=== PATIENT | male | born 1965 | race Caucasian/White ===

== ENCOUNTER 2016-06-02 08:18 | Inpatient (IN) | payer OTHER ==
[2016-06-02] MEDS ORDERED: NACL 0.9% 1000 ML 1,000 ML IV ONE ×2 (08:34→08:40)
[2016-06-02 09:08] LABS: INR 1.33 (0.87-1.13)
[2016-06-02 09:09] LABS: Partial Thromboplastin Time 32.2 Sec. (24.2-36.6)
[2016-06-02 09:14] LABS: Alanine Aminotransferase 17 units/L (7-56); Albumin 3.2 g/dL (3.9-5); Albumin/Globulin Ratio 0.9 %; Alkaline Phosphatase 72 units/L (35-129); Anion Gap 23 mmol/L; Bilirubin,Total 0.8 mg/dL (0.1-1.2); Blood Urea Nitrogen 16 mg/dL (9-20); Calcium 8.3 mg/dL (8.4-10.2); Carbon Dioxide 19 mmol/L (22-30); Chloride 97.1 mmol/L (98-107); Glucose 272 mg/dL (75-100); Hematocrit 16.6 % (35.5-45.6); Hemoglobin 5.1 gm/dl (11.8-15.2); Lipase 87 units/L (13-60); Mean Corpuscular Hemoglobin 24 pg (28-32); Mean Corpuscular Volume 78 fl (84-94); Potassium 4.1 mmol/L (3.6-5.0); Red Blood Count 2.13 M/mm3 (3.65-5.03); Sodium 135 mmol/L (137-145); Total Protein 6.9 g/dL (6.3-8.2)
[2016-06-02 09:15] LABS: Basophils % (Auto) 0.4 % (0.0-1.8); Mean Corpuscular HGB Conc 30 % (32-34); Mean Platelet Volume 7.9 fl (6-12); Platelet Count 214 K/mm3 (140-440); Red Cell Distribution Width 22.1 % (13.2-15.2)
[2016-06-02] MEDS ORDERED: NACL 0.9% 500 ML 500 ML IV ONE (10:31)
--- NOTE | 2016-06-02 10:43 | Admit Criteria Form ---
Admission Criteria Documentation: GASTROINTESTINAL BLEEDING, LOWER Clinical Indications for Admission to Inpatient Care ( Place 'X' for any and all applicable criteria): Admission is indicated for ANY ONE of the following(1)(2)(3)(4)(5): [X ]I. Active gross bleeding per rectum [X ]II. Inpatient admission required rather than observation care (Also use Gastrointestinal Bleeding, Lower: Observation Care as appropriate) because of ANY ONE of the following: [ ]a) Hemodynamic instability that is severe or persistent [X ]b) Anemia requiring inpatient admission as indicated by ALL of the following: [ X]1) Presence of significant clinical finding indicated by ANY ONE of the following: [ X]A. Tachycardia for age [ ]B. Orthostatic vital sign changes [ ]C. Cognitive impairment [ ]D. Heart failure [ ]E. Chest pain [ ]F. Exertional dyspnea [ ]G. Other findings suggesting inadequate perfusion (eg, peripheral or myocardial ischemia, end organ dysfunction) [ ]2) Initial (eg, emergency department, observation care) treatment with transfusion or volume replacement is judged inappropriate (due to severity of the finding) or has been ineffective [ ]c) Severe pain requiring acute inpatient management [ ]d) Absent bowel sounds with complete ileus [ ]e) Signs of intestinal obstruction or peritonitis [A] [ ]f) High-risk low platelet count [ ]g) Severe electrolyte abnormalities requiring inpatient care [ ]h) Acute renal failure [ ]i) High fever or infection requiring inpatient admission as indicated by ANY ONE of the following(8)(9): [ ]1) Appropriate outpatient or observation care antimicrobial treatment unavailable, not effective, or not feasible Documented bacteremia [ ]2) Documented bacteremia [ ]3) Temperature greater than 104.9 degrees F ( 40.5 degrees C) (oral) [ ]4) Temperature greater than 103.1 degrees F ( 39.5 degrees C) (oral) or less than 96.8 degrees F (36 degrees C) (rectal) that does not respond to all emergency treatment measures [ ]j) IV fluid to replace significant ongoing losses ( greater than 3 L/m2 per day) [ ]k) Immediate inpatient surgery needed [ ]l) Parenteral nutrition regimen that must be implemented on inpatient basis [ ]m) Other condition, treatment or monitoring requiring inpatient admission [ ]III. Unstable comorbid illness (renal, hepatic, pulmonary, hematologic, neurologic, or cardiac) [ ]IV. Failure to control bleeding after colonoscopy [ ]V. Coagulopathy [ ]. Suspected or known ischemic colitis(6) [ ]VII. Previous aortic graft placement or known aortic aneurysm Extended stay beyond goal length of stay may be needed for(3)(4)(28): [ ]a) Emergency surgery [ ]b) Coagulation abnormalities(26) [ ]c) Recurrent or persistent bleeding, continued vital sign instability(27)( 28) [ ]d) Active comorbidities (eg, renal insufficiency, heart failure, pre- existing liver disease) The original [facility] content created by [facility] has been revised. The portions of the content which have been revised are identified through the use of italic text or in bold, and [facility] has neither reviewed nor approved the modified material. All other unmodified content is copyright [employer] [employer] Please see references footnoted in the original [facility] edition 2016 Admission Criteria Met: Yes
--- NOTE | 2016-06-02 11:03 | Emergency Department Report ---
ED GI Bleed HPI - General Chief complaint: GI Bleed Stated complaint: RECTAL BLEEDING Time Seen by Provider: 06/02/16 08:36 Source: patient, EMS Mode of arrival: Stretcher Limitations: Language Barrier - History of Present Illness Initial comments: 51-year-old male presents to the emergency department complaining of rectal bleeding. Patient reports the onset of bleeding approximately 1 AM. He reports multiple episodes of bright red blood per rectum. Patient denies abdominal pain. There has been no nausea or vomiting. Patient was complaining of right hand pain at the site where EMS attempted IV placement. There are no other complaints. MD complaint: gross hematochezia -: Sudden, During the night Time: 01:00 Quality: painless Consistency: intermittent Improves with: none Worsens with: none Context: liver disease, alcohol abuse Associated Symptoms: denies other symptoms - Related Data Home Medications Medication Instructions Recorded Confirmed Last Taken No Known Home Medications [No 06/02/16 06/02/16 Unknown Reported Home Medications] Allergies Allergy/AdvReac Type Severity Reaction Status Date / Time No Known Allergies Allergy Verified 06/02/16 08:50 ED Review of Systems ROS: Stated complaint: RECTAL BLEEDING Other details as noted in HPI Comment: All other systems reviewed and negative Gastrointestinal: as per HPI, hematochezia ED Past Medical Hx - Past Medical History Previous Medical History?: Yes Hx Liver Disease: Yes Additional medical history: ETOH ABUSE,. ABD ULCERS - Surgical History Past Surgical History?: Yes Additional Surgical History: ABD SURGERIES AND ABD MESH AND POSS PLASTIC - Family History Family history: no significant - Social History Smoking Status: Never Smoker Substance Use Type: Alcohol, Prescribed - Medications Home Medications: Home Medications Medication Instructions Recorded Confirmed Last Taken Type No Known Home Medications [No 06/02/16 06/02/16 Unknown History Reported Home Medications] ED Physical Exam - General Limitations: Language Barrier General appearance: alert, in no apparent distress - Head Head exam: Present: atraumatic, normocephalic - Eye Eye exam: Present: normal appearance, PERRL, EOMI - ENT ENT exam: Present: normal exam, normal orophraynx, mucous membranes moist - Neck Neck exam: Present: normal inspection, full ROM. Absent: tenderness - Respiratory Respiratory exam: Present: normal lung sounds bilaterally. Absent: respiratory distress - Cardiovascular Cardiovascular Exam: Present: normal rhythm, tachycardia, normal heart sounds - GI/Abdominal GI/Abdominal exam: Present: soft, distended, normal bowel sounds. Absent: tenderness, guarding, rebound - Extremities Exam Extremities exam: Present: normal inspection, full ROM. Absent: tenderness - Back Exam Back exam: Present: normal inspection, full ROM. Absent: tenderness - Neurological Exam Neurological exam: Present: alert, oriented X3. Absent: motor sensory deficit - Skin Skin exam: Present: warm, dry, intact ED Course Vital Signs 06/02/16 06/02/16 06/02/16 08:21 08:30 08:41 Temperature 98.8 F Pulse Rate 115 H 109 H 110 H Respiratory 11 L 19 14 Rate Blood Pressure 119/73 118/74 118/74 O2 Sat by Pulse 94 100 100 Oximetry 06/02/16 06/02/16 06/02/16 08:51 09:00 09:11 Temperature Pulse Rate 103 H 110 H 121 H Respiratory 17 11 L 14 Rate Blood Pressure 123/67 119/62 119/62 O2 Sat by Pulse 99 99 99 Oximetry ED Medical Decision Making - Lab Data Result diagrams: 06/02/16 08:40 06/02/16 08:40 - EKG Data -: EKG Interpreted by Ms EKG shows normal: sinus rhythm, QRS complexes, ST-T waves Rate: tachycardia - EKG Data When compared to previous EKG there are: previous EKG unavailable Interpretation: other (sinus tachycardia, RBBB, left axis deviation) - Medical Decision Making Laboratory results reviewed and discussed with the patient. 4 units of packed red blood cells has been ordered. Dr. Rebollar GI has been consulted. Patient is to be admitted by the hospitalist. - Differential Diagnosis GI bleed, anemia, cirrhosis Critical care attestation.: If time is entered above; I have spent that time in minutes in the direct care of this critically ill patient, excluding procedure time. ED Disposition Clinical Impression: GI bleeding Qualifiers: GI bleed type/associated pathology: anorectal hemorrhage Qualified Code(s): K62.5 - Hemorrhage of anus and rectum Anemia Qualifiers: Anemia type: unspecified type Qualified Code(s): D64.9 - Anemia, unspecified Disposition: OP ADMITTED IP TO THIS HOSP Is pt being admited?: Yes Condition: Stable Referrals: PRIMARY CARE, [Primary Care Provider] - 3-5 Days Forms: Accompanied Note Time of Disposition: 11:06
[2016-06-02] MEDS ORDERED: DULCOLAX PR PRN (12:30)
[2016-06-02] MEDS ORDERED: D50W (25GM) IV PRN (12:30)
[2016-06-02] MEDS ORDERED: ZOFRAN IV PRN (12:30)
[2016-06-02] MEDS ORDERED: TYLENOL PO PRN (12:30)
--- NOTE | 2016-06-02 12:36 | History and Physical Report ---
History of Present Illness Date of admission: 06/02/16 11:09 Chief complaint: BRBPR History of present illness: 51m w Past medical history of liver cirrhosis who presents with bright red blood per rectum since 1 AM. He states that prior to this he was in his normal state of health, he denies any abdominal pain, denies any cramps, just notes that he has painless rectal bleeding. He's had a large amount of blood and clots in his stool, he's had multiple bowel movements after which she said her feeling weak prompting to come into the ER. He admits having a history of peptic ulcer disease, but has never had bleeding like this in the past. He also admits to his abdomen feeling hot and warm (he states that he had a paracentesis 2 years ago. Past History Past Medical History: other (liver cirrhosis) Past Surgical History: Other (multiple abdominal surgeries due to trauma, including gastrectomy and temporary colostomy) Social history: alcohol abuse (in the past) Family history: no significant family history Medications and Allergies Allergies Allergy/AdvReac Type Severity Reaction Status Date / Time No Known Allergies Allergy Verified 06/02/16 08:50 Home Medications Medication Instructions Recorded Confirmed Last Taken Type No Known Home Medications [No 06/02/16 06/02/16 Unknown History Reported Home Medications] Active Meds: Active Medications Acetaminophen (Tylenol) 650 mg PO Q4H PRN PRN Reason: Pain MILD(1-3)/Fever >100.5/PINA Bisacodyl (Dulcolax) 10 mg VT QDAY PRN PRN Reason: Constipation unrelieved by MOM Dextrose (D50w (25gm)) 50 ml IV PRN PRN PRN Reason: Hypoglycemia Sodium Chloride (Nacl 0.9% 1000 Ml) 1,000 mls @ 100 mls/hr IV DIRECT MACARIO Insulin Aspart (Novolog) 0 units SUB-Q Q6HR MACARIO PRN Reason: Protocol Magnesium Hydroxide (Milk Of Magnesia) 30 ml PO Q4H PRN PRN Reason: Constipation Ondansetron HCl (Zofran) 4 mg IV Q8H PRN PRN Reason: N/V unrelieved by Reglan Review of Systems All systems: negative Constitutional: weakness, malaise Exam - Constitutional Vitals: Temp Pulse Resp BP Pulse Ox 98.3 F 117 H 18 113/68 100 06/02/16 12:05 06/02/16 12:05 06/02/16 12:05 06/02/16 12:05 06/02/16 12:05 General appearance: Present: no acute distress, well-nourished - EENT Eyes: Present: PERRL ENT: hearing intact, clear oral mucosa - Neck Neck: Present: supple, normal ROM - Respiratory Respiratory effort: normal Respiratory: bilateral: CTA - Cardiovascular Heart Sounds: Present: S1 & S2. Absent: rub, click - Extremities Extremities: pulses symmetrical, No edema Peripheral Pulses: within normal limits - Abdominal General gastrointestinal: Present: soft, non-tender, distended (with shifting dullness), normal bowel sounds, other (warm to touch) Male genitourinary: Present: normal - Integumentary Integumentary: Present: clear, warm, dry - Musculoskeletal Musculoskeletal: gait normal, strength equal bilaterally - Psychiatric Psychiatric: appropriate mood/affect, intact judgment & insight - Neurologic Neurologic: CNII-XII intact, moves all extremities Results - Labs CBC & Chem 7: 06/02/16 08:40 06/02/16 08:40 Labs: Laboratory Last Values WBC 7.0 K/mm3 (4.5-11.0) 06/02/16 08:40 RBC 2.13 M/mm3 (3.65-5.03) L 06/02/16 08:40 Hgb 5.1 gm/dl (11.8-15.2) L* 06/02/16 08:40 Hct 16.6 % (35.5-45.6) L* 06/02/16 08:40 MCV 78 fl (84-94) L 06/02/16 08:40 MCH 24 pg (28-32) L 06/02/16 08:40 MCHC 30 % (32-34) L 06/02/16 08:40 RDW 22.1 % (13.2-15.2) H 06/02/16 08:40 Plt Count 214 K/mm3 (140-440) 06/02/16 08:40 Lymph % (Auto) 4.8 % (13.4-35.0) L 06/02/16 08:40 [place] % (Auto) 8.3 % (0.0-7.3) H 06/02/16 08:40 Eos % (Auto) 0.0 % (0.0-4.3) 06/02/16 08:40 Baso % (Auto) 0.4 % (0.0-1.8) 06/02/16 08:40 Lymph # 0.3 K/mm3 (1.2-5.4) L 06/02/16 08:40 [place] # 0.6 K/mm3 (0.0-0.8) 06/02/16 08:40 Eos # 0.0 K/mm3 (0.0-0.4) 06/02/16 08:40 Baso # 0.0 K/mm3 (0.0-0.1) 06/02/16 08:40 Seg Neutrophils % 86.1 % (40.0-70.0) H 06/02/16 08:40 Seg Neutrophils # 6.0 K/mm3 (1.8-7.7) 06/02/16 08:40 PT 16.4 Sec. (12.2-14.9) H 06/02/16 08:40 INR 1.33 (0.87-1.13) H 06/02/16 08:40 APTT 32.2 Sec. (24.2-36.6) 06/02/16 08:40 Sodium 135 mmol/L (137-145) L 06/02/16 08:40 Potassium 4.1 mmol/L (3.6-5.0) 06/02/16 08:40 Chloride 97.1 mmol/L (98-107) L 06/02/16 08:40 Carbon Dioxide 19 mmol/L (22-30) L 06/02/16 08:40 Anion Gap 23 mmol/L 06/02/16 08:40 BUN 16 mg/dL (9-20) 06/02/16 08:40 Creatinine 0.8 mg/dL (0.8-1.5) 06/02/16 08:40 Estimated GFR > 60 ml/min 06/02/16 08:40 BUN/Creatinine Ratio 20.00 % 06/02/16 08:40 Glucose 272 mg/dL (75-100) H 06/02/16 08:40 Calcium 8.3 mg/dL (8.4-10.2) L 06/02/16 08:40 Total Bilirubin 0.8 mg/dL (0.1-1.2) 06/02/16 08:40 AST 28 units/L (5-40) 06/02/16 08:40 ALT 17 units/L (7-56) 06/02/16 08:40 Alkaline Phosphatase 72 units/L (35-129) 06/02/16 08:40 Total Protein 6.9 g/dL (6.3-8.2) 06/02/16 08:40 Albumin 3.2 g/dL (3.9-5) L 06/02/16 08:40 Albumin/Globulin Ratio 0.9 % 06/02/16 08:40 Lipase 87 units/L (13-60) H 06/02/16 08:40 Blood Type O POSITIVE 06/02/16 08:40 Antibody Screen Negative 06/02/16 08:40 Crossmatch See Detail 06/02/16 08:40 Assessment and Plan Assessment and plan: 51-year-old man with a past medical history of alcohol leg liver cirrhosis who presented 1 day of bright red blood per rectum, admitted for GI bleed and acute blood loss anemia 1. Acute blood loss anemia 4 units of packed red blood cells been ordered, follow-up post transfusion hemoglobin 2. Lower GI bleed Given the presentation and the painless nature of it, suspicious for diverticular bleeding. GI has been consulted for possible colonoscopy 3. Hyperglycemia Patient does not report a history of diabetes, will obtain hemoglobin A1c, treat with sliding scale insulin at low dose 4. DVT prophylaxis Given acute bleeding, we'll treat him with SCDs 5. SBP? Obtain paracenteis and send off fluid for analysis -start empiric cefotaxime Plan of care discussed with patient/family: Yes
--- NOTE | 2016-06-02 13:04 | Gastroenterology Consultation ---
History of Present Illness - Reason for Consult Consult date: 06/02/16 GI bleeding Requesting physician: JENNIFER MILLS - History of Present Illness The patient is a 51-year-old male for whom consultation has been requested for gastrointestinal bleeding. Patient reports having a bleeding event in January of the past year for which he underwent upper endoscopy and colonoscopy by his description. He reports having an ulcer. The patient felt that his workup was here although there are no records available at this institution to document this. He reports being on medication for a while and was back to baseline until approximately 1 AM when he began passing large amounts of blood and clots. Recent felt very weak and came to the emergency room for evaluation. Hemoglobin is 5.1 and an MCV was 78. He denies any abdominal pain except for mild cramping in the lower abdomen. His past medical history was notable for abdominal trauma in 2013 for which he underwent multiple surgeries. He describes having a partial gastrectomy at that time and had a temporary colostomy for 2 years. He states he had a" plastic stomach". Patient does not smoke cigarettes and denies any significant alcohol ingestion now or in the past. Denies any history of cirrhosis of the liver. He notes a family history colon cancer, his mother. Past History Past Medical History: other (Struve peptic ulcer disease and bleeding in January 2016) Past Surgical History: Other (multiple abdominal surgeries related to a fall. History of partial gastrectomy by description and a temporary colostomy.) Social history: denies: smoking, alcohol abuse Family history: no significant family history Medications and Allergies Allergies Allergy/AdvReac Type Severity Reaction Status Date / Time No Known Allergies Allergy Verified 06/02/16 08:50 Home Medications Medication Instructions Recorded Confirmed Last Taken Type No Known Home Medications [No 06/02/16 06/02/16 Unknown History Reported Home Medications] Active Meds: Active Medications Acetaminophen (Tylenol) 650 mg PO Q4H PRN PRN Reason: Pain MILD(1-3)/Fever >100.5/PINA Bisacodyl (Dulcolax) 10 mg LA QDAY PRN PRN Reason: Constipation unrelieved by MOM Dextrose (D50w (25gm)) 50 ml IV PRN PRN PRN Reason: Hypoglycemia Sodium Chloride (Nacl 0.9% 1000 Ml) 1,000 mls @ 100 mls/hr IV DIRECT MACARIO Insulin Aspart (Novolog) 0 units SUB-Q Q6HR MACARIO PRN Reason: Protocol Magnesium Hydroxide (Milk Of Magnesia) 30 ml PO Q4H PRN PRN Reason: Constipation Ondansetron HCl (Zofran) 4 mg IV Q8H PRN PRN Reason: N/V unrelieved by Reglan Review of Systems - Review of Systems Constitutional: weight loss, weight gain, fatigue, weakness, no fever, no chills Eyes: change in vision Ears, Nose, Throat: no decreased hearing, no difficulty swallowing Breasts: deferred Cardiovascular: no chest pain, no shortness of breath Respiratory: no cough, no shortness of breath, no wheezing Gastrointestinal: hematochezia, no abdominal pain, no nausea, no vomiting, no diarrhea, no constipation, no melena Rectal: pain Male Genitourinary: deferred Musculoskeletal: gait dysfunction, joint pain, muscle pain, muscle weakness Integumentary: rash, pruritis, jaundice Neurological: head injury, paralysis, weakness, parasthesias, memory loss Psychiatric: no anxiety, no memory loss, no change in sleep habits Endocrine: no cold intolerance Hematologic/Lymphatic: no easy bruising, no easy bleeding Allergic/Immunologic: no wheezing, no angioedema Exam - Constitutional Vital Signs: Temp Pulse Resp BP Pulse Ox 98.5 F 109 H 20 99/35 98 06/02/16 12:30 06/02/16 12:30 06/02/16 12:38 06/02/16 12:30 06/02/16 12:38 General appearance: no acute distress, well-nourished - EENT Eyes: PERRL ENT: hearing intact, clear oral mucosa, dentition normal - Neck Neck: supple, normal ROM, no masses or JVD - Respiratory Respiratory effort: normal Respiratory: bilateral: CTA - Breasts Breasts: deferred - Cardiovascular Rhythm: regular Heart Sounds: Present: S1 & S2. Absent: gallop, rub Extremities: pulses intact, No edema, normal color, Full ROM - Gastrointestinal General gastrointestinal: Present: soft, non-tender, non-distended, normal bowel sounds, other (obese pendulous abdomen. Long midline scar. 5 centimeter ventral hernia. Mid abdominal with a healing surface-prior colostomy). Absent : hepatomegaly, splenomegaly, mass Rectal Exam: deferred - Genitourinary Male Genitourinary: deferred - Integumentary Integumentary: Present: clear, warm, dry - Musculoskeletal Musculoskeletal: normal - Neurologic Neurological: alert and oriented x3, strength equal bilaterally - Psychiatric Psychiatric: appropriate mood/affect, intact judgment & insight, memory intact - Labs CBC & Chem 7: 06/02/16 08:40 06/02/16 08:40 Assessment and Plan - Patient Problems (1) History of bleeding ulcers Current Visit: Yes Status: Acute (2) Acute blood loss anemia Current Visit: Yes Status: Acute (3) Anemia Current Visit: Yes Status: Acute Qualifiers: Anemia type: unspecified type Iron deficiency anemia type: I Vitamin B12 deficiency anemia type: V Folate deficiency anemia type: F Bone marrow failure anemia type: B Hemolytic anemia type: H Other causes of anemia: O Qualified Code(s): D64.9 - Anemia, unspecified (4) GI bleeding Current Visit: Yes Status: Acute Qualifiers: GI bleed type/associated pathology: anorectal hemorrhage Gastritis type: G Qualified Code(s): K62.5 - Hemorrhage of anus and rectum Plan to address problem: Acute GI blood loss likely on top of chronic GI blood loss in light of the low MCV. Rule out marginal ulcer, rule out diverticular disease, varices. Will need upper and lower endoscopy once transfused and further stabilized. Plan colon preparation tonight.
[2016-06-02] MEDS: PROTONIX IV SCH ×2 (15:20→22:11)
[2016-06-02] MEDS: ROCEPHIN/NS 1 GM/50 ML 1 GM/50 ML BAG IV SCH (17:57)
[2016-06-02] MEDS ORDERED: NACL 0.9% IV SCH (18:00)
[2016-06-02] MEDS ORDERED: CLAFORAN IV SCH (18:00)
[2016-06-02] MEDS: NOVOLOG SUB-Q SCH (18:26)
[2016-06-02] MEDS: GOLYTELY PO SCH ×2 (18:27→23:09)
[2016-06-02] MEDS: NACL 0.9% 1000 ML 1,000 ML IV SCH (20:34)
[2016-06-02 21:58] LABS: Hematocrit 22.8 % (35.5-45.6); Hemoglobin 7.4 gm/dl (11.8-15.2)
[2016-06-03] MEDS: NOVOLOG SUB-Q SCH ×4 (02:28→17:47)
[2016-06-03 06:42] LABS: Basophils % (Auto) 0.6 % (0.0-1.8); Eosinophils % (Auto) 2.4 % (0.0-4.3); Hemoglobin 6.1 gm/dl (11.8-15.2); Mean Corpuscular HGB Conc 33 % (32-34); Mean Corpuscular Hemoglobin 26 pg (28-32); Mean Corpuscular Volume 80 fl (84-94); Platelet Count 170 K/mm3 (140-440); Red Cell Distribution Width 18.3 % (13.2-15.2); White Blood Count 6.5 K/mm3 (4.5-11.0)
[2016-06-03 07:11] LABS: Hematocrit 18.4 % (35.5-45.6)
[2016-06-03] MEDS: PROTONIX IV SCH ×2 (09:02→22:17)
[2016-06-03] MEDS: NACL 0.9% 1000 ML 1,000 ML IV SCH (09:03)
[2016-06-03] MEDS ORDERED: NACL 0.9% 500 ML 500 ML IV ONE (09:45)
[2016-06-03] MEDS ORDERED: DIPRIVAN 10 MG/ML IV ONE ×4 (10:32→11:36)
--- NOTE | 2016-06-03 10:58 | Anesthesia Day of Surgery ---
Anesthesia Day of Surgery - Day of Surgery Patient Examined: Yes Patient H&P Reviewed: Yes Patient is NPO: Yes
--- NOTE | 2016-06-03 10:58 | Anesthesia Consultation ---
Anesthesia Consult and Med Hx Date of service: 06/03/16 - Airway Anesthetic Teeth Evaluation: Poor ROM Head & Neck: Inadequate Mental/Hyoid Distance: Inadequate Mallampati Class: Class III Intubation Access Assessment: Possibly Difficult - Pulmonary Exam CTA: Yes - Cardiac Exam Cardiac Exam: RRR - Pre-Operative Health Status ASA Pre-Surgery Classification: ASA3 Proposed Anesthetic Plan: MAC - Pulmonary Hx Asthma: No COPD: No Hx Pneumonia: No - Cardiovascular System Hx Hypertension: Yes - Central Nervous System Hx Back Pain: Yes (lumbar from prior accident) - Gastrointestinal Hx Ulcer: Yes Hx Gastroesophageal Reflux Disease: Yes - Endocrine Hx End Stage Renal Disease: No Hx Liver Disease: Yes Hx Insulin Dependent Diabetes: Yes (recent diagnosis) - Hematic Hx Anemia: Yes Hx Sickle Cell Disease: No - Other Systems Hx Alcohol Use: Yes (1-2 beers/week) Hx Substance Use: No Hx Cancer: No Hx Obesity: Yes
[2016-06-03] MEDS ORDERED: XYLOCAINE MPF 2% ONE (10:59)
[2016-06-03] MEDS ORDERED: NEO SYNEPHRINE ONE (10:59)
[2016-06-03] MEDS ORDERED: NACL 0.9% 1000 ML ONE (10:59)
[2016-06-03] MEDS ORDERED: NACL 0.9% 1000 ML 1,000 ML IV SCH (11:00)
[2016-06-03] MEDS ORDERED: WATER FOR IRRIG STERILE IR ONE (11:54)
--- NOTE | 2016-06-03 11:54 | Post Operative Note ---
Date of procedure: 06/03/16 Pre-op diagnosis: GI bleed Post-op diagnosis: other Findings: EGD: mild esophagitis, otherwise unremarkable. no blood or source of bleeding seen. Colonoscopy: fresh and old appearing blood throughout the colon, with blood seen in the terminal ileum. Surgical sutures seen in colon but non-bleeding without obvious bleeding stigmata. Mild diverticulosis. Patient with obscure overt GI bleeding. No obvious source seen during egd/ colonoscopy. Blood seen in terminal ileum. There were a few tics and old suture sites in the colon, but otherwise no obvious source of bleeding identified. -Transfuse 2 units, and monitor H/H -transfer to MICU -will discuss with IR Procedure: colonoscopy + EGD Anesthesia: MAC Surgeon: SANTIAGO LUNA Estimated blood loss: minimal Pathology: none Condition: stable
--- NOTE | 2016-06-03 13:05 | Operative Report ---
PROCEDURE: EGD. PREOPERATIVE DIAGNOSIS: Gastrointestinal bleed. POSTOPERATIVE DIAGNOSES: Mild esophagitis, otherwise unremarkable EGD, no source of bleeding identified. ANESTHESIA: Monitored anesthesia care. ESTIMATED BLOOD LOSS: None. COMPLICATIONS: No immediate complications. DESCRIPTION OF PROCEDURE: After consent was obtained, the patient was placed in left lateral decubitus position. The standard upper Fujinon scope was advanced with direct vision through the mouth and into the duodenum without difficulty. The views of mucosa were good. The patient tolerated the procedure well. FINDINGS: There was mild esophagitis, otherwise unremarkable EGD. No source of bleeding identified during the procedure. RECOMMENDATIONS: Proceed with colonoscopy. JOB# [id number] HONORIO/NTS
--- NOTE | 2016-06-03 13:09 | Operative Report ---
PROCEDURE: Colonoscopy. PREOPERATIVE DIAGNOSIS: Gastrointestinal bleed. POSTOPERATIVE DIAGNOSES: Fresh appearing blood with multiple clots seen throughout the colon including fresh appearing blood in terminal ileum. There were old suture site in the colon, but they were not actively bleeding and did not show any obvious high risk bleeding stigmata. There were few small , but otherwise no clear source of bleeding identified during the procedure. IMPRESSION: Blood throughout the colon into the terminal ileum. There were old sutures sites and some mild but I cannot confidently say that is source of bleeding. RECOMMENDATIONS: 1. We will discuss with Interventional Radiology for possible angiography and embolization. 2. Continue transfuse blood as needed to keep hematocrit above 21. 3. Transferred to the ICU for closer monitoring. JOB# [id number] HONORIO/NTS
--- NOTE | 2016-06-03 13:50 | Post Anesthesia Evaluation ---
- Post Anesthesia Evaluation Patient Participated: Yes Airway Patent: Yes Stable Respiratory Function: Yes Nausea/Vomiting: No Temp > 96.8F: Yes Pain Manageable: Yes Adequeate Hydration: Yes Anesthesia Complications: No Block Receding Appropriately: Not Applicable Patient on Ventilator: No Other Comments: plan to tranfuse more blood.
[2016-06-03] MEDS ORDERED: HEPARIN/NS 5000 UNIT/500ML(CATH LAB) 500 ML IR ONE ×2 (14:00→14:06)
[2016-06-03] MEDS ORDERED: XYLOCAINE 2% INFILTRATI ONE (14:00)
[2016-06-03] MEDS: VERSED ONE ×2 (14:20→15:20)
[2016-06-03] MEDS: SUBLIMAZE ONE ×2 (14:20→15:20)
--- NOTE | 2016-06-03 14:54 | Progress Note ---
Hospitalist Physical - Constitutional Vitals: Temp Pulse Resp BP Pulse Ox 98.1 F 96 H 18 152/94 98 06/03/16 12:48 06/03/16 13:09 06/03/16 13:09 06/03/16 13:09 06/03/16 13:09 General appearance: Present: no acute distress, well-nourished Results - Labs CBC & Chem 7: 06/03/16 05:35 06/02/16 08:40 Labs: Laboratory Last Values WBC 6.5 K/mm3 (4.5-11.0) 06/03/16 05:35 RBC 2.30 M/mm3 (3.65-5.03) L 06/03/16 05:35 Hgb 6.1 gm/dl (11.8-15.2) L 06/03/16 05:35 Hct 18.4 % (35.5-45.6) L* 06/03/16 05:35 MCV 80 fl (84-94) L 06/03/16 05:35 MCH 26 pg (28-32) L 06/03/16 05:35 MCHC 33 % (32-34) 06/03/16 05:35 RDW 18.3 % (13.2-15.2) H 06/03/16 05:35 Plt Count 170 K/mm3 (140-440) 06/03/16 05:35 Lymph % (Auto) 23.9 % (13.4-35.0) 06/03/16 05:35 [place] % (Auto) 11.4 % (0.0-7.3) H 06/03/16 05:35 Eos % (Auto) 2.4 % (0.0-4.3) 06/03/16 05:35 Baso % (Auto) 0.6 % (0.0-1.8) 06/03/16 05:35 Lymph # 1.6 K/mm3 (1.2-5.4) 06/03/16 05:35 [place] # 0.7 K/mm3 (0.0-0.8) 06/03/16 05:35 Eos # 0.2 K/mm3 (0.0-0.4) 06/03/16 05:35 Baso # 0.0 K/mm3 (0.0-0.1) 06/03/16 05:35 Seg Neutrophils % 61.7 % (40.0-70.0) 06/03/16 05:35 Seg Neutrophils # 4.0 K/mm3 (1.8-7.7) 06/03/16 05:35 PT 16.4 Sec. (12.2-14.9) H 06/02/16 08:40 INR 1.33 (0.87-1.13) H 06/02/16 08:40 APTT 32.2 Sec. (24.2-36.6) 06/02/16 08:40 Sodium 135 mmol/L (137-145) L 06/02/16 08:40 Potassium 4.1 mmol/L (3.6-5.0) 06/02/16 08:40 Chloride 97.1 mmol/L (98-107) L 06/02/16 08:40 Carbon Dioxide 19 mmol/L (22-30) L 06/02/16 08:40 Anion Gap 23 mmol/L 06/02/16 08:40 BUN 16 mg/dL (9-20) 06/02/16 08:40 Creatinine 0.8 mg/dL (0.8-1.5) 06/02/16 08:40 Estimated GFR > 60 ml/min 06/02/16 08:40 BUN/Creatinine Ratio 20.00 % 06/02/16 08:40 Glucose 272 mg/dL (75-100) H 06/02/16 08:40 POC Glucose 149 (70-105) H 06/03/16 10:43 Calcium 8.3 mg/dL (8.4-10.2) L 06/02/16 08:40 Total Bilirubin 0.8 mg/dL (0.1-1.2) 06/02/16 08:40 AST 28 units/L (5-40) 06/02/16 08:40 ALT 17 units/L (7-56) 06/02/16 08:40 Alkaline Phosphatase 72 units/L (35-129) 06/02/16 08:40 Total Protein 6.9 g/dL (6.3-8.2) 06/02/16 08:40 Albumin 3.2 g/dL (3.9-5) L 06/02/16 08:40 Albumin/Globulin Ratio 0.9 % 06/02/16 08:40 Lipase 87 units/L (13-60) H 06/02/16 08:40 Blood Type O POSITIVE 06/02/16 08:40 Antibody Screen Negative 06/02/16 08:40 Crossmatch See Detail 06/02/16 08:40
[2016-06-03] MEDS ORDERED: NACL 0.9% 500 ML 500 ML ONE (15:34)
[2016-06-03] MEDS ORDERED: SUBLIMAZE ONE (16:02)
--- NOTE | 2016-06-03 16:30 | Consultation ---
History of Present Illness - Reason for Consult Consult date: 06/03/16 [facility] Requesting physician: RAUDEL LUNA - History of Present Illness This is a 51 year old male presenting with lower GI bleeding. He had approximately 2 days of melena before presenting to the hospital. In upper and lower endoscopy was performed. The upper endoscopy was negative. The lower endoscopy revealed fresh and old blood throughout the large bowel, including trace fresh blood in the distal ileum. There were scattered diverticula. There were also postsurgical changes, related to left colonic surgery. However , the patient could not further elaborate on the details of the surgery. Past History Past Medical History: other (liver cirrhosis) Past Surgical History: Other (multiple abdominal surgeries due to trauma, including gastrectomy and temporary colostomy) Social history: alcohol abuse (in the past) Family history: no significant family history Medications and Allergies Allergies Allergy/AdvReac Type Severity Reaction Status Date / Time No Known Allergies Allergy Verified 06/02/16 08:50 Home Medications Medication Instructions Recorded Confirmed Last Taken Type No Known Home Medications [No 06/02/16 06/02/16 Unknown History Reported Home Medications] Active Meds: Active Medications Acetaminophen (Tylenol) 650 mg PO Q4H PRN PRN Reason: Pain MILD(1-3)/Fever >100.5/PINA Bisacodyl (Dulcolax) 10 mg [place] QDAY PRN PRN Reason: Constipation unrelieved by MOM Dextrose (D50w (25gm)) 50 ml IV PRN PRN PRN Reason: Hypoglycemia Sodium Chloride (Nacl 0.9% 1000 Ml) 1,000 mls @ 100 mls/hr IV DIRECT [facility] Last Admin: 06/03/16 09:03 Dose: 100 mls/hr Ceftriaxone Sodium (Rocephin/Ns 1 Gm/50 Ml) 1 gm in 50 mls @ 100 mls/hr IV Q24H [facility] Last Admin: 06/02/16 17:57 Dose: 100 mls/hr Insulin Aspart (Novolog) 0 units SUB-Q Q6HR [facility] PRN Reason: Protocol Last Admin: 06/03/16 06:35 Dose: Not Given Magnesium Hydroxide (Milk Of Magnesia) 30 ml PO Q4H PRN PRN Reason: Constipation Ondansetron HCl (Zofran) 4 mg IV Q8H PRN PRN Reason: N/V unrelieved by Reglan Pantoprazole Sodium (Protonix) 40 mg IV BID [facility] Last Admin: 06/03/16 09:02 Dose: 40 mg Exam - Constitutional Vitals: Temp Pulse Resp BP Pulse Ox 98.1 F 96 H 18 152/94 98 06/03/16 12:48 06/03/16 13:09 06/03/16 13:09 06/03/16 13:09 06/03/16 13:09 Results - Labs CBC & Chem 7: 06/03/16 05:35 06/02/16 08:40 Labs: Abnormal lab results 06/02/16 06/03/16 06/03/16 Range/Units 21:36 00:07 05:35 RBC 2.30 L (3.65-5.03) M/mm3 Hgb 7.4 L 6.1 L (11.8-15.2) gm/dl Hct 22.8 L D 18.4 L* (35.5-45.6) % MCV 80 L (84-94) fl MCH 26 L (28-32) pg RDW 18.3 H (13.2-15.2) % [place] % (Auto) 11.4 H (0.0-7.3) % POC Glucose 158 H (70-105) 06/03/16 Range/Units 10:43 RBC (3.65-5.03) M/mm3 Hgb (11.8-15.2) gm/dl Hct (35.5-45.6) % MCV (84-94) fl MCH (28-32) pg RDW (13.2-15.2) % [place] % (Auto) (0.0-7.3) % POC Glucose 149 H (70-105) Assessment and Plan Mr. Lofton presents with a lower GI bleed and a lower endoscopy demonstrating clot and fresh blood throughout the large bowel. At this time he is tachycardic to 101 and somewhat hypotensive at 97/60. His last hemoglobin was 6.1, and he is currently getting 2 units of packed red blood cells. In light of his positive endoscopy and some what abnormal hemodynamics, I will bring him to the [facility] for mesenteric angiography with possible embolization.
--- NOTE | 2016-06-03 16:45 | Operative Report ---
Operative Report Operative Report: Procedure: 1. Superior mesenteric select and sub selective angiography. 2. Inferior mesenteric angiography. History/Indication: 51-year-old male with lower GI bleeding and lower endoscopy positive for fresh blood and clot throughout the large bowel. Impression: No evidence of active gastrointestinal bleeding. Physician: Belen Hernandez MD Technique/Procedural Details: Informed consent was obtained via a japanese interpreter. The patient was placed in the supine position on the procedure table. He was prepped and draped in the usual sterile fashion. A timeout was performed. After administration of local anesthetic, the right common femoral artery was accessed with a 21-gauge needle using a micropuncture technique under direct ultrasound guidance. A 5 Tamazight vascular sheath was placed, and a motify Omni catheter was advanced into the aorta and used to select the superior mesenteric artery. Superior mesenteric arteriography was performed. Subsequently, branches of the superior mesenteric artery were selectively interrogated, including the right colic artery and ileocolic arteries. A [place] SIM 1 was then used to select the inferior mesenteric artery and other branches, and arteriography was performed. Subsequently, all catheters and wires were removed. Hemostasis was achieved with manual compression. Sterile dressings were applied. The patient was transferred off the table in stable condition without immediate complication. Discussion: The superior mesenteric artery is grossly normal in appearance. The right colic and ileocolic branches are also normal in appearance. Selective angiography demonstrates no active contrast extravasation to indicate the presence of bleeding. There is variant anatomy of the inferior mesenteric artery, which may be due to an unspecified left colonic surgery. The LEA appears to originate just above the aortic bifurcation. Additionally, the superior rectal artery has a separate ostium directly from the aorta, although this may have been due to the catheter being occlusive at the origin of the vessel. In no interrogated branches was contrast extravasation seen to indicate active bleeding. Specimen: none EBL: 5 cc
--- NOTE | 2016-06-03 17:38 | Vascular Lab Report ---
MISCELLANEOUS VESSEL IDENTIFICATION: COMMENTS ON THE SCAN: The right common femoral artery was identified and under real-time ultrasound guidance was cannulated. IMPRESSION: Successful ultrasound guided arterial cannulation.
[2016-06-03] MEDS: ROCEPHIN/NS 1 GM/50 ML 1 GM/50 ML BAG IV SCH (17:48)
[2016-06-04] MEDS: NOVOLOG SUB-Q SCH ×3 (06:22→12:12)
[2016-06-04] MEDS: NACL 0.9% 1000 ML 1,000 ML IV SCH (07:52)
[2016-06-04 08:27] LABS: Hemoglobin 6.2 gm/dl (11.8-15.2); Mean Corpuscular HGB Conc 33 % (32-34); Mean Corpuscular Hemoglobin 29 pg (28-32); Mean Corpuscular Volume 86 fl (84-94); Platelet Count 157 K/mm3 (140-440); Red Blood Count 2.16 M/mm3 (3.65-5.03); Red Cell Distribution Width 17.4 % (13.2-15.2); White Blood Count 7.9 K/mm3 (4.5-11.0)
[2016-06-04 08:29] LABS: Hematocrit 18.5 % (35.5-45.6)
[2016-06-04] MEDS ORDERED: NACL 0.9% 500 ML 500 ML IV SCH (09:00)
[2016-06-04] MEDS: PROTONIX IV SCH ×2 (09:35→21:35)
[2016-06-04] MEDS ORDERED: NACL 0.9% 500 ML 500 ML IV ONE ×2 (10:06→13:12)
--- NOTE | 2016-06-04 10:10 | Gastroenterology Progress Note ---
Assessment and Plan GI bleed/hematochezia - s/p EGD/colonoscopy yesterday. EGD unremarkable. Blood throughout the colon and in TI. Only explanation seen during colonoscopy would be tics (although small and appeared more left sided, and possible suture site from prior surgeries (however did not see high risk bleeding stigmata, but there was mild inflammation). IR/angiography was negative for active bleed. No signs of further bleeding overnight. -start clear liquid diet -transfuse 2 units, and monitor H/H for appropriate response -if pt were to rebleed, options would be repeating colonoscopy vs bleeding scan/ IR study -consider UGI with SBFT to r/o any significant small bowel lesions Subjective Date of service: 06/04/16 Principal diagnosis: GI bleed Interval history: pt without further bleeding episodes overnight or this morning. IR study w/o signs of active bleeding. he denies abd pain. Objective - Exam Narrative Exam: Gen: NAD, obese male CV: tachycardic, nl s1 and s2 Lungs: CTAB, non labored Abd: soft, mod distention, nt, +bs Ext: no c/c/e - Constitutional Vitals: Temp Pulse Resp BP Pulse Ox 98.5 F 110 H 11 L 129/64 100 06/04/16 04:08 06/04/16 09:51 06/04/16 09:51 06/04/16 09:51 06/04/16 09:51 - Neurologic Neurological: alert and oriented x3 - Psychiatric Psychiatric: appropriate mood/affect - Labs CBC & Chem 7: 06/04/16 08:17 06/02/16 08:40 Labs: Laboratory Results - last 24 hr 06/03/16 06/03/16 06/03/16 08:51 10:43 17:00 WBC RBC Hgb Hct MCV MCH MCHC RDW Plt Count POC Glucose 179 H 149 H 142 H 06/03/16 06/04/16 22:17 08:17 WBC 7.9 RBC 2.16 L Hgb 6.2 L Hct 18.5 L* MCV 86 D MCH 29 MCHC 33 RDW 17.4 H Plt Count 157 POC Glucose 139 H - Imaging Bleeding Scan: report reviewed
--- NOTE | 2016-06-04 11:10 | Consultation ---
History of Present Illness Consult date: 06/04/16 Requesting physician: JENNIFER MILLS History of present illness: PULMONARY/CCM CONSULT (Full note dictated # [id number]) Please see dictated notes for full details Past History Past Medical History: other (liver cirrhosis) Past Surgical History: Other (multiple abdominal surgeries due to trauma, including gastrectomy and temporary colostomy) Social history: alcohol abuse (in the past) Family history: no significant family history Medications and Allergies Allergies Allergy/AdvReac Type Severity Reaction Status Date / Time No Known Allergies Allergy Verified 06/02/16 08:50 Home Medications Medication Instructions Recorded Confirmed Last Taken Type No Known Home Medications [No 06/02/16 06/02/16 Unknown History Reported Home Medications] Active Meds: Active Medications Acetaminophen (Tylenol) 650 mg PO Q4H PRN PRN Reason: Pain MILD(1-3)/Fever >100.5/PINA Bisacodyl (Dulcolax) 10 mg [place] QDAY PRN PRN Reason: Constipation unrelieved by MOM Dextrose (D50w (25gm)) 50 ml IV PRN PRN PRN Reason: Hypoglycemia Sodium Chloride (Nacl 0.9% 1000 Ml) 1,000 mls @ 100 mls/hr IV DIRECT [facility] Last Admin: 06/04/16 07:52 Dose: 75 mls/hr Ceftriaxone Sodium (Rocephin/Ns 1 Gm/50 Ml) 1 gm in 50 mls @ 100 mls/hr IV Q24H [facility] Last Admin: 06/03/16 17:48 Dose: Not Given Sodium Chloride (Nacl 0.9% 500 Ml) 500 mls @ 50 mls/hr IV DIRECT [facility] Sodium Chloride (Nacl 0.9% 500 Ml) 500 mls @ 0 mls/hr IV ONCE ONE PRN Reason: As Directed Stop: 06/04/16 10:07 Insulin Aspart (Novolog) 0 units SUB-Q Q6HR [facility] PRN Reason: Protocol Last Admin: 06/04/16 06:24 Dose: Not Given Magnesium Hydroxide (Milk Of Magnesia) 30 ml PO Q4H PRN PRN Reason: Constipation Ondansetron HCl (Zofran) 4 mg IV Q8H PRN PRN Reason: N/V unrelieved by Reglan Pantoprazole Sodium (Protonix) 40 mg IV BID [facility] Last Admin: 06/04/16 09:35 Dose: 40 mg Physical Examination Vital signs: Vital Signs Temp Pulse Resp BP Pulse Ox 98.8 F 115 H 11 L 119/73 94 06/02/16 08:21 06/02/16 08:21 06/02/16 08:21 06/02/16 08:21 06/02/16 08:21 Results - Laboratory Findings CBC and BMP: 06/04/16 08:17 06/02/16 08:40 PT/INR, D-dimer PT 16.4 Sec. (12.2-14.9) H 06/02/16 08:40 INR 1.33 (0.87-1.13) H 06/02/16 08:40 Abnormal lab findings: Abnormal Labs 06/02/16 06/03/16 06/03/16 21:36 00:07 05:35 RBC 2.30 L Hgb 7.4 L 6.1 L Hct 22.8 L D 18.4 L* MCV 80 L MCH 26 L RDW 18.3 H [place] % (Auto) 11.4 H POC Glucose 158 H 06/03/16 06/03/16 06/03/16 08:51 10:43 17:00 RBC Hgb Hct MCV MCH RDW [place] % (Auto) POC Glucose 179 H 149 H 142 H 06/03/16 06/04/16 22:17 08:17 RBC 2.16 L Hgb 6.2 L Hct 18.5 L* MCV MCH RDW 17.4 H [place] % (Auto) POC Glucose 139 H
[2016-06-04] MEDS: ROCEPHIN/NS 1 GM/50 ML 1 GM/50 ML BAG IV SCH (17:31)
--- NOTE | 2016-06-04 17:32 | Progress Note ---
Assessment and Plan Assessment and plan: 51-year-old man with a past medical history of alcohol leg liver cirrhosis who presented 1 day of bright red blood per rectum, admitted for GI bleed and acute blood loss anemia 1. Acute blood loss anemia still having bloody stools but they have eased up sp 6 units of PRBC and 1 unit of FFP and still no improvement in blood count, will order another 4 units and 1 unit FFP 2. Lower GI bleed Given the presentation and the painless nature of it, Cscope showed blood throughout, but source of bleeding not identified, if rebleeds with need IR study 3. Hyperglycemia Patient does not report a history of diabetes, will obtain hemoglobin A1c, treat with sliding scale insulin at low dose 4. DVT prophylaxis Given acute bleeding, we'll treat him with SCDs 5. SBP? Obtain paracenteis and send off fluid for analysis, will be performed when patient is more stable -start empiric abx Hospitalist Physical - Constitutional Vitals: Temp Pulse Resp BP Pulse Ox 98.5 F 100 H 20 101/69 100 06/04/16 16:51 06/04/16 16:51 06/04/16 16:51 06/04/16 16:51 06/04/16 16:31 General appearance: Present: no acute distress, well-nourished Results - Labs CBC & Chem 7: 06/04/16 08:17 06/02/16 08:40 Labs: Laboratory Last Values WBC 7.9 K/mm3 (4.5-11.0) 06/04/16 08:17 RBC 2.16 M/mm3 (3.65-5.03) L 06/04/16 08:17 Hgb 6.2 gm/dl (11.8-15.2) L 06/04/16 08:17 Hct 18.5 % (35.5-45.6) L* 06/04/16 08:17 MCV 86 fl (84-94) D 06/04/16 08:17 MCH 29 pg (28-32) 06/04/16 08:17 MCHC 33 % (32-34) 06/04/16 08:17 RDW 17.4 % (13.2-15.2) H 06/04/16 08:17 Plt Count 157 K/mm3 (140-440) 06/04/16 08:17 Lymph % (Auto) 23.9 % (13.4-35.0) 06/03/16 05:35 [place] % (Auto) 11.4 % (0.0-7.3) H 06/03/16 05:35 Eos % (Auto) 2.4 % (0.0-4.3) 06/03/16 05:35 Baso % (Auto) 0.6 % (0.0-1.8) 06/03/16 05:35 Lymph # 1.6 K/mm3 (1.2-5.4) 06/03/16 05:35 [place] # 0.7 K/mm3 (0.0-0.8) 06/03/16 05:35 Eos # 0.2 K/mm3 (0.0-0.4) 06/03/16 05:35 Baso # 0.0 K/mm3 (0.0-0.1) 06/03/16 05:35 Seg Neutrophils % 61.7 % (40.0-70.0) 06/03/16 05:35 Seg Neutrophils # 4.0 K/mm3 (1.8-7.7) 06/03/16 05:35 PT 16.4 Sec. (12.2-14.9) H 06/02/16 08:40 INR 1.33 (0.87-1.13) H 06/02/16 08:40 APTT 32.2 Sec. (24.2-36.6) 06/02/16 08:40 Sodium 135 mmol/L (137-145) L 06/02/16 08:40 Potassium 4.1 mmol/L (3.6-5.0) 06/02/16 08:40 Chloride 97.1 mmol/L (98-107) L 06/02/16 08:40 Carbon Dioxide 19 mmol/L (22-30) L 06/02/16 08:40 Anion Gap 23 mmol/L 06/02/16 08:40 BUN 16 mg/dL (9-20) 06/02/16 08:40 Creatinine 0.8 mg/dL (0.8-1.5) 06/02/16 08:40 Estimated GFR > 60 ml/min 06/02/16 08:40 BUN/Creatinine Ratio 20.00 % 06/02/16 08:40 Glucose 272 mg/dL (75-100) H 06/02/16 08:40 POC Glucose 146 (70-105) H 06/04/16 16:09 Calcium 8.3 mg/dL (8.4-10.2) L 06/02/16 08:40 Total Bilirubin 0.8 mg/dL (0.1-1.2) 06/02/16 08:40 AST 28 units/L (5-40) 06/02/16 08:40 ALT 17 units/L (7-56) 06/02/16 08:40 Alkaline Phosphatase 72 units/L (35-129) 06/02/16 08:40 Total Protein 6.9 g/dL (6.3-8.2) 06/02/16 08:40 Albumin 3.2 g/dL (3.9-5) L 06/02/16 08:40 Albumin/Globulin Ratio 0.9 % 06/02/16 08:40 Lipase 87 units/L (13-60) H 06/02/16 08:40 Blood Type O POSITIVE 06/02/16 08:40 Antibody Screen Negative 06/02/16 08:40 Crossmatch See Detail 06/02/16 08:40
--- NOTE | 2016-06-04 21:37 | Consultation ---
CONSULTING PHYSICIAN: Angelito Chase MD REASON FOR CONSULTATION: Acute GI bleed without appropriate response to blood transfusions. CHIEF COMPLAINT AND HISTORY OF PRESENT ILLNESS: The patient is a 51-year-old male with past medical history significant for diagnosis of liver cirrhosis, came into the Emergency Room, it seems with bright red blood per rectum that had been going on for a few hours prior to initial admission, this was yesterday. He denied any abdominal pain. Denied any cramping. Denied any trauma. He just had painless bright red blood per rectum. He was evaluated in the ER. He was found to indeed have some bloody looking stool and was admitted to the telemetry floor. He was seen by the GI team and endoscopy apparently was not fully revealing for an active bleeding source and he reportedly received, I believe 4 units of packed red cells with an inappropriate response. His hemoglobin went from 5.1-7.4 after the 4 units and by the next day was down to 6.1 which was yesterday as a result of the inappropriate response and the fact that even Interventional Radiology with an angiography was unable to find an active bleeding source. Decision was made to observe him in the intensive care unit to ensure that there would not be a catastrophic bleed. When I stopped by to see him, he was resting in bed. He had been started on a regular diet. Essentially, he noticed a little bit of blood in his stools earlier today, but mostly old looking blood. He denied nausea, vomiting, abdominal pain, was keeping any food down. Denied fevers or chills. Now with regards to tobacco use or abuse history, he had denied any. This really is as much of the history of presentation as I have. PAST MEDICAL HISTORY: Again, liver cirrhosis, history of alcohol abuse which he has stopped according to him and he is obese. PAST SURGICAL HISTORY: He has had multiple abdominal surgeries due to trauma including a gastrectomy and a temporary colostomy at a point. MEDICATIONS: He was on at the time I stopped by to see him, according to the medication administration record included the following: Tylenol 650 mg p.o. q.4h. p.r.n. mild pain and fevers, Rocephin 1 gram IV daily, insulin via sliding scale, milk of magnesia p.r.n., Zofran 4 mg IV q.8h. p.r.n. for nausea and vomiting, Protonix 40 mg IV b.i.d., I believe that has been changed to p.o. b.i.d. now. ALLERGIES: No known drug allergies. DIET: Obese gentleman. Denies acute weight loss or gain in the preceding few weeks to months. FAMILY AND SOCIAL HISTORY: Lives in the community. Denies current alcohol, tobacco, or illicit drug use or abuse. He does have a history of alcohol abuse in the past. REVIEW OF SYSTEMS: No loss of consciousness. No new onset seizures. No new onset focal weakness. He had the gross hematochezia and some melena. No gross hematuria. No hematemesis. No hemoptysis. No palpitations. Complete review of systems obtained. Pertinent positives and/or negatives as in body of history above, otherwise they are noncontributory. PHYSICAL EXAMINATION: VITAL SIGNS: At initial presentation in the Emergency Room, he was afebrile, temperature 98.8, pulse was 115, respiratory rate was 11, blood pressure 119/73, oxygen sats 94%, inspired oxygen concentration was not recorded. HEAD, EYES, EARS, NOSE, AND THROAT: Pupils are equal, round, about 3-4 mm, reactive to light. Extraocular muscle movements are intact. Grossly, no palpable lymph nodes in the supraclavicular or submandibular lymph node chains. Oropharynx is a Mallampati #3-4 oropharynx. No significant posterior oropharyngeal erythema. LUNGS: Clear to auscultation bilaterally. HEART: Heart sounds 1 and 2 are heard, regular rate and rhythm, at the time of my evaluation, he had a soft systolic ejection murmur. ABDOMEN: Soft, full, bowel sounds are positive, nontender. EXTREMITIES: Without overt digital clubbing or cyanosis. He has trace pedal edema. NEUROLOGIC: The exam was grossly nonfocal. LABORATORY DATA: From my review are as follows: White cell count 7000 at presentation with a hemoglobin of 5.1, hematocrit of 16.6 and platelets of 214. INR was 1.33. Serum sodium was 135, potassium 4.1, chloride 97, bicarbonate 19, BUN 16, creatinine 0.8, glucose 272. AST, ALT within normal limits. Albumin was low at 3.2, lipase ____. Otherwise, liver function tests essentially within normal limits. Hemoglobin went to 7.4 after 4 units packed cells, today hemoglobin is 6.2, it was 6.1 yesterday, I believe. No microbiology studies. No radiographic studies for my review. ASSESSMENT AND PLAN: We have a middle-aged gentleman with history of liver cirrhosis. It is unclear if he also has a history of variceal disease, but I have discussed this case at length with the GI team and we will observe him another 24 hours in the intensive care unit, continue to monitor H and H, give him blood transfusions as appropriate, especially with him begin on a regular diet, we will watch him closely. He is appropriately on GI prophylaxis. He is relatively normotensive. Continued alcohol and tobacco abstinence has been counseled. Flu and pneumonia vaccination will be per protocol. Thank you very much for the consult, Dr. Chase. We will follow along. We will make further recommendations as picture progresses/becomes clearer. JOB# [id number] YOKO/AMNA
[2016-06-05] MEDS: NOVOLOG SUB-Q SCH ×5 (03:54→17:34)
[2016-06-05 04:04] LABS: Basophils % (Auto) 0.3 % (0.0-1.8); Eosinophils % (Auto) 3.6 % (0.0-4.3); Hematocrit 25.2 % (35.5-45.6); Hemoglobin 8.5 gm/dl (11.8-15.2); Mean Corpuscular HGB Conc 34 % (32-34); Mean Corpuscular Hemoglobin 29 pg (28-32); Mean Corpuscular Volume 87 fl (84-94); Platelet Count 145 K/mm3 (140-440); Red Blood Count 2.91 M/mm3 (3.65-5.03); White Blood Count 8.4 K/mm3 (4.5-11.0)
[2016-06-05 04:22] LABS: Anion Gap 16 mmol/L; BUN/Creatinine Ratio 11.42; Blood Urea Nitrogen 8 mg/dL (9-20); Calcium 7.2 mg/dL (8.4-10.2); Carbon Dioxide 25 mmol/L (22-30); Glucose 115 mg/dL (75-100); Potassium 3.1 mmol/L (3.6-5.0); Sodium 138 mmol/L (137-145)
--- NOTE | 2016-06-05 07:17 | Progress Note ---
Assessment and Plan - Patient Problems (1) Anemia Current Visit: Yes Status: Acute Qualifiers: Anemia type: unspecified type Iron deficiency anemia type: I Vitamin B12 deficiency anemia type: V Folate deficiency anemia type: F Bone marrow failure anemia type: B Hemolytic anemia type: H Other causes of anemia: O Qualified Code(s): D64.9 - Anemia, unspecified Plan to address problem: Anemia secondary to GI bleed. Patient has been transfuse. Continue to monitor CBC (2) GI bleeding Current Visit: Yes Status: Acute Qualifiers: GI bleed type/associated pathology: anorectal hemorrhage Gastritis type: G Qualified Code(s): K62.5 - Hemorrhage of anus and rectum Plan to address problem: Acute blood loss anemia still having bloody stools but they have eased up sp 6 units of PRBC and 1 unit of FFP and still no improvement in blood count, will order another 4 units and 1 unit FFP 2. Lower GI bleed Given the presentation and the painless nature of it, Colonoscopy showed blood throughout, but source of bleeding not identified, if pt were to rebleed, options would be repeating colonoscopy vs bleeding scan/ IR study -consider UGI with SBFT to r/o any significant small bowel lesions History Interval history: Patient awake alert this morning feels okay Hospitalist Physical - Constitutional Vitals: Temp Pulse Resp BP Pulse Ox 98.4 F 96 H 20 143/83 96 06/05/16 04:00 06/05/16 06:21 06/05/16 06:21 06/05/16 06:21 06/05/16 06:21 General appearance: Present: no acute distress, well-nourished - EENT Eyes: Present: PERRL, EOM intact ENT: hearing intact, clear oral mucosa - Neck Neck: Present: supple, normal ROM - Respiratory Respiratory effort: normal Respiratory: bilateral: CTA - Cardiovascular Rhythm: regular Heart Sounds: Present: S1 & S2 - Extremities Extremities: no ischemia, No edema - Abdominal General gastrointestinal: soft, tender, non-distended, normal bowel sounds Localized gastrointestinal: tender: diffuse (mild) - Psychiatric Psychiatric: appropriate mood/affect, intact judgment & insight - Neurologic Neurologic: CNII-XII intact, moves all extremities Results - Labs CBC & Chem 7: 06/05/16 03:30 06/05/16 03:30 Labs: Laboratory Last Values WBC 8.4 K/mm3 (4.5-11.0) 06/05/16 03:30 RBC 2.91 M/mm3 (3.65-5.03) L 06/05/16 03:30 Hgb 8.5 gm/dl (11.8-15.2) L 06/05/16 03:30 Hct 25.2 % (35.5-45.6) L D 06/05/16 03:30 MCV 87 fl (84-94) 06/05/16 03:30 MCH 29 pg (28-32) 06/05/16 03:30 MCHC 34 % (32-34) 06/05/16 03:30 RDW 16.0 % (13.2-15.2) H 06/05/16 03:30 Plt Count 145 K/mm3 (140-440) 06/05/16 03:30 Lymph % (Auto) 15.3 % (13.4-35.0) 06/05/16 03:30 [place] % (Auto) 10.1 % (0.0-7.3) H 06/05/16 03:30 Eos % (Auto) 3.6 % (0.0-4.3) 06/05/16 03:30 Baso % (Auto) 0.3 % (0.0-1.8) 06/05/16 03:30 Lymph # 1.3 K/mm3 (1.2-5.4) 06/05/16 03:30 [place] # 0.8 K/mm3 (0.0-0.8) 06/05/16 03:30 Eos # 0.3 K/mm3 (0.0-0.4) 06/05/16 03:30 Baso # 0.0 K/mm3 (0.0-0.1) 06/05/16 03:30 Seg Neutrophils % 70.7 % (40.0-70.0) H 06/05/16 03:30 Seg Neutrophils # 6.0 K/mm3 (1.8-7.7) 06/05/16 03:30 PT 16.4 Sec. (12.2-14.9) H 06/02/16 08:40 INR 1.33 (0.87-1.13) H 06/02/16 08:40 APTT 32.2 Sec. (24.2-36.6) 06/02/16 08:40 Sodium 138 mmol/L (137-145) 06/05/16 03:30 Potassium 3.1 mmol/L (3.6-5.0) L D 06/05/16 03:30 Chloride 100.0 mmol/L (98-107) 06/05/16 03:30 Carbon Dioxide 25 mmol/L (22-30) 06/05/16 03:30 Anion Gap 16 mmol/L 06/05/16 03:30 BUN 8 mg/dL (9-20) L 06/05/16 03:30 Creatinine 0.7 mg/dL (0.8-1.5) L 06/05/16 03:30 Estimated GFR > 60 ml/min 06/05/16 03:30 BUN/Creatinine Ratio 11.42 % 06/05/16 03:30 Glucose 115 mg/dL (75-100) H 06/05/16 03:30 POC Glucose 142 (70-105) H 06/04/16 20:54 Calcium 7.2 mg/dL (8.4-10.2) L 06/05/16 03:30 Total Bilirubin 0.8 mg/dL (0.1-1.2) 06/02/16 08:40 AST 28 units/L (5-40) 06/02/16 08:40 ALT 17 units/L (7-56) 06/02/16 08:40 Alkaline Phosphatase 72 units/L (35-129) 06/02/16 08:40 Total Protein 6.9 g/dL (6.3-8.2) 06/02/16 08:40 Albumin 3.2 g/dL (3.9-5) L 06/02/16 08:40 Albumin/Globulin Ratio 0.9 % 06/02/16 08:40 Lipase 87 units/L (13-60) H 06/02/16 08:40 Blood Type O POSITIVE 06/02/16 08:40 Antibody Screen Negative 06/02/16 08:40 Crossmatch See Detail 06/02/16 08:40
[2016-06-05] MEDS: PROTONIX PO SCH ×2 (11:00→22:35)
--- NOTE | 2016-06-05 11:06 | Gastroenterology Progress Note ---
Assessment and Plan GI: no further signs bleeding overnight - advance diet as tolerated - follow h/h, transfuse as needed - interventions based on progress - will follow Subjective Date of service: 06/05/16 Principal diagnosis: GI bleed Interval history: - no signs bleeding overnight Objective - Constitutional Vitals: Temp Pulse Resp BP Pulse Ox 98.4 F 98 H 17 108/65 97 06/05/16 04:00 06/05/16 09:21 06/05/16 09:21 06/05/16 09:21 06/05/16 09:21 General appearance: no acute distress - Neck Neck: supple - Respiratory Respiratory: bilateral: CTA - Cardiovascular Rhythm: regular Heart Sounds: Present: S1 & S2 - Gastrointestinal General gastrointestinal: Present: soft, non-tender - Labs CBC & Chem 7: 06/05/16 03:30 06/05/16 03:30 Labs: Laboratory Results - last 24 hr 06/04/16 06/04/16 06/04/16 11:57 16:09 20:54 WBC RBC Hgb Hct MCV MCH MCHC RDW Plt Count Lymph % (Auto) [place] % (Auto) Eos % (Auto) Baso % (Auto) Lymph # [place] # Eos # Baso # Seg Neutrophils % Seg Neutrophils # Sodium Potassium Chloride Carbon Dioxide Anion Gap BUN Creatinine Estimated GFR BUN/Creatinine Ratio Glucose POC Glucose 176 H 146 H 142 H Calcium 06/05/16 06/05/16 03:30 03:30 WBC 8.4 RBC 2.91 L Hgb 8.5 L Hct 25.2 L D MCV 87 MCH 29 MCHC 34 RDW 16.0 H Plt Count 145 Lymph % (Auto) 15.3 [place] % (Auto) 10.1 H Eos % (Auto) 3.6 Baso % (Auto) 0.3 Lymph # 1.3 [place] # 0.8 Eos # 0.3 Baso # 0.0 Seg Neutrophils % 70.7 H Seg Neutrophils # 6.0 Sodium 138 Potassium 3.1 L D Chloride 100.0 Carbon Dioxide 25 Anion Gap 16 BUN 8 L Creatinine 0.7 L Estimated GFR > 60 BUN/Creatinine Ratio 11.42 Glucose 115 H POC Glucose Calcium 7.2 L
[2016-06-05] MEDS ORDERED: K-DUR PO ONE (12:00)
--- NOTE | 2016-06-05 13:12 | Event Note ---
Date: 06/05/16 51-year-old male with GI bleed. Slight amount of melena overnight per nurse and patient which could be old blood. H&H stable. Please contact interventional radiology again if we can provide further assistance.
--- NOTE | 2016-06-05 13:22 | Progress Note ---
Assessment and Plan - Patient Problems (1) Acute blood loss anemia Current Visit: Yes Status: Acute Plan to address problem: - H&H stable and will continue to trend - due to GI bleeding below - s/p PRBC transfusion (2) GI bleeding Current Visit: Yes Status: Acute Qualifiers: GI bleed type/associated pathology: anorectal hemorrhage Gastritis type: G Qualified Code(s): K62.5 - Hemorrhage of anus and rectum Plan to address problem: - stable - discussed with GI and will transfer to regular floor with remote telemetry - continue PPI therapy Subjective Date of service: 06/05/16 Principal diagnosis: GI bleed Interval history: Seen and examined at bedside; 24 hour events reviewed; nursing and respiratory care staff consulted; no adverse overnight events reported to me; resting peacefully; no recurrent bleeding and tolerating meals Objective Vital Signs - 12hr 06/05/16 06/05/16 06/05/16 01:30 01:31 01:41 Temperature 98.8 F Pulse Rate 92 H 96 H 95 H Pulse Rate [ From Monitor] Respiratory 23 27 H 19 Rate Blood Pressure 143/62 121/70 143/62 O2 Sat by Pulse 90 96 97 Oximetry 06/05/16 06/05/16 06/05/16 01:51 02:00 02:01 Temperature Pulse Rate 95 H 98 H 103 H Pulse Rate [ From Monitor] Respiratory 25 H 20 Rate Blood Pressure 142/86 140/96 O2 Sat by Pulse 86 96 Oximetry 06/05/16 06/05/16 06/05/16 02:11 02:21 02:31 Temperature Pulse Rate 101 H 92 H 101 H Pulse Rate [ From Monitor] Respiratory 23 22 17 Rate Blood Pressure 140/96 143/95 150/93 O2 Sat by Pulse 100 95 Oximetry 06/05/16 06/05/16 06/05/16 02:32 02:41 02:45 Temperature 98.8 F 98.5 F Pulse Rate 98 H 101 H Pulse Rate [ From Monitor] Respiratory 21 24 Rate Blood Pressure 124/67 150/93 O2 Sat by Pulse 98 96 Oximetry 06/05/16 06/05/16 06/05/16 02:51 03:00 03:11 Temperature Pulse Rate 101 H 99 H 101 H Pulse Rate [ From Monitor] Respiratory 22 24 21 Rate Blood Pressure 146/65 145/74 145/74 O2 Sat by Pulse 98 96 98 Oximetry 06/05/16 06/05/16 06/05/16 03:21 03:31 03:41 Temperature Pulse Rate 102 H 97 H 96 H Pulse Rate [ From Monitor] Respiratory 17 10 L 29 H Rate Blood Pressure 149/80 149/80 139/86 O2 Sat by Pulse 78 L 98 97 Oximetry 06/05/16 06/05/16 06/05/16 03:51 04:00 04:11 Temperature 98.4 F Pulse Rate 102 H 96 H 92 H Pulse Rate [ From Monitor] Respiratory 12 16 21 Rate Blood Pressure 133/85 126/77 126/77 O2 Sat by Pulse 94 100 89 Oximetry 06/05/16 06/05/16 06/05/16 04:21 04:31 04:41 Temperature Pulse Rate 101 H 90 97 H Pulse Rate [ From Monitor] Respiratory 24 20 25 H Rate Blood Pressure 139/79 153/69 153/69 O2 Sat by Pulse 74 L 75 L Oximetry 06/05/16 06/05/16 06/05/16 04:51 05:00 05:11 Temperature Pulse Rate 92 H 97 H 98 H Pulse Rate [ From Monitor] Respiratory 22 17 13 Rate Blood Pressure 151/90 137/79 137/79 O2 Sat by Pulse 91 99 71 L Oximetry 06/05/16 06/05/16 06/05/16 05:21 05:30 05:41 Temperature Pulse Rate 98 H 101 H 96 H Pulse Rate [ From Monitor] Respiratory 21 25 H 14 Rate Blood Pressure 121/76 125/84 125/84 O2 Sat by Pulse 87 94 Oximetry 06/05/16 06/05/16 06/05/16 05:51 06:00 06:11 Temperature Pulse Rate 100 H 92 H 74 Pulse Rate [ From Monitor] Respiratory 19 25 H 13 Rate Blood Pressure 127/73 140/80 140/80 O2 Sat by Pulse 61 L 81 L 92 Oximetry 06/05/16 06/05/16 06/05/16 06:21 06:30 06:41 Temperature Pulse Rate 96 H 99 H 89 Pulse Rate [ From Monitor] Respiratory 20 23 23 Rate Blood Pressure 143/83 143/81 143/81 O2 Sat by Pulse 96 93 95 Oximetry 06/05/16 06/05/16 06/05/16 06:51 07:00 07:11 Temperature Pulse Rate 96 H 97 H 93 H Pulse Rate [ From Monitor] Respiratory 23 9 L 20 Rate Blood Pressure 138/75 131/79 131/79 O2 Sat by Pulse 78 L 98 93 Oximetry 06/05/16 06/05/16 06/05/16 07:21 07:30 07:41 Temperature Pulse Rate 99 H 97 H 83 Pulse Rate [ From Monitor] Respiratory 26 H 11 L 20 Rate Blood Pressure 132/78 126/88 126/88 O2 Sat by Pulse 96 97 95 Oximetry 06/05/16 06/05/16 06/05/16 07:51 08:00 08:01 Temperature 98.3 F Pulse Rate 87 107 H Pulse Rate [ 98 H From Monitor] Respiratory 13 16 16 Rate Blood Pressure 135/69 135/69 O2 Sat by Pulse 96 99 89 Oximetry 06/05/16 06/05/16 06/05/16 08:11 08:21 08:31 Temperature Pulse Rate 99 H 110 H 100 H Pulse Rate [ From Monitor] Respiratory 12 11 L 17 Rate Blood Pressure 135/69 126/72 117/69 O2 Sat by Pulse 95 97 97 Oximetry 06/05/16 06/05/16 06/05/16 08:40 08:51 09:01 Temperature Pulse Rate 103 H 101 H 100 H Pulse Rate [ From Monitor] Respiratory 13 9 L 14 Rate Blood Pressure 117/69 116/67 107/61 O2 Sat by Pulse 96 97 99 Oximetry 06/05/16 06/05/16 06/05/16 09:11 09:21 09:31 Temperature Pulse Rate 101 H 98 H 97 H Pulse Rate [ From Monitor] Respiratory 12 17 21 Rate Blood Pressure 107/61 108/65 112/70 O2 Sat by Pulse 97 98 Oximetry 06/05/16 06/05/16 06/05/16 09:41 09:51 10:00 Temperature Pulse Rate 101 H 96 H 98 H Pulse Rate [ From Monitor] Respiratory 18 20 20 Rate Blood Pressure 112/70 112/70 103/67 O2 Sat by Pulse 89 94 94 Oximetry 06/05/16 06/05/16 06/05/16 10:11 10:21 10:31 Temperature Pulse Rate 96 H 92 H 98 H Pulse Rate [ From Monitor] Respiratory 21 17 14 Rate Blood Pressure 103/67 103/67 103/67 O2 Sat by Pulse 85 89 99 Oximetry 06/05/16 06/05/16 06/05/16 10:41 10:51 11:01 Temperature Pulse Rate 97 H 94 H 99 H Pulse Rate [ From Monitor] Respiratory 27 H 15 20 Rate Blood Pressure 103/67 103/67 103/67 O2 Sat by Pulse 98 99 97 Oximetry 06/05/16 06/05/16 06/05/16 11:11 11:21 11:31 Temperature Pulse Rate 94 H 98 H 96 H Pulse Rate [ From Monitor] Respiratory 16 16 19 Rate Blood Pressure 129/58 129/58 129/58 O2 Sat by Pulse 98 100 98 Oximetry 06/05/16 06/05/16 06/05/16 11:41 11:51 12:00 Temperature 98.6 F Pulse Rate 96 H 93 H 97 H Pulse Rate [ 96 H From Monitor] Respiratory 11 L 19 14 Rate Blood Pressure 129/58 129/58 116/77 O2 Sat by Pulse 99 97 98 Oximetry 06/05/16 06/05/16 06/05/16 12:11 12:20 12:31 Temperature Pulse Rate 101 H 103 H 102 H Pulse Rate [ From Monitor] Respiratory 18 12 13 Rate Blood Pressure 116/77 116/77 116/77 O2 Sat by Pulse 97 99 98 Oximetry 06/05/16 06/05/16 06/05/16 12:40 12:50 13:00 Temperature Pulse Rate 97 H 96 H 97 H Pulse Rate [ From Monitor] Respiratory 13 17 12 Rate Blood Pressure 116/77 116/77 117/72 O2 Sat by Pulse 97 99 100 Oximetry 06/05/16 13:10 Temperature Pulse Rate 99 H Pulse Rate [ From Monitor] Respiratory 18 Rate Blood Pressure 117/72 O2 Sat by Pulse 99 Oximetry Constitutional: no acute distress, alert Eyes: non-icteric ENT: oropharynx moist Neck: supple, no lymphadenopathy Effort: normal Ascultation: Bilateral: clear Cardiovascular: regular rate and rhythm Gastrointestinal: normoactive bowel sounds, soft, non-tender, non-distended Integumentary: normal Extremities: no cyanosis, no edema, pink and warm, pulses normal Neurologic: normal mental status, non-focal exam, pupils equal and round, motor strength normal and Psychiatric: mood appropriate, affect normal CBC and BMP: 06/05/16 03:30 06/05/16 03:30 ABG, PT/INR, D-dimer: PT/INR, D-dimer PT 16.4 Sec. (12.2-14.9) H 06/02/16 08:40 INR 1.33 (0.87-1.13) H 06/02/16 08:40 Abnormal lab findings: Abnormal Labs 06/02/16 06/03/16 06/03/16 21:36 00:07 05:35 RBC 2.30 L Hgb 7.4 L 6.1 L Hct 22.8 L D 18.4 L* MCV 80 L MCH 26 L RDW 18.3 H [place] % (Auto) 11.4 H Seg Neutrophils % Potassium BUN Creatinine Glucose POC Glucose 158 H Calcium 06/03/16 06/03/16 06/03/16 08:51 10:43 17:00 RBC Hgb Hct MCV MCH RDW [place] % (Auto) Seg Neutrophils % Potassium BUN Creatinine Glucose POC Glucose 179 H 149 H 142 H Calcium 06/03/16 06/04/16 06/04/16 22:17 08:17 11:57 RBC 2.16 L Hgb 6.2 L Hct 18.5 L* MCV MCH RDW 17.4 H [place] % (Auto) Seg Neutrophils % Potassium BUN Creatinine Glucose POC Glucose 139 H 176 H Calcium 06/04/16 06/04/16 06/05/16 16:09 20:54 03:30 RBC 2.91 L Hgb 8.5 L Hct 25.2 L D MCV MCH RDW 16.0 H [place] % (Auto) 10.1 H Seg Neutrophils % 70.7 H Potassium BUN Creatinine Glucose POC Glucose 146 H 142 H Calcium 06/05/16 06/05/16 03:30 12:21 RBC Hgb Hct MCV MCH RDW [place] % (Auto) Seg Neutrophils % Potassium 3.1 L D BUN 8 L Creatinine 0.7 L Glucose 115 H POC Glucose 109 H Calcium 7.2 L
[2016-06-05] MEDS: ROCEPHIN/NS 1 GM/50 ML 1 GM/50 ML BAG IV SCH (17:35)
[2016-06-06] MEDS: NOVOLOG SUB-Q SCH ×4 (00:04→18:43)
[2016-06-06 06:42] LABS: Basophils % (Auto) 0.4 % (0.0-1.8); Eosinophils % (Auto) 5.7 % (0.0-4.3); Hematocrit 25.1 % (35.5-45.6); Hemoglobin 8.5 gm/dl (11.8-15.2); Mean Corpuscular HGB Conc 34 % (32-34); Mean Corpuscular Hemoglobin 29 pg (28-32); Mean Corpuscular Volume 87 fl (84-94); Platelet Count 163 K/mm3 (140-440); Red Cell Distribution Width 15.6 % (13.2-15.2); White Blood Count 7.1 K/mm3 (4.5-11.0)
[2016-06-06 07:01] LABS: Alanine Aminotransferase 23 units/L (7-56); Albumin 2.8 g/dL (3.9-5); Albumin/Globulin Ratio 0.8 %; Alkaline Phosphatase 78 units/L (35-129); Anion Gap 15 mmol/L; BUN/Creatinine Ratio 13.33; Bilirubin,Total 0.7 mg/dL (0.1-1.2); Blood Urea Nitrogen 8 mg/dL (9-20); Calcium 7.8 mg/dL (8.4-10.2); Carbon Dioxide 25 mmol/L (22-30); Chloride 101.2 mmol/L (98-107); Glucose 114 mg/dL (75-100); Potassium 3.4 mmol/L (3.6-5.0); Sodium 138 mmol/L (137-145); Total Protein 6.2 g/dL (6.3-8.2)
--- NOTE | 2016-06-06 07:57 | Progress Note ---
Assessment and Plan - Patient Problems (1) Anemia Current Visit: Yes Status: Acute Qualifiers: Anemia type: unspecified type Iron deficiency anemia type: I Vitamin B12 deficiency anemia type: V Folate deficiency anemia type: F Bone marrow failure anemia type: B Hemolytic anemia type: H Other causes of anemia: O Qualified Code(s): D64.9 - Anemia, unspecified Plan to address problem: Anemia secondary to GI bleed. Patient has been transfuse. Continue to monitor CBC.. Hemoglobin and hematocrit remained stable. We'll continue to watch patient overnight and possibly discharge in a.m. (2) GI bleeding Current Visit: Yes Status: Acute Qualifiers: GI bleed type/associated pathology: anorectal hemorrhage Gastritis type: G Qualified Code(s): K62.5 - Hemorrhage of anus and rectum Plan to address problem: Acute blood loss anemia still having bloody stools but they have eased up sp 6 units of PRBC and 1 unit of FFP and still no improvement in blood count, will order another 4 units and 1 unit FFP 2. Lower GI bleed Given the presentation and the painless nature of it, Colonoscopy showed blood throughout, but source of bleeding not identified, if pt were to rebleed, options would be repeating colonoscopy vs bleeding scan/ IR study -consider UGI with SBFT to r/o any significant small bowel lesions History Interval history: Patient awake alert this morning feels okay. Patient denies having any stool overnight. Patient ate breakfast this morning Hospitalist Physical - Constitutional Vitals: Temp Pulse Resp BP Pulse Ox 98.9 F 68 20 139/74 98 06/06/16 05:37 06/06/16 05:37 06/06/16 05:37 06/06/16 05:37 06/06/16 00:37 General appearance: Present: no acute distress, well-nourished - EENT Eyes: Present: PERRL, EOM intact ENT: hearing intact, clear oral mucosa - Neck Neck: Present: supple, normal ROM - Respiratory Respiratory effort: normal Respiratory: bilateral: CTA - Cardiovascular Rhythm: regular Heart Sounds: Present: S1 & S2 - Extremities Extremities: no ischemia, No edema - Abdominal General gastrointestinal: soft, non-tender, non-distended, normal bowel sounds - Psychiatric Psychiatric: appropriate mood/affect, intact judgment & insight - Neurologic Neurologic: CNII-XII intact, moves all extremities Results - Labs CBC & Chem 7: 06/06/16 06:04 06/06/16 06:04 Labs: Laboratory Last Values WBC 7.1 K/mm3 (4.5-11.0) 06/06/16 06:04 RBC 2.90 M/mm3 (3.65-5.03) L 06/06/16 06:04 Hgb 8.5 gm/dl (11.8-15.2) L 06/06/16 06:04 Hct 25.1 % (35.5-45.6) L 06/06/16 06:04 MCV 87 fl (84-94) 06/06/16 06:04 MCH 29 pg (28-32) 06/06/16 06:04 MCHC 34 % (32-34) 06/06/16 06:04 RDW 15.6 % (13.2-15.2) H 06/06/16 06:04 Plt Count 163 K/mm3 (140-440) 06/06/16 06:04 Lymph % (Auto) 12.5 % (13.4-35.0) L 06/06/16 06:04 [place] % (Auto) 9.7 % (0.0-7.3) H 06/06/16 06:04 Eos % (Auto) 5.7 % (0.0-4.3) H 06/06/16 06:04 Baso % (Auto) 0.4 % (0.0-1.8) 06/06/16 06:04 Lymph # 0.9 K/mm3 (1.2-5.4) L 06/06/16 06:04 [place] # 0.7 K/mm3 (0.0-0.8) 06/06/16 06:04 Eos # 0.4 K/mm3 (0.0-0.4) 06/06/16 06:04 Baso # 0.0 K/mm3 (0.0-0.1) 06/06/16 06:04 Seg Neutrophils % 71.7 % (40.0-70.0) H 06/06/16 06:04 Seg Neutrophils # 5.1 K/mm3 (1.8-7.7) 06/06/16 06:04 PT 16.4 Sec. (12.2-14.9) H 06/02/16 08:40 INR 1.33 (0.87-1.13) H 06/02/16 08:40 APTT 32.2 Sec. (24.2-36.6) 06/02/16 08:40 Sodium 138 mmol/L (137-145) 06/06/16 06:04 Potassium 3.4 mmol/L (3.6-5.0) L 06/06/16 06:04 Chloride 101.2 mmol/L (98-107) 06/06/16 06:04 Carbon Dioxide 25 mmol/L (22-30) 06/06/16 06:04 Anion Gap 15 mmol/L 06/06/16 06:04 BUN 8 mg/dL (9-20) L 06/06/16 06:04 Creatinine 0.6 mg/dL (0.8-1.5) L 06/06/16 06:04 Estimated GFR > 60 ml/min 06/06/16 06:04 BUN/Creatinine Ratio 13.33 % 06/06/16 06:04 Glucose 114 mg/dL (75-100) H 06/06/16 06:04 POC Glucose 121 (70-105) H 06/06/16 07:02 Calcium 7.8 mg/dL (8.4-10.2) L 06/06/16 06:04 Total Bilirubin 0.7 mg/dL (0.1-1.2) 06/06/16 06:04 AST 41 units/L (5-40) H 06/06/16 06:04 ALT 23 units/L (7-56) 06/06/16 06:04 Alkaline Phosphatase 78 units/L (35-129) 06/06/16 06:04 Total Protein 6.2 g/dL (6.3-8.2) L 06/06/16 06:04 Albumin 2.8 g/dL (3.9-5) L 06/06/16 06:04 Albumin/Globulin Ratio 0.8 % 06/06/16 06:04 Lipase 87 units/L (13-60) H 06/02/16 08:40 Blood Type O POSITIVE 06/02/16 08:40 Antibody Screen Negative 06/02/16 08:40 Crossmatch See Detail 06/02/16 08:40
[2016-06-06] MEDS: PROTONIX PO SCH ×2 (11:44→22:56)
--- NOTE | 2016-06-06 14:15 | Gastroenterology Progress Note ---
Assessment and Plan GI: no further signs bleeding - h/h stable - tolerating po - ok to d/c from GI standpoint - will sign off, call if needed Subjective Date of service: 06/06/16 Principal diagnosis: GI bleed Interval history: - pt without signs bleeding overnight Objective - Constitutional Vitals: Temp Pulse Resp BP Pulse Ox 98.8 F 95 H 18 125/70 100 06/06/16 10:37 06/06/16 10:37 06/06/16 10:37 06/06/16 10:37 06/06/16 10:37 General appearance: no acute distress - Respiratory Respiratory: bilateral: CTA - Cardiovascular Rhythm: regular Heart Sounds: Present: S1 & S2 - Gastrointestinal General gastrointestinal: Present: soft, non-tender, non-distended - Labs CBC & Chem 7: 06/06/16 06:04 06/06/16 06:04 Labs: Laboratory Results - last 24 hr 06/05/16 06/06/16 06/06/16 17:04 00:05 06:04 WBC 7.1 RBC 2.90 L Hgb 8.5 L Hct 25.1 L MCV 87 MCH 29 MCHC 34 RDW 15.6 H Plt Count 163 Lymph % (Auto) 12.5 L [place] % (Auto) 9.7 H Eos % (Auto) 5.7 H Baso % (Auto) 0.4 Lymph # 0.9 L [place] # 0.7 Eos # 0.4 Baso # 0.0 Seg Neutrophils % 71.7 H Seg Neutrophils # 5.1 Sodium Potassium Chloride Carbon Dioxide Anion Gap BUN Creatinine Estimated GFR BUN/Creatinine Ratio Glucose POC Glucose 123 H 136 H Calcium Total Bilirubin AST ALT Alkaline Phosphatase Total Protein Albumin Albumin/Globulin Ratio 06/06/16 06/06/16 06/06/16 06:04 07:02 09:58 WBC RBC Hgb Hct MCV MCH MCHC RDW Plt Count Lymph % (Auto) [place] % (Auto) Eos % (Auto) Baso % (Auto) Lymph # [place] # Eos # Baso # Seg Neutrophils % Seg Neutrophils # Sodium 138 Potassium 3.4 L Chloride 101.2 Carbon Dioxide 25 Anion Gap 15 BUN 8 L Creatinine 0.6 L Estimated GFR > 60 BUN/Creatinine Ratio 13.33 Glucose 114 H POC Glucose 121 H 192 H Calcium 7.8 L Total Bilirubin 0.7 AST 41 H ALT 23 Alkaline Phosphatase 78 Total Protein 6.2 L Albumin 2.8 L Albumin/Globulin Ratio 0.8
--- NOTE | 2016-06-06 14:59 | Event Note ---
Date: 06/06/16 no new issues denies acute chest pains or increased SOB; no recurrent bleeding - will see prn at this point
[2016-06-06] MEDS: ROCEPHIN/NS 1 GM/50 ML 1 GM/50 ML BAG IV SCH (18:45)
[2016-06-07] MEDS: NOVOLOG SUB-Q SCH ×4 (00:30→18:48)
[2016-06-07 06:59] LABS: Basophils % (Auto) 0.3 % (0.0-1.8); Eosinophils % (Auto) 3.3 % (0.0-4.3); Hematocrit 25.1 % (35.5-45.6); Hemoglobin 8.2 gm/dl (11.8-15.2); Mean Corpuscular HGB Conc 33 % (32-34); Mean Corpuscular Hemoglobin 29 pg (28-32); Mean Corpuscular Volume 89 fl (84-94); Platelet Count 177 K/mm3 (140-440); Red Blood Count 2.82 M/mm3 (3.65-5.03); Red Cell Distribution Width 16.5 % (13.2-15.2); White Blood Count 8.1 K/mm3 (4.5-11.0)
[2016-06-07 07:26] LABS: Alanine Aminotransferase 23 units/L (7-56); Albumin 2.9 g/dL (3.9-5); Albumin/Globulin Ratio 0.8 %; Alkaline Phosphatase 89 units/L (35-129); Anion Gap 17 mmol/L; BUN/Creatinine Ratio 14.28; Bilirubin,Total 0.6 mg/dL (0.1-1.2); Blood Urea Nitrogen 10 mg/dL (9-20); Calcium 7.9 mg/dL (8.4-10.2); Carbon Dioxide 25 mmol/L (22-30); Chloride 99.5 mmol/L (98-107); Glucose 117 mg/dL (75-100); Potassium 3.4 mmol/L (3.6-5.0); Sodium 138 mmol/L (137-145); Total Protein 6.5 g/dL (6.3-8.2)
[2016-06-07] MEDS: PROTONIX PO SCH ×2 (11:03→22:13)
[2016-06-07] MEDS: MILK OF MAGNESIA PO PRN ×2 (15:46→22:13)
--- NOTE | 2016-06-07 17:46 | Progress Note ---
Assessment and Plan 51-year-old man with a past medical history of alcohol leg liver cirrhosis who presented 1 day of bright red blood per rectum, admitted for GI bleed and acute blood loss anemia 1. Acute blood loss anemia still having bloody stools but they have eased up. sp 6 units of PRBC and 1 unit of FFP and still no improvement in blood count, will order another 4 units and 1 unit FFP 2. Lower GI bleed Given the presentation and the painless nature of it, scope showed blood throughout, but source of bleeding not identified, if rebleeds with need IR study 3. Hyperglycemia Patient does not report a history of diabetes, will obtain hemoglobin A1c, treat with sliding scale insulin at low dose 4. DVT prophylaxis Given acute bleeding, we'll treat him with SCDs 5. SBP? Obtain paracenteis and send off fluid for analysis, will be performed when patient is more stable -start empiric abx Subjective Date of service: 06/07/16 Principal diagnosis: GI bleed Interval history: still passing dark tarry stool today per pt Objective - Constitutional Vitals: Vital Signs - 12hr 06/07/16 11:30 Temperature 99.0 F Pulse Rate [ 84 Left Dorsalis Pedis] Respiratory 18 Rate Blood Pressure 110/71 [Right Arm] O2 Sat by Pulse 97 Oximetry General appearance: Present: no acute distress, well-nourished - EENT Eyes: PERRL, EOM intact ENT: hearing intact, clear oral mucosa - Neck Neck: supple, normal ROM - Respiratory Respiratory effort: normal Respiratory: bilateral: CTA - Cardiovascular Rhythm: regular Heart Sounds: Present: S1 & S2. Absent: gallop, rub Extremities: pulses intact, No edema, normal color, Full ROM - Gastrointestinal General gastrointestinal: Present: soft, non-tender, non-distended, normal bowel sounds - Integumentary Integumentary: clear, warm, dry - Musculoskeletal Musculoskeletal: 1, strength equal bilaterally - Neurologic Neurologic: moves all extremities - Psychiatric Psychiatric: memory intact, appropriate mood/affect, intact judgment & insight - Labs CBC & Chem 7: 06/07/16 05:37 06/07/16 05:37 Labs: Abnormal lab results 06/06/16 06/06/16 06/07/16 Range/Units 12:41 21:34 05:37 RBC 2.82 L (3.65-5.03) M/mm3 Hgb 8.2 L (11.8-15.2) gm/dl Hct 25.1 L (35.5-45.6) % RDW 16.5 H (13.2-15.2) % Lymph % (Auto) 12.6 L (13.4-35.0) % [place] % (Auto) 9.5 H (0.0-7.3) % Lymph # 1.0 L (1.2-5.4) K/mm3 Seg Neutrophils % 74.3 H (40.0-70.0) % Potassium (3.6-5.0) mmol/L Creatinine (0.8-1.5) mg/dL Glucose (75-100) mg/dL POC Glucose 113 H 120 H (70-105) Calcium (8.4-10.2) mg/dL Albumin (3.9-5) g/dL 06/07/16 06/07/16 Range/Units 05:37 14:04 RBC (3.65-5.03) M/mm3 Hgb (11.8-15.2) gm/dl Hct (35.5-45.6) % RDW (13.2-15.2) % Lymph % (Auto) (13.4-35.0) % [place] % (Auto) (0.0-7.3) % Lymph # (1.2-5.4) K/mm3 Seg Neutrophils % (40.0-70.0) % Potassium 3.4 L (3.6-5.0) mmol/L Creatinine 0.7 L (0.8-1.5) mg/dL Glucose 117 H (75-100) mg/dL POC Glucose 129 H (70-105) Calcium 7.9 L (8.4-10.2) mg/dL Albumin 2.9 L (3.9-5) g/dL
[2016-06-07] MEDS: ROCEPHIN/NS 1 GM/50 ML 1 GM/50 ML BAG IV SCH (18:17)
[2016-06-08] MEDS: NOVOLOG SUB-Q SCH ×4 (00:16→18:16)
[2016-06-08] MEDS: PROTONIX PO SCH ×2 (09:52→21:21)
[2016-06-08] MEDS: ROCEPHIN/NS 1 GM/50 ML 1 GM/50 ML BAG IV SCH (18:16)
--- NOTE | 2016-06-08 22:06 | Discharge Summary ---
Providers - Providers Date of Admission: 06/02/16 11:09 Date of discharge: 06/08/16 Attending physician: BRANDON WHITE 06/03/16 11:56 Consult to Interventional Radiology [CONS] Urgent Consulting Provider: YULISSA TREADWELL Reason For Exam: obscure overt GI bleed Place consult to:: interventional radiology Notified:: yes 06/03/16 17:54 Consult to Physician [CONS] Routine Consulting Provider: WICHO JOHNSON Reason For Exam: Critical care management Place consult to:: Notified:: yes Primary care physician: SHINGLE CUTTER Hospitalization Reason for admission: gi bleeding Condition: Stable Pertinent studies: colonoscopy Procedures: Colonoscopy Right femoral artery canulation Hospital course: Patient is a 42-year-old gentleman who has a history of liver cirrhosis presented to the emergency department with bright red blood per rectum. Patient denies any abdominal pain. 51m w Past medical history of liver cirrhosis who presents with bright red blood per rectum since 1 AM. He states that prior to this he was in his normal state of health, he denies any abdominal pain, denies any cramps, just notes that he has painless rectal bleeding. He's had a large amount of blood and clots in his stool, he's had multiple bowel movements after which she said her feeling weak prompting to come into the ER. He admits having a history of peptic ulcer disease, but has never had bleeding like this in the past. He also admits to his abdomen feeling hot and warm (he states that he had a paracentesis 2 years ago. Disposition: DISCHARGED TO HOME OR SELFCARE Core Measure Documentation - Palliative Care Palliative Care/ Comfort Measures: Not Applicable Exam - Constitutional Vitals: Temp Pulse Resp BP Pulse Ox 98.7 F 78 18 115/59 94 06/08/16 20:03 06/08/16 20:03 06/08/16 20:03 06/08/16 20:03 06/08/16 20:03 General appearance: Present: no acute distress, well-nourished - EENT Eyes: Present: PERRL ENT: hearing intact, clear oral mucosa - Neck Neck: Present: supple, normal ROM - Respiratory Respiratory effort: normal Respiratory: bilateral: CTA - Cardiovascular Heart Sounds: Present: S1 & S2. Absent: rub, click - Extremities Extremities: pulses symmetrical, No edema Peripheral Pulses: within normal limits - Abdominal General gastrointestinal: Present: soft, non-tender, non-distended, normal bowel sounds Male genitourinary: Present: normal - Integumentary Integumentary: Present: clear, warm, dry - Musculoskeletal Musculoskeletal: gait normal, strength equal bilaterally - Psychiatric Psychiatric: appropriate mood/affect, intact judgment & insight - Neurologic Neurologic: CNII-XII intact, moves all extremities Plan Weight Bearing Status: Weight Bear as Tolerated Follow up with: PRIMARY CARE, [Primary Care Provider] - 3-5 Days Forms: Accompanied Note Prescriptions: Lactulose 10 gm PO DAILY #200 ml Pantoprazole [Protonix TAB] 40 mg PO QDAY #30 tablet
--- NOTE | 2016-06-09 08:05 | Progress Note ---
Assessment and Plan 51-year-old man with a past medical history of alcohol leg liver cirrhosis who presented 1 day of bright red blood per rectum, admitted for GI bleed and acute blood loss anemia Patient is being discharged today as she couldn't go yesterday because she was insistent and that he is still passing dark blood per rectum. Patient was advised that this is old blood accumulated despite Son[place]. 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 Acute blood loss anemia still having bloody stools but they have eased up. sp 6 units of PRBC and 1 unit of FFP and still no improvement in blood count, will order another 4 units and 1 unit FFP 2. Lower GI bleed Given the presentation and the painless nature of it, scope showed blood throughout, but source of bleeding not identified, if rebleeds with need IR study 3. Hyperglycemia Patient does not report a history of diabetes, will obtain hemoglobin A1c, treat with sliding scale insulin at low dose 4. DVT prophylaxis Given acute bleeding, we'll treat him with SCDs 5. SBP? Obtain paracenteis and send off fluid for analysis, will be performed when patient is more stable -start empiric abx Subjective Date of service: 06/09/16 Principal diagnosis: GI bleed Interval history: Patient claims that he is still passing dark tarry stool per rectum Objective - Constitutional Vitals: Vital Signs - 12hr 06/09/16 06/09/16 06/09/16 00:16 04:00 05:02 Temperature 97.6 F 98.2 F Pulse Rate 85 Pulse Rate [ 87 97 H Left Dorsalis Pedis] Respiratory 18 18 Rate Blood Pressure 115/65 108/58 [Right Arm] O2 Sat by Pulse 98 97 Oximetry General appearance: Present: no acute distress, well-nourished - EENT Eyes: PERRL, EOM intact - Neck Neck: supple, normal ROM - Respiratory Respiratory effort: normal Respiratory: bilateral: CTA - Cardiovascular Rhythm: regular Heart Sounds: Present: S1 & S2. Absent: gallop, rub Extremities: pulses intact, No edema, normal color, Full ROM - Gastrointestinal General gastrointestinal: Present: soft, non-tender, non-distended, normal bowel sounds - Genitourinary Male genitourinary: normal - Integumentary Integumentary: clear, warm, dry - Musculoskeletal Musculoskeletal: 1, strength equal bilaterally - Neurologic Neurologic: moves all extremities - Psychiatric Psychiatric: memory intact, appropriate mood/affect, intact judgment & insight - Labs CBC & Chem 7: 06/07/16 05:37 06/07/16 05:37 Labs: Abnormal lab results 06/08/16 06/08/16 06/09/16 Range/Units 18:12 23:33 06:14 POC Glucose 197 H 111 H 124 H (70-105)
[2016-06-09 08:42] VITALS: BP 117/74
[2016-06-09] MEDS: PROTONIX PO SCH (09:05)
== END 2016-06-09 09:44 | disposition home or self-care (01) | DRG 378 ==
LOC: ED 08:18 → 4A 11:09 → CC1 06-03 19:48 → 4A 06-05 18:13
PROVIDERS: ADMIT Internal Medicine; ATTEND Family Medicine
PROC: 0DJD8ZZ Inspection of Lower Intestinal Tract, Via Natural or Artificial Opening Endoscopic (ICD-10-PCS; principal; 2016-06-03)
PROC: 0DJ08ZZ Inspection of Upper Intestinal Tract, Via Natural or Artificial Opening Endoscopic (ICD-10-PCS; 2016-06-03)
PROC: B4151ZZ Fluoroscopy of Inferior Mesenteric Artery using Low Osmolar Contrast (ICD-10-PCS; 2016-06-03)
PROC: B4141ZZ Fluoroscopy of Superior Mesenteric Artery using Low Osmolar Contrast (ICD-10-PCS; 2016-06-03)
PROC: 30233N1 Transfusion of Nonautologous Red Blood Cells into Peripheral Vein, Percutaneous Approach (ICD-10-PCS; 2016-06-04)
PROC: 30233K1 Transfusion of Nonautologous Frozen Plasma into Peripheral Vein, Percutaneous Approach (ICD-10-PCS; 2016-06-04)
PROC: 30233L1 Transfusion of Nonautologous Fresh Plasma into Peripheral Vein, Percutaneous Approach (ICD-10-PCS; 2016-06-04)
DX: K62.5 Hemorrhage of anus and rectum (principal); D62 Acute posthemorrhagic anemia; K20.9 Esophagitis, unspecified; R73.9 Hyperglycemia, unspecified; I95.9 Hypotension, unspecified; E66.9 Obesity, unspecified; F10.21 Alcohol dependence, in remission; Z68.39 Body mass index [BMI] 39.0-39.9, adult; Z93.3 Colostomy status; Z90.3 Acquired absence of stomach [part of]; Z87.11 Personal history of peptic ulcer disease
CPT/HCPCS: 36245; 36415; 75726; 76937; 80048; 80053; 82962; 83036; 83690; 85014; 85018; 85025; 85027; 85610; 85730; 86850; 86900; 86901; 86920; C1769; C1887; C9113; J0696; J0698; J1644; J1815; J2250; J2370; J2704; J3010; J7030; J7040; P9016; P9017; Q9967

== ENCOUNTER 2016-10-19 18:06 | Inpatient (IN) | payer OTHER ==
[2016-10-19] MEDS ORDERED: NACL 0.9% 1000 ML 1,000 ML IV ONE (18:59)
[2016-10-19 19:24] LABS: Basophils % (Auto) 0.6 % (0.0-1.8); Eosinophils % (Auto) 0.1 % (0.0-4.3); Mean Corpuscular HGB Conc 31 % (32-34); Mean Corpuscular Hemoglobin 27 pg (28-32); Mean Corpuscular Volume 88 fl (84-94); Platelet Count 298 K/mm3 (140-440); Red Blood Count 1.29 M/mm3 (3.65-5.03); Red Cell Distribution Width 16.9 % (13.2-15.2); White Blood Count 12.3 K/mm3 (4.5-11.0)
[2016-10-19 19:36] LABS: Alanine Aminotransferase 20 units/L (7-56); Albumin 2.6 g/dL (3.9-5); Albumin/Globulin Ratio 0.8 %; Alkaline Phosphatase 92 units/L (35-129); Anion Gap 21 mmol/L; BUN/Creatinine Ratio 16.25; Blood Urea Nitrogen 13 mg/dL (9-20); Calcium 7.9 mg/dL (8.4-10.2); Carbon Dioxide 19 mmol/L (22-30); Chloride 105.8 mmol/L (98-107); Glucose 192 mg/dL (75-100); INR 1.16 (0.87-1.13); Lipase 141 units/L (13-60); Potassium 4.7 mmol/L (3.6-5.0); Sodium 141 mmol/L (137-145); Total Protein 5.9 g/dL (6.3-8.2)
[2016-10-19 19:37] LABS: Partial Thromboplastin Time 31.1 Sec. (24.2-36.6)
[2016-10-19 19:38] LABS: Hematocrit 11.3 % (35.5-45.6); Hemoglobin 3.5 gm/dl (11.8-15.2)
[2016-10-19] MEDS ORDERED: NACL 0.9% 500 ML 500 ML IV ONE ×2 (20:34→20:42)
--- NOTE | 2016-10-19 20:45 | Emergency Department Report ---
ED GI Bleed HPI - General Chief complaint: GI Bleed Stated complaint: BLOOD IN STOOL Time Seen by Provider: 10/19/16 20:36 Source: EMS Mode of arrival: Stretcher Limitations: Language Barrier - History of Present Illness Initial comments: Patient is a 51-year-old male with history of GI bleed who presents with melena on rectal bleeding. Patient has had abdominal bleeding with bright red stools have been going on for the last 2 days. He states that the pain is diffuse in his abdomen nothing makes it better or worse it is an achy deep type of pain. It is 10 out of 10. He isn't having dark and red stools for nearly every bowel movement. He denies having any nausea or vomiting up any blood. Patient denies having any chest pain or any fever. - Related Data Home Medications Medication Instructions Recorded Confirmed Last Taken No Known Home Medications [No 10/20/16 10/20/16 Unknown Reported Home Medications] Allergies Allergy/AdvReac Type Severity Reaction Status Date / Time No Known Allergies Allergy Verified 06/02/16 08:50 ED Review of Systems ROS: Stated complaint: BLOOD IN STOOL Other details as noted in HPI Constitutional: denies: chills, fever Eyes: denies: eye pain, eye discharge, vision change ENT: denies: ear pain, throat pain Respiratory: denies: cough, shortness of breath, wheezing Cardiovascular: denies: chest pain, palpitations Endocrine: no symptoms reported Gastrointestinal: abdominal pain, melena. denies: nausea, diarrhea Genitourinary: denies: urgency, dysuria Musculoskeletal: denies: back pain, joint swelling, arthralgia Skin: denies: rash, lesions Neurological: denies: headache, weakness, paresthesias Psychiatric: denies: anxiety, depression Hematological/Lymphatic: denies: easy bleeding, easy bruising ED Past Medical Hx - Past Medical History Previous Medical History?: Yes Hx Hypertension: Yes Hx Congestive Heart Failure: No Hx Diabetes: No Hx Liver Disease: Yes Hx Sickle Cell Disease: No Hx Asthma: No Hx COPD: No Additional medical history: ETOH ABUSE,. ABD ULCERS - Surgical History Past Surgical History?: Yes Additional Surgical History: ABD SURGERIES AND ABD MESH AND POSS PLASTIC, reverasal of colostomy - Social History Smoking Status: Never Smoker Substance Use Type: Alcohol - Medications Home Medications: Home Medications Medication Instructions Recorded Confirmed Last Taken Type No Known Home Medications [No 10/20/16 10/20/16 Unknown History Reported Home Medications] ED Physical Exam - General Limitations: Language Barrier General appearance: alert, in no apparent distress - Head Head exam: Present: atraumatic, normocephalic - Eye Eye exam: Present: normal appearance - ENT ENT exam: Present: mucous membranes moist - Neck Neck exam: Present: normal inspection - Respiratory Respiratory exam: Present: normal lung sounds bilaterally. Absent: respiratory distress - Cardiovascular Cardiovascular Exam: Present: normal rhythm, tachycardia. Absent: systolic murmur, diastolic murmur, rubs, gallop - GI/Abdominal GI/Abdominal exam: Present: soft, hypoactive bowel sounds, other (diffusely tender) - Rectal Rectal exam: Present: black stool, bloody stool, hemorrhoids - Extremities Exam Extremities exam: Present: normal inspection - Back Exam Back exam: Present: normal inspection - Neurological Exam Neurological exam: Present: alert, oriented X3 - Psychiatric Psychiatric exam: Present: normal affect, normal mood - Skin Skin exam: Present: warm, dry, intact, normal color. Absent: rash ED Course Vital Signs 10/19/16 10/19/16 10/19/16 18:55 19:30 20:59 Temperature 99 F Pulse Rate 118 H 98 H 113 H Respiratory 22 20 18 Rate Blood Pressure 134/56 Blood Pressure 98/60 92/49 [Left] O2 Sat by Pulse 99 100 100 Oximetry 10/19/16 10/19/16 10/19/16 21:30 21:45 22:15 Temperature 99.2 F 98.9 F 99.4 F Pulse Rate 113 H 111 H 111 H Respiratory 22 23 23 Rate Blood Pressure 95/51 96/58 105/52 Blood Pressure [Left] O2 Sat by Pulse 100 100 100 Oximetry 10/19/16 10/19/16 10/20/16 22:45 23:12 01:15 Temperature 99.2 F 99.0 F Pulse Rate 110 H 110 H Respiratory 24 22 23 Rate Blood Pressure 109/53 124/62 Blood Pressure [Left] O2 Sat by Pulse 100 100 Oximetry 10/20/16 01:30 Temperature 99.1 F Pulse Rate 104 H Respiratory 24 Rate Blood Pressure 125/58 Blood Pressure [Left] O2 Sat by Pulse 100 Oximetry - Reevaluation(s) Reevaluation #1: 10/19/16 22:54 Reevaluate the patient his tachycardia has improved. Blood is still being transfused. Patient's pain has improved. - Consultations Consultation #1: 10/19/16 22:[address] Smith GI doctor. Since patient is not actively bleeding I will put him on a PPI drip and then I will transfuse him 3 units of blood. I think a repeat hemoglobin. Patient will be admitted to the hospitalist service. He will get an EGD tomorrow. Consultation #2: 10/19/16 23:30 Dr. Smith called back he says that the patient has a known history of GI bleeds but his last colonoscopy was negative. He is requesting a CT angiogram of abdomen and pelvis. To evaluate for any vascular malformation. ED Medical Decision Making - Lab Data Result diagrams: 10/20/16 00:43 10/19/16 19:13 - EKG Data -: EKG Interpreted by Me - EKG Data 10/19/16 22:58 EKG shows sinus tachycardia with fusion complexes left axis deviation and right bundle branch block. - Medical Decision Making Chief medical diagnosis: AVM malformation Differential diagnosis: Internal hemorrhoid, peptic ulcer, diverticulosis I will get CBC, CMP, blood transfusion, GI consult, 2 large-bore IVs and patient will be admitted to the hospitalist service I discussed patient with Dr. smith. Patient has a life-threatening GI bleed will need to be very assessed and monitored constantly. Patient will also require IV pain medication and IV Protonix drip. Also transfused 3 units of blood. Critical Care Time: Yes (90) Critical care time in (mins) excluding proc time.: 90 Critical care attestation.: If time is entered above; I have spent that time in minutes in the direct care of this critically ill patient, excluding procedure time. Critical care time spent at patient's bedside 90 minutes Critical care time spent reviewing patient's old records 10 minutes Critical care time spent reviewing laboratory findings 10 minutes Critical care time spent with consultants 10 minutes Critical care time spent with patient's family 0 minutes. ED Disposition Clinical Impression: Melena GI bleeding Qualifiers: GI bleed type/associated pathology: melena Qualified Code(s): K92.1 - Melena Anemia Qualifiers: Anemia type: other cause Other causes of anemia: acute posthemorrhagic Qualified Code(s): D62 - Acute posthemorrhagic anemia Disposition: DC-09 OP ADMIT IP TO THIS HOSP Is pt being admited?: Yes Does the pt Need Aspirin: No Condition: Stable Referrals: PRIMARY CARE, [Primary Care Provider] - 3-5 Days Forms: Accompanied Note
[2016-10-19] MEDS ORDERED: PROTONIX 80 MG in NACL 0.9% 100 ML IV ONE (21:30)
[2016-10-19] MEDS ORDERED: SUBLIMAZE IV ONE (22:54)
[2016-10-19] MEDS ORDERED: NACL ONE (23:45)
[2016-10-20 01:05] LABS: Mean Corpuscular HGB Conc 32 % (32-34); Mean Corpuscular Hemoglobin 28 pg (28-32); Mean Corpuscular Volume 89 fl (84-94); Platelet Count 215 K/mm3 (140-440); Red Blood Count 1.28 M/mm3 (3.65-5.03); White Blood Count 7.5 K/mm3 (4.5-11.0)
[2016-10-20 01:09] LABS: Hematocrit 11.4 % (35.5-45.6); Hemoglobin 3.6 gm/dl (11.8-15.2)
--- NOTE | 2016-10-20 02:10 | Cat Scan Report ---
FINAL REPORT EXAM: CT ANGIO ABDOMEN PELVIS WITH CONTRAST. HISTORY: GI bleed, evaluate for vascular malformation. TECHNIQUE: Axial CT angiogram images of the abdomen and pelvis were obtained, with 2.5 mm thick axial images obtained following the administration of intravenous contrast only. Delayed axial images, coronal and sagittal reformatted images, and [address]-MIP reformatted images were also obtained. No prior studies are available for comparison. FINDINGS: The liver, biliary tree, gallbladder, pancreas, spleen, adrenal glands, and left kidney are unremarkable. There is a 7 mm low attenuating lesion in the right lower renal pole, statistically likely cyst, but too small to characterize. Evaluation of bowel is limited due to lack of oral contrast. The stomach is collapsed, not well evaluated. There is no intestinal obstruction or free air. There is moderate broad-based anterior eventration of the anterior abdominal wall, with broad-based herniation of peritoneal fat and nonobstructed small bowel loops extending to near the skin surface. There is moderate irregular skin thickening overlying the eventration and infraumbilical anterior abdominal wall, primarily at the midline extending to the left, nonspecific but presumably postsurgical changes. There is also moderate irregular localized skin thickening and soft tissue in the subcutaneous fat overlying the left abdominus rectus musculature, with associated surgical clips superficial to and deep to the left abdominus rectus musculature. This also likely represents additional postsurgical changes, and correlation with surgical history is recommended. The abdominal aorta is normal in caliber. There is a common trunk of the most proximal portions of the celiac and superior mesenteric arteries (developmental variant). The celiac, superior mesenteric, bilateral renal, and inferior mesenteric arteries are normal in caliber, without hemodynamically significant stenosis. Small collateral vessels extending from distal SMA branches extend in the periumbilical region and into the subcutaneous fat of the anterior abdominal wall. There is no discrete gastrointestinal vascular malformation identified. No definite contrast extravasation is seen within the lumen of the small bowel or colon. There is no pathologic abdominal or pelvic lymphadenopathy. There is no free or loculated fluid collection. The prostate gland is normal in size. The urinary bladder is unremarkable. There is a moderate compression deformity of the superior endplate of L3, with increased bony sclerosis, of indeterminate age. Superimposed mild spondylotic changes are seen in the spine. There are mild degenerative changes at both sacroiliac joints. There are minimal linear subpleural areas scarring at the right anterior lung base. IMPRESSION: 1. No intestinal obstruction or free air. 2. Moderate broad-based anterior eventration of the anterior abdominal wall, with peritoneal fat and nonobstructed small bowel lobes extending to near the skin surface. Moderate irregular skin thickening overlying the infraumbilical anterior abdominal wall, with additional localized skin thickening and soft tissue overlying the left abdominus rectus musculature. These findings are nonspecific but presumably postsurgical scarring. Correlation with surgical history is recommended, and comparison with prior examinations is also recommended to determine stability. 3. No discrete gastrointestinal vascular malformation identified. No definite intraluminal acute contrast extravasation. However, in this patient with reported GI bleed, further evaluation with endoscopy and/or nuclear medicine GI bleeding scan is suggested. 4. Moderate compression deformity of the superior L3 endplate, of indeterminate age. Clinical correlation is recommended.
--- NOTE | 2016-10-20 02:43 | History and Physical Report ---
History of Present Illness Date of examination: 10/20/16 History of present illness: 51-year-old male with a history of cirrhosis comes emergency room with complaints of rectal bleed 3 days. He stated he had 5 episodes today at home. He continues to have bleeding per rectum in the emergency room. He also complained of abdominal pain which is diffuse, sharp, intermittent over 10 minutes, intensity5/10, no radiation, he cannot identify exacerbating or relieving factorsReview Of Systems: Constitutional: no weight loss Ears, eyes, nose, mouth and throat: no nasal congestion, no nasal discharge, no sinus pressure, blurry vision, diplopia Neck: No neck pain or rigidity. Cardiovascular: chest pain, orthopnea, palpitations Respiratory: No shortness of breath, cough Gastrointestinal: abdominal pain Genitourinary : no dysuria, frequency , hematuria Musculoskeletal: no muscle ache Integumentary: no rash, no pruritis Neurological: no parathesias, focal weakness Endocrine: no cold or heat intolerance, no polyuria or polydipsia Hematologic/Lymphatic: no easy bruising, no easy bleeding, no gland swelling Allergic/Immunologic: no urticaria, no angioedema. PAST MEDICAL HISTORY:cirrhosis PAST SURGICAL HISTORY: Multiple abdominal surgeries including gastrectomy, reversal of colostomy FAMILY HISTORY: Hypertension SOCIAL HISTORY: Denies alcohol, tobacco, drugs Medications and Allergies Allergies Allergy/AdvReac Type Severity Reaction Status Date / Time No Known Allergies Allergy Verified 06/02/16 08:50 Home Medications Medication Instructions Recorded Confirmed Last Taken Type No Known Home Medications [No 10/20/16 10/20/16 Unknown History Reported Home Medications] Active Meds: Active Medications Pantoprazole Sodium 80 mg/ (Sodium Chloride) 100 mls @ 10 mls/hr IV ONCE.ED ONE PRN Reason: 8 MG/HR Stop: 10/20/16 07:29 Last Admin: 10/19/16 21:51 Dose: 8 mg/hr, 10 mls/hr Exam - Physical Exam Narrative exam: Gen. appearance: Patient lying in bed in no acute distress HEENT: Normocephalic/atraumatic, pupils equal round reactive to light, extra alkaline movement intact, no scleral icterus, no JVD or thyromegaly or nodule, neck is supple, mucous membrane moist, no erythema or exudate Heart: S1-S2, regular rate and rhythm Lungs: Clear to auscultation bilateral breathing comfortable Abdomen: Positive bowel sounds, tender, nondistended, no organomegaly Extremities: No edema, cyanosis, clubbing Neuro:: Oriented 3 , cranial nerves II-12 intact, speech, motor intact Skin: No rash, nodules, warm dry - Constitutional Vitals: Temp Pulse Resp BP Pulse Ox 98.4 F 107 H 21 105/53 99 10/20/16 02:00 10/20/16 02:00 10/20/16 02:00 10/20/16 02:00 10/20/16 02:00 Results - Labs CBC & Chem 7: 10/20/16 21:59 10/19/16 19:13 Labs: Abnormal lab results 10/19/16 10/19/16 10/19/16 Range/Units 19:13 19:13 19:13 WBC 12.3 H (4.5-11.0) K/mm3 RBC 1.29 L (3.65-5.03) M/mm3 Hgb 3.5 L* (11.8-15.2) gm/dl Hct 11.3 L* (35.5-45.6) % MCH 27 L (28-32) pg MCHC 31 L (32-34) % RDW 16.9 H (13.2-15.2) % Lymph % (Auto) 8.9 L (13.4-35.0) % Falls % (Auto) 8.4 H (0.0-7.3) % Lymph # 1.1 L (1.2-5.4) K/mm3 Falls # 1.0 H (0.0-0.8) K/mm3 Seg Neutrophils % 82.0 H (40.0-70.0) % Seg Neutrophils # 10.1 H (1.8-7.7) K/mm3 PT 15.4 H (12.2-14.9) Sec. INR 1.16 H (0.87-1.13) Carbon Dioxide 19 L (22-30) mmol/L Glucose 192 H (75-100) mg/dL Calcium 7.9 L (8.4-10.2) mg/dL Total Protein 5.9 L (6.3-8.2) g/dL Albumin 2.6 L (3.9-5) g/dL Lipase 141 H (13-60) units/L Crossmatch 10/19/16 10/20/16 Range/Units 19:15 00:43 WBC (4.5-11.0) K/mm3 RBC 1.28 L (3.65-5.03) M/mm3 Hgb 3.6 L* (11.8-15.2) gm/dl Hct 11.4 L* (35.5-45.6) % MCH (28-32) pg MCHC (32-34) % RDW 16.0 H (13.2-15.2) % Lymph % (Auto) (13.4-35.0) % Falls % (Auto) (0.0-7.3) % Lymph # (1.2-5.4) K/mm3 Falls # (0.0-0.8) K/mm3 Seg Neutrophils % (40.0-70.0) % Seg Neutrophils # (1.8-7.7) K/mm3 PT (12.2-14.9) Sec. INR (0.87-1.13) Carbon Dioxide (22-30) mmol/L Glucose (75-100) mg/dL Calcium (8.4-10.2) mg/dL Total Protein (6.3-8.2) g/dL Albumin (3.9-5) g/dL Lipase (13-60) units/L Crossmatch See Detail - Imaging and Cardiology CT scan - abdomen: report reviewed CT scan - pelvis: report reviewed Assessment and Plan Assessment Rectal bleed Blood loss anemia Cirrhosis Plan Admit to medicine Transfuse packed red blood cells Check serial hemoglobin Consult GI, start dvt prophalaxis
[2016-10-20 03:25] LABS: Hematocrit 13.3 % (35.5-45.6); Hemoglobin 4.5 gm/dl (11.8-15.2)
--- NOTE | 2016-10-20 09:33 | Gastroenterology Consultation ---
<NIYA TOMLIN - Last Filed: 10/20/16 09:45> History of Present Illness - Reason for Consult Consult date: 10/20/16 GI bleed Requesting physician: ZACH DONAHUE - History of Present Illness Patient is a 51 y/o male with a hx of GI bleed who presented to the ER with c/o diffuse abd pain and melena on rectal bleeding x 2-3 days. He is previously known to our service from a GI bleed in 05/31. At that time he reported a hx of PUD in 01/29. He underwent an EGD that revealed mild esophagitis but no source of bleeding and a colonoscopy that revealed fresh and old blood throughout the colon and in the TI and mild diverticulosis on 06/03/16. The patient has a hx of an abdominal trauma after a fall that required multiple surgeries in 2013 including a gastrectomy and reversal of colostomy. This morning pt was resting in bed. No acute distress. States he began having rectal bleeding with black stool and bright red blood a couple of days ago with last BM early this morning. Admits to mild generalized abd pain but no N/V or hematemesis. Denies CP, SOB, dizziness, fever, wt loss, diarrhea, or constipation. ETOH abuse is recorded in the chart, however pt denies alcohol use or hx of cirrhosis. No NSAID use. No Fhx of GI cancers. Past History Past Medical History: hypertension, other (PUD) Past Surgical History: bowel surgery (gastrectomy, reversal of colostomy) Medications and Allergies Allergies Allergy/AdvReac Type Severity Reaction Status Date / Time No Known Allergies Allergy Verified 06/02/16 08:50 Home Medications Medication Instructions Recorded Confirmed Last Taken Type No Known Home Medications [No 10/20/16 10/20/16 Unknown History Reported Home Medications] Active Meds: Active Medications Ondansetron HCl (Zofran) 4 mg IV Q8H PRN PRN Reason: N/V unrelieved by Reglan Review of Systems - Review of Systems All systems: negative Gastrointestinal: abdominal pain, melena, hematochezia, no hematemesis, no coffee ground emesis Exam - Constitutional Vital Signs: Temp Pulse Resp BP Pulse Ox 98.1 F 85 20 109/65 100 10/20/16 08:26 10/20/16 06:55 10/20/16 08:26 10/20/16 08:26 10/20/16 05:53 General appearance: no acute distress, obese - EENT Eyes: PERRL, EOM intact ENT: hearing intact - Neck Neck: supple, normal ROM - Respiratory Respiratory: bilateral: CTA - Cardiovascular Heart Sounds: Present: S1 & S2 Extremities: No edema - Gastrointestinal General gastrointestinal: Present: soft, tender (generalized), non-distended, normal bowel sounds, other (multiple scars noted from previous surgeries) - Integumentary Integumentary: Present: warm, dry - Neurologic Neurological: alert and oriented x3 - Labs CBC & Chem 7: 10/20/16 02:50 10/19/16 19:13 Lab Results: Laboratory Results - last 24 hr 10/20/16 10/20/16 02:50 08:30 Hgb 4.5 L* Hct 13.3 L* POC Glucose 151 H Assessment and Plan 1.GI bleed 2.acute blood loss anemia 3.melena 4.hematochezia -HGB 3.5 on admission, now 4.5- s/p 3 units of PRBCS- H/H pending post transusion -continue to monitor H/H and transfuse as needed -hold blood thinning medications -last BM with black stool and bright red blood this am -pt currently hemodynamically stable -continue PPI -abd CTA- showed post surgical changes but no discrete gastrointestinal vascular malformation -last EGD 06/03/16-revealed mild esophagitis but no obvious source of bleeding -last colonoscopy 06/03/16-revealed fresh and old blood throughout the colon and in TI and mild diverticulosis -Keep NPO -will schedule for EGD today -will follow <MEAGAN STALEY - Last Filed: 10/20/16 12:04> Medications and Allergies Active Meds: Active Medications Sodium Chloride (Nacl 0.9% 1000 Ml) 1,000 mls @ 50 mls/hr IV DIRECT MACARIO Last Admin: 10/20/16 11:39 Dose: 50 mls/hr Morphine Sulfate (Morphine) 2 mg IV Q4H PRN PRN Reason: Pain, Moderate (4-6) Last Admin: 10/20/16 11:38 Dose: 2 mg Ondansetron HCl (Zofran) 4 mg IV Q8H PRN PRN Reason: N/V unrelieved by Reglan Pantoprazole Sodium (Protonix) 40 mg IV BID MACARIO Exam - Constitutional Vital Signs: Temp Pulse Resp BP Pulse Ox 98.1 F 85 20 109/65 100 10/20/16 08:26 10/20/16 06:55 10/20/16 08:26 10/20/16 08:26 10/20/16 11:25 - Labs CBC & Chem 7: 10/20/16 10:16 10/19/16 19:13 Lab Results: Laboratory Results - last 24 hr 10/20/16 10/20/16 10/20/16 02:50 08:30 10:16 Hgb 4.5 L* 4.9 L* Hct 13.3 L* 14.9 L* POC Glucose 151 H Assessment and Plan - Patient Problems (1) GI bleeding Current Visit: Yes Status: Acute Qualifiers: GI bleed type/associated pathology: melena Gastritis type: G Qualified Code(s): K92.1 - Melena Plan to address problem: The patient was seen and examined. EGD will be planned when H&H further improved, hopefully tomorrow. Patient also noted that he is homeless.
[2016-10-20 10:43] LABS: Hematocrit 14.9 % (35.5-45.6); Hemoglobin 4.9 gm/dl (11.8-15.2)
[2016-10-20] MEDS ORDERED: NACL 0.9% 1000 ML 1,000 ML IV SCH (11:00)
--- NOTE | 2016-10-20 11:09 | Event Note ---
Date: 10/20/16 Patient with lower GI bleed. I have seen and examined him. GI to evaluate today. Will continue PRBC transfusion to keep hemoglobin>8.
[2016-10-20] MEDS ORDERED: NACL 0.9% 250ML 250 ML ONE (11:37)
[2016-10-20] MEDS: MORPHINE IV PRN ×2 (11:38→21:28)
[2016-10-20] MEDS: PROTONIX IV SCH ×2 (13:11→21:27)
[2016-10-20 15:52] LABS: Hematocrit 14.2 % (35.5-45.6); Hemoglobin 4.8 gm/dl (11.8-15.2)
[2016-10-20 22:10] LABS: Hematocrit 18.1 % (35.5-45.6); Hemoglobin 6.1 gm/dl (11.8-15.2)
[2016-10-21 09:11] LABS: Basophils % (Auto) 0.6 % (0.0-1.8); Eosinophils % (Auto) 4.4 % (0.0-4.3); Hemoglobin 8.3 gm/dl (11.8-15.2); Mean Corpuscular HGB Conc 33 % (32-34); Mean Corpuscular Hemoglobin 29 pg (28-32); Mean Corpuscular Volume 88 fl (84-94); Platelet Count 163 K/mm3 (140-440); Red Blood Count 2.83 M/mm3 (3.65-5.03); Red Cell Distribution Width 15.5 % (13.2-15.2); White Blood Count 7.2 K/mm3 (4.5-11.0)
[2016-10-21 09:23] LABS: Anion Gap 14 mmol/L; BUN/Creatinine Ratio 11.66; Blood Urea Nitrogen 7 mg/dL (9-20); Calcium 7.6 mg/dL (8.4-10.2); Carbon Dioxide 23 mmol/L (22-30); Chloride 104.9 mmol/L (98-107); Glucose 104 mg/dL (75-100); Potassium 3.8 mmol/L (3.6-5.0); Sodium 138 mmol/L (137-145)
[2016-10-21] MEDS: PROTONIX IV SCH ×2 (10:37→21:59)
[2016-10-21] MEDS ORDERED: DIPRIVAN 10 MG/ML IV ONE ×2 (12:09)
--- NOTE | 2016-10-21 13:21 | Anesthesia Day of Surgery ---
Anesthesia Day of Surgery - Day of Surgery Patient Examined: Yes Patient H&P Reviewed: Yes Patient is NPO: Yes
--- NOTE | 2016-10-21 13:21 | Anesthesia Consultation ---
Anesthesia Consult and Med Hx Date of service: 10/21/16 - Airway Anesthetic Teeth Evaluation: Poor ROM Head & Neck: Adequate Mental/Hyoid Distance: Inadequate Mallampati Class: Class III Intubation Access Assessment: Possibly Difficult - Pulmonary Exam CTA: Yes - Cardiac Exam Cardiac Exam: RRR - Pre-Operative Health Status ASA Pre-Surgery Classification: ASA3 Proposed Anesthetic Plan: MAC - Pulmonary Hx Asthma: No COPD: No Hx Pneumonia: No - Cardiovascular System Hx Hypertension: Yes - Central Nervous System Hx Back Pain: Yes (lumbar from prior accident) - Gastrointestinal Hx Ulcer: Yes Hx Gastroesophageal Reflux Disease: Yes - Endocrine Hx End Stage Renal Disease: No Hx Liver Disease: Yes Hx Insulin Dependent Diabetes: Yes (recent diagnosis) - Hematic Hx Anemia: Yes Hx Sickle Cell Disease: No - Other Systems Hx Alcohol Use: Yes (1-2 beers/week) Hx Substance Use: No Hx Cancer: No Hx Obesity: Yes
--- NOTE | 2016-10-21 13:38 | Operative Report ---
Operative Report Operative Report: Date of procedure: 10/21/2016 Procedure: Esophagogastroduodenoscopy Preprocedure diagnosis: Gastrointestinal bleeding manifested by melena. Post procedure diagnosis: Small hiatus hernia, otherwise normal-appearing upper digestive tract. Endoscopist: Dr. Rebollar Anesthesia: Monitored anesthesia care per anesthesia department Medications: Propofol per anesthesia Estimated blood loss: [0] After careful discussion of the nature and purpose of the procedure as well as details the technique risks benefits and alternatives consent was obtained. The patient was placed in the left lateral decubitus position and medicated per anesthesia. The tip of the [employer] EQ 570 video scope was passed per orum under direct vision into the esophagus and advanced into the stomach and descending duodenum. The descending duodenum the duodenal bulb and pylorus were symmetrical and normal. The scope was withdrawn into the stomach and the stomach then gently insufflated with air. The antrum was normal. The stomach was further insufflated and the scope was then retroflexed and partially withdrawn. The cardia, fundus, and body of the stomach were within normal limits and easily distensible.The scope was then withdrawn in the forward position. The esophagogastric junction was at 40 cm. A small sliding hiatus hernia was present. The esophageal body was normal throughout. The procedure was was well tolerated and the patient was observed in recovery. Impressions: Multiple sliding hiatus hernia, otherwise normal-appearing upper digestive tract with no sources of blood loss. Plan: Consider for bleeding scan if the patient has any rebleeding in light of his colonoscopy 4 months ago revealing diverticulosis. Electronically signed: Brady Rebollar MD
--- NOTE | 2016-10-21 14:01 | Post Anesthesia Evaluation ---
- Post Anesthesia Evaluation Patient Participated: Yes Airway Patent: Yes Stable Respiratory Function: Yes Temp > 96.8F: Yes Pain Manageable: Yes Adequeate Hydration: Yes Anesthesia Complications: No
[2016-10-21] MEDS ORDERED: XYLOCAINE MPF 2% ONE (15:30)
--- NOTE | 2016-10-21 19:52 | Progress Note ---
Assessment and Plan Assessment and plan: Acute lower GI bleed. Hemoglobin 8.3 today after 7 Units PRBC. On Protonix v bid. For scope today. GI Physician following. Anemia due to acute blood loss. Repeat H/H. Continue to monitor repeat H/H Cirrhosis of liver DVT prophylaxis with SCDs only because of GI bleed. Full code status History Interval history: bloody stools Hospitalist Physical - Physical exam Narrative exam: Gen Appearance: Not in acute distress, morbid obesity HEENT: normocephalic, atraumatic Neck: supple, no JVD Lungs: clear to auscultation bilaterally, no crackles or wheezes Heart: S1 and S2 regular, no murmurs or gallop Abdomen: Soft , non tender, non distended, normal bowel sounds Extremity: No edema, clubbing or cyanosis Neuro : Awake, alert,oriented x 3, moves all extremities psych: Normal mood - Constitutional Vitals: Temp Pulse Resp BP Pulse Ox 98.1 F 88 20 119/66 99 10/21/16 18:25 10/21/16 18:25 10/21/16 18:25 10/21/16 18:25 10/21/16 18:25 Results - Labs CBC & Chem 7: 10/21/16 20:19 10/21/16 09:00 Labs: Laboratory Last Values WBC 7.2 K/mm3 (4.5-11.0) 10/21/16 09:00 RBC 2.83 M/mm3 (3.65-5.03) L 10/21/16 09:00 Hgb 8.3 gm/dl (11.8-15.2) L 10/21/16 09:00 Hct 25.0 % (35.5-45.6) L D 10/21/16 09:00 MCV 88 fl (84-94) 10/21/16 09:00 MCH 29 pg (28-32) 10/21/16 09:00 MCHC 33 % (32-34) 10/21/16 09:00 RDW 15.5 % (13.2-15.2) H 10/21/16 09:00 Plt Count 163 K/mm3 (140-440) 10/21/16 09:00 Lymph % (Auto) 11.4 % (13.4-35.0) L 10/21/16 09:00 [place] % (Auto) 6.7 % (0.0-7.3) 10/21/16 09:00 Eos % (Auto) 4.4 % (0.0-4.3) H 10/21/16 09:00 Baso % (Auto) 0.6 % (0.0-1.8) 10/21/16 09:00 Lymph # 0.8 K/mm3 (1.2-5.4) L 10/21/16 09:00 [place] # 0.5 K/mm3 (0.0-0.8) 10/21/16 09:00 Eos # 0.3 K/mm3 (0.0-0.4) 10/21/16 09:00 Baso # 0.0 K/mm3 (0.0-0.1) 10/21/16 09:00 Seg Neutrophils % 76.9 % (40.0-70.0) H 10/21/16 09:00 Seg Neutrophils # 5.5 K/mm3 (1.8-7.7) 10/21/16 09:00 PT 15.4 Sec. (12.2-14.9) H 10/19/16 19:13 INR 1.16 (0.87-1.13) H 10/19/16 19:13 APTT 31.1 Sec. (24.2-36.6) 10/19/16 19:13 Sodium 138 mmol/L (137-145) 10/21/16 09:00 Potassium 3.8 mmol/L (3.6-5.0) 10/21/16 09:00 Chloride 104.9 mmol/L (98-107) 10/21/16 09:00 Carbon Dioxide 23 mmol/L (22-30) 10/21/16 09:00 Anion Gap 14 mmol/L 10/21/16 09:00 BUN 7 mg/dL (9-20) L 10/21/16 09:00 Creatinine 0.6 mg/dL (0.8-1.5) L 10/21/16 09:00 Estimated GFR > 60 ml/min 10/21/16 09:00 BUN/Creatinine Ratio 11.66 % 10/21/16 09:00 Glucose 104 mg/dL (75-100) H 10/21/16 09:00 POC Glucose 151 (70-105) H 10/20/16 08:30 Calcium 7.6 mg/dL (8.4-10.2) L 10/21/16 09:00 Total Bilirubin 0.60 mg/dL (0.1-1.2) 10/19/16 19:13 AST 38 units/L (5-40) 10/19/16 19:13 ALT 20 units/L (7-56) 10/19/16 19:13 Alkaline Phosphatase 92 units/L (35-129) 10/19/16 19:13 Total Protein 5.9 g/dL (6.3-8.2) L 10/19/16 19:13 Albumin 2.6 g/dL (3.9-5) L 10/19/16 19:13 Albumin/Globulin Ratio 0.8 % 10/19/16 19:13 Lipase 141 units/L (13-60) H 10/19/16 19:13 Blood Type O POSITIVE 10/19/16 19:15 Antibody Screen Negative 10/19/16 19:15 Crossmatch See Detail 10/19/16 19:15
[2016-10-21 21:02] LABS: Hematocrit 25.7 % (35.5-45.6); Hemoglobin 8.3 gm/dl (11.8-15.2)
[2016-10-21] MEDS: ZOFRAN IV PRN (22:00)
[2016-10-21] MEDS: MORPHINE IV PRN (22:00)
[2016-10-22 06:51] LABS: Hematocrit 25.3 % (35.5-45.6); Hemoglobin 8.4 gm/dl (11.8-15.2)
[2016-10-22] MEDS: MORPHINE IV PRN ×2 (10:05→21:50)
[2016-10-22] MEDS: PROTONIX PO SCH ×2 (10:27→21:50)
--- NOTE | 2016-10-22 14:31 | Discharge Summary ---
Providers - Providers Date of Admission: 10/20/16 02:43 Date of discharge: 10/22/16 Attending physician: SCOUT WHITE Primary care physician: ESTHER JOHNSON MD Hospitalization Condition: Fair Disposition: DC-01 TO HOME OR SELFCARE - Discharge Diagnoses (1) GI bleeding Status: Acute Qualifiers: GI bleed type/associated pathology: melena Gastritis type: G Qualified Code(s): K92.1 - Melena (2) Acute blood loss anemia Status: Acute Core Measure Documentation - Palliative Care Palliative Care/ Comfort Measures: Not Applicable Exam - Constitutional Vitals: Temp Pulse Resp BP Pulse Ox 98.9 F 87 18 119/68 97 10/22/16 11:00 10/22/16 11:00 10/22/16 11:00 10/22/16 11:00 10/22/16 08:08 Plan Activity: advance as tolerated Diet: low fat, low cholesterol, low salt Additional Instructions: 1.Follow up with Dr. Rebollra in 1 week. 2.Follow up with PCP in 1 week Follow up with: PRIMARY CAREMD [Primary Care Provider] - 3-5 Days Forms: Accompanied Note Prescriptions: Pantoprazole [Protonix TAB] 40 mg PO DAILY #30 tablet
[2016-10-22] MEDS: ZOFRAN IV PRN (21:50)
--- NOTE | 2016-10-22 22:14 | Progress Note ---
Assessment and Plan - Patient Problems (1) GI bleeding Current Visit: Yes Status: Acute Qualifiers: GI bleed type/associated pathology: melena Gastritis type: G Qualified Code(s): K92.1 - Melena (2) Acute blood loss anemia Current Visit: No Status: Acute Hospitalist Physical - Constitutional Vitals: Temp Pulse Resp BP Pulse Ox 98.9 F 94 H 20 133/71 100 10/22/16 20:35 10/22/16 20:35 10/22/16 21:30 10/22/16 20:35 10/22/16 20:35 Results - Labs CBC & Chem 7: 10/22/16 06:05 10/21/16 09:00 Labs: Laboratory Last Values WBC 7.2 K/mm3 (4.5-11.0) 10/21/16 09:00 RBC 2.83 M/mm3 (3.65-5.03) L 10/21/16 09:00 Hgb 8.4 gm/dl (11.8-15.2) L 10/22/16 06:05 Hct 25.3 % (35.5-45.6) L 10/22/16 06:05 MCV 88 fl (84-94) 10/21/16 09:00 MCH 29 pg (28-32) 10/21/16 09:00 MCHC 33 % (32-34) 10/21/16 09:00 RDW 15.5 % (13.2-15.2) H 10/21/16 09:00 Plt Count 163 K/mm3 (140-440) 10/21/16 09:00 Lymph % (Auto) 11.4 % (13.4-35.0) L 10/21/16 09:00 [place] % (Auto) 6.7 % (0.0-7.3) 10/21/16 09:00 Eos % (Auto) 4.4 % (0.0-4.3) H 10/21/16 09:00 Baso % (Auto) 0.6 % (0.0-1.8) 10/21/16 09:00 Lymph # 0.8 K/mm3 (1.2-5.4) L 10/21/16 09:00 [place] # 0.5 K/mm3 (0.0-0.8) 10/21/16 09:00 Eos # 0.3 K/mm3 (0.0-0.4) 10/21/16 09:00 Baso # 0.0 K/mm3 (0.0-0.1) 10/21/16 09:00 Seg Neutrophils % 76.9 % (40.0-70.0) H 10/21/16 09:00 Seg Neutrophils # 5.5 K/mm3 (1.8-7.7) 10/21/16 09:00 PT 15.4 Sec. (12.2-14.9) H 10/19/16 19:13 INR 1.16 (0.87-1.13) H 10/19/16 19:13 APTT 31.1 Sec. (24.2-36.6) 10/19/16 19:13 Sodium 138 mmol/L (137-145) 10/21/16 09:00 Potassium 3.8 mmol/L (3.6-5.0) 10/21/16 09:00 Chloride 104.9 mmol/L (98-107) 10/21/16 09:00 Carbon Dioxide 23 mmol/L (22-30) 10/21/16 09:00 Anion Gap 14 mmol/L 10/21/16 09:00 BUN 7 mg/dL (9-20) L 10/21/16 09:00 Creatinine 0.6 mg/dL (0.8-1.5) L 10/21/16 09:00 Estimated GFR > 60 ml/min 10/21/16 09:00 BUN/Creatinine Ratio 11.66 % 10/21/16 09:00 Glucose 104 mg/dL (75-100) H 10/21/16 09:00 POC Glucose 151 (70-105) H 10/20/16 08:30 Calcium 7.6 mg/dL (8.4-10.2) L 10/21/16 09:00 Total Bilirubin 0.60 mg/dL (0.1-1.2) 10/19/16 19:13 AST 38 units/L (5-40) 10/19/16 19:13 ALT 20 units/L (7-56) 10/19/16 19:13 Alkaline Phosphatase 92 units/L (35-129) 10/19/16 19:13 Total Protein 5.9 g/dL (6.3-8.2) L 10/19/16 19:13 Albumin 2.6 g/dL (3.9-5) L 10/19/16 19:13 Albumin/Globulin Ratio 0.8 % 10/19/16 19:13 Lipase 141 units/L (13-60) H 10/19/16 19:13 Blood Type O POSITIVE 10/19/16 19:15 Antibody Screen Negative 10/19/16 19:15 Crossmatch See Detail 10/19/16 19:15
--- NOTE | 2016-10-23 10:07 | Event Note ---
Date: 10/23/16 Patient to discharge today
[2016-10-23] MEDS: PROTONIX PO SCH ×2 (11:11→22:21)
[2016-10-23] MEDS: MORPHINE IV PRN (22:20)
--- NOTE | 2016-10-24 00:03 | Progress Note ---
Assessment and Plan - Patient Problems (1) GI bleeding Current Visit: Yes Status: Acute Qualifiers: GI bleed type/associated pathology: melena Gastritis type: G Qualified Code(s): K92.1 - Melena (2) Acute blood loss anemia Current Visit: No Status: Acute Hospitalist Physical - Constitutional Vitals: Temp Pulse Resp BP Pulse Ox 99.8 F H 86 18 120/65 99 10/23/16 20:10 10/23/16 20:10 10/23/16 20:10 10/23/16 20:10 10/23/16 20:10 Results - Labs CBC & Chem 7: 10/22/16 06:05 10/21/16 09:00 Labs: Laboratory Last Values WBC 7.2 K/mm3 (4.5-11.0) 10/21/16 09:00 RBC 2.83 M/mm3 (3.65-5.03) L 10/21/16 09:00 Hgb 8.4 gm/dl (11.8-15.2) L 10/22/16 06:05 Hct 25.3 % (35.5-45.6) L 10/22/16 06:05 MCV 88 fl (84-94) 10/21/16 09:00 MCH 29 pg (28-32) 10/21/16 09:00 MCHC 33 % (32-34) 10/21/16 09:00 RDW 15.5 % (13.2-15.2) H 10/21/16 09:00 Plt Count 163 K/mm3 (140-440) 10/21/16 09:00 Lymph % (Auto) 11.4 % (13.4-35.0) L 10/21/16 09:00 [place] % (Auto) 6.7 % (0.0-7.3) 10/21/16 09:00 Eos % (Auto) 4.4 % (0.0-4.3) H 10/21/16 09:00 Baso % (Auto) 0.6 % (0.0-1.8) 10/21/16 09:00 Lymph # 0.8 K/mm3 (1.2-5.4) L 10/21/16 09:00 [place] # 0.5 K/mm3 (0.0-0.8) 10/21/16 09:00 Eos # 0.3 K/mm3 (0.0-0.4) 10/21/16 09:00 Baso # 0.0 K/mm3 (0.0-0.1) 10/21/16 09:00 Seg Neutrophils % 76.9 % (40.0-70.0) H 10/21/16 09:00 Seg Neutrophils # 5.5 K/mm3 (1.8-7.7) 10/21/16 09:00 PT 15.4 Sec. (12.2-14.9) H 10/19/16 19:13 INR 1.16 (0.87-1.13) H 10/19/16 19:13 APTT 31.1 Sec. (24.2-36.6) 10/19/16 19:13 Sodium 138 mmol/L (137-145) 10/21/16 09:00 Potassium 3.8 mmol/L (3.6-5.0) 10/21/16 09:00 Chloride 104.9 mmol/L (98-107) 10/21/16 09:00 Carbon Dioxide 23 mmol/L (22-30) 10/21/16 09:00 Anion Gap 14 mmol/L 10/21/16 09:00 BUN 7 mg/dL (9-20) L 10/21/16 09:00 Creatinine 0.6 mg/dL (0.8-1.5) L 10/21/16 09:00 Estimated GFR > 60 ml/min 10/21/16 09:00 BUN/Creatinine Ratio 11.66 % 10/21/16 09:00 Glucose 104 mg/dL (75-100) H 10/21/16 09:00 POC Glucose 108 (70-105) H 10/23/16 21:36 Calcium 7.6 mg/dL (8.4-10.2) L 10/21/16 09:00 Total Bilirubin 0.60 mg/dL (0.1-1.2) 10/19/16 19:13 AST 38 units/L (5-40) 10/19/16 19:13 ALT 20 units/L (7-56) 10/19/16 19:13 Alkaline Phosphatase 92 units/L (35-129) 10/19/16 19:13 Total Protein 5.9 g/dL (6.3-8.2) L 10/19/16 19:13 Albumin 2.6 g/dL (3.9-5) L 10/19/16 19:13 Albumin/Globulin Ratio 0.8 % 10/19/16 19:13 Lipase 141 units/L (13-60) H 10/19/16 19:13 Blood Type O POSITIVE 10/19/16 19:15 Antibody Screen Negative 10/19/16 19:15 Crossmatch See Detail 10/19/16 19:15
[2016-10-24 07:50] VITALS: BP 122/80
[2016-10-24] MEDS: PROTONIX PO SCH (10:26)
== END 2016-10-24 14:23 | disposition home or self-care (01) | DRG 378 ==
LOC: ED 18:06 → 4A 10-20 02:43
PROVIDERS: ADMIT Internal Medicine; ATTEND Internal Medicine
PROC: 30233N1 Transfusion of Nonautologous Red Blood Cells into Peripheral Vein, Percutaneous Approach (ICD-10-PCS; 2016-10-19)
PROC: 0DJ08ZZ Inspection of Upper Intestinal Tract, Via Natural or Artificial Opening Endoscopic (ICD-10-PCS; principal; 2016-10-21)
DX: K92.2 Gastrointestinal hemorrhage, unspecified (principal); D62 Acute posthemorrhagic anemia; Z68.41 Body mass index [BMI] 40.0-44.9, adult; I10 Essential (primary) hypertension; K74.60 Unspecified cirrhosis of liver; K44.9 Diaphragmatic hernia without obstruction or gangrene; K21.9 Gastro-esophageal reflux disease without esophagitis; E11.9 Type 2 diabetes mellitus without complications; E66.9 Obesity, unspecified; Z82.49 Family history of ischemic heart disease and other diseases of the circulatory system; Z87.11 Personal history of peptic ulcer disease; Z79.4 Long term (current) use of insulin; Z72.89 Other problems related to lifestyle
CPT/HCPCS: 36415; 74174; 80048; 80053; 82962; 83690; 85014; 85018; 85025; 85027; 85610; 85730; 86850; 86900; 86901; 86920; 93005; 93010; 96361; 96374; 96375; 99292; C9113; J2270; J2405; J2704; J3010; J7030; J7050; P9016; Q9967

== ENCOUNTER 2016-10-25 18:47 | Emergency (ER) | payer OTHER ==
[2016-10-26] MEDS ORDERED: NACL 0.9% 500 ML 500 ML IV ONE (10:07)
--- NOTE | 2016-10-26 10:25 | Emergency Department Report ---
HPI - General Chief Complaint: GI Bleed Time Seen by Provider: 10/26/16 10:01 - HPI HPI: This is a 51-year-old male presents to the emergency Department with a 24-hour history of abdominal pain as well as some rectal bleeding. He says that it is dark red blood per rectum that occurs when he has the bowel movements but the abdominal pain is consistent. He denies any nausea, vomiting , fever, back pain. The patient has a history of this in the recent past and was admitted to [facility] for melena. At that time he had endoscopy that did not show any source of the bleeding. He had a colonoscopy about 4 months ago as well. The patient does have a history of diverticulosis as well as cirrhosis. He did not take anything for her symptoms or presentation. He says that his primary care physician is a Dr. Zavala. No recent travel or sick contacts at home. ED Past Medical Hx - Past Medical History Hx Hypertension: Yes Hx Congestive Heart Failure: No Hx Diabetes: No Hx Liver Disease: Yes Hx Sickle Cell Disease: No Hx Asthma: No Hx COPD: No Additional medical history: ETOH ABUSE,. ABD ULCERS - Surgical History Additional Surgical History: ABD SURGERIES AND ABD MESH AND POSS PLASTIC, reverasal of colostomy - Social History Smoking Status: Never Smoker - Medications Home Medications: Home Medications Medication Instructions Recorded Confirmed Last Taken Type Pantoprazole [Protonix TAB] 40 mg PO DAILY #30 tablet 10/22/16 10/26/16 Unknown Rx ED Review of Systems ROS: Stated complaint: Other details as noted in HPI Comment: All other systems reviewed and negative Constitutional: denies: chills, fever Eyes: denies: eye pain, eye discharge, vision change ENT: denies: ear pain, throat pain Respiratory: denies: cough, shortness of breath, wheezing Cardiovascular: denies: chest pain, palpitations Gastrointestinal: abdominal pain, other (rectal bleeding). denies: nausea, diarrhea Genitourinary: denies: urgency, dysuria Musculoskeletal: denies: back pain, joint swelling, arthralgia Skin: denies: rash, lesions Neurological: denies: headache, weakness, paresthesias Physical Exam - Physical Exam Vital Signs: Vital Signs 10/25/16 20:52 Temperature 97.6 F Pulse Rate 123 H Respiratory 20 Rate Blood Pressure 108/59 O2 Sat by Pulse 100 Oximetry Physical Exam: GENERAL: The patient is well-developed well-nourished. HENT: Normocephalic. Atraumatic. Patient has moist mucous membranes. EYES: Extraocular motions are intact. Pupils equal reactive to light bilaterally. NECK: Supple. Trachea is midline. CHEST/LUNGS: Clear to auscultation. There is no respiratory distress noted. HEART/CARDIOVASCULAR: Regular. There is mild tachycardia. There is no gallop rub or murmur. ABDOMEN: Abdomen is soft. There is generalized abdominal tenderness palpation. No guarding or rebound tenderness. Morbidly obese habitus. Patient has normal bowel sounds. There is no abdominal distention. SKIN: There is no rash. There is no edema. There is no diaphoresis. NEURO: The patient is awake, alert, and oriented. The patient is cooperative. The patient has no focal neurologic deficits. The patient has normal speech. MUSCULOSKELETAL: There is no tenderness or deformity. There is no limitation range of motion. There is no evidence of acute injury. RECTAL: There is no gross blood seen. Stool is positive on guaiac testing. ED Course Vital Signs 10/25/16 20:52 Temperature 97.6 F Pulse Rate 123 H Respiratory 20 Rate Blood Pressure 108/59 O2 Sat by Pulse 100 Oximetry ED Medical Decision Making - Lab Data Result diagrams: 10/25/16 20:18 10/25/16 20:18 - Radiology Data Radiology results: report reviewed CT SCAN OF THE ABDOMEN AND PELVIS WITH CONTRAST: HISTORY: Abdominal pain, GI bleeding. TECHNIQUE: Helical CT in 1.25mm intervals following IV contrast. Sagittal and coronal reconstructions. FINDINGS: The liver is normal in size and is without focal defect. No gallstones or biliary dilatation are noted. The spleen and pancreas demonstrate a normal size and attenuation with no evidence of abnormal mass. The kidneys are normal in size and position with no evidence of hydronephrosis or mass. The adrenal glands are normal. The abdominal aorta is normal. He bowel loops appear normal caliber and mucosal pattern. There is no evidence for obstruction or focal inflammation. Please note evaluation of the GI system is limited without oral contrast. The appendix is not confidently identified. Correlate with surgical history. Abdominal wall incision/surgical changes are noted. Please correlate with history. There is no evidence of peritoneal air or fluid. There is no evidence of any abnormal masses or fluid collections within the pelvis. No adenopathy is identified. The bladder is normal. IMPRESSION: No acute abdominal process is appreciated. Surgical changes as described. - Medical Decision Making 51-year-old male presents with 24 hours of abdominal pain and rectal bleeding. Found to have hemoglobin of 5.1. 3 units of packed red blood cells ordered. CT does not show any significant process or any source of the bleeding. GI contacted and is aware of the patient's admission and recommends RBC scan. Patient will be admitted to the hospitalist service. Vital signs stable but there is some mild tachycardia. - Differential Diagnosis hemorrhoids, malignancy, diverticulosis Critical Care Time: No Critical care attestation.: If time is entered above; I have spent that time in minutes in the direct care of this critically ill patient, excluding procedure time. ED Disposition Clinical Impression: Acute blood loss anemia, History of bleeding ulcers, Symptomatic anemia GI bleeding Qualifiers: GI bleed type/associated pathology: melena Qualified Code(s): K92.1 - Melena Anemia Qualifiers: Anemia type: other cause Other causes of anemia: acute posthemorrhagic Qualified Code(s): D62 - Acute posthemorrhagic anemia Disposition: DC-09 OP ADMIT IP TO THIS HOSP Is pt being admited?: Yes Does the pt Need Aspirin: No Condition: Stable Referrals: PRIMARY CARE, [Primary Care Provider] - 3-5 Days Forms: Accompanied Note Time of Disposition: 14:13
[2016-10-26] MEDS ORDERED: NACL ONE (10:28)
--- NOTE | 2016-10-26 11:14 | Cat Scan Report ---
CT SCAN OF THE ABDOMEN AND PELVIS WITH CONTRAST: HISTORY: Abdominal pain, GI bleeding. TECHNIQUE: Helical CT in 1.25mm intervals following IV contrast. Sagittal and coronal reconstructions. FINDINGS: The liver is normal in size and is without focal defect. No gallstones or biliary dilatation are noted. The spleen and pancreas demonstrate a normal size and attenuation with no evidence of abnormal mass. The kidneys are normal in size and position with no evidence of hydronephrosis or mass. The adrenal glands are normal. The abdominal aorta is normal. He bowel loops appear normal caliber and mucosal pattern. There is no evidence for obstruction or focal inflammation. Please note evaluation of the GI system is limited without oral contrast. The appendix is not confidently identified. Correlate with surgical history. Abdominal wall incision/surgical changes are noted. Please correlate with history. There is no evidence of peritoneal air or fluid. There is no evidence of any abnormal masses or fluid collections within the pelvis. No adenopathy is identified. The bladder is normal. IMPRESSION: No acute abdominal process is appreciated. Surgical changes as described.
--- NOTE | 2016-10-26 12:31 | History and Physical Report ---
History of Present Illness Chief complaint: I was bleeding History of present illness: 51 YO Male with Diverticulosis, HTN, ETOH Liver Disease, PUD presents to ED for evaluation. Pt complains of 24-hour history of abdominal pain as well as some rectal bleeding. He says that it is dark red blood per rectum that occurs when he has the bowel movements but the abdominal pain is consistent. He denies any nausea, vomiting, fever, back pain. The patient has a history of this in the recent past and was admitted to [facility] for melena. At that time he had endoscopy that did not show any source of the bleeding. He had a colonoscopy about 4 months ago as well. Pt lost to outpatient f/u as directed. Pt found to have anemia. Pt treated with transfusion of 3 units PRBC. Pt medically optimized and back to usual state of health. Pt discharged home and instructed to f/u pcp 1wk, general surgery 1wk, and GI 1 wk. Past History Past Medical History: hypertension, liver disease, other (diverticulosis) Past Surgical History: bowel surgery Social history: single, alcohol abuse. denies: prescription drug abuse, IV drug use Family history: hypertension Medications and Allergies Allergies Allergy/AdvReac Type Severity Reaction Status Date / Time No Known Allergies Allergy Verified 06/02/16 08:50 Home Medications Medication Instructions Recorded Confirmed Last Taken Type Pantoprazole [Protonix TAB] 40 mg PO DAILY #30 tablet 10/22/16 10/26/16 Unknown Rx Review of Systems Constitutional: other (rectal bleeding), no weight loss, no weight gain, no fever, no chills Ears, nose, mouth and throat: no ear pain, no ear discharge, no tinnitis, no decreased hearing Cardiovascular: no chest pain, no orthopnea, no palpitations, no rapid/ irregular heart beat, no edema Respiratory: no cough, no cough with sputum, no excessive sputum, no hemoptysis Gastrointestinal: abdominal pain, BRBPR, no nausea, no vomiting, no diarrhea Genitourinary Male: no dysuria, no hematuria, no flank pain, no discharge, no urinary frequency Rectal: no pain, no incontinence, no bleeding Musculoskeletal: no neck stiffness, no neck pain, no shooting arm pain, no arm numbness/tingling Integumentary: no rash, no pruritis, no redness Neurological: no transient paralysis, no paralysis, no weakness, no parathesias , no numbness, no tingling Psychiatric: no anxiety, no memory loss, no change in sleep habits, no sleep disturbances Endocrine: no cold intolerance, no heat intolerance, no polyphagia, no excessive thirst, no polydipsia Hematologic/Lymphatic: no easy bruising, no easy bleeding Allergic/Immunologic: no urticaria, no allergic rhinitis, no wheezing Exam - Constitutional Vitals: Temp Pulse Resp BP Pulse Ox 98.5 F 110 H 16 107/45 100 10/26/16 12:15 10/26/16 12:15 10/26/16 12:15 10/26/16 12:15 10/26/16 12:15 General appearance: Present: no acute distress, well-nourished - EENT Eyes: Present: PERRL ENT: hearing intact, clear oral mucosa - Neck Neck: Present: supple, normal ROM - Respiratory Respiratory effort: normal Respiratory: bilateral: CTA - Cardiovascular Heart Sounds: Present: S1 & S2. Absent: rub, click - Extremities Extremities: pulses symmetrical, No edema Peripheral Pulses: within normal limits - Abdominal General gastrointestinal: Present: soft, non-tender, non-distended, normal bowel sounds Male genitourinary: Present: normal - Integumentary Integumentary: Present: clear, warm, dry - Musculoskeletal Musculoskeletal: gait normal, strength equal bilaterally - Psychiatric Psychiatric: appropriate mood/affect, intact judgment & insight - Neurologic Neurologic: CNII-XII intact, moves all extremities Results - Labs CBC & Chem 7: 10/25/16 20:18 10/25/16 20:18 Labs: Abnormal lab results 10/25/16 Range/Units 20:50 Crossmatch See Detail Assessment and Plan - Patient Problems (1) Diverticulosis Status: Acute Qualifiers: Diverticulosis site: D Diverticulosis bleeding: D Plan to address problem: Outpatient GI F/U, and outpatient surgery F/U (2) History of bleeding ulcers Status: Acute Plan to address problem: Outpatient GI F/U (3) Symptomatic anemia Status: Acute Plan to address problem: PRBC transfusion,
[2016-10-26 13:09] LABS: Red Blood Count 1.85 M/mm3 (3.65-5.03); White Blood Count 10.6 K/mm3 (4.5-11.0)
[2016-10-26 13:10] LABS: Hemoglobin 5.1 gm/dl (11.8-15.2)
[2016-10-26 13:11] LABS: Basophils % (Auto) 0.4 % (0.0-1.8); Eosinophils % (Auto) 0.1 % (0.0-4.3); Hematocrit 16.7 % (35.5-45.6); Mean Corpuscular HGB Conc 31 % (32-34); Mean Corpuscular Hemoglobin 28 pg (28-32); Mean Corpuscular Volume 91 fl (84-94); Platelet Count 302 K/mm3 (140-440); Red Cell Distribution Width 16.6 % (13.2-15.2)
[2016-10-26 13:12] LABS: Bilirubin,Urine Negative (Negative); Blood,Urine Moderate (Negative); Ketones,Urine Negative (Negative); Leukocyte Esterase,Urine Negative (Negative); Nitrite,Urine Negative (Negative); Protein,Urine <15 mg/dL mg/dL (Negative); Urobilinogen,Urine < 2.0 mg/dL (<2.0)
[2016-10-26 13:13] LABS: Mucus,Urine Few /HPF
[2016-10-26 13:16] LABS: Anion Gap 21 mmol/L; BUN/Creatinine Ratio 22.22; Blood Urea Nitrogen 20 mg/dL (9-20); Calcium 7.7 mg/dL (8.4-10.2); Carbon Dioxide 18 mmol/L (22-30); Chloride 99.8 mmol/L (98-107); Glucose 228 mg/dL (75-100); Potassium 4.3 mmol/L (3.6-5.0); Sodium 134 mmol/L (137-145)
--- NOTE | 2016-10-26 15:02 | Admit Criteria Form ---
Admission Criteria Documentation: GASTROINTESTINAL BLEEDING, LOWER Clinical Indications for Admission to Inpatient Care (unga/check or initial the applicable condition/criteria) Admission is indicated for ANY ONE of the following: [ ]I. Active gross bleeding per rectum. [ ]II. Failure to control bleeding after colonoscopy [ ]III. Unstable comorbid illness (eg, hepatic, pulmonary,or cardiac) [ ]IV. Coagulopathy(eg, advanced liver disease, irreversible anticoagulation) [ ]V. Suspected or known ischemic colitis(6) [ ]. Previous aortic graft placement or known aortic aneurysm [X ]VII. Inpatient admission required rather than observation care (Also use Gastrointestinal Bleeding,Lower: Observation Care as appropriate) because of 1 or more of the following(7)( 8): [ ]a) Hemodynamic instability [X ]b) Anemia requiring inpatient admission as indicated by ALL of the following: [ ]1) Presence of significant clinical finding indicated by 1 or more of the following: [X ]A. Tachycardia for age [ ]B. Orthostatic vital sign changes [ ]C. Altered mental status [ ]D. Heart failure [ ]E. Chest pain [ ]F. Exertional dyspnea [ ]G. Other findings suggesting inadequate perfusion (e.g., peripheral or myocardial ischemia, end organ dysfunction) [ ]2) Initial (e.g., emergency department, observation care) treatment with transfusion or volume replacement is judged inappropriate (due to severity of the finding ) or has been ineffective [ ]c) Severe pain requiring acute inpatient management [ ]d) Altered mental status that is severe or persistent [ ]e) Absent bowel sounds with complete ileus [ ]f) Signs of intestinal obstruction or peritonitis [A] [ ]g) High-risklow platelet count [ ]h) Severe electrolyte abnormalities requiring inpatient care [ ]i) Acute renal failure [ ]j) High fever or infection requiring inpatient admission as indicated by 1 or more of the following (10)(11): [ ]1) Appropriate outpatient or observation care antimicrobial treatment unavailable, not effective, or not feasible [ ]2) Documented bacteremia [ ]3) Temperature greater than 104.9 degrees F (40.5 degrees C) (oral) [ ]4) Temperature greater than 103.1 degrees F (39.5 degrees C) (oral) or less than 96.8 degrees F (36 degrees C) (rectal) that does not respond to all emergency treatment measures [ ]k) Immediate inpatient surgeryneeded [ ]l) Parenteral nutrition regimen that must be implemented on inpatient basis [ ]m) Other condition, treatment or monitoring requiring inpatient admission Extended stay beyond goal length of stay may be needed for(3)(4)(24): [ ]a) Emergency surgery(25) [ ]b) Coagulation abnormalities(26) [ ]c) Recurrent or persistent bleeding, continued vital sign instability(20)(25) (27)(28) [ ]d) Active comorbidities (eg, renal insufficiency, heart failure, pre- existingliver disease)(22) The original [facility] content created by [employer] has been revised. The portions of the content which have been revised are identified through the use of italic text or in bold, and [facility] has neither reviewed nor approved the modified material. All other unmodified content is copyright [facility]. Please see references footnoted in the original [facility] edition 2017
--- NOTE | 2016-10-26 17:17 | Nuclear Medicine Report ---
FINAL REPORT EXAM: NM GI BLEEDING SCAN HISTORY: GI Bleed TECHNIQUE: Twenty mCi IV tagged red cells. Sequential abdominal imaging. PRIORS: Abdomen CT 10/20/2016 FINDINGS: There is nonspecific reticular distribution of uptake throughout the abdomen and pelvis. This may be within mesentery vascular tree. It appears within 1st 5 minutes scanning and does not change in distribution over the full hour. This pattern is not typical for GI bleed. It also does not conform to the expected location of the colon. Normal physiologic uptake is noted in the liver, spleen, and heart. No definite urinary bladder uptake noted. No additional uptake on delayed images IMPRESSION: No definite abnormal uptake to suggest active bleeding Nonspecific reticular distribution of uptake may be within the vascular tree of the mesentery. Distribution remains the same during the entire scan. Lack of uptake movement suggests against active GI bleed
[2016-10-26 17:36] VITALS: BP 101/53
--- NOTE | 2016-10-27 00:58 | Consultation ---
INDICATION: GI bleed. HISTORY OF PRESENT ILLNESS: The patient is a 51-year-old male known to our service. The patient had presented in the past for GI bleed. The patient has had 2 EGDs this year, which were for the most part benign and a colonoscopy back in May of this year, which showed some old blood throughout as well as some old blood in the terminal ileum. The patient also has some diverticular disease noted. The patient presents now for some abdominal pain and rectal bleeding. He reports some dark stools. The patient subsequently was evaluated in the Emergency Room and was found to be anemic and was admitted. The patient denies any hematemesis. Denies any other specific GI problems or complaints except for some mild abdominal cramping. PAST MEDICAL HISTORY: Include: 1. Cirrhosis. 2. Status post gastrectomy, temporary colostomy surgery for abdominal trauma. MEDICATIONS: See chart. ALLERGIES: No known drug allergies. SOCIAL HISTORY: Alcohol abuse in the past. FAMILY HISTORY: Negative for colon cancer, IBD, or liver disease. REVIEW OF SYSTEMS: GENERAL: Reports mild weakness. HEENT: No visual complaints or tinnitus. PULMONARY: No shortness of breath. No cough. No chest pain. GASTROINTESTINAL: Reports rectal bleeding. All points of 13-point review of systems otherwise negative. PHYSICAL EXAMINATION: VITAL SIGNS: Temperature of 98.9, pulse 97, respirations 18, blood pressure 116/69. GENERAL: Fairly nourished male, in no acute distress. HEENT: Pupils are equal, round, reactive to light and accommodation. Extraocular movements intact. PULMONARY: Clear to auscultation bilaterally. CARDIOVASCULAR: Regular rhythm. Normal S1 and S2. ABDOMEN: Positive bowel sounds. Soft. SKIN: No obvious rashes. LABORATORY DATA: Pertinent for white count of 10.6, hemoglobin and hematocrit of 5.1 and 16.7, platelet count of 302. Chem-7 within normal limits. LFTs are pending. Coags are pending. ASSESSMENT AND PLAN: A 51-year-old male who has had a history of gastrointestinal bleed and had two EGDs this year, which were benign and a colonoscopy in May of this year showed an old blood throughout with some mild blood in the terminal ileum now presents with some abdominal cramping and reports of dark stools. The patient denies any hematemesis. The patient had a CT scan, which shows postsurgical changes; otherwise, no other significant pathology. Management is noted below. PLAN: 1. Reassess his RBC scan today to rule out signs of active bleeding. 2. We will review CT scan. 3. Follow hematocrit and transfuse as ordered. 4. The patient will require a small bowel evaluation and we will consider PillCam versus balloon enteroscopy as an outpatient. 5. We will follow further recommendation based on progress. [facility]# [id number] CAB/NTS
== END 2016-10-26 17:45 | disposition admitted as inpatient to this hospital (09) ==
LOC: ED 18:47
DX: K92.2 Gastrointestinal hemorrhage, unspecified (principal); D62 Acute posthemorrhagic anemia; I10 Essential (primary) hypertension
CPT/HCPCS: 36415; 74177; 78278; 80048; 81001; 85025; 86850; 86900; 86901; 86920; 96360; 99284; A9560; J7040; P9016

== ENCOUNTER 2016-10-27 08:18 | Inpatient (IN) | payer OTHER ==
[2016-10-27] MEDS ORDERED: NACL 0.9% 1000 ML 1,000 ML IV ONE (08:30)
[2016-10-27 08:51] LABS: Basophils % (Auto) 0.5 % (0.0-1.8); Eosinophils % (Auto) 1.9 % (0.0-4.3); Mean Corpuscular HGB Conc 32 % (32-34); Mean Corpuscular Hemoglobin 28 pg (28-32); Mean Corpuscular Volume 88 fl (84-94); Platelet Count 280 K/mm3 (140-440); Red Blood Count 1.49 M/mm3 (3.65-5.03); Red Cell Distribution Width 15.8 % (13.2-15.2); White Blood Count 16.2 K/mm3 (4.5-11.0)
[2016-10-27 09:03] LABS: INR 1.21 (0.87-1.13)
[2016-10-27 09:04] LABS: Partial Thromboplastin Time 26.7 Sec. (24.2-36.6)
[2016-10-27 09:10] LABS: Alanine Aminotransferase 13 units/L (7-56); Albumin 2.2 g/dL (3.9-5); Albumin/Globulin Ratio 0.9 %; Alkaline Phosphatase 66 units/L (35-129); Anion Gap 19 mmol/L; BUN/Creatinine Ratio 20.83; Blood Urea Nitrogen 25 mg/dL (9-20); Calcium 7.2 mg/dL (8.4-10.2); Carbon Dioxide 18 mmol/L (22-30); Chloride 98.3 mmol/L (98-107); Glucose 185 mg/dL (75-100); Lipase 114 units/L (13-60); Potassium 4.1 mmol/L (3.6-5.0); Sodium 131 mmol/L (137-145); Total Protein 4.7 g/dL (6.3-8.2)
[2016-10-27 09:18] LABS: Hematocrit 13.1 % (35.5-45.6); Hemoglobin 4.2 gm/dl (11.8-15.2)
[2016-10-27] MEDS ORDERED: NACL 0.9% 500 ML 500 ML IV ONE (09:24)
--- NOTE | 2016-10-27 09:34 | Emergency Department Report ---
HPI - General Chief Complaint: GI Bleed Time Seen by Provider: 10/27/16 08:48 - HPI HPI: This is a 51-year-old male presents to the emergency department from the waiting room with a complaint of continued abdominal discomfort and rectal bleeding. The patient was seen here yesterday and was potentially going to be admitted for what appeared to be a GI bleed and anemia. However the patient received 3 units of packed red blood cells, had a negative RBC scan, and has a history of a thorough gastroenterology consultation in the past and the decision was made by the admitting hospitalist to discharge the patient home for outpatient follow-up. However the patient appears to be homeless and spent the evening in the waiting room. He was seen complaining of continued abdominal discomfort and appeared slightly pale and short of breath and was brought back to the emergency department for further evaluation. The patient says that he has had 5-6 further bowel movements, all of which have red rectal bleeding. ED Past Medical Hx - Past Medical History Previous Medical History?: Yes Hx Hypertension: Yes Hx Congestive Heart Failure: No Hx Diabetes: No Hx Liver Disease: Yes Hx Sickle Cell Disease: No Hx Asthma: No Hx COPD: No Additional medical history: ETOH ABUSE,. ABD ULCERS, Anemia - Surgical History Past Surgical History?: Yes Additional Surgical History: ABD SURGERIES AND ABD MESH AND POSS PLASTIC, reverasal of colostomy - Social History Smoking Status: Never Smoker Substance Use Type: None - Medications Home Medications: Home Medications Medication Instructions Recorded Confirmed Last Taken Type Pantoprazole [Protonix TAB] 40 mg PO DAILY #30 tablet 10/22/16 10/27/16 Unknown Rx ED Review of Systems ROS: Stated complaint: BLOOD IN STOOL Other details as noted in HPI Comment: All other systems reviewed and negative Constitutional: denies: chills, fever Eyes: denies: eye pain, eye discharge, vision change ENT: denies: ear pain, throat pain Respiratory: denies: cough, shortness of breath, wheezing Cardiovascular: denies: chest pain, palpitations Gastrointestinal: abdominal pain, other (rectal bleeding). denies: nausea, vomiting Genitourinary: denies: urgency, dysuria Musculoskeletal: denies: back pain, joint swelling, arthralgia Skin: denies: rash, lesions Neurological: denies: headache, weakness, paresthesias Physical Exam - Physical Exam Vital Signs: Vital Signs 10/27/16 08:22 Temperature 98.6 F Pulse Rate 43 L Respiratory 18 Rate Blood Pressure 104/60 O2 Sat by Pulse 94 Oximetry Physical Exam: GENERAL: Patient is pale and ill-appearing. HENT: Normocephalic. Atraumatic. Patient has moist mucous membranes. EYES: Extraocular motions are intact. Pupils equal reactive to light bilaterally. Pale conjunctiva. NECK: Supple. Trachea is midline. CHEST/LUNGS: Clear to auscultation. There is no respiratory distress noted. HEART/CARDIOVASCULAR: Regular. There is no tachycardia. There is no gallop rub or murmur. ABDOMEN: Abdomen is soft. There is some generalized tenderness to palpation of the abdomen. No guarding or rebound tenderness. Patient has normal bowel sounds. There is no abdominal distention. Obese habitus. SKIN: Skin is warm and dry. NEURO: The patient is awake, alert, and oriented. The patient is cooperative. The patient has no focal neurologic deficits. The patient has normal speech. MUSCULOSKELETAL: There is no tenderness or deformity. There is no limitation range of motion. There is no evidence of acute injury. ED Course Vital Signs 10/27/16 08:22 Temperature 98.6 F Pulse Rate 43 L Respiratory 18 Rate Blood Pressure 104/60 O2 Sat by Pulse 94 Oximetry ED Medical Decision Making - Lab Data Result diagrams: 10/27/16 08:36 10/27/16 08:36 - EKG Data -: EKG Interpreted by Me EKG shows normal: sinus rhythm (with fusion complexes), axis (left axis deviation), intervals (prolonged QTC), QRS complexes (right bundle-branch block) , ST-T waves Rate: tachycardia (109 bpm) - EKG Data When compared to previous EKG there are: previous EKG unavailable Interpretation: other (sinus tachycardia with fusion complexes, left axis deviation, right bundle branch block, prolonged QTC) - Radiology Data Radiology results: report reviewed CT ANGIOGRAM ABDOMEN AND PELVIS HISTORY: GI bleeding. TECHNIQUE: Helical CT following IV contrast. Sagittal and coronal reformatted images. 3-dimensional volume rendering technique. NASCET criteria were utilized. Comment: This examination is just presented to me for interpretation. FINDINGS: The descending thoracic aorta, abdominal aorta, celiac axis, SMA, LEA, bilateral single renal arteries and bilateral iliac systems are widely patent with less than 20% stenosis. No active site of bleeding on CTA is detected. The remainder of the exam is unchanged since CT abdomen pelvis with contrast performed 10/26/16. IMPRESSION: Essentially normal CTA of the abdomen and pelvis. Transcribed By: TTR Dictated By: MEGHAN ARAYA JR, MD Electronically Authenticated By: MEGHAN ARAYA JR, MD Signed Date/Time: 10/27/16 3131 - Medical Decision Making 51-year-old male presents to the emergency department, from the waiting room, with continued abdominal pain and rectal bleeding. Hemoglobin was rechecked and it was 4.2 and the patient says he has had multiple bloody bowel movements since discharge. There is some tachycardia but otherwise the patient is afebrile and vital signs stable. 3 units of packed red blood cells ordered to start. Spoke with the nurse practitioner for gastroenterology who recommended CT angiography of the abdomen and pelvis which was done but resulted as a normal imaging examination. The patient has had colonoscopy, endoscopy, RBC scan, and [address] scans of the abdomen and pelvis over the past 4 days, most of which have been done in the past 24 hours and no obvious source of the bleeding has been found. However the patient will be admitted to the hospital for further evaluation and treatment has been accepted for admission by the hospitalist, Dr. Post. - Differential Diagnosis diverticulosis, malignancy, AV malformation Critical Care Time: No Critical care attestation.: If time is entered above; I have spent that time in minutes in the direct care of this critically ill patient, excluding procedure time. ED Disposition Clinical Impression: Symptomatic anemia, History of bleeding ulcers GI bleeding Qualifiers: GI bleed type/associated pathology: melena Qualified Code(s): K92.1 - Melena Anemia Qualifiers: Anemia type: other cause Other causes of anemia: acute posthemorrhagic Qualified Code(s): D62 - Acute posthemorrhagic anemia Disposition: OP ADMIT IP TO THIS HOSP Is pt being admited?: Yes Does the pt Need Aspirin: No Condition: Poor Time of Disposition: 15:47
[2016-10-27] MEDS ORDERED: NACL ONE (10:44)
--- NOTE | 2016-10-27 11:57 | Gastroenterology Consultation ---
History of Present Illness - Reason for Consult Consult date: 10/27/16 GI bleed, anemia Requesting physician: MIRIAM BEARD - History of Present Illness Patient is a 51 y/o male who was admitted for a GI bleed. He is well known to our service due to multiple episodes of obscure overt GI bleeding. He was recently admitted on 10/20/16 for a GI bleed and underwent an EGD on that revealed a small hiatal hernia but otherwise normal with no source of bleeding and a CTA that showed no discrete gastrointestinal vascular malformation. Last colonoscopy was on 06/03/16 that showed fresh and old appearing blood throughout the colon with blood seen in the TI and mild diverticulosis. He was discharged on 10/23/16 and returned yesterday 10/26/16 with c/o rectal bleeding and abd pain. CT of abd was negative for any acute process yesterday. He was given 3 units of PRBCs and underwent a RBC scan that was negative and was d/c home only for him to return today with c/o persistent rectal bleeding of bright red blood and generalized abd pain. HGB was noted to be 4.2 today. A repeat CTA has been done with results pending. He admits to SOB but denies CP, dizziness, fever, N/V, hematemesis, melena, diarrhea, or constipation. Reports 7 episodes of rectal bleeding of bright red blood overnight and this am. No NSAID use. Per chart review there is a hx of liver disease and ETOH abuse but pt denies either. PMH significant for HTN, PUD, and an abd trauma after a fall that required multiple surgeries in 2013. Past History Past Medical History: hypertension, other (PUD, abd trauma from a fall) Past Surgical History: bowel surgery (multiple abd surgeries from trauma to include reversal of colostomy) Social history: Lives alone. denies: smoking Family history: no significant family history Medications and Allergies Allergies Allergy/AdvReac Type Severity Reaction Status Date / Time No Known Allergies Allergy Verified 06/02/16 08:50 Home Medications Medication Instructions Recorded Confirmed Last Taken Type Pantoprazole [Protonix TAB] 40 mg PO DAILY #30 tablet 10/22/16 10/27/16 Unknown Rx Active Meds: Active Medications Sodium Chloride (Nacl 0.9% 1000 Ml) 1,000 mls @ 250 mls/hr IV ONCE ONE Stop: 10/27/16 12:29 Last Admin: 10/27/16 08:56 Dose: 250 mls/hr Review of Systems - Review of Systems All systems: negative Cardiovascular: shortness of breath Gastrointestinal: abdominal pain, hematochezia Exam - Constitutional Vital Signs: Temp Pulse Resp BP Pulse Ox 99.2 F 108 H 19 97/40 99 10/27/16 11:31 10/27/16 11:31 10/27/16 11:31 10/27/16 11:31 10/27/16 11:31 General appearance: mild distress, obese - EENT Eyes: PERRL, EOM intact ENT: hearing intact - Neck Neck: supple, normal ROM - Respiratory Respiratory: bilateral: CTA - Cardiovascular Rhythm: other (tachycardia) Heart Sounds: Present: S1 & S2 Extremities: No edema - Gastrointestinal General gastrointestinal: Present: soft, tender (generalized), non-distended, normal bowel sounds, other (multiple scars noted from previous surgeries) - Integumentary Integumentary: Present: warm, dry, pale - Neurologic Neurological: alert and oriented x3 - Labs CBC & Chem 7: 10/27/16 08:36 10/27/16 08:36 Lab Results: Laboratory Results - last 24 hr 10/27/16 10/27/16 10/27/16 08:36 08:36 08:36 WBC 16.2 H RBC 1.49 L Hgb 4.2 L* Hct 13.1 L* MCV 88 MCH 28 MCHC 32 RDW 15.8 H Plt Count 280 Lymph % (Auto) 13.0 L [place] % (Auto) 10.8 H Eos % (Auto) 1.9 Baso % (Auto) 0.5 Lymph # 2.1 [place] # 1.8 H Eos # 0.3 Baso # 0.1 Seg Neutrophils % 73.8 H Seg Neutrophils # 11.9 H PT 15.2 H INR 1.21 H APTT 26.7 Sodium 131 L Potassium 4.1 Chloride 98.3 Carbon Dioxide 18 L Anion Gap 19 BUN 25 H Creatinine 1.2 Estimated GFR > 60 BUN/Creatinine Ratio 20.83 Glucose 185 H Calcium 7.2 L Total Bilirubin 0.50 AST 21 ALT 13 Alkaline Phosphatase 66 Total Protein 4.7 L Albumin 2.2 L Albumin/Globulin Ratio 0.9 Lipase 114 H Blood Type Antibody Screen Crossmatch 10/27/16 08:39 WBC RBC Hgb Hct MCV MCH MCHC RDW Plt Count Lymph % (Auto) [place] % (Auto) Eos % (Auto) Baso % (Auto) Lymph # [place] # Eos # Baso # Seg Neutrophils % Seg Neutrophils # PT INR APTT Sodium Potassium Chloride Carbon Dioxide Anion Gap BUN Creatinine Estimated GFR BUN/Creatinine Ratio Glucose Calcium Total Bilirubin AST ALT Alkaline Phosphatase Total Protein Albumin Albumin/Globulin Ratio Lipase Blood Type O POSITIVE Antibody Screen Negative Crossmatch See Detail Assessment and Plan 1.GI bleed 2.hematochezia 3. acute blood loss anemia -HGB 4.2- currently being transfused with PRBCs -continue to monitor H/H and transfuse as needed -hold blood thinning medications -continue PPI -RBC scan yesterday- negative -abd CT scan yesterday- showed surgical changes but no acute process CTA on 10/20/16- showed post surgical changes but no discrete gastrointestinal vascular malformation -last EGD 10/21/16-revealed a small hiatal hernia but otherwise normal with no obvious source of bleeding -last colonoscopy 06/03/16-revealed fresh and old blood throughout the colon and in TI and mild diverticulosis -CTA today- results pending -further recommendations to follow -will follow
[2016-10-27] MEDS ORDERED: MILK OF MAGNESIA PO PRN (12:44)
[2016-10-27] MEDS ORDERED: NACL 0.9% 1000 ML IV ONE (12:44)
[2016-10-27] MEDS ORDERED: PROVENTIL IH PRN (12:44)
[2016-10-27] MEDS ORDERED: NACL 0.9% 1000 ML 1,000 ML ONE (13:47)
--- NOTE | 2016-10-27 13:48 | Admit Criteria Form ---
<ILEANA MARTÍNEZ - Last Filed: 10/28/16 13:17> Admission Criteria Documentation: ANEMIA, IRON DEFICIENCY OR UNSPECIFIED Clinical Indications for Inpatient Care (Place 'X' for any and all applicable criteria): Admission is indicated for ANY ONE of the following(1)(2)(3)(4)(5)(6)(7): [X] I. Inpatient admission required rather than observation care (Also use Anemia, Iron Deficiency or Unspecified: Observation Care guideline as appropriate) because of ANY ONE of the following: [] a) Hemodynamic instability that is severe or persistent [X] b) Active bleeding that cannot be rapidly controlled [] c) CVS symptoms (i.e., dyspnea, chest pain, heart failure) that are severe or persistent [] d) Neurologic symptoms (i.e., cognitive impairment, recurrent syncope or near syncope) that are severe or persistent [] e) Cardiac arrhythmias of immediate concern [] f) Acute peripheral ischemia (e.g., pulseless, cool, mottled, or cyanotic extremity) [] g) High-risk low platelet count [] h) Acute renal failure [X] i) Ongoing transfusion for blood loss (greater than 2 units) [] j) IV fluid to replace significant ongoing (eg, >24 hours) losses (> 3 L/m2 per day) [] k) Pulmonary artery catheter monitoring [] l) Supplemental oxygen or respiratory treatments for over 24 hours that are performable only in acute inpatient setting [] m) Immediate inpatient surgery [] n) Other condition, treatment or monitoring requiring inpatient admission [] II Active massive hemorrhage [] III. Active hemolysis with rapidly progressive anemia [A](6) Extended stay beyond goal length of stay may be needed for (17)(18) []a) Diagnosed cause of anemia requiring longer hospitalization (eg, active GI bleeding, immune hemolysis requiring electrophoresis, complications of malignancy requiring acute care []b) Continued emergent anemia indicators (23) []c) Transfusion reactions []d) Associated leukopenia or thrombocytopenia needing inpatient care []e) Active comorbidities (eg, renal failure, heart failure) The original [facility] content created by [facility] has been revised. The portions of the content which have been revised are identified through the use of italic text or in bold. [facility] has neither reviewed nor approved the modified material. All other unmodified content is copyright [facility] Guidelines. Please see references footnoted in the original [facility] edition 2016 Admission Criteria Met: Yes <MIRIAM BEARD - Last Filed: 10/29/16 06:09> Admission Criteria Documentation: This admission criteria sheet had no bearing on any medical decision making or clinical decisions from the emergency department and full admission vs observational stay will be decided upon by the hospitalist service and any subsequent specialists seeing this patient.
[2016-10-27] MEDS ORDERED: FLAGYL 500 MG/100 ML 500 MG/100 ML BAG IV SCH (14:00)
[2016-10-27 14:27] LABS: Bilirubin,Urine NEG (Negative); Blood,Urine SM (Negative); Ketones,Urine NEG (Negative); Leukocyte Esterase,Urine NEG (Negative); Nitrite,Urine NEG (Negative); Protein,Urine <15 mg/dL mg/dL (Negative); Urobilinogen,Urine < 2.0 mg/dL (<2.0)
--- NOTE | 2016-10-27 14:43 | Cat Scan Report ---
CT ANGIOGRAM ABDOMEN AND PELVIS HISTORY: GI bleeding. TECHNIQUE: Helical CT following IV contrast. Sagittal and coronal reformatted images. 3-dimensional volume rendering technique. NASCET criteria were utilized. Comment: This examination is just presented to me for interpretation. FINDINGS: The descending thoracic aorta, abdominal aorta, celiac axis, SMA, LEA, bilateral single renal arteries and bilateral iliac systems are widely patent with less than 20% stenosis. No active site of bleeding on CTA is detected. The remainder of the exam is unchanged since CT abdomen pelvis with contrast performed 10/26/16. IMPRESSION: Essentially normal CTA of the abdomen and pelvis.
[2016-10-27] MEDS: FLAGYL PO SCH ×2 (15:15→22:00)
--- NOTE | 2016-10-27 16:23 | History and Physical Report ---
History of Present Illness Date of admission: 10/27/16 12:45 Chief complaint: Im still bleeding History of present illness: 51 YO Male with Diverticulosis, HTN, ETOH Liver Disease, PUD presents to ED for evaluation. Pt complains of 24-hour history of abdominal pain, and rectal bleeding. Pt was seen and evaluated in ED on 10/26, and transfused with 3 units PRBC and discharged. Pt states that he has experienced continued symptoms since his discharge. Pt denies any nausea, vomiting, fever, back pain, CP, Palpitations, Syncope, Trauma, Falls, hematemesis. Pt seen and evaluated in ED and found to have a hbg of 4.2 s/p transfusion of 3 units PRBC on yesterday. Past History Past Medical History: hypertension, other (PUD, abd trauma from a fall) Past Surgical History: bowel surgery (multiple abd surgeries from trauma to include reversal of colostomy) Social history: Lives alone. denies: smoking Family history: no significant family history Medications and Allergies Allergies Allergy/AdvReac Type Severity Reaction Status Date / Time No Known Allergies Allergy Verified 06/02/16 08:50 Home Medications Medication Instructions Recorded Confirmed Last Taken Type Pantoprazole [Protonix TAB] 40 mg PO DAILY #30 tablet 10/22/16 10/27/16 Unknown Rx Active Meds: Active Medications Acetaminophen (Tylenol) 650 mg PO Q4H PRN PRN Reason: Pain MILD(1-3)/Fever >100.5/PINA Albuterol (Proventil) 2.5 mg IH Q4HRT PRN PRN Reason: Shortness Of Breath Cefepime HCl (Maxipime/Ns 2 Gm/100 Ml) 2 gm in 100 mls @ 200 mls/hr IV Q8HR [place] PRN Reason: Protocol Magnesium Hydroxide (Milk Of Magnesia) 30 ml PO Q4H PRN PRN Reason: Constipation Metronidazole (Flagyl) 500 mg PO Q8HR [facility] Last Admin: 10/27/16 15:15 Dose: 500 mg Pantoprazole Sodium (Protonix) 40 mg IV BID [facility] Stop: 10/29/16 23:59 Review of Systems Constitutional: other (bleeding), no weight loss, no weight gain, no fever, no chills Ears, nose, mouth and throat: no ear pain, no ear discharge, no tinnitis, no decreased hearing, no nose pain Cardiovascular: no chest pain, no orthopnea, no palpitations, no rapid/ irregular heart beat Respiratory: no cough, no cough with sputum, no excessive sputum, no hemoptysis , no shortness of breath Gastrointestinal: no nausea, no vomiting, no diarrhea, no constipation, no change in bowel habits Genitourinary Male: no dysuria, no hematuria, no flank pain, no discharge Rectal: no pain, no incontinence, no bleeding Musculoskeletal: no neck stiffness, no neck pain, no shooting arm pain, no arm numbness/tingling Integumentary: no rash, no pruritis, no redness, no sores Neurological: no transient paralysis, no paralysis, no weakness, no parathesias , no numbness, no tingling, no seizures Psychiatric: no anxiety, no memory loss, no change in sleep habits, no sleep disturbances, no insomnia, no hypersomnia Endocrine: no cold intolerance, no heat intolerance, no polyphagia, no excessive thirst, no polydipsia, no polyuria Hematologic/Lymphatic: no easy bruising, no easy bleeding Allergic/Immunologic: no urticaria, no allergic rhinitis, no wheezing Exam - Constitutional Vitals: Temp Pulse Resp BP Pulse Ox 98.2 F 90 16 120/66 100 10/27/16 15:04 10/27/16 15:04 10/27/16 15:04 10/27/16 15:04 10/27/16 15:04 General appearance: Present: mild distress - EENT Eyes: Present: PERRL (conjunctival pallor) ENT: hearing intact, clear oral mucosa, other - Neck Neck: Present: supple, normal ROM - Respiratory Respiratory effort: normal Respiratory: bilateral: CTA - Cardiovascular Heart Sounds: Present: S1 & S2. Absent: rub, click - Extremities Extremities: pulses symmetrical, No edema Peripheral Pulses: within normal limits - Abdominal General gastrointestinal: Present: soft, non-tender, non-distended, normal bowel sounds Male genitourinary: Present: normal - Integumentary Integumentary: Present: clear, warm, dry - Musculoskeletal Musculoskeletal: gait normal, strength equal bilaterally - Psychiatric Psychiatric: appropriate mood/affect, intact judgment & insight - Neurologic Neurologic: CNII-XII intact, moves all extremities Results - Labs CBC & Chem 7: 10/27/16 08:36 10/27/16 08:36 Labs: Abnormal lab results 10/27/16 Range/Units 13:35 Ur Specific [place] 1.041 H (1.003-1.030) Assessment and Plan - Patient Problems (1) Sepsis Current Visit: Yes Status: Acute Qualifiers: Sepsis type: S Plan to address problem: Sepsis Protocol: IV abx, blood cultures, serial lactic acid, monitor uop q shift , (2) Metabolic acidosis Current Visit: Yes Status: Acute Plan to address problem: Treat sepsis, IVF, supportive care. (3) Hyponatremia syndrome Current Visit: Yes Status: Acute Plan to address problem: IVF resuscitation therapy (4) GI bleeding Current Visit: Yes Status: Acute Qualifiers: GI bleed type/associated pathology: melena Gastritis type: G Qualified Code(s): K92.1 - Melena Plan to address problem: GI consulted, IV ppi therapy, serial hgb, (5) Blood loss anemia Current Visit: Yes Status: Acute Plan to address problem: PRBC Transfusion, supportive care, repeat cbc (6) DVT prophylaxis Current Visit: Yes Status: Acute
[2016-10-27] MEDS: MAXIPIME/NS 2 GM/100 ML 2 GM/100 ML BAG IV SCH ×2 (17:52→22:00)
[2016-10-27] MEDS: PROTONIX IV SCH (22:00)
[2016-10-28] MEDS: FLAGYL PO SCH ×4 (06:00→23:00)
[2016-10-28] MEDS: MAXIPIME/NS 2 GM/100 ML 2 GM/100 ML BAG IV SCH ×3 (06:00→23:00)
[2016-10-28 06:25] LABS: Basophils % (Auto) 0.5 % (0.0-1.8); Eosinophils % (Auto) 6.7 % (0.0-4.3); Mean Corpuscular HGB Conc 34 % (32-34); Mean Corpuscular Hemoglobin 31 pg (28-32); Mean Corpuscular Volume 90 fl (84-94); Platelet Count 153 K/mm3 (140-440); Red Blood Count 1.57 M/mm3 (3.65-5.03); Red Cell Distribution Width 15.2 % (13.2-15.2); White Blood Count 8.1 K/mm3 (4.5-11.0)
[2016-10-28 06:27] LABS: Hematocrit 14.1 % (35.5-45.6); Hemoglobin 4.8 gm/dl (11.8-15.2)
[2016-10-28 06:34] LABS: INR 1.22 (0.87-1.13)
[2016-10-28] MEDS ORDERED: NACL 0.9% 500 ML 500 ML IV ONE (12:00)
[2016-10-28] MEDS: PROTONIX IV SCH ×2 (13:30→23:00)
--- NOTE | 2016-10-28 14:40 | Progress Note ---
Assessment and Plan Assessment and plan: Patient is a 52-year-old Narciso Wallisian-speaking homeless man with history of hypertension, peptic ulcer disease, chronic back pain, anemia, alcohol abuse who presents with bright red blood per rectum. Just discharged from the same thing 10/24/16. He denies alcohol use last 2 months. But he is taking over-the- counter ibuprofen or Aleve, 2-3 pills 3-4 times a day for his chronic back pains. I told him via field installer to only take Tylenol for pains. Patient still having bright red blood per rectum or for EGD. CTA abdomen and pelvis read as essentially normal. -Acute on chronic blood loss anemia, just had extensive workup by GI: GI is following for EGD -Remote history of alcohol dependency -Peptic ulcer: treat with PPI -Anemia requiring blood transfusion: Transfuse more blood, moved from MedSurg to monitored bed The high probability of a clinically significant, sudden or life threatening deterioration of the [] system(s) required my full and direct attention, intervention and personal management. The aggregate critical care time was [34] minutes. This time is in addition to time spent performing reported procedures but includes the following: [] Data Review and interpretation [] Patient assessment and monitoring of vital signs [] Documentation [] Medication orders and management History Interval history: field installer line used Patient was seen and examined. Follow-up on current diagnosis/rectal bleeding. Overnight uneventful. Patient denies any chest pain, shortness breath, nausea /vomiting or severe headaches. Imaging, nursing note, chart, labs and old chart reviewed. Discussed with patient. Hospitalist Physical - Physical exam Narrative exam: GEN: WDWN, NAD, AWAKE, ALERT, ORIENTATED 3 HEENT: NCAT, EOMI, PERRL, OP Clear NECK: supple, no adenopathy, no thyromegaly, no JVD CVS/HEART: RRR, NORMAL S1S2, NO JVD, pulses present bilaterally CHEST/LUNGS: CTA B, Symmetrical chest expansion, good air entry bilaterally GI/Abdomen: soft, Kosovan cheese looking abdomen with multiple resolve depressible distended ventral hernias, diffuse tenderness good bowel sounds, no guarding or rebound /Bladder: no suprapubic tenderness, no CVA or paraspinal tenderness EXT/Skin: no c/c/e, no significant edema or obvious rash MSK: FROM x 4 Neuro: CN 2-12 grossly intact, no new focal deficits Psych: calm - Constitutional Vitals: Temp Pulse Resp BP Pulse Ox 98.8 F 95 H 18 115/71 99 10/28/16 14:23 10/28/16 14:23 10/28/16 14:23 10/28/16 14:23 10/28/16 14:23 General appearance: Present: mild distress Results - Labs CBC & Chem 7: 10/28/16 06:05 10/27/16 08:36 Labs: Laboratory Last Values WBC 8.1 K/mm3 (4.5-11.0) 10/28/16 06:05 RBC 1.57 M/mm3 (3.65-5.03) L 10/28/16 06:05 Hgb 4.8 gm/dl (11.8-15.2) L* 10/28/16 06:05 Hct 14.1 % (35.5-45.6) L* 10/28/16 06:05 MCV 90 fl (84-94) 10/28/16 06:05 MCH 31 pg (28-32) 10/28/16 06:05 MCHC 34 % (32-34) 10/28/16 06:05 RDW 15.2 % (13.2-15.2) 10/28/16 06:05 Plt Count 153 K/mm3 (140-440) 10/28/16 06:05 Lymph % (Auto) 13.7 % (13.4-35.0) 10/28/16 06:05 [place] % (Auto) 10.4 % (0.0-7.3) H 10/28/16 06:05 Eos % (Auto) 6.7 % (0.0-4.3) H 10/28/16 06:05 Baso % (Auto) 0.5 % (0.0-1.8) 10/28/16 06:05 Lymph # 1.1 K/mm3 (1.2-5.4) L 10/28/16 06:05 [place] # 0.8 K/mm3 (0.0-0.8) 10/28/16 06:05 Eos # 0.5 K/mm3 (0.0-0.4) H 10/28/16 06:05 Baso # 0.0 K/mm3 (0.0-0.1) 10/28/16 06:05 Seg Neutrophils % 68.7 % (40.0-70.0) 10/28/16 06:05 Seg Neutrophils # 5.6 K/mm3 (1.8-7.7) 10/28/16 06:05 PT 15.3 Sec. (12.2-14.9) H 10/28/16 06:05 INR 1.22 (0.87-1.13) H 10/28/16 06:05 APTT 26.7 Sec. (24.2-36.6) 10/27/16 08:36 Sodium 131 mmol/L (137-145) L 10/27/16 08:36 Potassium 4.1 mmol/L (3.6-5.0) 10/27/16 08:36 Chloride 98.3 mmol/L (98-107) 10/27/16 08:36 Carbon Dioxide 18 mmol/L (22-30) L 10/27/16 08:36 Anion Gap 19 mmol/L 10/27/16 08:36 BUN 25 mg/dL (9-20) H 10/27/16 08:36 Creatinine 1.2 mg/dL (0.8-1.5) 10/27/16 08:36 Estimated GFR > 60 ml/min 10/27/16 08:36 BUN/Creatinine Ratio 20.83 % 10/27/16 08:36 Glucose 185 mg/dL (75-100) H 10/27/16 08:36 Lactic Acid 1.00 mmol/L (0.7-2.0) 10/27/16 19:07 Calcium 7.2 mg/dL (8.4-10.2) L 10/27/16 08:36 Total Bilirubin 0.50 mg/dL (0.1-1.2) 10/27/16 08:36 AST 21 units/L (5-40) 10/27/16 08:36 ALT 13 units/L (7-56) 10/27/16 08:36 Alkaline Phosphatase 66 units/L (35-129) 10/27/16 08:36 Total Protein 4.7 g/dL (6.3-8.2) L 10/27/16 08:36 Albumin 2.2 g/dL (3.9-5) L 10/27/16 08:36 Albumin/Globulin Ratio 0.9 % 10/27/16 08:36 Lipase 114 units/L (13-60) H 10/27/16 08:36 Urine Color Yellow (Yellow) 10/27/16 13:35 Urine Turbidity Clear (Clear) 10/27/16 13:35 Urine pH 6.0 (5.0-7.0) 10/27/16 13:35 Ur Specific [place] 1.041 (1.003-1.030) H 10/27/16 13:35 Urine Protein <15 mg/dl mg/dL (Negative) 10/27/16 13:35 Urine Glucose (UA) Neg mg/dL (Negative) 10/27/16 13:35 Urine Ketones Neg mg/dL (Negative) 10/27/16 13:35 Urine Blood Sm (Negative) 10/27/16 13:35 Urine Nitrite Neg (Negative) 10/27/16 13:35 Urine Bilirubin Neg (Negative) 10/27/16 13:35 Urine Urobilinogen < 2.0 mg/dL (<2.0) 10/27/16 13:35 Ur Leukocyte Esterase Neg (Negative) 10/27/16 13:35 Urine WBC (Auto) 1.0 /HPF (0.0-6.0) 10/27/16 13:35 Urine RBC (Auto) 2.0 /HPF (0.0-6.0) 10/27/16 13:35 U Epithel Cells (Auto) < 1.0 /HPF (0-13.0) 10/27/16 13:35 Blood Type O POSITIVE 10/27/16 08:39 Antibody Screen Negative 10/27/16 08:39 Crossmatch See Detail 10/27/16 08:39
[2016-10-28 14:43] LABS: Hemoglobin 5.6 gm/dl (11.8-15.2)
[2016-10-28 14:44] LABS: Hematocrit 16.6 % (35.5-45.6)
[2016-10-28] MEDS ORDERED: WATER FOR IRRIG STERILE IR ONE (15:02)
--- NOTE | 2016-10-28 15:26 | Anesthesia Day of Surgery ---
Anesthesia Day of Surgery - Day of Surgery Patient Examined: Yes Patient H&P Reviewed: Yes Patient is NPO: Yes
--- NOTE | 2016-10-28 15:26 | Anesthesia Consultation ---
Anesthesia Consult and Med Hx Date of service: 10/28/16 - Airway Anesthetic Teeth Evaluation: Poor ROM Head & Neck: Inadequate Mental/Hyoid Distance: Adequate Mallampati Class: Class III Intubation Access Assessment: Possibly Difficult - Pulmonary Exam CTA: Yes - Cardiac Exam Cardiac Exam: RRR - Pre-Operative Health Status ASA Pre-Surgery Classification: ASA3 Proposed Anesthetic Plan: MAC - Pulmonary Hx Smoking: No Hx Asthma: No COPD: No Hx Pneumonia: No Hx Sleep Apnea: No - Cardiovascular System Hx Hypertension: No Hx Coronary Artery Disease: No Hx Heart Attack/AMI: No Hx Angina: No Hx Percutaneous Transluminal Coronary Angioplasty (PTCA): No Hx Pacemaker: No Hx Internal Defibrillator: No Hx Valvular Heart Disease: No Hx Heart Murmur: No Hx Peripheral Vascular Disease: No - Central Nervous System Hx Back Pain: Yes (lumbar from prior accident) Hx Psychiatric Problems: No - Gastrointestinal Hx Ulcer: Yes Hx Gastroesophageal Reflux Disease: Yes - Endocrine Hx End Stage Renal Disease: No Hx Liver Disease: Yes Hx Insulin Dependent Diabetes: Yes (recent diagnosis) - Hematic Hx Anemia: Yes (being transfused on arrival) Hx Sickle Cell Disease: No - Other Systems Hx Alcohol Use: Yes (1-2 beers/week) Hx Substance Use: No Hx Cancer: No Hx Obesity: Yes
[2016-10-28] MEDS ORDERED: DIPRIVAN 10 MG/ML IV ONE (15:30)
[2016-10-28] MEDS ORDERED: AMIDATE IV ONE (15:30)
--- NOTE | 2016-10-28 16:09 | Post Operative Note ---
Pre-op diagnosis: gi bleed Post-op diagnosis: same Findings: SBE: hiatal hernia - gastritis - nl small bowel to jejenum - negative other Procedure: SBE Anesthesia: MAC Surgeon: CLEMENTE JORDAN Estimated blood loss: none Pathology: list Specimen disposition: to lab Condition: stable Disposition: floor
--- NOTE | 2016-10-28 16:52 | Post Anesthesia Evaluation ---
- Post Anesthesia Evaluation Patient Participated: Yes Airway Patent: Yes Stable Respiratory Function: Yes Temp > 96.8F: Yes Pain Manageable: Yes Adequeate Hydration: Yes Anesthesia Complications: No
[2016-10-28] MEDS: NACL 0.9% 1000 ML 1,000 ML IV SCH (17:12)
--- NOTE | 2016-10-28 21:54 | Operative Report ---
PROCEDURE: Small bowel enteroscopy. INDICATION: 1. Anemia. 2. Gastrointestinal bleed. MEDICATIONS: Propofol per BALL WARPER TENDER. COMPLICATIONS: None. DESCRIPTION OF PROCEDURE: The patient was brought to procedure suite. The patient had the procedure discussed with him at length in Bulgarian. All risks, complications, and benefits were discussed after which the patient signed for the procedure to be performed. The patient was placed in left lateral decubitus position. Rectal exam performed prior to insertion of the scope. After adequate sedation medication as above, the scope was inserted in the rectum and brought to the level of the cecum. Ileocecal valve and appendiceal orifice, cecal strap were adequately visualized. Colonoscope was then removed and mucosa of colon visualized. Prep quality for this procedure was fair. The patient's vital signs remained stable throughout the procedure. It should be noted that the scope was passed all the way to the proximal to mid jejunum. FINDINGS: There was noted to be a small hiatal hernia at GE junction, which was 38 cm from the gums. The esophagus otherwise appeared to be normal. Mild gastritis noted in the stomach. Stomach otherwise appeared to be normal. The visualized small bowel to the jejunum appeared normal with no stigmata of bleeding or signs of active bleeding noted. No further findings were noted. Retroflexion showed no other pathology other than noted above. The patient tolerated the procedure well. No complications during the procedure. IMPRESSION: 1. Hiatal hernia. 2. Mild gastritis. 3. Normal small bowel to the jejunum with no bleeding stigmata noted. RECOMMENDATIONS: 1. Follow labs. 2. Advance diet. 3. PillCam as an outpatient. 4. If H and H stable in a.m., okay to discharge from GI standpoint. JOB# [id number] [facility]
[2016-10-29] MEDS: FLAGYL PO SCH ×2 (05:57→13:46)
[2016-10-29] MEDS: MAXIPIME/NS 2 GM/100 ML 2 GM/100 ML BAG IV SCH ×2 (05:57→13:46)
[2016-10-29] MEDS ORDERED: NACL 0.9% 1000 ML 1,000 ML ONE (07:10)
[2016-10-29] MEDS ORDERED: NACL 0.9% 500 ML 500 ML IV ONE (07:25)
[2016-10-29 08:44] LABS: Hematocrit 17.8 % (35.5-45.6); Hemoglobin 5.8 gm/dl (11.8-15.2)
[2016-10-29] MEDS: NACL 0.9% 1000 ML 1,000 ML IV SCH (08:51)
[2016-10-29] MEDS: PROTONIX IV SCH (09:51)
--- NOTE | 2016-10-29 11:24 | Gastroenterology Progress Note ---
Assessment and Plan 1.GI bleed 2.hematochezia 3. acute blood loss anemia -HGB 5.8 today- stable -continue to monitor H/H and transfuse as needed -BMs x 2 this am with black stool per nursing- possibly old blood -s/p small bowel enteroscopy yesterday- showed a hiatal hernia, gastritis, and normal small bowel to jejeunum -continue to hold blood thinning medications -continue PPI -continue supportive care -recommend pt have a pill cam as an outpatient -will follow as needed Subjective Date of service: 10/29/16 Principal diagnosis: GI bleed, anemia Interval history: Patient resting in bed this am. No acute distress. Reports multiple BMs overnight and this am with blood. Nursing reports BM x 2 with black stool this am (possibly old blood). Objective - Constitutional Vitals: Temp Pulse Resp BP Pulse Ox 98.8 F 104 H 20 112/48 98 10/28/16 19:56 10/28/16 19:56 10/28/16 22:00 10/28/16 19:56 10/28/16 19:56 General appearance: no acute distress, obese - EENT Eyes: PERRL, EOM intact ENT: hearing intact - Neck Neck: supple, normal ROM - Respiratory Respiratory: bilateral: CTA (anterior) - Extremities Extremities: No edema - Gastrointestinal General gastrointestinal: Present: soft, tender (generalized), distended ( slightly), normal bowel sounds, other (multiple scars from previous surgeries) - Integumentary Integumentary: Present: warm, dry - Neurologic Neurological: alert and oriented x3 - Labs CBC & Chem 7: 10/29/16 08:24 10/27/16 08:36 Labs: Laboratory Results - last 24 hr 10/28/16 10/29/16 14:16 08:24 Hgb 5.6 L* 5.8 L* Hct 16.6 L* 17.8 L*
--- NOTE | 2016-10-29 11:27 | Progress Note ---
Assessment and Plan Assessment and plan: Patient is a 52-year-old Narciso Moroccan-speaking homeless man with history of hypertension, peptic ulcer disease, chronic back pain, anemia, alcohol abuse who presents with bright red blood per rectum. Just discharged from the same thing 10/24/16. He denies alcohol use last 2 months. But he is taking over-the- counter ibuprofen or Aleve, 2-3 pills 3-4 times a day for his chronic back pains. I told him via firearms expert to only take Tylenol for pains. Patient still having bright red blood per rectum or for EGD. CTA abdomen and pelvis read as essentially normal. -Acute on chronic blood loss anemia, just had extensive workup by GI: GI is following for EGD -Remote history of alcohol dependency -Peptic ulcer: treat with PPI -Anemia requiring blood transfusion: [facility]16: hgb only 5.8 after 5 units, will give 3 more units if ok with GI. The high probability of a clinically significant, sudden or life threatening deterioration of the [] system(s) required my full and direct attention, intervention and personal management. The aggregate critical care time was [34] minutes. This time is in addition to time spent performing reported procedures but includes the following: [] Data Review and interpretation, [] Patient assessment and monitoring of vital signs, [] Documentation, [] Medication orders and management History Interval history: firearms expert used Patient was seen and examined. Follow-up on current diagnosis/rectal bleeding. Overnight uneventful. Patient denies any chest pain, shortness breath, nausea /vomiting or severe headaches. Imaging, nursing note, chart, labs and old chart reviewed. Discussed with patient. Hospitalist Physical - Physical exam Narrative exam: GEN: WDWN, NAD, AWAKE, ALERT, ORIENTATED 3 HEENT: NCAT, EOMI, PERRL, OP Clear NECK: supple, no adenopathy, no thyromegaly, no JVD CVS/HEART: RRR, NORMAL S1S2, NO JVD, pulses present bilaterally CHEST/LUNGS: CTA B, Symmetrical chest expansion, good air entry bilaterally GI/Abdomen: soft, [place] cheese looking abdomen with multiple resolve depressible distended ventral hernias, diffuse tenderness good bowel sounds, no guarding or rebound /Bladder: no suprapubic tenderness, no CVA or paraspinal tenderness EXT/Skin: no c/c/e, no significant edema or obvious rash MSK: FROM x 4 Neuro: CN 2-12 grossly intact, no new focal deficits Psych: calm - Constitutional Vitals: Temp Pulse Resp BP Pulse Ox 98.8 F 104 H 20 112/48 98 10/28/16 19:56 10/28/16 19:56 10/28/16 22:00 10/28/16 19:56 10/28/16 19:56 Results - Labs CBC & Chem 7: 10/29/16 08:24 10/27/16 08:36 Labs: Laboratory Last Values WBC 8.1 K/mm3 (4.5-11.0) 10/28/16 06:05 RBC 1.57 M/mm3 (3.65-5.03) L 10/28/16 06:05 Hgb 5.8 gm/dl (11.8-15.2) L* 10/29/16 08:24 Hct 17.8 % (35.5-45.6) L* 10/29/16 08:24 MCV 90 fl (84-94) 10/28/16 06:05 MCH 31 pg (28-32) 10/28/16 06:05 MCHC 34 % (32-34) 10/28/16 06:05 RDW 15.2 % (13.2-15.2) 10/28/16 06:05 Plt Count 153 K/mm3 (140-440) 10/28/16 06:05 Lymph % (Auto) 13.7 % (13.4-35.0) 10/28/16 06:05 [place] % (Auto) 10.4 % (0.0-7.3) H 10/28/16 06:05 Eos % (Auto) 6.7 % (0.0-4.3) H 10/28/16 06:05 Baso % (Auto) 0.5 % (0.0-1.8) 10/28/16 06:05 Lymph # 1.1 K/mm3 (1.2-5.4) L 10/28/16 06:05 [place] # 0.8 K/mm3 (0.0-0.8) 10/28/16 06:05 Eos # 0.5 K/mm3 (0.0-0.4) H 10/28/16 06:05 Baso # 0.0 K/mm3 (0.0-0.1) 10/28/16 06:05 Seg Neutrophils % 68.7 % (40.0-70.0) 10/28/16 06:05 Seg Neutrophils # 5.6 K/mm3 (1.8-7.7) 10/28/16 06:05 PT 15.3 Sec. (12.2-14.9) H 10/28/16 06:05 INR 1.22 (0.87-1.13) H 10/28/16 06:05 APTT 26.7 Sec. (24.2-36.6) 10/27/16 08:36 Sodium 131 mmol/L (137-145) L 10/27/16 08:36 Potassium 4.1 mmol/L (3.6-5.0) 10/27/16 08:36 Chloride 98.3 mmol/L (98-107) 10/27/16 08:36 Carbon Dioxide 18 mmol/L (22-30) L 10/27/16 08:36 Anion Gap 19 mmol/L 10/27/16 08:36 BUN 25 mg/dL (9-20) H 10/27/16 08:36 Creatinine 1.2 mg/dL (0.8-1.5) 10/27/16 08:36 Estimated GFR > 60 ml/min 10/27/16 08:36 BUN/Creatinine Ratio 20.83 % 10/27/16 08:36 Glucose 185 mg/dL (75-100) H 10/27/16 08:36 Lactic Acid 1.00 mmol/L (0.7-2.0) 10/27/16 19:07 Calcium 7.2 mg/dL (8.4-10.2) L 10/27/16 08:36 Total Bilirubin 0.50 mg/dL (0.1-1.2) 10/27/16 08:36 AST 21 units/L (5-40) 10/27/16 08:36 ALT 13 units/L (7-56) 10/27/16 08:36 Alkaline Phosphatase 66 units/L (35-129) 10/27/16 08:36 Total Protein 4.7 g/dL (6.3-8.2) L 10/27/16 08:36 Albumin 2.2 g/dL (3.9-5) L 10/27/16 08:36 Albumin/Globulin Ratio 0.9 % 10/27/16 08:36 Lipase 114 units/L (13-60) H 10/27/16 08:36 Urine Color Yellow (Yellow) 10/27/16 13:35 Urine Turbidity Clear (Clear) 10/27/16 13:35 Urine pH 6.0 (5.0-7.0) 10/27/16 13:35 Ur Specific [place] 1.041 (1.003-1.030) H 10/27/16 13:35 Urine Protein <15 mg/dl mg/dL (Negative) 10/27/16 13:35 Urine Glucose (UA) Neg mg/dL (Negative) 10/27/16 13:35 Urine Ketones Neg mg/dL (Negative) 10/27/16 13:35 Urine Blood Sm (Negative) 10/27/16 13:35 Urine Nitrite Neg (Negative) 10/27/16 13:35 Urine Bilirubin Neg (Negative) 10/27/16 13:35 Urine Urobilinogen < 2.0 mg/dL (<2.0) 10/27/16 13:35 Ur Leukocyte Esterase Neg (Negative) 10/27/16 13:35 Urine WBC (Auto) 1.0 /HPF (0.0-6.0) 10/27/16 13:35 Urine RBC (Auto) 2.0 /HPF (0.0-6.0) 10/27/16 13:35 U Epithel Cells (Auto) < 1.0 /HPF (0-13.0) 10/27/16 13:35 Blood Type O POSITIVE 10/27/16 08:39 Antibody Screen Negative 10/27/16 08:39 Crossmatch See Detail 10/27/16 08:39
[2016-10-30] MEDS: MAXIPIME/NS 2 GM/100 ML 2 GM/100 ML BAG IV SCH ×3 (00:02→17:14)
[2016-10-30] MEDS: FLAGYL PO SCH ×3 (00:05→17:14)
[2016-10-30] MEDS: PROTONIX PO SCH ×2 (00:08→09:52)
[2016-10-30] MEDS: TYLENOL PO PRN (02:52)
[2016-10-30] MEDS ORDERED: NACL 0.9% 500 ML 500 ML ONE (03:42)
[2016-10-30 11:13] LABS: Anion Gap 15 mmol/L; BUN/Creatinine Ratio 11.42; Blood Urea Nitrogen 8 mg/dL (9-20); Calcium 7.1 mg/dL (8.4-10.2); Carbon Dioxide 18 mmol/L (22-30); Chloride 104.9 mmol/L (98-107); Glucose 182 mg/dL (75-100); Potassium 4.1 mmol/L (3.6-5.0); Sodium 134 mmol/L (137-145)
[2016-10-30 12:27] LABS: Hematocrit 24.5 % (35.5-45.6); Mean Corpuscular HGB Conc 33 % (32-34); Mean Corpuscular Hemoglobin 30 pg (28-32); Mean Corpuscular Volume 91 fl (84-94); Platelet Count 189 K/mm3 (140-440); Red Blood Count 2.68 M/mm3 (3.65-5.03); Red Cell Distribution Width 15.2 % (13.2-15.2); White Blood Count 9.8 K/mm3 (4.5-11.0)
[2016-10-30] MEDS ORDERED: NACL ONE (14:30)
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
--- NOTE | 2016-10-30 16:01 | Cat Scan Report ---
FINAL REPORT EXAM: CT ABDOMEN PELVIS W CON HISTORY: abd distension, ?internal bleeding/?SBO TECHNIQUE: Helical CT scan through the abdomen and pelvis after ingestion of oral contrast and during intravenous injection of iodinated contrast. Images are reconstructed in the sagittal and coronal planes. The entire anterior abdominal wall is not included in the field of view. PRIORS: 10/19/2016 FINDINGS: The lung bases are clear. There is new free fluid around the liver and spleen. There is right retroperitoneal fat stranding that extends from the level of the 2nd portion of the duodenum into the right deep pelvis. There is small amount of fluid in the bilateral pericolic gutters. There is a small amount of fluid around the gallbladder. The liver, pancreas, spleen and adrenal glands appear normal. The kidneys appear normal. The pelvic organs appear grossly normal. The stomach appears grossly within normal limits. There are no abnormally dilated loops of bowel. The appendix is not discretely visualized but there are no inflammatory changes in the right lower quadrant around the area of the cecum. The abdominal aorta has a normal diameter. There is a moderate compression fracture of the L3 vertebral body without change. Postsurgical scarring of the abdominal wall is again noted. This was not entirely included in this exam. IMPRESSION: 1. There is new fluid in the a upper abdomen around the liver and the spleen and a small amount of new fluid in the retroperitoneum as described above. This is a nonspecific finding but may be due to liver disease or less likely pancreatitis. 2. Chronic L3 compression fracture
--- NOTE | 2016-10-30 19:01 | Gastroenterology Progress Note ---
Assessment and Plan GI: pt w/ bleeding unclear etiology - no obvious signs further bleeding - pt will need balloon enteroscopy as outpt Abd: noted distention unclear etiology - awaiting ct scan - further rec based on progress Subjective Date of service: 10/30/16 Principal diagnosis: GI bleed, anemia Interval history: - no obvious bleeding. Noted abdomen distention Objective - Constitutional Vitals: Temp Pulse Resp BP Pulse Ox 98.2 F 89 20 108/63 99 10/30/16 16:21 10/30/16 16:21 10/30/16 16:21 10/30/16 16:21 10/30/16 16:21 - Respiratory Respiratory: bilateral: CTA - Gastrointestinal General gastrointestinal: Present: soft, distended - Labs CBC & Chem 7: 10/30/16 12:08 10/30/16 10:30 Labs: Laboratory Results - last 24 hr 10/30/16 10/30/16 10/30/16 06:44 10:30 12:08 WBC 9.8 RBC 2.68 L Hgb 8.0 L Hct 24.5 L D MCV 91 MCH 30 MCHC 33 RDW 15.2 Plt Count 189 Sodium 134 L Potassium 4.1 Chloride 104.9 Carbon Dioxide 18 L Anion Gap 15 BUN 8 L Creatinine 0.7 L Estimated GFR > 60 BUN/Creatinine Ratio 11.42 Glucose 182 H POC Glucose 117 H Calcium 7.1 L
[2016-10-31] MEDS: MAXIPIME/NS 2 GM/100 ML 2 GM/100 ML BAG IV SCH ×4 (01:27→23:34)
[2016-10-31] MEDS: NACL 0.9% 1000 ML 1,000 ML IV SCH (01:28)
[2016-10-31] MEDS: FLAGYL PO SCH ×4 (01:29→23:38)
[2016-10-31] MEDS: PROTONIX PO SCH ×3 (01:30→23:39)
[2016-10-31] MEDS: TYLENOL PO PRN ×2 (05:48→10:35)
[2016-10-31 06:57] LABS: Hemoglobin 6.8 gm/dl (11.8-15.2); Mean Corpuscular HGB Conc 33 % (32-34); Mean Corpuscular Hemoglobin 30 pg (28-32); Mean Corpuscular Volume 91 fl (84-94); Platelet Count 201 K/mm3 (140-440); Red Cell Distribution Width 15.1 % (13.2-15.2); White Blood Count 8.1 K/mm3 (4.5-11.0)
[2016-10-31 07:08] LABS: Anion Gap 12 mmol/L; BUN/Creatinine Ratio 11.66; Blood Urea Nitrogen 7 mg/dL (9-20); Calcium 7.2 mg/dL (8.4-10.2); Carbon Dioxide 23 mmol/L (22-30); Chloride 102.9 mmol/L (98-107); Glucose 97 mg/dL (75-100); Potassium 3.5 mmol/L (3.6-5.0); Sodium 134 mmol/L (137-145)
[2016-10-31] MEDS ORDERED: NACL 0.9% 500 ML 500 ML IV ONE (07:45)
[2016-10-31] MEDS ORDERED: POTASSIUM CHLORIDE PO ONE ×2 (07:45→16:00)
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
--- NOTE | 2016-10-31 11:25 | Gastroenterology Progress Note ---
Assessment and Plan GI bleed: pt w/ recurrent GI bleed with recent ct scan showing fluid abdomen - pt w/o known h/o cirrhosis - noted decrease h/h overnight w/o signs active bleeding - agree w/ angiogram given recent ct scan findings and GI bleeding without obvious source - rec surgery consult - continue follow h/h, transfuse as needed - may require balloon enteroscopy small bowel outpt based on progress - will follow closely Subjective Date of service: 10/31/16 Principal diagnosis: GI bleed, anemia Interval history: - pt with some complaints abdominal pain. Denies signs active bleeding Objective - Constitutional Vitals: Temp Pulse Resp BP Pulse Ox 99.0 F 97 H 20 107/67 97 10/31/16 07:18 10/31/16 07:18 10/31/16 07:18 10/31/16 07:18 10/31/16 07:18 General appearance: no acute distress - Respiratory Respiratory: bilateral: CTA - Breasts Breasts: deferred - Cardiovascular Rhythm: regular Heart Sounds: Present: S1 & S2 - Gastrointestinal General gastrointestinal: Present: soft, non-tender - Labs CBC & Chem 7: 10/31/16 06:25 10/31/16 06:25 Labs: Laboratory Results - last 24 hr 10/30/16 10/31/16 10/31/16 12:08 06:25 06:25 WBC 9.8 8.1 RBC 2.68 L 2.30 L Hgb 8.0 L 6.8 L Hct 24.5 L D 21.0 L MCV 91 91 MCH 30 30 MCHC 33 33 RDW 15.2 15.1 Plt Count 189 201 Sodium 134 L Potassium 3.5 L Chloride 102.9 Carbon Dioxide 23 Anion Gap 12 BUN 7 L Creatinine 0.6 L Estimated GFR > 60 BUN/Creatinine Ratio 11.66 Glucose 97 Calcium 7.2 L Blood Type Antibody Screen Crossmatch 10/31/16 09:08 WBC RBC Hgb Hct MCV MCH MCHC RDW Plt Count Sodium Potassium Chloride Carbon Dioxide Anion Gap BUN Creatinine Estimated GFR BUN/Creatinine Ratio Glucose Calcium Blood Type O POSITIVE Antibody Screen Negative Crossmatch See Detail
--- NOTE | 2016-10-31 15:12 | Progress Note ---
Assessment and Plan full consult dictated imp- obese pt with a multitude of previous abd surgeries. At least 8 as per pt. Pt not clear on specifics of his surgeries but states "everything from stomach to intestines" Abd - obese. multiples abd wall scars noted as well as large incisional hernias. Abd non tender CT - fluid noted around liver but radiologist states that this is consistent with ascitic fluid and not blood. imp - very high risk surgical pt. r/o lower GI bleeding? source unknown. pt's surgical morbidity and mortality are extremely high. In lieu of pts multiple abd surgeries, probable extensive adhesion, anatomical irregularities , extensive herniations and the fact that know bleeding source is known; the risk greatly outweigh the benefits of any surgical intervention at our institution. rec: bleeding scan possible colonoscopy as per GI to try and identify a bleeding soure IR eval for possible angio and embolization if bleeding site identified prcb transfusions as necessary transfer to tertiary center [facility] while pt still stable Selected Entries 10/31/16 12:02 Temperature 99.1 F Pulse Rate 98 H Respiratory 20 Rate Blood Pressure 114/66 Laboratory Tests 10/27/16 10/27/16 10/28/16 08:36 08:36 06:05 Hgb 4.2 L* Hct 13.1 L* PT 15.3 H INR 1.22 H Sodium Potassium Chloride Anion Gap BUN Total Bilirubin 0.50 AST 21 ALT 13 Alkaline Phosphatase 66 10/30/16 10/31/16 10/31/16 12:08 06:25 06:25 Hgb 8.0 L 6.8 L Hct 24.5 L D 21.0 L PT INR Sodium 134 L Potassium 3.5 L Chloride 102.9 Anion Gap 12 BUN 7 L Total Bilirubin AST ALT Alkaline Phosphatase Objective Vital Signs - 12hr 10/31/16 10/31/16 10/31/16 04:33 05:48 07:18 Temperature 97.5 F L 99.0 F Pulse Rate 98 H 97 H Respiratory 18 18 20 Rate Blood Pressure 106/54 107/67 O2 Sat by Pulse 97 97 Oximetry 10/31/16 10/31/16 12:02 15:05 Temperature 99.1 F 98.3 F Pulse Rate 98 H 97 H Respiratory 20 20 Rate Blood Pressure 114/66 118/66 O2 Sat by Pulse 100 99 Oximetry - Labs 10/31/16 06:25 10/31/16 06:25 Diabetes panel 10/31/16 Range/Units 06:25 Sodium 134 L (137-145) mmol/L Potassium 3.5 L (3.6-5.0) mmol/L Chloride 102.9 (98-107) mmol/L Carbon Dioxide 23 (22-30) mmol/L BUN 7 L (9-20) mg/dL Creatinine 0.6 L (0.8-1.5) mg/dL Glucose 97 (75-100) mg/dL Calcium 7.2 L (8.4-10.2) mg/dL Calcium panel 10/31/16 Range/Units 06:25 Calcium 7.2 L (8.4-10.2) mg/dL Pituitary panel 10/31/16 Range/Units 06:25 Sodium 134 L (137-145) mmol/L Potassium 3.5 L (3.6-5.0) mmol/L Chloride 102.9 (98-107) mmol/L Carbon Dioxide 23 (22-30) mmol/L BUN 7 L (9-20) mg/dL Creatinine 0.6 L (0.8-1.5) mg/dL Glucose 97 (75-100) mg/dL Calcium 7.2 L (8.4-10.2) mg/dL Adrenal panel 10/31/16 Range/Units 06:25 Sodium 134 L (137-145) mmol/L Potassium 3.5 L (3.6-5.0) mmol/L Chloride 102.9 (98-107) mmol/L Carbon Dioxide 23 (22-30) mmol/L BUN 7 L (9-20) mg/dL Creatinine 0.6 L (0.8-1.5) mg/dL Glucose 97 (75-100) mg/dL Calcium 7.2 L (8.4-10.2) mg/dL
--- NOTE | 2016-11-01 04:24 | Consultation ---
REASON FOR CONSULTATION: Apparent lower GI bleeding that has occurred multiple times in the past and source still remains unknown. HISTORY OF PRESENT ILLNESS: The patient is a 51-year-old gentleman who apparently states over the last 3-1/2 years he has on and off had noted episodes of bright red blood per rectum. He has been admitted in multiple institutions including [facility] and apparently no source has been found. The patient also states he has had 8 abdominal surgeries in the past including \\"some sort of gastric surgery as well as multiple intestinal surgeries.\\" He is not quite clear what these surgeries were. Also, has \\"spine issues.\\" Denies any vomiting or any hematemesis. PAST MEDICAL HISTORY: Essentially negative other than what was previously mentioned. PAST SURGICAL HISTORY: No other surgeries besides the multitude of abdominal surgeries previously described. ALLERGIES: No known allergies. MEDICATIONS: He takes no medications. FAMILY HISTORY: Negative. SOCIAL HISTORY: Negative. PHYSICAL EXAMINATION: GENERAL: At this time reveals the patient to be awake, alert, cooperative, in no acute distress. VITAL SIGNS: Shown to have a stable blood pressure, currently at 114/66, blood pressure earlier this morning was noted to be 106/54. Pulse is 98, respirations are 20. ABDOMEN: Examination of the abdomen reveals it to be morbidly obese. There is a multitude of scars noted within the anterior abdomen and also large incisional hernias. The abdomen itself is somewhat distended, but minimally tender. Bowel sounds are hypoactive, but present. LABORATORY DATA: Lab work at present includes most recent CBC showing a white count of 8.1, H and H is 6.8 and 21, previous H and H was 8 and 24.5. It appears the patient has received multiple packed RBCs transfusions while here in the hospital, need to find out how many exactly. Electrolytes were essentially normal. Sodium 134, potassium 3.5, chloride of 102, BUN is 7, creatinine is 0.6. A CT scan of the abdomen has been performed back in 10/30. I verbally reviewed this with Dr. Coker. Impression is that of fluid noted in the upper abdomen around the liver and spleen, but Dr. Coker states this is not blood, but is more ascitic fluid. There is a chronic L3 compression fracture, which would go with the patient's history of \\"spine issues. Looking back here, it is noted H and H at admission was alarmingly 4.2 and 13. PT slightly elevated at 15.3, INR is 1.22. PTT is normal at 26. Liver functions are all within normal limits including a total bilirubin of 0.5, AST of 21, ALT of 13. Alkaline phosphatase is 66. I do not see any recent bleeding scan here on this admission, we will have to look into. IMPRESSION: At this time is that of a 51-year-old gentleman with multiple histories of lower gastrointestinal bleeding over the past 3-1/2 years. Extensive intraabdominal surgeries of the entire gut from stomach down to the small bowel, possibly colon which are currently not clear. The patient would be extremely high surgical risk at this time due to the extensive surgeries as well as adhesions, incisional hernias and abnormal anatomy, also, this plus the fact that we have no real source of bleeding currently identifiable. I would recommend a possible bleeding scan if the patient continues bleeding. Also, would contemplate a colonoscopy to see of lower gastrointestinal bleeding source could be found. Also, would recommend Interventional Radiology evaluation for possible angiogram and embolization of bleeding source identified. Also, would consider transfer to tertiary center as this patient would not be an operable candidate here. The risks of morbidity and mortality would be overwhelming and the risk would certainly outweigh the benefits. We will follow with you and discuss with you in further detail. JOB# [id number] WILEY/AMNA
[2016-11-01] MEDS: MAXIPIME/NS 2 GM/100 ML 2 GM/100 ML BAG IV SCH ×3 (05:45→22:05)
[2016-11-01] MEDS: FLAGYL PO SCH ×3 (06:05→22:05)
[2016-11-01 07:06] LABS: Hemoglobin 6.9 gm/dl (11.8-15.2); Mean Corpuscular HGB Conc 33 % (32-34); Mean Corpuscular Hemoglobin 29 pg (28-32); Mean Corpuscular Volume 89 fl (84-94); Platelet Count 231 K/mm3 (140-440); Red Blood Count 2.35 M/mm3 (3.65-5.03); Red Cell Distribution Width 16.2 % (13.2-15.2); White Blood Count 9.4 K/mm3 (4.5-11.0)
[2016-11-01 07:24] LABS: Anion Gap 11 mmol/L; BUN/Creatinine Ratio 16.66; Blood Urea Nitrogen 10 mg/dL (9-20); Calcium 7.2 mg/dL (8.4-10.2); Carbon Dioxide 24 mmol/L (22-30); Chloride 104.9 mmol/L (98-107); Glucose 107 mg/dL (75-100); Potassium 3.7 mmol/L (3.6-5.0); Sodium 136 mmol/L (137-145)
[2016-11-01] MEDS ORDERED: MORPHINE IV PRN (10:36)
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
[2016-11-01] MEDS ORDERED: HEPARIN/NS 5000 UNIT/500ML(CATH LAB) 1,000 ML IR ONE (13:24)
[2016-11-01] MEDS ORDERED: XYLOCAINE 2% INFILTRATI ONE (13:24)
[2016-11-01] MEDS ORDERED: NACL 0.9% 250ML 250 ML ONE (13:25)
[2016-11-01] MEDS ORDERED: ANCEF/STERILE WATER 2 GM/20 ML 2 GM/20 ML SYRINGE IV ONE (13:25)
[2016-11-01] MEDS: VERSED ONE ×3 (13:34→14:03)
[2016-11-01] MEDS: SUBLIMAZE ONE ×3 (13:34→13:40)
--- NOTE | 2016-11-01 13:44 | Progress Note ---
Assessment and Plan Pt currently undergoing angiography. low BP & h/h noted. would recommend 4 unit PRBC transf as well as 2 unit of FFP. CBC, PT, INR & PTT 1 hr post transfusion and then h/h q 4 x 3 again, would rec transfer to tertiary institution [facility] if possible. Laboratory Tests 11/01/16 11/01/16 06:22 06:22 WBC 9.4 Hgb 6.9 L Hct 21.0 L Sodium 136 L Potassium 3.7 Chloride 104.9 Anion Gap 11 BUN 10 Objective Vital Signs - 12hr 11/01/16 11/01/16 05:47 09:31 Temperature 97.0 F L 98.7 F Pulse Rate 98 H 92 H Respiratory 20 20 Rate Blood Pressure 133/86 93/56 O2 Sat by Pulse 93 97 Oximetry - Labs 11/01/16 06:22 11/01/16 06:22 Diabetes panel 11/01/16 Range/Units 06:22 Sodium 136 L (137-145) mmol/L Potassium 3.7 (3.6-5.0) mmol/L Chloride 104.9 (98-107) mmol/L Carbon Dioxide 24 (22-30) mmol/L BUN 10 (9-20) mg/dL Creatinine 0.6 L (0.8-1.5) mg/dL Glucose 107 H (75-100) mg/dL Calcium 7.2 L (8.4-10.2) mg/dL Calcium panel 11/01/16 Range/Units 06:22 Calcium 7.2 L (8.4-10.2) mg/dL Pituitary panel 11/01/16 Range/Units 06:22 Sodium 136 L (137-145) mmol/L Potassium 3.7 (3.6-5.0) mmol/L Chloride 104.9 (98-107) mmol/L Carbon Dioxide 24 (22-30) mmol/L BUN 10 (9-20) mg/dL Creatinine 0.6 L (0.8-1.5) mg/dL Glucose 107 H (75-100) mg/dL Calcium 7.2 L (8.4-10.2) mg/dL Adrenal panel 11/01/16 Range/Units 06:22 Sodium 136 L (137-145) mmol/L Potassium 3.7 (3.6-5.0) mmol/L Chloride 104.9 (98-107) mmol/L Carbon Dioxide 24 (22-30) mmol/L BUN 10 (9-20) mg/dL Creatinine 0.6 L (0.8-1.5) mg/dL Glucose 107 H (75-100) mg/dL Calcium 7.2 L (8.4-10.2) mg/dL
[2016-11-01] MEDS ORDERED: NACL 0.9% 500 ML 500 ML IV ONE (14:00)
--- NOTE | 2016-11-01 14:53 | Operative Report ---
Operative Report Operative Report: EXAM: MESENTERIC ANGIOGRAPHY CLINICAL INDICATION: OCCULT GI BLEED DATE: 11/01/2016 PROCEDURE: Following an explanation of the risks, benefits and alternatives which was translated by the patient's nurse, written informed consent was obtained. The patient was brought to the injury graphic suite and placed in supine position on the examination table. Initial ultrasound evaluation of the right groin demonstrated a patent right common femoral artery. The right groin was prepped and draped in the usual sterile fashion. 1% lidocaine was used for anesthesia. Under ultrasound guidance, the right common femoral artery was cannulated with a 7 cm 21-gauge needle. A 0.018 guidewire was advanced centrally under fluoroscopy. The needle was removed and a micro-sheath placed. The 0.018 guidewire was exchanged for a 0.035 guidewire and the micro-sheath exchanged for a 5 Prydeinig vascular sheath. A 5 Prydeinig rim catheter was advanced over the guidewire and the bifurcation was crossed. The room catheter was removed and a Dodson 1 catheter advanced over the guidewire and formed across the bifurcation. The Dodson 1 catheter was advanced proximally. Multiple attempts to cannulate mesenteric vessels were unsuccessful secondary to the patient's morbid obesity a. The Dodson 1 catheter was removed and a 5 Prydeinig pigtail flush catheter advanced over the guidewire. Aortography was performed using power injection which identified the origin of the celiac and SMA. The 5 Prydeinig catheter was removed and again the Dodson 1 catheter was advanced and formed across the bifurcation as described above. The Dodson 1 catheter was then used to selectively cannulate the celiac artery. Angiography performed in the celiac artery demonstrated no evidence of extravasation to suggest GI bleeding. Selective cannulation of the SMA was then performed and four-quadrant survey of the abdomen was performed angiographically. No evidence of contrast extravasation to suggest GI bleeding. The Dodson 1 catheter was then withdrawn proximally and the LEA cannulated. Digital subtraction angiography was performed and multiple locations including the low pelvis. No identification of GI bleeding was identified. The Dodson 1 catheter was then advanced into the left internal iliac artery over a 0.035 guidewire. Angiography was performed which demonstrated no evidence of contrast extravasation in the distribution of the rectal arteries. The Dodson 1 catheter was were removed and a sheath run performed on the right to opacified the internal iliac artery. No evidence of contrast extravasation to suggest acute GI bleed. The catheters, guidewires and she's were removed and hemostasis achieved using an Angio-Seal arterial closure device. A sterile dressing was then applied. The patient tolerated the procedure well. There were no immediate post procedure complications. Continuous cardiopulmonary monitoring was utilized under the guidance of radiologic nursing. Conscious sedation was administered. IMPRESSION: 1) Mesenteric angiography with imaging performed in the celiac, SMA , LEA and bilateral internal iliac arteries demonstrating no evidence of acute GI bleed. Given the patient's morbid obesity, imaging is suboptimal
[2016-11-01] MEDS ORDERED: NACL 0.9% 500 ML 500 ML IV NR ×2 (15:51→15:55)
[2016-11-01] MEDS: MORPHINE IV PRN (16:01)
[2016-11-01] MEDS: PROTONIX PO SCH ×2 (16:01→22:04)
--- NOTE | 2016-11-01 16:51 | Progress Note ---
Assessment and Plan 1. GI bleed - etiology unclear. Multiple transfusions and extensive evaluation. - at this point, would recommend transfer to [facility] for small bowel enteroscopy - if negative, and bleeding recurs, may need provocative testing. Subjective Date of service: 11/01/16 Principal diagnosis: GI bleed, anemia Interval history: Pt without complaints. No active bleed. Angiogram negative. Objective - Constitutional Vitals: Vital Signs - 12hr 11/01/16 11/01/16 11/01/16 05:47 09:31 16:10 Temperature 97.0 F L 98.7 F Pulse Rate 98 H 92 H 93 H Respiratory 20 20 20 Rate Blood Pressure 133/86 93/56 114/58 O2 Sat by Pulse 93 97 98 Oximetry 11/01/16 16:17 Temperature 98.4 F Pulse Rate Respiratory Rate Blood Pressure O2 Sat by Pulse Oximetry General appearance: Present: no acute distress - EENT Eyes: PERRL, EOM intact ENT: hearing intact - Respiratory Respiratory effort: normal - Gastrointestinal General gastrointestinal: Present: soft, non-tender - Labs CBC & Chem 7: 11/01/16 06:22 11/01/16 06:22 Labs: Abnormal lab results 10/31/16 11/01/16 11/01/16 Range/Units 09:08 06:22 06:22 RBC 2.35 L (3.65-5.03) M/mm3 Hgb 6.9 L (11.8-15.2) gm/dl Hct 21.0 L (35.5-45.6) % RDW 16.2 H (13.2-15.2) % Sodium 136 L (137-145) mmol/L Creatinine 0.6 L (0.8-1.5) mg/dL Glucose 107 H (75-100) mg/dL Calcium 7.2 L (8.4-10.2) mg/dL Crossmatch See Detail
[2016-11-02] MEDS: MAXIPIME/NS 2 GM/100 ML 2 GM/100 ML BAG IV SCH ×3 (05:51→22:14)
[2016-11-02] MEDS: FLAGYL PO SCH ×3 (05:51→22:14)
[2016-11-02 09:58] LABS: Hematocrit 20.7 % (35.5-45.6); Hemoglobin 6.8 gm/dl (11.8-15.2); Mean Corpuscular HGB Conc 33 % (32-34); Mean Corpuscular Hemoglobin 29 pg (28-32); Mean Corpuscular Volume 88 fl (84-94); Platelet Count 215 K/mm3 (140-440); Red Blood Count 2.35 M/mm3 (3.65-5.03); Red Cell Distribution Width 15.7 % (13.2-15.2); White Blood Count 6.6 K/mm3 (4.5-11.0)
[2016-11-02] MEDS: PROTONIX PO SCH ×2 (10:04→22:14)
[2016-11-02 10:07] LABS: Anion Gap 11 mmol/L; Blood Urea Nitrogen 8 mg/dL (9-20); Calcium 7.4 mg/dL (8.4-10.2); Carbon Dioxide 26 mmol/L (22-30); Chloride 105.4 mmol/L (98-107); Glucose 100 mg/dL (75-100); Potassium 4.1 mmol/L (3.6-5.0); Sodium 138 mmol/L (137-145)
--- NOTE | 2016-11-02 10:47 | Progress Note ---
Assessment and Plan Assessment and plan: Patient is a 52-year-old Narciso Botswanan-speaking homeless man with history of hypertension, peptic ulcer disease, chronic back pain, anemia, alcohol abuse who presents with bright red blood per rectum. Just discharged from the same thing 10/24/16. He denies alcohol use last 2 months. But he is taking over-the- counter ibuprofen or Aleve, 2-3 pills 3-4 times a day for his chronic back pains. I told him via sales representative metals to only take Tylenol for pains. Patient still having bright red blood per rectum or for EGD. CTA abdomen and pelvis read as essentially normal. Per patient he had surgery 3 years ago at [facility] he is unsure of details concerning the surgery except the recent abdominal surgery and he states "I have a plastic stomach". -Acute on chronic blood loss anemia, * just had extensive workup by GI including panendoscopy with no findings. Awaiting [facility] acceptance for Small bowel enteroscopy and possible provocative surgery if enterscopy is negative per GI * Negative bleeding scan * Continue to avoid all antiplatelets * Status post 11 units packed red blood cells and 1 unit FFP. Hemoglobin today 6.8. Stable from yesterday -Remote history of alcohol dependency -Peptic ulcer: treat with PPI -Anemia requiring blood transfusion: Transfuse more blood, moved from [facility] to monitored bed -Distended abdomen/abdominal pain * The surgeon recommends transfer. Awaiting accepting facility. GI/ DVT prophylaxis SCDs Patient remains critically ill Requires continued inpatient care Plan of care discussed with the patient in detail via Botswanan interpretation verbalized understanding History Interval history: Patient seen and examined in no acute distress. Denies any active bleeding at this time. Denies any chest pain Reports abdominal distension and pain still persist unchanged from admission. Rates it a 3/10 in intensity. Hospitalist Physical - Constitutional Vitals: Temp Pulse Resp BP Pulse Ox 97.7 F 95 H 18 100/62 100 11/02/16 07:38 11/02/16 07:38 11/02/16 07:38 11/02/16 07:38 11/02/16 07:38 General appearance: Present: no acute distress Results - Labs CBC & Chem 7: 11/02/16 09:30 11/02/16 09:30 Labs: Laboratory Last Values WBC 6.6 K/mm3 (4.5-11.0) 11/02/16 09:30 RBC 2.35 M/mm3 (3.65-5.03) L 11/02/16 09:30 Hgb 6.8 gm/dl (11.8-15.2) L 11/02/16 09:30 Hct 20.7 % (35.5-45.6) L 11/02/16 09:30 MCV 88 fl (84-94) 11/02/16 09:30 MCH 29 pg (28-32) 11/02/16 09:30 MCHC 33 % (32-34) 11/02/16 09:30 RDW 15.7 % (13.2-15.2) H 11/02/16 09:30 Plt Count 215 K/mm3 (140-440) 11/02/16 09:30 Lymph % (Auto) 13.7 % (13.4-35.0) 10/28/16 06:05 [place] % (Auto) 10.4 % (0.0-7.3) H 10/28/16 06:05 Eos % (Auto) 6.7 % (0.0-4.3) H 10/28/16 06:05 Baso % (Auto) 0.5 % (0.0-1.8) 10/28/16 06:05 Lymph # 1.1 K/mm3 (1.2-5.4) L 10/28/16 06:05 [place] # 0.8 K/mm3 (0.0-0.8) 10/28/16 06:05 Eos # 0.5 K/mm3 (0.0-0.4) H 10/28/16 06:05 Baso # 0.0 K/mm3 (0.0-0.1) 10/28/16 06:05 Seg Neutrophils % 68.7 % (40.0-70.0) 10/28/16 06:05 Seg Neutrophils # 5.6 K/mm3 (1.8-7.7) 10/28/16 06:05 PT 15.3 Sec. (12.2-14.9) H 10/28/16 06:05 INR 1.22 (0.87-1.13) H 10/28/16 06:05 APTT 26.7 Sec. (24.2-36.6) 10/27/16 08:36 Sodium 138 mmol/L (137-145) 11/02/16 09:30 Potassium 4.1 mmol/L (3.6-5.0) 11/02/16 09:30 Chloride 105.4 mmol/L (98-107) 11/02/16 09:30 Carbon Dioxide 26 mmol/L (22-30) 11/02/16 09:30 Anion Gap 11 mmol/L 11/02/16 09:30 BUN 8 mg/dL (9-20) L 11/02/16 09:30 Creatinine 0.4 mg/dL (0.8-1.5) L 11/02/16 09:30 Estimated GFR > 60 ml/min 11/02/16 09:30 BUN/Creatinine Ratio 20.00 % 11/02/16 09:30 Glucose 100 mg/dL (75-100) 11/02/16 09:30 POC Glucose 122 (70-105) H 10/31/16 11:27 Lactic Acid 1.00 mmol/L (0.7-2.0) 10/27/16 19:07 Calcium 7.4 mg/dL (8.4-10.2) L 11/02/16 09:30 Total Bilirubin 0.50 mg/dL (0.1-1.2) 10/27/16 08:36 AST 21 units/L (5-40) 10/27/16 08:36 ALT 13 units/L (7-56) 10/27/16 08:36 Alkaline Phosphatase 66 units/L (35-129) 10/27/16 08:36 Total Protein 4.7 g/dL (6.3-8.2) L 10/27/16 08:36 Albumin 2.2 g/dL (3.9-5) L 10/27/16 08:36 Albumin/Globulin Ratio 0.9 % 10/27/16 08:36 Lipase 114 units/L (13-60) H 10/27/16 08:36 Urine Color Yellow (Yellow) 10/27/16 13:35 Urine Turbidity Clear (Clear) 10/27/16 13:35 Urine pH 6.0 (5.0-7.0) 10/27/16 13:35 Ur Specific [place] 1.041 (1.003-1.030) H 10/27/16 13:35 Urine Protein <15 mg/dl mg/dL (Negative) 10/27/16 13:35 Urine Glucose (UA) Neg mg/dL (Negative) 10/27/16 13:35 Urine Ketones Neg mg/dL (Negative) 10/27/16 13:35 Urine Blood Sm (Negative) 10/27/16 13:35 Urine Nitrite Neg (Negative) 10/27/16 13:35 Urine Bilirubin Neg (Negative) 10/27/16 13:35 Urine Urobilinogen < 2.0 mg/dL (<2.0) 10/27/16 13:35 Ur Leukocyte Esterase Neg (Negative) 10/27/16 13:35 Urine WBC (Auto) 1.0 /HPF (0.0-6.0) 10/27/16 13:35 Urine RBC (Auto) 2.0 /HPF (0.0-6.0) 10/27/16 13:35 U Epithel Cells (Auto) < 1.0 /HPF (0-13.0) 10/27/16 13:35 Blood Type O POSITIVE 10/31/16 09:08 Antibody Screen Negative 10/31/16 09:08 Crossmatch See Detail 10/31/16 09:08
[2016-11-02] MEDS: MORPHINE IV PRN ×2 (13:43→18:50)
--- NOTE | 2016-11-02 15:10 | Progress Note ---
Assessment and Plan 1. GI bleed - etiology unclear. Multiple transfusions and extensive evaluation. H/H stable at present. - at this point, would recommend transfer to [place] for small bowel enteroscopy - attempts in process. Discussed with Case Management and Dr. De Leon. - if negative, and bleeding recurs, may need provocative testing. Subjective Date of service: 11/02/16 Principal diagnosis: GI bleed, anemia Interval history: Pt without complaints. No active bleed. Had dark stools. Angiogram negative. Objective - Constitutional Vitals: Vital Signs - 12hr 11/02/16 11/02/16 11/02/16 03:44 04:01 04:26 Temperature 99.2 F 99.2 F Pulse Rate 95 H 91 H 96 H Respiratory Rate Blood Pressure 99/62 103/68 106/65 O2 Sat by Pulse 98 99 97 Oximetry 11/02/16 11/02/16 11/02/16 05:10 05:46 07:38 Temperature 97.7 F Pulse Rate 99 H 93 H 95 H Respiratory 18 Rate Blood Pressure 100/69 109/73 100/62 O2 Sat by Pulse 95 97 100 Oximetry 11/02/16 13:43 Temperature Pulse Rate Respiratory 18 Rate Blood Pressure O2 Sat by Pulse Oximetry General appearance: Present: no acute distress - EENT Eyes: PERRL, EOM intact ENT: hearing intact - Respiratory Respiratory effort: normal - Gastrointestinal General gastrointestinal: Present: soft, non-tender - Labs CBC & Chem 7: 11/02/16 09:30 11/02/16 09:30 Labs: Abnormal lab results 10/31/16 11/02/16 11/02/16 Range/Units 09:08 09:30 09:30 RBC 2.35 L (3.65-5.03) M/mm3 Hgb 6.8 L (11.8-15.2) gm/dl Hct 20.7 L (35.5-45.6) % RDW 15.7 H (13.2-15.2) % BUN 8 L (9-20) mg/dL Creatinine 0.4 L (0.8-1.5) mg/dL POC Glucose (70-105) Calcium 7.4 L (8.4-10.2) mg/dL Crossmatch See Detail 11/02/16 Range/Units 11:39 RBC (3.65-5.03) M/mm3 Hgb (11.8-15.2) gm/dl Hct (35.5-45.6) % RDW (13.2-15.2) % BUN (9-20) mg/dL Creatinine (0.8-1.5) mg/dL POC Glucose 107 H (70-105) Calcium (8.4-10.2) mg/dL Crossmatch
[2016-11-02 15:25] LABS: INR 1.07 (0.87-1.13)
[2016-11-02 15:26] LABS: Partial Thromboplastin Time 34.3 Sec. (24.2-36.6)
[2016-11-03] MEDS ORDERED: NACL 0.9% 500 ML 500 ML ONE ×2 (00:36→17:50)
[2016-11-03] MEDS: FLAGYL PO SCH ×3 (05:20→21:17)
[2016-11-03] MEDS: MAXIPIME/NS 2 GM/100 ML 2 GM/100 ML BAG IV SCH ×3 (05:20→21:16)
[2016-11-03] MEDS: MORPHINE IV PRN ×4 (07:24→21:16)
--- NOTE | 2016-11-03 07:41 | Progress Note ---
Assessment and Plan Assessment and plan: Patient is a 52-year-old Narciso [place]ian-speaking homeless man with history of hypertension, peptic ulcer disease, chronic back pain, anemia, alcohol abuse who presents with bright red blood per rectum. Just discharged from the same thing 10/24/16. He denies alcohol use last 2 months. But he is taking over-the- counter ibuprofen or Aleve, 2-3 pills 3-4 times a day for his chronic back pains. I told him via proced tech to only take Tylenol for pains. Patient still having bright red blood per rectum or for EGD. CTA abdomen and pelvis read as essentially normal. Per patient he had surgery 3 years ago at [facility] he is unsure of details concerning the surgery except the recent abdominal surgery and he states "I have a plastic stomach". -Acute on chronic blood loss anemia, * Just had extensive workup by GI including panendoscopy with no findings. Awaiting Tertiary center acceptance for Small bowel enteroscopy and possible provocative surgery if enterscopy is negative per [facility] on diversion, * Angiogram was negative * bleeding scan that was initial reported could not be found by me. Repeating the study since patient is still actively bleeding and based on discussion with GI * Continue to avoid all antiplatelets * Status post 11 units packed red blood cells and 1 unit FFP. Hemoglobin today 6.9 -Remote history of alcohol dependency -Peptic ulcer: treat with PPI -Anemia requiring blood transfusion: Transfuse more blood -Distended abdomen/abdominal pain * The surgeon recommends transfer. Awaiting accepting facility. GI/ DVT prophylaxis SCDs Patient remains critically ill Discussed with GI DR grady, He will review and discuss with [facility] following the bleeding scan Requires continued inpatient care Plan of care discussed with the patient in detail via [place]ian interpretation verbalized understanding History Interval history: Patient seen and examined in no acute distress. Nurse reports dark watery stools. sample sent to lab.4 Patient Denies any chest pain Reports abdominal distension and pain still persist unchanged from admission. Rates it a 3/10 in intensity. Hospitalist Physical - Physical exam Narrative exam: VITAL SIGNS: Reviewed. GENERAL: The patient appeared well nourished and normally developed. Vital signs as documented. HEAD: No signs of head trauma. EYES: Pupils are equal. Extraocular motions intact. EARS: Hearing grossly intact. MOUTH: Oropharynx is normal. NECK: No adenopathy, no JVD. CHEST: Chest with clear breath sounds bilaterally. No wheezes, rales, or rhonchi. CARDIAC: Regular rate and rhythm. S1 and S2, without murmurs, gallops, or rubs. VASCULAR: No Edema. Peripheral pulses normal and equal in all extremities. ABDOMEN: LARGE Abdominal scare with multiple depression, depressible distended ventral hernias, diffuse tenderness good bowel sounds, no guarding or rebound Soft, Generalized tender. No rebound or guarding, and no masses palpated. Bowel Sounds normal. MUSCULOSKELETAL: Good range of motion of all major joints. Extremities without clubbing, cyanosis or edema. NEUROLOGIC EXAM: Alert and oriented x 3. No focal sensory or strength deficits. Speech normal. Follows commands. PSYCHIATRIC: Mood normal. SKIN: surgical sacars - Constitutional Vitals: Temp Pulse Resp BP Pulse Ox 98.6 F 96 H 18 127/78 97 11/03/16 07:33 11/03/16 07:33 11/03/16 07:33 11/03/16 07:33 11/03/16 07:10 General appearance: Present: no acute distress Results - Labs CBC & Chem 7: 11/04/16 04:10 11/02/16 09:30 Labs: Laboratory Last Values WBC 6.6 K/mm3 (4.5-11.0) 11/02/16 09:30 RBC 2.35 M/mm3 (3.65-5.03) L 11/02/16 09:30 Hgb 6.8 gm/dl (11.8-15.2) L 11/02/16 09:30 Hct 20.7 % (35.5-45.6) L 11/02/16 09:30 MCV 88 fl (84-94) 11/02/16 09:30 MCH 29 pg (28-32) 11/02/16 09:30 MCHC 33 % (32-34) 11/02/16 09:30 RDW 15.7 % (13.2-15.2) H 11/02/16 09:30 Plt Count 215 K/mm3 (140-440) 11/02/16 09:30 Lymph % (Auto) 13.7 % (13.4-35.0) 10/28/16 06:05 [place] % (Auto) 10.4 % (0.0-7.3) H 10/28/16 06:05 Eos % (Auto) 6.7 % (0.0-4.3) H 10/28/16 06:05 Baso % (Auto) 0.5 % (0.0-1.8) 10/28/16 06:05 Lymph # 1.1 K/mm3 (1.2-5.4) L 10/28/16 06:05 [place] # 0.8 K/mm3 (0.0-0.8) 10/28/16 06:05 Eos # 0.5 K/mm3 (0.0-0.4) H 10/28/16 06:05 Baso # 0.0 K/mm3 (0.0-0.1) 10/28/16 06:05 Seg Neutrophils % 68.7 % (40.0-70.0) 10/28/16 06:05 Seg Neutrophils # 5.6 K/mm3 (1.8-7.7) 10/28/16 06:05 PT 14.5 Sec. (12.2-14.9) 11/02/16 14:47 INR 1.07 (0.87-1.13) 11/02/16 14:47 APTT 34.3 Sec. (24.2-36.6) 11/02/16 14:47 Sodium 138 mmol/L (137-145) 11/02/16 09:30 Potassium 4.1 mmol/L (3.6-5.0) 11/02/16 09:30 Chloride 105.4 mmol/L (98-107) 11/02/16 09:30 Carbon Dioxide 26 mmol/L (22-30) 11/02/16 09:30 Anion Gap 11 mmol/L 11/02/16 09:30 BUN 8 mg/dL (9-20) L 11/02/16 09:30 Creatinine 0.4 mg/dL (0.8-1.5) L 11/02/16 09:30 Estimated GFR > 60 ml/min 11/02/16 09:30 BUN/Creatinine Ratio 20.00 % 11/02/16 09:30 Glucose 100 mg/dL (75-100) 11/02/16 09:30 POC Glucose 153 (70-105) H 11/02/16 15:55 Lactic Acid 1.00 mmol/L (0.7-2.0) 10/27/16 19:07 Calcium 7.4 mg/dL (8.4-10.2) L 11/02/16 09:30 Total Bilirubin 0.50 mg/dL (0.1-1.2) 10/27/16 08:36 AST 21 units/L (5-40) 10/27/16 08:36 ALT 13 units/L (7-56) 10/27/16 08:36 Alkaline Phosphatase 66 units/L (35-129) 10/27/16 08:36 Total Protein 4.7 g/dL (6.3-8.2) L 10/27/16 08:36 Albumin 2.2 g/dL (3.9-5) L 10/27/16 08:36 Albumin/Globulin Ratio 0.9 % 10/27/16 08:36 Lipase 114 units/L (13-60) H 10/27/16 08:36 Urine Color Yellow (Yellow) 10/27/16 13:35 Urine Turbidity Clear (Clear) 10/27/16 13:35 Urine pH 6.0 (5.0-7.0) 10/27/16 13:35 Ur Specific [place] 1.041 (1.003-1.030) H 10/27/16 13:35 Urine Protein <15 mg/dl mg/dL (Negative) 10/27/16 13:35 Urine Glucose (UA) Neg mg/dL (Negative) 10/27/16 13:35 Urine Ketones Neg mg/dL (Negative) 10/27/16 13:35 Urine Blood Sm (Negative) 10/27/16 13:35 Urine Nitrite Neg (Negative) 10/27/16 13:35 Urine Bilirubin Neg (Negative) 10/27/16 13:35 Urine Urobilinogen < 2.0 mg/dL (<2.0) 10/27/16 13:35 Ur Leukocyte Esterase Neg (Negative) 10/27/16 13:35 Urine WBC (Auto) 1.0 /HPF (0.0-6.0) 10/27/16 13:35 Urine RBC (Auto) 2.0 /HPF (0.0-6.0) 10/27/16 13:35 U Epithel Cells (Auto) < 1.0 /HPF (0-13.0) 10/27/16 13:35 Blood Type O POSITIVE 10/31/16 09:08 Antibody Screen Negative 10/31/16 09:08 Crossmatch See Detail 10/31/16 09:08 - Imaging and Cardiology Imaging and Cardiology: NM bleeding scan pending
--- NOTE | 2016-11-03 10:00 | Gastroenterology Progress Note ---
<NIYA TOMLIN - Last Filed: 11/03/16 10:02> Assessment and Plan 1.GI bleed 2.hematochezia 3. acute blood loss anemia -HGB 6.8 -stable-transfusion of 2 units PRBCs pending -continue to monitor H/H and transfuse as needed -pt reports BM last night with blood, but nursing denies any signs of active bleeding overnight or this am -s/p small bowel enteroscopy - showed a hiatal hernia, gastritis, and normal small bowel to [facility] -bleeding scan-negative -angiogram-negative -continue to hold blood thinning medications -continue PPI -continue supportive care -GI bleed-etiology unclear -pt denied for transfer to [facility] for small bowel enteroscopy -no further GI recommendations at this time -if H/H remains stable tomorrow, pt is okay to be d/c from GI standpoint with an outpatient f/u appt in a couple of days to schedule a pill cam -if bleeding recurs could attempt another case for transfer to [facility] vs provocative testing -will signs off, please re-consult if needed Subjective Date of service: 11/03/16 Principal diagnosis: GI bleed, anemia Interval history: Patient resting in bed this am. No acute distress. Patient reports BM last night with blood but nursing denies an signs of active bleeding overnight or this am. Objective - Constitutional Vitals: Temp Pulse Resp BP Pulse Ox 98.8 F 97 H 18 117/75 97 11/03/16 08:34 11/03/16 08:34 11/03/16 08:34 11/03/16 08:34 11/03/16 08:34 General appearance: no acute distress, well-nourished - EENT Eyes: PERRL, EOM intact ENT: hearing intact - Respiratory Respiratory: bilateral: CTA (anterior) - Cardiovascular Rhythm: regular Heart Sounds: Present: S1 & S2 - Gastrointestinal General gastrointestinal: Present: soft, tender (generalized), non-distended, normal bowel sounds - Integumentary Integumentary: Present: warm, dry - Neurologic Neurological: alert and oriented x3 - Labs CBC & Chem 7: 11/02/16 09:30 11/02/16 09:30 Labs: Laboratory Results - last 24 hr 10/31/16 11/02/16 11/02/16 09:08 09:30 11:39 PT INR APTT Sodium 138 Potassium 4.1 Chloride 105.4 Carbon Dioxide 26 Anion Gap 11 BUN 8 L Creatinine 0.4 L Estimated GFR > 60 BUN/Creatinine Ratio 20.00 Glucose 100 POC Glucose 107 H Calcium 7.4 L Blood Type O POSITIVE Antibody Screen Negative Crossmatch See Detail 11/02/16 11/02/16 14:47 15:55 PT 14.5 INR 1.07 APTT 34.3 Sodium Potassium Chloride Carbon Dioxide Anion Gap BUN Creatinine Estimated GFR BUN/Creatinine Ratio Glucose POC Glucose 153 H Calcium Blood Type Antibody Screen Crossmatch <AMA FUNG R - Last Filed: 11/04/16 12:10> Assessment and Plan We are staying on case. I spoke with Dr. Summers at [facility], and have ordered RBC scan. Pt warrants Pillcam so appropriate endoscopic intervention can be planned. Will stay in communication with [facility] to see if they can be of assistance. Objective - Constitutional Vitals: Temp Pulse Resp BP Pulse Ox 98.3 F 92 H 18 120/63 99 11/04/16 11:35 11/04/16 11:35 11/04/16 11:39 11/04/16 11:35 11/04/16 08:13 - Labs CBC & Chem 7: 11/04/16 04:10 11/02/16 09:30 Labs: Laboratory Results - last 24 hr 10/31/16 11/04/16 11/04/16 09:08 04:10 07:23 Hgb 6.6 L Hct 20.8 L Blood Type O POSITIVE Antibody Screen Negative Crossmatch See Detail See Detail
[2016-11-03] MEDS: PROTONIX PO SCH ×2 (10:46→21:18)
[2016-11-03] MEDS ORDERED: FLUSH HEPARIN IV ONE (12:00)
[2016-11-03 12:06] LABS: Hematocrit 21.4 % (35.5-45.6); Hemoglobin 6.9 gm/dl (11.8-15.2); Mean Corpuscular HGB Conc 32 % (32-34); Mean Corpuscular Hemoglobin 29 pg (28-32); Mean Corpuscular Volume 91 fl (84-94); Platelet Count 202 K/mm3 (140-440); Red Blood Count 2.36 M/mm3 (3.65-5.03); Red Cell Distribution Width 15.5 % (13.2-15.2); White Blood Count 6.7 K/mm3 (4.5-11.0)
[2016-11-04] MEDS: FLAGYL PO SCH ×3 (05:22→21:11)
[2016-11-04] MEDS: MAXIPIME/NS 2 GM/100 ML 2 GM/100 ML BAG IV SCH ×3 (05:22→21:10)
[2016-11-04] MEDS: MORPHINE IV PRN ×3 (05:22→21:11)
[2016-11-04 05:42] LABS: Hemoglobin 6.6 gm/dl (11.8-15.2)
[2016-11-04 06:09] LABS: Hematocrit 20.8 % (35.5-45.6)
[2016-11-04] MEDS ORDERED: NACL 0.9% 500 ML 500 ML IV ONE (06:55)
--- NOTE | 2016-11-04 07:00 | Progress Note ---
Assessment and Plan Assessment and plan: Patient is a 52-year-old Narciso Ugandan-speaking homeless man with history of hypertension, peptic ulcer disease, chronic back pain, anemia, alcohol abuse who presents with bright red blood per rectum. Just discharged from the same thing 10/24/16. He denies alcohol use last 2 months. But he is taking over-the- counter ibuprofen or Aleve, 2-3 pills 3-4 times a day for his chronic back pains. I told him via occasional caregiver to only take Tylenol for pains. Patient still having bright red blood per rectum or for EGD. CTA abdomen and pelvis read as essentially normal. Per patient he had surgery 3 years ago at [facility] he is unsure of details concerning the surgery except the recent abdominal surgery and he states "I have a plastic stomach". -Acute on chronic blood loss anemia, * Just had extensive workup by GI including panendoscopy with no findings. Awaiting Tertiary center acceptance for Small bowel enteroscopy and possible provocative surgery if enterscopy is negative per [facility] on diversion, * Angiogram was negative * Bleeding scan result Negative * Will transfuse additional PRBC * Continue to avoid all antiplatelets * Status post 14 units packed red blood cells and 1 unit FFP. Hemoglobin today 6.6-Will transfuse one unit today and monitor * Dr Motley Was able to speek to Dr Méndez at [facility] and is willing to accept the patient but the facility is still on diverision-For accept for Pillcam and then small bowel enteroscopy. * Also called [facility] and they are on diversion also. [facility] system states they do not have the capacity to care for the patient. -Remote history of alcohol dependency -Peptic ulcer: treat with PPI -Anemia requiring blood transfusion: Transfuse more blood -Distended abdomen/abdominal pain * The surgeon recommends transfer. Awaiting accepting facility. GI/ DVT prophylaxis SCDs Patient remains critically ill Discussed with GI DR motley, He will review and discuss with [facility] following the bleeding scan Requires continued inpatient care Plan of care discussed with the patient in detail via Ugandan interpretation verbalized understanding History Interval history: Patient seen and examined in no acute distress. still with watery stool, positive for blood. remains hemodynamically stable Reports abdominal distension and pain still persist unchanged from admission. Rates it a 4/10 in intensity. Hospitalist Physical - Physical exam Narrative exam: VITAL SIGNS: Reviewed. GENERAL: The patient appeared well nourished and normally developed. Vital signs as documented. HEAD: No signs of head trauma. EYES: Pupils are equal. Extraocular motions intact. EARS: Hearing grossly intact. MOUTH: Oropharynx is normal. NECK: No adenopathy, no JVD. CHEST: Chest with clear breath sounds bilaterally. No wheezes, rales, or rhonchi. CARDIAC: Regular rate and rhythm. S1 and S2, without murmurs, gallops, or rubs. VASCULAR: No Edema. Peripheral pulses normal and equal in all extremities. ABDOMEN: LARGE Abdominal scare with multiple depression, depressible distended ventral hernias, diffuse tenderness good bowel sounds, no guarding or rebound Soft, Generalized tender. No rebound or guarding, and no masses palpated. Bowel Sounds normal. MUSCULOSKELETAL: Good range of motion of all major joints. Extremities without clubbing, cyanosis or edema. NEUROLOGIC EXAM: Alert and oriented x 3. No focal sensory or strength deficits. Speech normal. Follows commands. PSYCHIATRIC: Mood normal. SKIN: surgical sacars - Constitutional Vitals: Temp Pulse Resp BP Pulse Ox 98.2 F 107 H 18 106/71 100 11/04/16 04:46 11/04/16 04:46 11/04/16 05:22 11/04/16 04:46 11/04/16 04:46 General appearance: Present: no acute distress Results - Labs CBC & Chem 7: 11/04/16 04:10 11/02/16 09:30 Labs: Laboratory Last Values WBC 6.7 K/mm3 (4.5-11.0) 11/03/16 12:03 RBC 2.36 M/mm3 (3.65-5.03) L 11/03/16 12:03 Hgb 6.6 gm/dl (11.8-15.2) L 11/04/16 04:10 Hct 20.8 % (35.5-45.6) L 11/04/16 04:10 MCV 91 fl (84-94) 11/03/16 12:03 MCH 29 pg (28-32) 11/03/16 12:03 MCHC 32 % (32-34) 11/03/16 12:03 RDW 15.5 % (13.2-15.2) H 11/03/16 12:03 Plt Count 202 K/mm3 (140-440) 11/03/16 12:03 Lymph % (Auto) 13.7 % (13.4-35.0) 10/28/16 06:05 [place] % (Auto) 10.4 % (0.0-7.3) H 10/28/16 06:05 Eos % (Auto) 6.7 % (0.0-4.3) H 10/28/16 06:05 Baso % (Auto) 0.5 % (0.0-1.8) 10/28/16 06:05 Lymph # 1.1 K/mm3 (1.2-5.4) L 10/28/16 06:05 [place] # 0.8 K/mm3 (0.0-0.8) 10/28/16 06:05 Eos # 0.5 K/mm3 (0.0-0.4) H 10/28/16 06:05 Baso # 0.0 K/mm3 (0.0-0.1) 10/28/16 06:05 Seg Neutrophils % 68.7 % (40.0-70.0) 10/28/16 06:05 Seg Neutrophils # 5.6 K/mm3 (1.8-7.7) 10/28/16 06:05 PT 14.5 Sec. (12.2-14.9) 11/02/16 14:47 INR 1.07 (0.87-1.13) 11/02/16 14:47 APTT 34.3 Sec. (24.2-36.6) 11/02/16 14:47 Sodium 138 mmol/L (137-145) 11/02/16 09:30 Potassium 4.1 mmol/L (3.6-5.0) 11/02/16 09:30 Chloride 105.4 mmol/L (98-107) 11/02/16 09:30 Carbon Dioxide 26 mmol/L (22-30) 11/02/16 09:30 Anion Gap 11 mmol/L 11/02/16 09:30 BUN 8 mg/dL (9-20) L 11/02/16 09:30 Creatinine 0.4 mg/dL (0.8-1.5) L 11/02/16 09:30 Estimated GFR > 60 ml/min 11/02/16 09:30 BUN/Creatinine Ratio 20.00 % 11/02/16 09:30 Glucose 100 mg/dL (75-100) 11/02/16 09:30 POC Glucose 127 (70-105) H 11/03/16 11:45 Lactic Acid 1.00 mmol/L (0.7-2.0) 10/27/16 19:07 Calcium 7.4 mg/dL (8.4-10.2) L 11/02/16 09:30 Total Bilirubin 0.50 mg/dL (0.1-1.2) 10/27/16 08:36 AST 21 units/L (5-40) 10/27/16 08:36 ALT 13 units/L (7-56) 10/27/16 08:36 Alkaline Phosphatase 66 units/L (35-129) 10/27/16 08:36 Total Protein 4.7 g/dL (6.3-8.2) L 10/27/16 08:36 Albumin 2.2 g/dL (3.9-5) L 10/27/16 08:36 Albumin/Globulin Ratio 0.9 % 10/27/16 08:36 Lipase 114 units/L (13-60) H 10/27/16 08:36 Urine Color Yellow (Yellow) 10/27/16 13:35 Urine Turbidity Clear (Clear) 10/27/16 13:35 Urine pH 6.0 (5.0-7.0) 10/27/16 13:35 Ur Specific [place] 1.041 (1.003-1.030) H 10/27/16 13:35 Urine Protein <15 mg/dl mg/dL (Negative) 10/27/16 13:35 Urine Glucose (UA) Neg mg/dL (Negative) 10/27/16 13:35 Urine Ketones Neg mg/dL (Negative) 10/27/16 13:35 Urine Blood Sm (Negative) 10/27/16 13:35 Urine Nitrite Neg (Negative) 10/27/16 13:35 Urine Bilirubin Neg (Negative) 10/27/16 13:35 Urine Urobilinogen < 2.0 mg/dL (<2.0) 10/27/16 13:35 Ur Leukocyte Esterase Neg (Negative) 10/27/16 13:35 Urine WBC (Auto) 1.0 /HPF (0.0-6.0) 10/27/16 13:35 Urine RBC (Auto) 2.0 /HPF (0.0-6.0) 10/27/16 13:35 U Epithel Cells (Auto) < 1.0 /HPF (0-13.0) 10/27/16 13:35 Blood Type O POSITIVE 10/31/16 09:08 Antibody Screen Negative 10/31/16 09:08 Crossmatch See Detail 10/31/16 09:08
--- NOTE | 2016-11-04 07:42 | Progress Note ---
Assessment and Plan Pt status quo. Still bleeding "dark stools" Abd soft. PT NEEDS TO BE TRANSFERRED states that a Dr. Duenas in [facility] did "most of his big surgeries" rec also contact [facility] & Dr. Duenas as well as [place] to try to transfer JEANNINE also continue PRBC transfusion to try and keep Hg above 8 Selected Entries 11/04/16 11/04/16 04:46 05:52 Temperature 98.2 F Pulse Rate 107 H Respiratory 18 Rate Blood Pressure 106/71 Laboratory Tests 11/03/16 11/04/16 12:03 04:10 WBC 6.7 Hgb 6.6 L Hct 20.8 L Plt Count 202 Objective Vital Signs - 12hr 11/03/16 11/03/16 11/03/16 21:16 21:46 22:00 Temperature Pulse Rate Pulse Rate [ 112 H Apical] Respiratory 18 20 Rate Respiratory 18 Rate [Abdomen] Blood Pressure O2 Sat by Pulse Oximetry 11/03/16 11/04/16 11/04/16 23:24 04:46 05:22 Temperature 98.1 F 98.2 F Pulse Rate 113 H 107 H Pulse Rate [ Apical] Respiratory 18 Rate Respiratory Rate [Abdomen] Blood Pressure 108/56 106/71 O2 Sat by Pulse 97 100 Oximetry 11/04/16 05:52 Temperature Pulse Rate Pulse Rate [ Apical] Respiratory 18 Rate Respiratory Rate [Abdomen] Blood Pressure O2 Sat by Pulse Oximetry - Labs 11/04/16 04:10 11/02/16 09:30
--- NOTE | 2016-11-04 07:45 | Nuclear Medicine Report ---
BLEEDING SCAN: History: Active GI bleeding. Comment: This examination is just presented to me for interpretation. Standard distribution of radiotracer is noted. No enteric activity to suggest gastrointestinal bleeding is noted. Activity in collateral abdominal vessels is noted. The lower pelvis is not included in the [id number]. IMPRESSION: No evidence for active bleeding at the time of study.
[2016-11-04] MEDS: PROTONIX PO SCH ×2 (09:06→21:12)
--- NOTE | 2016-11-04 14:12 | Progress Note ---
Assessment and Plan 1. GI bleed - likely small bowel. RBC scan last night negative. Hgb gradually decreasing. Case discussed with Dr. Méndez at [facility], and with Dr. De Leon. [facility] willing to accept for Pillcam and then small bowel enteroscopy, once they are no longer on diversion. Meantime, supportive care. Subjective Date of service: 11/04/16 Principal diagnosis: GI bleed, anemia Interval history: Pt without complaints. Has liquid dark stools that turn water red. Objective - Constitutional Vitals: Vital Signs - 12hr 11/04/16 11/04/16 11/04/16 04:46 05:22 05:52 Temperature 98.2 F Pulse Rate 107 H Respiratory 18 18 Rate Respiratory Rate [Abdomen] Blood Pressure 106/71 Blood Pressure [Right] O2 Sat by Pulse 100 Oximetry 11/04/16 11/04/16 11/04/16 08:13 10:00 11:35 Temperature 98.8 F 98.3 F Pulse Rate 101 H 92 H Respiratory 20 18 Rate Respiratory 18 Rate [Abdomen] Blood Pressure 114/66 Blood Pressure 120/63 [Right] O2 Sat by Pulse 99 Oximetry 11/04/16 11/04/16 11/04/16 11:39 12:23 12:31 Temperature 98.5 F 98 F Pulse Rate 89 91 H Respiratory 18 18 18 Rate Respiratory Rate [Abdomen] Blood Pressure 106/64 120/63 Blood Pressure [Right] O2 Sat by Pulse Oximetry 11/04/16 11/04/16 12:53 13:23 Temperature 97.6 F 98.4 F Pulse Rate 84 85 Respiratory 16 16 Rate Respiratory Rate [Abdomen] Blood Pressure 123/69 118/65 Blood Pressure [Right] O2 Sat by Pulse Oximetry General appearance: Present: no acute distress - EENT Eyes: PERRL, EOM intact ENT: hearing intact - Respiratory Respiratory effort: normal - Labs CBC & Chem 7: 11/04/16 04:10 11/02/16 09:30 Labs: Abnormal lab results 10/31/16 11/04/16 11/04/16 Range/Units 09:08 04:10 07:23 Hgb 6.6 L (11.8-15.2) gm/dl Hct 20.8 L (35.5-45.6) % Crossmatch See Detail See Detail
[2016-11-05] MEDS: MAXIPIME/NS 2 GM/100 ML 2 GM/100 ML BAG IV SCH ×3 (05:10→21:39)
[2016-11-05] MEDS: FLAGYL PO SCH ×3 (05:10→21:40)
[2016-11-05] MEDS: MORPHINE IV PRN (05:11)
[2016-11-05 07:37] LABS: Hematocrit 17.6 % (35.5-45.6); Hemoglobin 5.8 gm/dl (11.8-15.2)
[2016-11-05] MEDS ORDERED: DDAVP IV ONE ×2 (08:07→10:00)
--- NOTE | 2016-11-05 08:22 | Progress Note ---
Assessment and Plan Assessment and plan: Patient is a 52-year-old Narciso Serbian-speaking homeless man with history of hypertension, peptic ulcer disease, chronic back pain, anemia, alcohol abuse who presents with bright red blood per rectum. Just discharged from the same thing 10/24/16. He denies alcohol use last 2 months. But he is taking over-the- counter ibuprofen or Aleve, 2-3 pills 3-4 times a day for his chronic back pains. I told him via stucco laborer to only take Tylenol for pains. Patient still having bright red blood per rectum or for EGD. CTA abdomen and pelvis read as essentially normal. Per patient he had surgery 3 years ago at [facility] he is unsure of details concerning the surgery except the recent abdominal surgery and he states "I have a plastic stomach". -Acute on chronic blood loss anemia, * Just had extensive workup by GI including panendoscopy with no findings. Awaiting Tertiary center acceptance for Small bowel enteroscopy and possible provocative surgery if enterscopy is negative per [facility] on diversion, * Angiogram was negative * Bleeding scan result Negative * Will transfuse additional PRBC * Continue to avoid all antiplatelets * Status post 14 units packed red blood cells and 1 unit FFP. Hemoglobin today 5.8-Will transfuse TWO unit today and monitor * Dr Motley Was able to speak to Dr Méndez at [facility] and is willing to accept the patient but the facility is still on diverision-For accept for Pillcam and then small bowel enteroscopy. * Will give a dose of desmopressin * Also called [facility] and they again are full and claim to have 20 people in ED waiting for beds and they are on diversion also. [facility] system states they do not have the capacity to care for the patient. * I have also called [facility],. Received a call back from an outside hospital and they are agreeable to take the patient. I'll novelty chain maker also discussed with the novelty chain maker. Patient will have proceeded via the facility and subsequently transferred back to us. We'll continue transfusion and route to facility. * I have also placed a call to [facility] in [place] Symptomatic anemia * Patient now with chest pain, dizziness and blurry vision. BP remains stable * Will check cardiac enzymes, check CT head if dizziness persist post transfusion Hypotensive. * Transfusion ongoing. WILL MONITOR. May need transfer to ICU if no improvement -Remote history of alcohol dependency -Peptic ulcer: treat with PPI -Anemia requiring blood transfusion: Transfuse more blood -Distended abdomen/abdominal pain * The surgeon recommends transfer. Awaiting accepting facility. GI/ DVT prophylaxis SCDs Patient remains critically ill Discussed with GI DR motley, He will review and discuss with [facility] following the bleeding scan Requires continued inpatient care Plan of care discussed with the patient in detail via Serbian interpretation verbalized understanding The high probability of a clinically significant, sudden or life threatening deterioration of the [gi, hematology] system(s) required my full and direct attention, intervention and personal management. The aggregate critical care time was [35] minutes. This time is in addition to time spent performing reported procedures but includes the following: [x] Data Review and interpretation [x] Patient assessment and monitoring of vital signs [x] Documentation [x] Medication orders and management History Interval history: Patient seen and examined in no acute distress. still with watery stool, positive for blood. He began expressing some dizziness today with blurry vision.. Hospitalist Physical - Physical exam Narrative exam: VITAL SIGNS: Reviewed. GENERAL: The patient appeared well nourished and normally developed. Vital signs as documented. HEAD: No signs of head trauma. EYES: Pupils are equal. Extraocular motions intact. EARS: Hearing grossly intact. MOUTH: Oropharynx is normal. NECK: No adenopathy, no JVD. CHEST: Chest with clear breath sounds bilaterally. No wheezes, rales, or rhonchi. CARDIAC: Regular rate and rhythm. S1 and S2, without murmurs, gallops, or rubs. VASCULAR: No Edema. Peripheral pulses normal and equal in all extremities. ABDOMEN: LARGE Abdominal scare with multiple depression, depressible distended ventral hernias, diffuse tenderness good bowel sounds, no guarding or rebound Soft, Generalized tender. No rebound or guarding, and no masses palpated. Bowel Sounds normal. MUSCULOSKELETAL: Good range of motion of all major joints. Extremities without clubbing, cyanosis or edema. NEUROLOGIC EXAM: Alert and oriented x 3. No focal sensory or strength deficits. Speech normal. Follows commands. PSYCHIATRIC: Mood normal. SKIN: surgical sacars - Constitutional Vitals: Temp Pulse Resp BP Pulse Ox 98.4 F 83 18 108/64 98 11/05/16 07:29 11/05/16 07:29 11/05/16 07:29 11/05/16 07:29 11/05/16 07:29 General appearance: Present: no acute distress Results - Labs CBC & Chem 7: 11/05/16 06:09 11/02/16 09:30 Labs: Laboratory Last Values WBC 6.7 K/mm3 (4.5-11.0) 11/03/16 12:03 RBC 2.36 M/mm3 (3.65-5.03) L 11/03/16 12:03 Hgb 5.8 gm/dl (11.8-15.2) L* 11/05/16 06:09 Hct 17.6 % (35.5-45.6) L* 11/05/16 06:09 MCV 91 fl (84-94) 11/03/16 12:03 MCH 29 pg (28-32) 11/03/16 12:03 MCHC 32 % (32-34) 11/03/16 12:03 RDW 15.5 % (13.2-15.2) H 11/03/16 12:03 Plt Count 202 K/mm3 (140-440) 11/03/16 12:03 Lymph % (Auto) 13.7 % (13.4-35.0) 10/28/16 06:05 [place] % (Auto) 10.4 % (0.0-7.3) H 10/28/16 06:05 Eos % (Auto) 6.7 % (0.0-4.3) H 10/28/16 06:05 Baso % (Auto) 0.5 % (0.0-1.8) 10/28/16 06:05 Lymph # 1.1 K/mm3 (1.2-5.4) L 10/28/16 06:05 [place] # 0.8 K/mm3 (0.0-0.8) 10/28/16 06:05 Eos # 0.5 K/mm3 (0.0-0.4) H 10/28/16 06:05 Baso # 0.0 K/mm3 (0.0-0.1) 10/28/16 06:05 Seg Neutrophils % 68.7 % (40.0-70.0) 10/28/16 06:05 Seg Neutrophils # 5.6 K/mm3 (1.8-7.7) 10/28/16 06:05 PT 14.5 Sec. (12.2-14.9) 11/02/16 14:47 INR 1.07 (0.87-1.13) 11/02/16 14:47 APTT 34.3 Sec. (24.2-36.6) 11/02/16 14:47 Sodium 138 mmol/L (137-145) 11/02/16 09:30 Potassium 4.1 mmol/L (3.6-5.0) 11/02/16 09:30 Chloride 105.4 mmol/L (98-107) 11/02/16 09:30 Carbon Dioxide 26 mmol/L (22-30) 11/02/16 09:30 Anion Gap 11 mmol/L 11/02/16 09:30 BUN 8 mg/dL (9-20) L 11/02/16 09:30 Creatinine 0.4 mg/dL (0.8-1.5) L 11/02/16 09:30 Estimated GFR > 60 ml/min 11/02/16 09:30 BUN/Creatinine Ratio 20.00 % 11/02/16 09:30 Glucose 100 mg/dL (75-100) 11/02/16 09:30 POC Glucose 127 (70-105) H 11/03/16 11:45 Lactic Acid 1.00 mmol/L (0.7-2.0) 10/27/16 19:07 Calcium 7.4 mg/dL (8.4-10.2) L 11/02/16 09:30 Total Bilirubin 0.50 mg/dL (0.1-1.2) 10/27/16 08:36 AST 21 units/L (5-40) 10/27/16 08:36 ALT 13 units/L (7-56) 10/27/16 08:36 Alkaline Phosphatase 66 units/L (35-129) 10/27/16 08:36 Total Protein 4.7 g/dL (6.3-8.2) L 10/27/16 08:36 Albumin 2.2 g/dL (3.9-5) L 10/27/16 08:36 Albumin/Globulin Ratio 0.9 % 10/27/16 08:36 Lipase 114 units/L (13-60) H 10/27/16 08:36 Urine Color Yellow (Yellow) 10/27/16 13:35 Urine Turbidity Clear (Clear) 10/27/16 13:35 Urine pH 6.0 (5.0-7.0) 10/27/16 13:35 Ur Specific [place] 1.041 (1.003-1.030) H 10/27/16 13:35 Urine Protein <15 mg/dl mg/dL (Negative) 10/27/16 13:35 Urine Glucose (UA) Neg mg/dL (Negative) 10/27/16 13:35 Urine Ketones Neg mg/dL (Negative) 10/27/16 13:35 Urine Blood Sm (Negative) 10/27/16 13:35 Urine Nitrite Neg (Negative) 10/27/16 13:35 Urine Bilirubin Neg (Negative) 10/27/16 13:35 Urine Urobilinogen < 2.0 mg/dL (<2.0) 10/27/16 13:35 Ur Leukocyte Esterase Neg (Negative) 10/27/16 13:35 Urine WBC (Auto) 1.0 /HPF (0.0-6.0) 10/27/16 13:35 Urine RBC (Auto) 2.0 /HPF (0.0-6.0) 10/27/16 13:35 U Epithel Cells (Auto) < 1.0 /HPF (0-13.0) 10/27/16 13:35 Blood Type O POSITIVE 11/04/16 07:23 Antibody Screen Negative 11/04/16 07:23 Crossmatch See Detail 11/04/16 07:23
[2016-11-05 08:55] LABS: Creatine Kinase MB 1.8 ng/mL (0.0-4.0)
[2016-11-05] MEDS ORDERED: FLUSH HEPARIN IV ONE (09:51)
[2016-11-05] MEDS ORDERED: NACL 0.9% IV ONE (10:00)
--- NOTE | 2016-11-05 10:36 | Gastroenterology Progress Note ---
<NIYA TOMLIN - Last Filed: 11/05/16 10:37> Assessment and Plan 1.GI bleed 2.hematochezia 3. acute blood loss anemia -HGB 5.8 today-trending down- pending transfusion of 2 units of PRBCs -continue to monitor H/H and transfuse as needed -BMs x 4 or 5 overnight and this am with black stool -s/p small bowel enteroscopy - showed a hiatal hernia, gastritis, and normal small bowel to jeunum -bleeding scan-negative -angiogram-negative -pt is awaiting transfer to [facility] today -Meantime, continue supportive care Subjective Date of service: 11/05/16 Principal diagnosis: GI bleed, anemia Interval history: Patient resting in bed this am. No acute distress. Reports BMs x 4 or 5 overnight and this am with black stool. Objective - Constitutional Vitals: Temp Pulse Resp BP Pulse Ox 98.4 F 83 18 108/64 98 11/05/16 07:29 11/05/16 07:29 11/05/16 07:29 11/05/16 07:29 11/05/16 07:29 General appearance: no acute distress, obese - EENT Eyes: PERRL, EOM intact ENT: hearing intact - Respiratory Respiratory: bilateral: CTA - Cardiovascular Rhythm: regular Heart Sounds: Present: S1 & S2 - Gastrointestinal General gastrointestinal: Present: soft, tender (generalized), non-distended ( mildly), normal bowel sounds - Neurologic Neurological: alert and oriented x3 - Labs CBC & Chem 7: 11/05/16 06:09 11/02/16 09:30 Labs: Laboratory Results - last 24 hr 10/31/16 11/04/16 11/05/16 09:08 07:23 06:09 Hgb 5.8 L* Hct 17.6 L* Total Creatine Kinase CK-MB (CK-2) CK-MB (CK-2) Rel Index Blood Type O POSITIVE Antibody Screen Negative Crossmatch See Detail See Detail 11/05/16 08:26 Hgb Hct Total Creatine Kinase 49 L CK-MB (CK-2) 1.8 CK-MB (CK-2) Rel Index 3.6 Blood Type Antibody Screen Crossmatch <AMA FUNG R - Last Filed: 11/05/16 11:25> Assessment and Plan Plans for transfer noted. Discussed with Dr. Bueno at [facility], and with Dr. De Leon. Objective - Constitutional Vitals: Temp Pulse Resp BP Pulse Ox 98.3 F 96 H 18 87/47 99 11/05/16 10:45 11/05/16 10:45 11/05/16 10:45 11/05/16 10:45 11/05/16 10:45 - Labs CBC & Chem 7: 11/05/16 06:09 11/02/16 09:30 Labs: Laboratory Results - last 24 hr 10/31/16 11/04/16 11/05/16 09:08 07:23 06:09 Hgb 5.8 L* Hct 17.6 L* Total Creatine Kinase CK-MB (CK-2) CK-MB (CK-2) Rel Index Blood Type O POSITIVE Antibody Screen Negative Crossmatch See Detail See Detail 11/05/16 08:26 Hgb Hct Total Creatine Kinase 49 L CK-MB (CK-2) 1.8 CK-MB (CK-2) Rel Index 3.6 Blood Type Antibody Screen Crossmatch
[2016-11-05] MEDS ORDERED: NACL 0.9% 500 ML 500 ML IV ONE (12:00)
[2016-11-05] MEDS: PROTONIX PO SCH ×2 (20:00→21:40)
[2016-11-06] MEDS ORDERED: NACL 0.9% 500 ML 500 ML IV ONE ×2 (03:00→10:22)
[2016-11-06] MEDS: MORPHINE IV PRN ×3 (04:51→21:45)
[2016-11-06] MEDS: MAXIPIME/NS 2 GM/100 ML 2 GM/100 ML BAG IV SCH ×2 (06:09→21:30)
[2016-11-06] MEDS: FLAGYL PO SCH ×2 (06:10→13:55)
[2016-11-06 10:01] LABS: Hematocrit 17.3 % (35.5-45.6); Hemoglobin 5.8 gm/dl (11.8-15.2)
--- NOTE | 2016-11-06 10:25 | Progress Note ---
Assessment and Plan Assessment and plan: Patient is a 52-year-old Narciso Malawian-speaking homeless man with history of hypertension, peptic ulcer disease, chronic back pain, anemia, alcohol abuse who presents with bright red blood per rectum. Just discharged from the same thing 10/24/16. He denies alcohol use last 2 months. But he is taking over-the- counter ibuprofen or Aleve, 2-3 pills 3-4 times a day for his chronic back pains. I told him via vp celebrity services to only take Tylenol for pains. Patient still having bright red blood per rectum or for EGD. CTA abdomen and pelvis read as essentially normal. Per patient he had surgery 3 years ago at [facility] he is unsure of details concerning the surgery except the recent abdominal surgery and he states "I have a plastic stomach". -Acute on chronic blood loss anemia, * Just had extensive workup by GI including panendoscopy with no findings. Awaiting Tertiary center acceptance for Small bowel enteroscopy and possible provocative surgery if enterscopy is negative per [facility] on diversion, * Angiogram was negative * Bleeding scan result Negative * Will transfuse additional PRBC * Continue to avoid all antiplatelets * Status post 17 units packed red blood cells and 1 unit FFP. Hemoglobin today 5.8-Will transfuse TWO unit today and monitor * Dr Motley Was able to speak to Dr Méndez at [facility] and is willing to accept the patient but the facility is still on diverision-For accept for Pillcam and then small bowel enteroscopy. * Will give a dose of desmopressin * Also called [facility] and they again are full and claim to have 20 people in ED waiting for beds and they are on diversion also. [facility] system states they do not have the capacity to care for the patient. * I have also placed a call to [facility] in [place] * Negative study at [facility] with recommendation to go to [facility] for Double Ballon Enteroscopy. Will try again on Tuesday. Symptomatic anemia * Patient now with chest pain, dizziness and blurry vision. BP remains stable * Will check cardiac enzymes, check CT head if dizziness persist post transfusion * We'll obtain hematology evaluation for futher direction. Hypotensive. * Transfusion ongoing. WILL MONITOR. -Remote history of alcohol dependency -Peptic ulcer: treat with PPI -Anemia requiring blood transfusion: Transfuse more blood -Distended abdomen/abdominal pain * The surgeon recommends transfer. Awaiting accepting facility. GI/ DVT prophylaxis SCDs Patient remains critically ill Discussed with GI DR motley, He will review and discuss with [facility] following the bleeding scan Requires continued inpatient care Plan of care discussed with the patient in detail via Malawian interpretation verbalized understanding Patient's is critically ill of the spleen also findings to him. Aggressive intervention may need to happen at this facility for cannot find a facility that is willing to accept him. As he continues to have persistent bloody stool. Requiring repeated transfusions. The high probability of a clinically significant, sudden or life threatening deterioration of the [gi, hematology] system(s) required my full and direct attention, intervention and personal management. The aggregate critical care time was [35] minutes. This time is in addition to time spent performing reported procedures but includes the following: [x] Data Review and interpretation [x] Patient assessment and monitoring of vital signs [x] Documentation [x] Medication orders and management History Interval history: Patient seen and examined in no acute distress. still with watery stool, with blood clots. Returned from outside facility. Hospitalist Physical - Physical exam Narrative exam: VITAL SIGNS: Reviewed. GENERAL: The patient appeared well nourished and normally developed. Vital signs as documented. HEAD: No signs of head trauma. EYES: Pupils are equal. Extraocular motions intact. EARS: Hearing grossly intact. MOUTH: Oropharynx is normal. NECK: No adenopathy, no JVD. CHEST: Chest with clear breath sounds bilaterally. No wheezes, rales, or rhonchi. CARDIAC: Regular rate and rhythm. S1 and S2, without murmurs, gallops, or rubs. VASCULAR: No Edema. Peripheral pulses normal and equal in all extremities. ABDOMEN: LARGE Abdominal scar with multiple depression, depressible distended ventral hernias, diffuse tenderness good bowel sounds, no guarding or rebound Soft, Generalized tender. No rebound or guarding, and no masses palpated. Bowel Sounds normal. MUSCULOSKELETAL: Good range of motion of all major joints. Extremities without clubbing, cyanosis or edema. NEUROLOGIC EXAM: Alert and oriented x 3. No focal sensory or strength deficits. Speech normal. Follows commands. PSYCHIATRIC: Mood normal. SKIN: surgical scars - Constitutional Vitals: Temp Pulse Resp BP Pulse Ox 98.6 F 112 H 18 72/21 99 11/06/16 07:28 11/06/16 04:25 11/06/16 07:28 11/06/16 07:28 11/06/16 04:25 General appearance: Present: no acute distress Results - Labs CBC & Chem 7: 11/06/16 08:47 11/02/16 09:30 Labs: Laboratory Last Values WBC 6.7 K/mm3 (4.5-11.0) 11/03/16 12:03 RBC 2.36 M/mm3 (3.65-5.03) L 11/03/16 12:03 Hgb 5.8 gm/dl (11.8-15.2) L* 11/06/16 08:47 Hct 17.3 % (35.5-45.6) L* 11/06/16 08:47 MCV 91 fl (84-94) 11/03/16 12:03 MCH 29 pg (28-32) 11/03/16 12:03 MCHC 32 % (32-34) 11/03/16 12:03 RDW 15.5 % (13.2-15.2) H 11/03/16 12:03 Plt Count 202 K/mm3 (140-440) 11/03/16 12:03 Lymph % (Auto) 13.7 % (13.4-35.0) 10/28/16 06:05 [place] % (Auto) 10.4 % (0.0-7.3) H 10/28/16 06:05 Eos % (Auto) 6.7 % (0.0-4.3) H 10/28/16 06:05 Baso % (Auto) 0.5 % (0.0-1.8) 10/28/16 06:05 Lymph # 1.1 K/mm3 (1.2-5.4) L 10/28/16 06:05 [place] # 0.8 K/mm3 (0.0-0.8) 10/28/16 06:05 Eos # 0.5 K/mm3 (0.0-0.4) H 10/28/16 06:05 Baso # 0.0 K/mm3 (0.0-0.1) 10/28/16 06:05 Seg Neutrophils % 68.7 % (40.0-70.0) 10/28/16 06:05 Seg Neutrophils # 5.6 K/mm3 (1.8-7.7) 10/28/16 06:05 PT 14.5 Sec. (12.2-14.9) 11/02/16 14:47 INR 1.07 (0.87-1.13) 11/02/16 14:47 APTT 34.3 Sec. (24.2-36.6) 11/02/16 14:47 Sodium 138 mmol/L (137-145) 11/02/16 09:30 Potassium 4.1 mmol/L (3.6-5.0) 11/02/16 09:30 Chloride 105.4 mmol/L (98-107) 11/02/16 09:30 Carbon Dioxide 26 mmol/L (22-30) 11/02/16 09:30 Anion Gap 11 mmol/L 11/02/16 09:30 BUN 8 mg/dL (9-20) L 11/02/16 09:30 Creatinine 0.4 mg/dL (0.8-1.5) L 11/02/16 09:30 Estimated GFR > 60 ml/min 11/02/16 09:30 BUN/Creatinine Ratio 20.00 % 11/02/16 09:30 Glucose 100 mg/dL (75-100) 11/02/16 09:30 POC Glucose 127 (70-105) H 11/03/16 11:45 Lactic Acid 1.00 mmol/L (0.7-2.0) 10/27/16 19:07 Calcium 7.4 mg/dL (8.4-10.2) L 11/02/16 09:30 Total Bilirubin 0.50 mg/dL (0.1-1.2) 10/27/16 08:36 AST 21 units/L (5-40) 10/27/16 08:36 ALT 13 units/L (7-56) 10/27/16 08:36 Alkaline Phosphatase 66 units/L (35-129) 10/27/16 08:36 Total Creatine Kinase 49 units/L (55-170) L 11/05/16 08:26 CK-MB (CK-2) 1.8 ng/mL (0.0-4.0) 11/05/16 08:26 CK-MB (CK-2) Rel Index 3.6 (0-4) 11/05/16 08:26 Troponin T < 0.010 ng/mL (0.00-0.029) 11/05/16 22:57 Total Protein 4.7 g/dL (6.3-8.2) L 10/27/16 08:36 Albumin 2.2 g/dL (3.9-5) L 10/27/16 08:36 Albumin/Globulin Ratio 0.9 % 10/27/16 08:36 Lipase 114 units/L (13-60) H 10/27/16 08:36 Urine Color Yellow (Yellow) 10/27/16 13:35 Urine Turbidity Clear (Clear) 10/27/16 13:35 Urine pH 6.0 (5.0-7.0) 10/27/16 13:35 Ur Specific [place] 1.041 (1.003-1.030) H 10/27/16 13:35 Urine Protein <15 mg/dl mg/dL (Negative) 10/27/16 13:35 Urine Glucose (UA) Neg mg/dL (Negative) 10/27/16 13:35 Urine Ketones Neg mg/dL (Negative) 10/27/16 13:35 Urine Blood Sm (Negative) 10/27/16 13:35 Urine Nitrite Neg (Negative) 10/27/16 13:35 Urine Bilirubin Neg (Negative) 10/27/16 13:35 Urine Urobilinogen < 2.0 mg/dL (<2.0) 10/27/16 13:35 Ur Leukocyte Esterase Neg (Negative) 10/27/16 13:35 Urine WBC (Auto) 1.0 /HPF (0.0-6.0) 10/27/16 13:35 Urine RBC (Auto) 2.0 /HPF (0.0-6.0) 10/27/16 13:35 U Epithel Cells (Auto) < 1.0 /HPF (0-13.0) 10/27/16 13:35 Blood Type O POSITIVE 11/04/16 07:23 Antibody Screen Negative 11/04/16 07:23 Crossmatch See Detail 11/04/16 07:23
[2016-11-06] MEDS: PROTONIX PO SCH ×2 (10:36→21:28)
[2016-11-06] MEDS: BENADRYL IV PRN ×2 (12:50→23:52)
[2016-11-06] MEDS ORDERED: NACL 0.9% 500 ML 500 ML ONE (13:37)
--- NOTE | 2016-11-06 15:11 | Progress Note ---
Assessment and Plan 1. GI bleed - likely small bowel source. - options are to transfer to [facility] as previously discussed vs discuss provocative testing and potential embolization with IR. Surgical laparotomy and assisted enteroscopy would be difficult due to adhesions. Subjective Date of service: 11/06/16 Principal diagnosis: GI bleed, anemia Interval history: Pt having intermittent rectal bleeding, several x/d. Pt had single balloon upper enteroscopy at [facility] yesterday that was negative. Objective - Constitutional Vitals: Vital Signs - 12hr 11/06/16 11/06/16 11/06/16 03:35 04:05 04:24 Temperature 97.6 F 97.6 F 98.1 F Pulse Rate 99 H 99 H Respiratory 16 18 16 Rate Blood Pressure 101/57 86/40 73/29 Blood Pressure [Right] O2 Sat by Pulse 99 Oximetry 11/06/16 11/06/16 11/06/16 04:25 04:26 07:28 Temperature 97.6 F 97.6 F 98.6 F Pulse Rate 112 H Respiratory 16 18 Rate Blood Pressure 100/46 72/21 Blood Pressure 100/46 [Right] O2 Sat by Pulse 99 Oximetry 11/06/16 11/06/16 11:45 13:24 Temperature 98.5 F 97.8 F Pulse Rate 91 H 102 H Respiratory 18 18 Rate Blood Pressure 103/60 106/59 Blood Pressure [Right] O2 Sat by Pulse 99 100 Oximetry General appearance: Present: no acute distress - EENT Eyes: PERRL, EOM intact ENT: hearing intact - Respiratory Respiratory effort: normal - Gastrointestinal General gastrointestinal: Present: soft, distended, other (Well-healed incisions and colostomy site, with hernias, and mild diffuse tenderness) - Labs CBC & Chem 7: 11/06/16 08:47 11/02/16 09:30 Labs: Abnormal lab results 11/04/16 11/06/16 Range/Units 07:23 08:47 Hgb 5.8 L* (11.8-15.2) gm/dl Hct 17.3 L* (35.5-45.6) % Crossmatch See Detail
--- NOTE | 2016-11-06 23:35 | Consultation ---
History of Present Illness - Reason for Consult Consult date: 11/06/16 anemia/symptomatic/rectal bleed. Requesting physician: MADISON LEZAMA - History of Present Illness Thank you for this consult, patient seen/examined, record reviewed, case discussed. Kindly asked to see this patient for the reasons above.Patient with severe anemia, normocytic /hypochomic. , with rectal bleed, some GI w/up including bleeding scan negative. More extensive procedure complicated needed, and warranting transfer to a [facility] center , and plans in progress.I have reviewed the scans, there is L3 compression fx?. please see some input by labs, and agree with transfer to proper center.desmopresin given, and did not work. he has had at least 19 PRBC transfusion up to date, he has also received 1FFP . Past History Past Medical History: hypertension, other (PUD, abd trauma from a fall) Past Surgical History: bowel surgery (multiple abd surgeries from trauma to include reversal of colostomy) Social history: Lives alone. denies: smoking Family history: no significant family history Medications and Allergies Allergies Allergy/AdvReac Type Severity Reaction Status Date / Time No Known Allergies Allergy Verified 06/02/16 08:50 Home Medications Medication Instructions Recorded Confirmed Last Taken Type Pantoprazole [Protonix TAB] 40 mg PO DAILY #30 tablet 10/22/16 10/27/16 Unknown Rx Active Meds: Active Medications Acetaminophen (Tylenol) 650 mg PO Q4H PRN PRN Reason: Pain MILD(1-3)/Fever >100.5/PINA Last Admin: 10/31/16 10:35 Dose: 650 mg Albuterol (Proventil) 2.5 mg IH Q4HRT PRN PRN Reason: Shortness Of Breath Diphenhydramine HCl (Benadryl) 25 mg IV Q6H PRN PRN Reason: Itching Last Admin: 11/06/16 12:50 Dose: 25 mg Sodium Chloride (Nacl 0.9% 1000 Ml) 1,000 mls @ 50 mls/hr IV DIRECT MACARIO Last Admin: 10/31/16 01:28 Dose: 50 mls/hr Magnesium Hydroxide (Milk Of Magnesia) 30 ml PO Q4H PRN PRN Reason: Constipation Morphine Sulfate (Morphine) 2 mg IV Q4H PRN PRN Reason: Pain , Severe (7-10) Last Admin: 11/06/16 21:45 Dose: 2 mg Pantoprazole Sodium (Protonix) 40 mg PO BID MACARIO Last Admin: 11/06/16 21:28 Dose: 40 mg Review of Systems Cardiovascular: chest pain Exam - Constitutional Vitals: Temp Pulse Resp BP Pulse Ox 99.3 F 91 H 20 127/74 97 11/06/16 20:45 11/06/16 20:45 11/06/16 21:45 11/06/16 20:45 11/06/16 20:45 General appearance: Present: mild distress, well-nourished - EENT Eyes: Present: PERRL ENT: hearing intact, clear oral mucosa - Neck Neck: Present: supple, normal ROM - Respiratory Respiratory effort: normal Respiratory: bilateral: CTA - Cardiovascular Heart Sounds: Present: S1 & S2. Absent: rub, click - Extremities Extremities: pulses symmetrical, No edema Peripheral Pulses: within normal limits - Abdominal General gastrointestinal: Present: soft, non-tender, non-distended, normal bowel sounds Male genitourinary: Present: deferred - Rectal Rectal Exam: deferred - Integumentary Integumentary: Present: clear, warm, dry - Musculoskeletal Musculoskeletal: gait normal, strength equal bilaterally - Psychiatric Psychiatric: appropriate mood/affect, intact judgment & insight - Neurologic Neurologic: CNII-XII intact, moves all extremities Results - Labs CBC & Chem 7: 11/06/16 08:47 11/02/16 09:30 Labs: Abnormal lab results 11/04/16 11/06/16 Range/Units 07:23 08:47 Hgb 5.8 L* (11.8-15.2) gm/dl Hct 17.3 L* (35.5-45.6) % Crossmatch See Detail Assessment and Plan - Patient Problems (1) Anemia Current Visit: Yes Status: Acute Qualifiers: Anemia type: other cause Iron deficiency anemia type: I Vitamin B12 deficiency anemia type: V Folate deficiency anemia type: F Bone marrow failure anemia type: B Hemolytic anemia type: H Other causes of anemia: acute posthemorrhagic Chronic kidney disease stage: C Qualified Code(s): D62 - Acute posthemorrhagic anemia Plan to address problem: transfusion, once the source is known, then it will be easy to fix. recheck las post transfusion. (2) Blood loss anemia Current Visit: Yes Status: Acute Plan to address problem: same as above. (3) GI bleeding Current Visit: Yes Status: Acute Qualifiers: GI bleed type/associated pathology: melena Gastritis type: G Qualified Code(s): K92.1 - Melena Plan to address problem: same as above. (4) History of bleeding ulcers Current Visit: Yes Status: Acute Plan to address problem: follow gi.procedures.
[2016-11-07 05:18] LABS: Alanine Aminotransferase 9 units/L (7-56); Albumin/Globulin Ratio 0.7 %; Alkaline Phosphatase 69 units/L (35-129); Anion Gap 12 mmol/L; Blood Urea Nitrogen 5 mg/dL (9-20); Calcium 7.4 mg/dL (8.4-10.2); Carbon Dioxide 24 mmol/L (22-30); Chloride 99.6 mmol/L (98-107); Glucose 85 mg/dL (75-100); Potassium 3.4 mmol/L (3.6-5.0); Sodium 132 mmol/L (137-145); Total Protein 4.7 g/dL (6.3-8.2)
[2016-11-07 05:20] LABS: Bilirubin,Direct < 0.2 mg/dL (0-0.2); Bilirubin,Indirect 0.4 mg/dL
[2016-11-07 09:54] LABS: Hemoglobin 7.3 gm/dl (11.8-15.2); Mean Corpuscular HGB Conc 33 % (32-34); Mean Corpuscular Hemoglobin 29 pg (28-32); Mean Corpuscular Volume 88 fl (84-94); Platelet Count 251 K/mm3 (140-440); Red Blood Count 2.49 M/mm3 (3.65-5.03); Red Cell Distribution Width 15.6 % (13.2-15.2); White Blood Count 7.1 K/mm3 (4.5-11.0)
[2016-11-07] MEDS: PROTONIX PO SCH ×2 (10:29→23:28)
--- NOTE | 2016-11-07 10:31 | Progress Note ---
Assessment and Plan Assessment and plan: Patient is a 52-year-old [place] Canadian-speaking homeless man with history of hypertension, peptic ulcer disease, chronic back pain, anemia, alcohol abuse who presents with bright red blood per rectum. Just discharged from the same thing 10/24/16. He denies alcohol use last 2 months. But he is taking over-the- counter ibuprofen or Aleve, 2-3 pills 3-4 times a day for his chronic back pains. I told him via machine cleaner to only take Tylenol for pains. Patient still having bright red blood per rectum or for EGD. CTA abdomen and pelvis read as essentially normal. Per patient he had surgery 3 years ago at [facility] he is unsure of details concerning the surgery except the recent abdominal surgery and he states "I have a plastic stomach". -Acute on chronic blood loss anemia, * Just had extensive workup by GI including panendoscopy with no findings. Awaiting Tertiary center acceptance for Small bowel enteroscopy and possible provocative surgery if enterscopy is negative per [facility] on diversion, * Angiogram was negative, Bleeding scan result Negative * Continue to avoid all antiplatelets * Status post 19 units packed red blood cells and 1 unit FFP. Hemoglobin today 7.3-Will monitor * Dr Motley Was able to speak to Dr Méndez at [facility] and is willing to accept the patient but the facility is still on diversion-For accept for [facility] and then small bowel enteroscopy. * s/p a dose of desmopressin * Also called [facility] and they again are full and claim to have 20 people in ED waiting for beds and they are on diversion also. [facility] system states they do not have the capacity to care for the patient. * I have also placed a call to [facility] in [place] * Negative study at [facility] with recommendation to go to [facility] for Double Ballon Enteroscopy. Will try again on Tuesday. Symptomatic anemia * Chest pain now resolved no further dizziness or blurred vision. * Hematology input appreciated Hypotensive. * Stable -Remote history of alcohol dependency -Peptic ulcer: Treat with PPI -Anemia requiring blood transfusion: Transfuse more blood as needed -Distended abdomen/abdominal pain * The surgeon recommends transfer. Awaiting accepting facility. GI/ DVT prophylaxis SCDs Patient remains critically ill Discussed with GI Dr. Motley Requires continued inpatient care Plan of care discussed with the patient in detail via [place] interpretation verbalized understanding Patient's is critically ill of the spleen also findings to him. Aggressive intervention may need to happen at this facility for cannot find a facility that is willing to accept him. As he continues to have persistent bloody stool. Requiring repeated transfusions. The high probability of a clinically significant, sudden or life threatening deterioration of the [GI, hematology] system(s) required my full and direct attention, intervention and personal management. The aggregate critical care time was [35] minutes. This time is in addition to time spent performing reported procedures but includes the following: [x] Data Review and interpretation [x] Patient assessment and monitoring of vital signs [x] Documentation [x] Medication orders and management History Interval history: Patient seen and examined in no acute distress. still with watery stool, no clots this time still dark possible old. Hospitalist Physical - Physical exam Narrative exam: VITAL SIGNS: Reviewed. GENERAL: The patient appeared well nourished and normally developed. Vital signs as documented. HEAD: No signs of head trauma. EYES: Pupils are equal. Extraocular motions intact. EARS: Hearing grossly intact. MOUTH: Oropharynx is normal. NECK: No adenopathy, no JVD. CHEST: Chest with clear breath sounds bilaterally. No wheezes, rales, or rhonchi. CARDIAC: Regular rate and rhythm. S1 and S2, without murmurs, gallops, or rubs. VASCULAR: No Edema. Peripheral pulses normal and equal in all extremities. ABDOMEN: LARGE Abdominal scar with multiple depression, depressible distended ventral hernias, diffuse tenderness good bowel sounds, no guarding or rebound Soft, Generalized tender. No rebound or guarding, and no masses palpated. Bowel Sounds normal. MUSCULOSKELETAL: Good range of motion of all major joints. Extremities without clubbing, cyanosis or edema. NEUROLOGIC EXAM: Alert and oriented x 3. No focal sensory or strength deficits. Speech normal. Follows commands. PSYCHIATRIC: Mood normal. SKIN: surgical scars - Constitutional Vitals: Temp Pulse Resp BP Pulse Ox 98.2 F 84 20 105/65 97 11/07/16 07:30 11/07/16 07:30 11/07/16 07:30 11/07/16 07:30 11/07/16 04:48 General appearance: Present: mild distress, well-nourished Results - Labs CBC & Chem 7: 11/07/16 09:31 11/07/16 04:30 Labs: Laboratory Last Values WBC 7.1 K/mm3 (4.5-11.0) 11/07/16 09:31 RBC 2.49 M/mm3 (3.65-5.03) L 11/07/16 09:31 Hgb 7.3 gm/dl (11.8-15.2) L 11/07/16 09:31 Hct 22.0 % (35.5-45.6) L 11/07/16 09:31 MCV 88 fl (84-94) 11/07/16 09:31 MCH 29 pg (28-32) 11/07/16 09: MCHC 33 % (32-34) 11/07/16 09:31 RDW 15.6 % (13.2-15.2) H 11/07/16 09:31 Plt Count 251 K/mm3 (140-440) 11/07/16 09:31 Lymph % (Auto) 13.7 % (13.4-35.0) 10/28/16 06:05 [place] % (Auto) 10.4 % (0.0-7.3) H 10/28/16 06:05 Eos % (Auto) 6.7 % (0.0-4.3) H 10/28/16 06:05 Baso % (Auto) 0.5 % (0.0-1.8) 10/28/16 06:05 Lymph # 1.1 K/mm3 (1.2-5.4) L 10/28/16 06:05 [place] # 0.8 K/mm3 (0.0-0.8) 10/28/16 06:05 Eos # 0.5 K/mm3 (0.0-0.4) H 10/28/16 06:05 Baso # 0.0 K/mm3 (0.0-0.1) 10/28/16 06:05 Seg Neutrophils % 68.7 % (40.0-70.0) 10/28/16 06:05 Seg Neutrophils # 5.6 K/mm3 (1.8-7.7) 10/28/16 06:05 PT 14.5 Sec. (12.2-14.9) 11/02/16 14:47 INR 1.07 (0.87-1.13) 11/02/16 14:47 APTT 34.3 Sec. (24.2-36.6) 11/02/16 14:47 Sodium 132 mmol/L (137-145) L 11/07/16 04:30 Potassium 3.4 mmol/L (3.6-5.0) L 11/07/16 04:30 Chloride 99.6 mmol/L (98-107) 11/07/16 04:30 Carbon Dioxide 24 mmol/L (22-30) 11/07/16 04:30 Anion Gap 12 mmol/L 11/07/16 04:30 BUN 5 mg/dL (9-20) L 11/07/16 04:30 Creatinine 0.5 mg/dL (0.8-1.5) L 11/07/16 04:30 Estimated GFR > 60 ml/min 11/07/16 04:30 BUN/Creatinine Ratio 10.00 % 11/07/16 04:30 Glucose 85 mg/dL (75-100) 11/07/16 04:30 POC Glucose 127 (70-105) H 11/03/16 11:45 Lactic Acid 1.00 mmol/L (0.7-2.0) 10/27/16 19:07 Calcium 7.4 mg/dL (8.4-10.2) L 11/07/16 04:30 Total Bilirubin 0.60 mg/dL (0.1-1.2) 11/07/16 04:30 Direct Bilirubin < 0.2 mg/dL (0-0.2) 11/07/16 04:30 Indirect Bilirubin 0.4 mg/dL 11/07/16 04:30 AST 23 units/L (5-40) 11/07/16 04:30 ALT 9 units/L (7-56) 11/07/16 04:30 Alkaline Phosphatase 69 units/L (35-129) 11/07/16 04:30 Lactate Dehydrogenase 147 units/L (91-180) 11/07/16 04:30 Total Creatine Kinase 49 units/L (55-170) L 11/05/16 08:26 CK-MB (CK-2) 1.8 ng/mL (0.0-4.0) 11/05/16 08:26 CK-MB (CK-2) Rel Index 3.6 (0-4) 11/05/16 08:26 Troponin T < 0.010 ng/mL (0.00-0.029) 11/05/16 22:57 Total Protein 4.7 g/dL (6.3-8.2) L 11/07/16 04:30 Albumin 2.0 g/dL (3.9-5) L 11/07/16 04:30 Albumin/Globulin Ratio 0.7 % 11/07/16 04:30 Lipase 114 units/L (13-60) H 10/27/16 08:36 Vitamin B12 301.2 pg/mL (211-911) 11/07/16 04:30 Folate 8.98 ng/mL (7.3-26.0) 11/07/16 04:30 Urine Color Yellow (Yellow) 10/27/16 13:35 Urine Turbidity Clear (Clear) 10/27/16 13:35 Urine pH 6.0 (5.0-7.0) 10/27/16 13:35 Ur Specific [place] 1.041 (1.003-1.030) H 10/27/16 13:35 Urine Protein <15 mg/dl mg/dL (Negative) 10/27/16 13:35 Urine Glucose (UA) Neg mg/dL (Negative) 10/27/16 13:35 Urine Ketones Neg mg/dL (Negative) 10/27/16 13:35 Urine Blood Sm (Negative) 10/27/16 13:35 Urine Nitrite Neg (Negative) 10/27/16 13:35 Urine Bilirubin Neg (Negative) 10/27/16 13:35 Urine Urobilinogen < 2.0 mg/dL (<2.0) 10/27/16 13:35 Ur Leukocyte Esterase Neg (Negative) 10/27/16 13:35 Urine WBC (Auto) 1.0 /HPF (0.0-6.0) 10/27/16 13:35 Urine RBC (Auto) 2.0 /HPF (0.0-6.0) 10/27/16 13:35 U Epithel Cells (Auto) < 1.0 /HPF (0-13.0) 10/27/16 13:35 Blood Type O POSITIVE 11/04/16 07:23 Antibody Screen Negative 11/04/16 07:23 Direct Antiglob Test Negative 11/07/16 04:30 DOMENICA, Poly Interpret Negative 11/07/16 04:30 Crossmatch See Detail 11/04/16 07:23
[2016-11-07 10:40] LABS: Erythrocyte Sedimentation Rate 45 mm/Hr (0-20)
[2016-11-07] MEDS ORDERED: K-DUR PO ONE (11:00)
[2016-11-07] MEDS: MORPHINE IV PRN (13:58)
--- NOTE | 2016-11-07 16:00 | Event Note ---
Date: 11/07/16 H/H improved. Discussed with Dr. De Leon. Ultimately, if unable to effect a transfer to [facility] for double balloon enteroscopy, would need to consider IR evaluation for provocative testing with selective cannulation of mesentery vessels and infusion of streptokinase or similar agent. This, of course, would be a very high risk course of action, but necessary if there are no other options.
--- NOTE | 2016-11-07 20:58 | Progress Note ---
Assessment and Plan - Patient Problems (1) Anemia Current Visit: Yes Status: Acute Qualifiers: Anemia type: other cause Iron deficiency anemia type: I Vitamin B12 deficiency anemia type: V Folate deficiency anemia type: F Bone marrow failure anemia type: B Hemolytic anemia type: H Other causes of anemia: acute posthemorrhagic Chronic kidney disease stage: C Qualified Code(s): D62 - Acute posthemorrhagic anemia Plan to address problem: transfusion, once the source is known, then it will be easy to fix. recheck las post transfusion. (2) Blood loss anemia Current Visit: Yes Status: Acute Plan to address problem: same as above. (3) GI bleeding Current Visit: Yes Status: Acute Qualifiers: GI bleed type/associated pathology: melena Gastritis type: G Qualified Code(s): K92.1 - Melena Plan to address problem: same as above. (4) History of bleeding ulcers Current Visit: Yes Status: Acute Plan to address problem: follow gi.procedures. Subjective Date of service: 11/07/16 Principal diagnosis: GI bleed, anemia Interval history: Patient seen today, lying in bed, still having black tarry stool, , getting more non compliant, refusing tx./labs., and wants to eat. Objective - Constitutional Vitals: Vital Signs - 12hr 11/07/16 11/07/16 11/07/16 10:00 11:22 12:00 Temperature 97.9 F 97.9 F Pulse Rate 80 86 Pulse Rate [ 80 Apical] Respiratory 20 20 Rate Blood Pressure 98/63 Blood Pressure 98/63 [Right] O2 Sat by Pulse 98 Oximetry 11/07/16 11/07/16 11/07/16 15:40 15:43 15:47 Temperature 97.3 F L 97.3 F L Pulse Rate 90 87 88 Pulse Rate [ Apical] Respiratory 20 20 Rate Blood Pressure 101/51 103/54 Blood Pressure 103/54 [Right] O2 Sat by Pulse 99 100 Oximetry 11/07/16 20:15 Temperature 98.5 F Pulse Rate 88 Pulse Rate [ Apical] Respiratory 18 Rate Blood Pressure 119/57 Blood Pressure [Right] O2 Sat by Pulse 98 Oximetry General appearance: Present: no acute distress, well-nourished - EENT Eyes: PERRL, EOM intact ENT: hearing intact, clear oral mucosa Ears: bilateral: normal - Neck Neck: supple, normal ROM - Respiratory Respiratory effort: normal Respiratory: bilateral: CTA - Cardiovascular Rhythm: regular Heart Sounds: Present: S1 & S2. Absent: gallop, rub Extremities: pulses intact, No edema, normal color, Full ROM - Gastrointestinal General gastrointestinal: Present: soft, non-tender, non-distended, normal bowel sounds - Genitourinary Male genitourinary: deferred - Integumentary Integumentary: clear, warm, dry - Musculoskeletal Musculoskeletal: 1, strength equal bilaterally - Neurologic Neurologic: moves all extremities - Psychiatric Psychiatric: memory intact, appropriate mood/affect, intact judgment & insight - Labs CBC & Chem 7: 11/07/16 09:31 11/07/16 04:30 Labs: Abnormal lab results 11/04/16 11/07/16 11/07/16 Range/Units 07:23 04:30 09:31 RBC 2.49 L (3.65-5.03) M/mm3 Hgb 7.3 L (11.8-15.2) gm/dl Hct 22.0 L (35.5-45.6) % RDW 15.6 H (13.2-15.2) % Sodium 132 L (137-145) mmol/L Potassium 3.4 L (3.6-5.0) mmol/L BUN 5 L (9-20) mg/dL Creatinine 0.5 L (0.8-1.5) mg/dL Calcium 7.4 L (8.4-10.2) mg/dL Total Protein 4.7 L (6.3-8.2) g/dL Albumin 2.0 L (3.9-5) g/dL Crossmatch See Detail
[2016-11-08] MEDS: TYLENOL #3 PO PRN ×2 (02:55→15:59)
[2016-11-08 07:44] LABS: Anion Gap 10 mmol/L; Blood Urea Nitrogen 5 mg/dL (9-20); Calcium 7.6 mg/dL (8.4-10.2); Carbon Dioxide 28 mmol/L (22-30); Chloride 105.4 mmol/L (98-107); Glucose 82 mg/dL (75-100); Potassium 3.8 mmol/L (3.6-5.0); Sodium 140 mmol/L (137-145)
[2016-11-08 07:48] LABS: Hemoglobin 6.3 gm/dl (11.8-15.2); Mean Corpuscular HGB Conc 34 % (32-34); Mean Corpuscular Hemoglobin 30 pg (28-32); Mean Corpuscular Volume 89 fl (84-94); Platelet Count 230 K/mm3 (140-440); Red Blood Count 2.12 M/mm3 (3.65-5.03); Red Cell Distribution Width 15.9 % (13.2-15.2); White Blood Count 5.2 K/mm3 (4.5-11.0)
[2016-11-08 07:53] LABS: Hematocrit 18.8 % (35.5-45.6)
--- NOTE | 2016-11-08 08:02 | Progress Note ---
Assessment and Plan Assessment and plan: Patient is a 52-year-old [place] Grenadian-speaking homeless man with history of hypertension, peptic ulcer disease, chronic back pain, anemia, alcohol abuse who presents with bright red blood per rectum. Just discharged from the same thing 10/24/16. He denies alcohol use last 2 months. But he is taking over-the- counter ibuprofen or Aleve, 2-3 pills 3-4 times a day for his chronic back pains. I told him via certified family mediator to only take Tylenol for pains. Patient still having bright red blood per rectum or for EGD. CTA abdomen and pelvis read as essentially normal. Per patient he had surgery [address] [facility] he is unsure of details concerning the surgery except the recent abdominal surgery and he states "I have a plastic stomach". -Acute on chronic blood loss anemia, * Just had extensive workup by GI including panendoscopy with no findings. Awaiting Tertiary center acceptance for Small bowel enteroscopy and possible provocative surgery if enterscopy is negative per [facility] on diversion, * Angiogram was negative, Bleeding scan result Negative * Continue to avoid all antiplatelets * Status post 19 units packed red blood cells and 1 unit FFP. Hemoglobin today 6.3-Will monitor-will give 2 more units. Patient is now hypotensive still with blood per rectum. will discuss provocative plan with him today if not able to transfer to [facility] * Dr Motley Was able to speak to Dr Méndez at [facility] and is willing to accept the patient but the facility is still on diversion-For accept for Pillcam and then small bowel enteroscopy. Spoke with DR King, VERY GRACIOUS * s/p a dose of desmopressin * Also called [facility] and they again are full and claim to have 20 people in ED waiting for beds and they are on diversion also. [facility] system states they do not have the capacity to care for the patient. * I have also placed a call to [facility] in [place] * Negative study at [facility] with recommendation to go to [facility] for Double Ballon Enteroscopy. Symptomatic anemia * Chest pain now resolved no further dizziness or blurred vision. * Hematology input appreciated Hypotensive. * Stable -Remote history of alcohol dependency -Peptic ulcer: Treat with PPI -Anemia requiring blood transfusion: Transfuse more blood as needed -Distended abdomen/abdominal pain * The surgeon recommends transfer. Awaiting accepting facility. GI/ DVT prophylaxis SCDs Patient remains critically ill Discussed with GI Dr. Motley Requires continued inpatient care Plan of care discussed with the patient in detail via Grenadian interpretation verbalized understanding Patient's is critically ill and I have expalined these findings to him. Aggressive intervention may need to happen at this facility for cannot find a facility that is willing to accept him. As he continues to have persistent bloody stool. Requiring repeated transfusions. The high probability of a clinically significant, sudden or life threatening deterioration of the [GI, hematology] system(s) required my full and direct attention, intervention and personal management. The aggregate critical care time was [35] minutes. This time is in addition to time spent performing reported procedures but includes the following: [x] Data Review and interpretation [x] Patient assessment and monitoring of vital signs [x] Documentation [x] Medication orders and management History Interval history: Patient seen and examined in no acute distress. still with watery bloody stool. Hospitalist Physical - Physical exam Narrative exam: VITAL SIGNS: Reviewed. GENERAL: The patient appeared well nourished and normally developed. Vital signs as documented. HEAD: No signs of head trauma. EYES: Pupils are equal. Extraocular motions intact. EARS: Hearing grossly intact. MOUTH: Oropharynx is normal. NECK: No adenopathy, no JVD. CHEST: Chest with clear breath sounds bilaterally. No wheezes, rales, or rhonchi. CARDIAC: Regular rate and rhythm. S1 and S2, without murmurs, gallops, or rubs. VASCULAR: No Edema. Peripheral pulses normal and equal in all extremities. ABDOMEN: LARGE Abdominal scar with multiple depression, depressible distended ventral hernias, diffuse tenderness good bowel sounds, no guarding or rebound Soft, Generalized tender. No rebound or guarding, and no masses palpated. Bowel Sounds normal. MUSCULOSKELETAL: Good range of motion of all major joints. Extremities without clubbing, cyanosis or edema. NEUROLOGIC EXAM: Alert and oriented x 3. No focal sensory or strength deficits. Speech normal. Follows commands. PSYCHIATRIC: Mood normal. SKIN: surgical scars - Constitutional Vitals: Temp Pulse Resp BP Pulse Ox 97.4 F L 82 18 92/45 99 11/08/16 04:14 11/08/16 04:14 11/08/16 04:14 11/08/16 04:14 11/08/16 04:14 General appearance: Present: no acute distress, well-nourished Results - Labs CBC & Chem 7: 11/08/16 07:04 11/08/16 07:04 Labs: Laboratory Last Values WBC 5.2 K/mm3 (4.5-11.0) 11/08/16 07:04 RBC 2.12 M/mm3 (3.65-5.03) L 11/08/16 07:04 Hgb 6.3 gm/dl (11.8-15.2) L 11/08/16 07:04 Hct 18.8 % (35.5-45.6) L* 11/08/16 07:04 MCV 89 fl (84-94) 11/08/16 07:04 MCH 30 pg (28-32) 11/08/16 07:04 MCHC 34 % (32-34) 11/08/16 07:04 RDW 15.9 % (13.2-15.2) H 11/08/16 07:04 Plt Count 230 K/mm3 (140-440) 11/08/16 07:04 Lymph % (Auto) 13.7 % (13.4-35.0) 10/28/16 06:05 [place] % (Auto) 10.4 % (0.0-7.3) H 10/28/16 06:05 Eos % (Auto) 6.7 % (0.0-4.3) H 10/28/16 06:05 Baso % (Auto) 0.5 % (0.0-1.8) 10/28/16 06:05 Lymph # 1.1 K/mm3 (1.2-5.4) L 10/28/16 06:05 [place] # 0.8 K/mm3 (0.0-0.8) 10/28/16 06:05 Eos # 0.5 K/mm3 (0.0-0.4) H 10/28/16 06:05 Baso # 0.0 K/mm3 (0.0-0.1) 10/28/16 06:05 Seg Neutrophils % 68.7 % (40.0-70.0) 10/28/16 06:05 Seg Neutrophils # 5.6 K/mm3 (1.8-7.7) 10/28/16 06:05 ESR 45 mm/Hr (0-20) 11/07/16 09:31 PT 14.5 Sec. (12.2-14.9) 11/02/16 14:47 INR 1.07 (0.87-1.13) 11/02/16 14:47 APTT 34.3 Sec. (24.2-36.6) 11/02/16 14:47 Sodium 140 mmol/L (137-145) D 11/08/16 07:04 Potassium 3.8 mmol/L (3.6-5.0) 11/08/16 07:04 Chloride 105.4 mmol/L (98-107) 11/08/16 07:04 Carbon Dioxide 28 mmol/L (22-30) 11/08/16 07:04 Anion Gap 10 mmol/L 11/08/16 07:04 BUN 5 mg/dL (9-20) L 11/08/16 07:04 Creatinine 0.5 mg/dL (0.8-1.5) L 11/08/16 07:04 Estimated GFR > 60 ml/min 11/08/16 07:04 BUN/Creatinine Ratio 10.00 % 11/08/16 07:04 Glucose 82 mg/dL (75-100) 11/08/16 07:04 POC Glucose 127 (70-105) H 11/03/16 11:45 Lactic Acid 1.00 mmol/L (0.7-2.0) 10/27/16 19:07 Calcium 7.6 mg/dL (8.4-10.2) L 11/08/16 07:04 Total Bilirubin 0.60 mg/dL (0.1-1.2) 11/07/16 04:30 Direct Bilirubin < 0.2 mg/dL (0-0.2) 11/07/16 04:30 Indirect Bilirubin 0.4 mg/dL 11/07/16 04:30 AST 23 units/L (5-40) 11/07/16 04:30 ALT 9 units/L (7-56) 11/07/16 04:30 Alkaline Phosphatase 69 units/L (35-129) 11/07/16 04:30 Lactate Dehydrogenase 147 units/L (91-180) 11/07/16 04:30 Total Creatine Kinase 49 units/L (55-170) L 11/05/16 08:26 CK-MB (CK-2) 1.8 ng/mL (0.0-4.0) 11/05/16 08:26 CK-MB (CK-2) Rel Index 3.6 (0-4) 11/05/16 08:26 Troponin T < 0.010 ng/mL (0.00-0.029) 11/05/16 22:57 Total Protein 4.7 g/dL (6.3-8.2) L 11/07/16 04:30 Albumin 2.0 g/dL (3.9-5) L 11/07/16 04:30 Albumin/Globulin Ratio 0.7 % 11/07/16 04:30 Lipase 114 units/L (13-60) H 10/27/16 08:36 Vitamin B12 301.2 pg/mL (211-911) 11/07/16 04:30 Folate 8.98 ng/mL (7.3-26.0) 11/07/16 04:30 Urine Color Yellow (Yellow) 10/27/16 13:35 Urine Turbidity Clear (Clear) 10/27/16 13:35 Urine pH 6.0 (5.0-7.0) 10/27/16 13:35 Ur Specific [place] 1.041 (1.003-1.030) H 10/27/16 13:35 Urine Protein <15 mg/dl mg/dL (Negative) 10/27/16 13:35 Urine Glucose (UA) Neg mg/dL (Negative) 10/27/16 13:35 Urine Ketones Neg mg/dL (Negative) 10/27/16 13:35 Urine Blood Sm (Negative) 10/27/16 13:35 Urine Nitrite Neg (Negative) 10/27/16 13:35 Urine Bilirubin Neg (Negative) 10/27/16 13:35 Urine Urobilinogen < 2.0 mg/dL (<2.0) 10/27/16 13:35 Ur Leukocyte Esterase Neg (Negative) 10/27/16 13:35 Urine WBC (Auto) 1.0 /HPF (0.0-6.0) 10/27/16 13:35 Urine RBC (Auto) 2.0 /HPF (0.0-6.0) 10/27/16 13:35 U Epithel Cells (Auto) < 1.0 /HPF (0-13.0) 10/27/16 13:35 Blood Type O POSITIVE 11/04/16 07:23 Antibody Screen Negative 11/04/16 07:23 Direct Antiglob Test Negative 11/07/16 04:30 DOMENICA, Poly Interpret Negative 11/07/16 04:30 Crossmatch See Detail 11/04/16 07:23
[2016-11-08] MEDS: PROTONIX PO SCH ×2 (10:01→22:03)
[2016-11-08] MEDS ORDERED: D5NS 1,000 ML IV SCH (11:00)
[2016-11-08 11:59] LABS: Prealbumin 0.08 g/L (0.200-0.400)
[2016-11-08] MEDS ORDERED: NACL 0.9% 500 ML 500 ML IV ONE (12:00)
[2016-11-08] MEDS ORDERED: NACL 0.9% 500 ML 500 ML ONE (15:47)
[2016-11-08] MEDS: BENADRYL IV PRN ×2 (15:59→22:02)
--- NOTE | 2016-11-08 16:14 | Gastroenterology Progress Note ---
Assessment and Plan - Patient Problems (1) Blood loss anemia Current Visit: Yes Status: Acute Plan to address problem: - Numerous negative studies (EGD, Colon, CTA/mesenteric angiogram, [place] GI bleed study, single balloon enteroscopy at [facility]). - Multiple prior GI surgeries and I suspect either anastamotic ulcer (?from prior NSAIDs) versus AVM versus atypical cause like hemosuccus pancreaticus. - Although he reports "dark stools" he is on iron, and EGDs have shown no active bleeding in the UGI tract (to the jejunum) and a colonoscopy has documented hematochezia in the terminal ileum. - I agree with Dr De Leon and Dr Motley that the patient needs transfer to [place] for capsule endoscopy/double balloon enteroscopy and/or provacative mesenteric challenge with streptokinase (with surgical backup). - Will continue to monitor. Will add iron/MVI. Since no active heavy bleeding , OK to let patient eat regular food at present. Subjective Date of service: 11/08/16 Principal diagnosis: GI bleed Interval history: The patient states he has had only 2 BMs today, and denies abdominal pain, N or V. He does have chronic back pain (L3 fracture) for which he gets pain meds. He denies CP or SOB despite his anemia. Objective - Constitutional Vitals: Temp Pulse Resp BP Pulse Ox 98.1 F 102 H 18 111/66 97 11/08/16 15:50 11/08/16 15:50 11/08/16 08:03 11/08/16 15:50 11/08/16 15:50 General appearance: no acute distress - EENT Eyes: PERRL, EOM intact - Respiratory Respiratory effort: normal Respiratory: bilateral: CTA - Cardiovascular Rhythm: regular Heart Sounds: Present: S1 & S2 - Gastrointestinal General gastrointestinal: Present: soft, non-tender, non-distended, other ( Morbid obesity; multiple prior surgical scars) - Labs CBC & Chem 7: 11/08/16 07:04 11/08/16 07:04 Labs: Laboratory Results - last 24 hr 11/08/16 11/08/16 11/08/16 07:04 07:04 07:04 WBC 5.2 RBC 2.12 L Hgb 6.3 L Hct 18.8 L* MCV 89 MCH 30 MCHC 34 RDW 15.9 H Plt Count 230 Sodium 140 D Potassium 3.8 Chloride 105.4 Carbon Dioxide 28 Anion Gap 10 BUN 5 L Creatinine 0.5 L Estimated GFR > 60 BUN/Creatinine Ratio 10.00 Glucose 82 Calcium 7.6 L Albumin 2.0 L Prealbumin 0.080 L Blood Type Antibody Screen Crossmatch 11/08/16 09:28 WBC RBC Hgb Hct MCV MCH MCHC RDW Plt Count Sodium Potassium Chloride Carbon Dioxide Anion Gap BUN Creatinine Estimated GFR BUN/Creatinine Ratio Glucose Calcium Albumin Prealbumin Blood Type O POSITIVE Antibody Screen Negative Crossmatch See Detail
--- NOTE | 2016-11-09 00:15 | Progress Note ---
Assessment and Plan - Patient Problems (1) Anemia Current Visit: Yes Status: Acute Qualifiers: Anemia type: other cause Iron deficiency anemia type: I Vitamin B12 deficiency anemia type: V Folate deficiency anemia type: F Bone marrow failure anemia type: B Hemolytic anemia type: H Other causes of anemia: acute posthemorrhagic Chronic kidney disease stage: C Qualified Code(s): D62 - Acute posthemorrhagic anemia Plan to address problem: transfusion, once the source is known, then it will be easy to fix. recheck las post transfusion. (2) Blood loss anemia Current Visit: Yes Status: Acute Plan to address problem: same as above. (3) GI bleeding Current Visit: Yes Status: Acute Qualifiers: GI bleed type/associated pathology: melena Gastritis type: G Qualified Code(s): K92.1 - Melena Plan to address problem: same as above. (4) History of bleeding ulcers Current Visit: Yes Status: Acute Plan to address problem: follow gi.procedures. Subjective Date of service: 11/08/16 Principal diagnosis: GI bleed Interval history: Patient seen today, lying in bed, still having black tarry stool, , getting more non compliant, refusing tx./labs., and wants to eat. Patient seen earlier, case reviewed, blood transfusion was in progress. [place] had bed as the nurse. Objective - Constitutional Vitals: Vital Signs - 12hr 11/08/16 11/08/16 11/08/16 15:50 16:10 16:25 Temperature 98.1 F 98.1 F 98.2 F Pulse Rate 102 H 101 H 78 Respiratory 18 18 Rate Blood Pressure 111/66 111/66 102/64 O2 Sat by Pulse 97 97 Oximetry 11/08/16 11/08/16 11/08/16 16:28 16:53 16:55 Temperature 98.4 F 98.4 F Pulse Rate 100 H 91 H 91 H Respiratory 18 18 18 Rate Blood Pressure 102/64 108/55 108/55 O2 Sat by Pulse 97 97 97 Oximetry 11/08/16 11/08/16 11/08/16 16:59 17:21 17:24 Temperature 98.7 F 99.2 F 99.2 F Pulse Rate 93 H 93 H Respiratory 18 20 18 Rate Blood Pressure 108/55 107/54 107/54 O2 Sat by Pulse 95 95 Oximetry 09/11/08/16 11/08/16 17:55 17:57 18:36 Temperature 98.7 F 98.7 F 98.6 F Pulse Rate 92 H 92 H 96 H Respiratory 18 18 Rate Blood Pressure 114/73 114/73 112/68 O2 Sat by Pulse 97 97 97 Oximetry 11/08/16 11/08/16 11/08/16 18:43 18:50 19:07 Temperature 98.6 F 98.6 F 99.3 F Pulse Rate 92 H 94 H 91 H Respiratory 18 18 18 Rate Blood Pressure 112/68 112/68 100/65 O2 Sat by Pulse 97 96 Oximetry 11/08/16 23:45 Temperature 98.5 F Pulse Rate 84 Respiratory 16 Rate Blood Pressure 93/60 O2 Sat by Pulse 89 Oximetry General appearance: Present: mild distress, well-nourished - EENT Eyes: PERRL, EOM intact ENT: hearing intact, clear oral mucosa Ears: bilateral: normal - Neck Neck: supple, normal ROM - Respiratory Respiratory effort: normal Respiratory: bilateral: CTA - Breasts Breasts: deferred - Cardiovascular Rhythm: regular Heart Sounds: Present: S1 & S2. Absent: gallop, rub Extremities: pulses intact, No edema, normal color, Full ROM - Gastrointestinal General gastrointestinal: Present: soft, non-tender, non-distended, normal bowel sounds Rectal Exam: deferred - Genitourinary Male genitourinary: deferred - Integumentary Integumentary: clear, warm, dry - Musculoskeletal Musculoskeletal: 1, strength equal bilaterally - Neurologic Neurologic: moves all extremities - Psychiatric Psychiatric: memory intact, appropriate mood/affect, intact judgment & insight - Labs CBC & Chem 7: 11/08/16 07:04 11/08/16 07:04 Labs: Abnormal lab results 11/08/16 11/08/16 11/08/16 Range/Units 07:04 07:04 07:04 RBC 2.12 L (3.65-5.03) M/mm3 Hgb 6.3 L (11.8-15.2) gm/dl Hct 18.8 L* (35.5-45.6) % RDW 15.9 H (13.2-15.2) % BUN 5 L (9-20) mg/dL Creatinine 0.5 L (0.8-1.5) mg/dL Calcium 7.6 L (8.4-10.2) mg/dL Albumin 2.0 L (3.9-5) g/dL Prealbumin 0.080 L (0.200-0.400) g/L Crossmatch 11/08/16 Range/Units 09:28 RBC (3.65-5.03) M/mm3 Hgb (11.8-15.2) gm/dl Hct (35.5-45.6) % RDW (13.2-15.2) % BUN (9-20) mg/dL Creatinine (0.8-1.5) mg/dL Calcium (8.4-10.2) mg/dL Albumin (3.9-5) g/dL Prealbumin (0.200-0.400) g/L Crossmatch See Detail
[2016-11-09 06:39] LABS: Hematocrit 21.6 % (35.5-45.6); Hemoglobin 6.9 gm/dl (11.8-15.2); Mean Corpuscular HGB Conc 32 % (32-34); Mean Corpuscular Hemoglobin 28 pg (28-32); Mean Corpuscular Volume 88 fl (84-94); Platelet Count 235 K/mm3 (140-440); Red Blood Count 2.45 M/mm3 (3.65-5.03); Red Cell Distribution Width 16.5 % (13.2-15.2); Reticulocyte % 4.49 % (0.78-2.58); White Blood Count 4.4 K/mm3 (4.5-11.0)
[2016-11-09 07:01] LABS: Iron 32 ug/dL (49-181); Lactate Dehydrogenase 147 units/L (91-180); Total Iron Binding Capacity 191 mcg/dL (250-450)
--- NOTE | 2016-11-09 08:59 | Progress Note ---
Assessment and Plan Assessment and plan: Patient is a 52-year-old [place]arc[place] Kenyan-speaking homeless man with history of hypertension, peptic ulcer disease, chronic back pain, anemia, alcohol abuse who presents with bright red blood per rectum. Just discharged from the same thing 10/24/16. He denies alcohol use last 2 months. But he is taking over-the- counter ibuprofen or Aleve, 2-3 pills 3-4 times a day for his chronic back pains. I told him via translator and interpreter to only take Tylenol for pains. Patient still having bright red blood per rectum or for EGD. CTA abdomen and pelvis read as essentially normal. Per patient he had surgery 3 years ago at [facility] he is unsure of details concerning the surgery except the recent abdominal surgery and he states "I have a plastic stomach". -Acute on chronic blood loss anemia, * Just had extensive workup by GI including panendoscopy with no findings. Awaiting Tertiary center acceptance for Small bowel enteroscopy and possible provocative surgery if enterscopy is negative per [facility] on diversion, * patient has had multiple Angiogram- was negative, Bleeding scan result Negative * Continue to avoid all antiplatelets * Status post 19 units packed red blood cells and 1 unit FFP. Hemoglobin today 6.9-Will monitor, will check again in AM. Patient is now hypotensive still with blood per rectum. will discuss provocative plan with him today if not able to transfer to [facility] * Dr Motley Was able to speak to Dr Méndez at [facility] and is willing to accept the patient but the facility is still on diversion-For accept for Pillcam and then small bowel enteroscopy. Spoke with DR King, VERY GRACIOUS * s/p a dose of desmopressin * Also called [facility] and they again are full and claim to have 20 people in ED waiting for beds and they are on diversion also. [facility] system states they do not have the capacity to care for the patient. * I have also placed a call to [facility] in [place] * Negative study at [facility] with recommendation to go to [facility] for Double Balloon Enteroscopy. * Checked in again today with [facility] and they are still on [facility] Diversion but promise to let us know when a bed is ready Iron Deficiency * Start on PO iron supplementation. Symptomatic anemia * Chest pain now resolved no further dizziness or blurred vision. * Hematology input appreciated Hypotensive. * Stable -Remote history of alcohol dependency- patient given extensive counselling not very to return to behavior. -Peptic ulcer: Treat with PPI -Anemia requiring blood transfusion: Transfuse more blood as needed -Distended abdomen/abdominal pain * The surgeon recommends transfer. Awaiting accepting facility. GI/ DVT prophylaxis SCDs Patient remains critically ill Discussed with GI Dr. Motley Requires continued inpatient care Plan of care discussed with the patient in detail via Kenyan interpretation verbalized understanding Patient's is critically ill and I have explained these findings to him. Aggressive intervention may need to happen at this facility for cannot find a facility that is willing to accept him. As he continues to have persistent bloody stool. Requiring repeated transfusions. The high probability of a clinically significant, sudden or life threatening deterioration of the [GI, hematology] system(s) required my full and direct attention, intervention and personal management. The aggregate critical care time was [35] minutes. This time is in addition to time spent performing reported procedures but includes the following: [x] Data Review and interpretation [x] Patient assessment and monitoring of vital signs [x] Documentation [x] Medication orders and management History Interval history: Patient seen and examined in no acute distress. DARK stool, no diarrhea today Hospitalist Physical - Physical exam Narrative exam: VITAL SIGNS: Reviewed. GENERAL: The patient appeared well nourished and normally developed. Vital signs as documented. HEAD: No signs of head trauma. EYES: Pupils are equal. Extraocular motions intact. EARS: Hearing grossly intact. MOUTH: Oropharynx is normal. NECK: No adenopathy, no JVD. CHEST: Chest with clear breath sounds bilaterally. No wheezes, rales, or rhonchi. CARDIAC: Regular rate and rhythm. S1 and S2, without murmurs, gallops, or rubs. VASCULAR: No Edema. Peripheral pulses normal and equal in all extremities. ABDOMEN: LARGE Abdominal scar with multiple depression, depressible distended ventral hernias, diffuse tenderness good bowel sounds, no guarding or rebound Soft, Generalized tender. No rebound or guarding, and no masses palpated. Bowel Sounds normal. MUSCULOSKELETAL: Good range of motion of all major joints. Extremities without clubbing, cyanosis or edema. NEUROLOGIC EXAM: Alert and oriented x 3. No focal sensory or strength deficits. Speech normal. Follows commands. PSYCHIATRIC: Mood down. SKIN: surgical scars - Constitutional Vitals: Temp Pulse Resp BP Pulse Ox 98.3 F 95 H 18 91/43 97 11/09/16 07:58 11/09/16 07:58 11/09/16 07:58 11/09/16 07:58 11/09/16 07:58 General appearance: Present: mild distress, well-nourished Results - Labs CBC & Chem 7: 11/09/16 05:49 11/08/16 07:04 Labs: Laboratory Last Values WBC 4.4 K/mm3 (4.5-11.0) L 11/09/16 05:49 RBC 2.45 M/mm3 (3.65-5.03) L 11/09/16 05:49 Hgb 6.9 gm/dl (11.8-15.2) L 11/09/16 05:49 Hct 21.6 % (35.5-45.6) L 11/09/16 05:49 MCV 88 fl (84-94) 11/09/16 05:49 MCH 28 pg (28-32) 11/09/16 05:49 MCHC 32 % (32-34) 11/09/16 05:49 RDW 16.5 % (13.2-15.2) H 11/09/16 05:49 Plt Count 235 K/mm3 (140-440) 11/09/16 05:49 Lymph % (Auto) 13.7 % (13.4-35.0) 10/28/16 06:05 [place] % (Auto) 10.4 % (0.0-7.3) H 10/28/16 06:05 Eos % (Auto) 6.7 % (0.0-4.3) H 10/28/16 06:05 Baso % (Auto) 0.5 % (0.0-1.8) 10/28/16 06:05 Lymph # 1.1 K/mm3 (1.2-5.4) L 10/28/16 06:05 [place] # 0.8 K/mm3 (0.0-0.8) 10/28/16 06:05 Eos # 0.5 K/mm3 (0.0-0.4) H 10/28/16 06:05 Baso # 0.0 K/mm3 (0.0-0.1) 10/28/16 06:05 Seg Neutrophils % 68.7 % (40.0-70.0) 10/28/16 06:05 Seg Neutrophils # 5.6 K/mm3 (1.8-7.7) 10/28/16 06:05 ESR 45 mm/Hr (0-20) 11/07/16 09:31 Percent Retic 4.49 % (0.78-2.58) H 11/09/16 05:49 PT 14.5 Sec. (12.2-14.9) 11/02/16 14:47 INR 1.07 (0.87-1.13) 11/02/16 14:47 APTT 34.3 Sec. (24.2-36.6) 11/02/16 14:47 Sodium 140 mmol/L (137-145) D 11/08/16 07:04 Potassium 3.8 mmol/L (3.6-5.0) 11/08/16 07:04 Chloride 105.4 mmol/L (98-107) 11/08/16 07:04 Carbon Dioxide 28 mmol/L (22-30) 11/08/16 07:04 Anion Gap 10 mmol/L 11/08/16 07:04 BUN 5 mg/dL (9-20) L 11/08/16 07:04 Creatinine 0.5 mg/dL (0.8-1.5) L 11/08/16 07:04 Estimated GFR > 60 ml/min 11/08/16 07:04 BUN/Creatinine Ratio 10.00 % 11/08/16 07:04 Glucose 82 mg/dL (75-100) 11/08/16 07:04 POC Glucose 127 (70-105) H 11/03/16 11:45 Lactic Acid 1.00 mmol/L (0.7-2.0) 10/27/16 19:07 Calcium 7.6 mg/dL (8.4-10.2) L 11/08/16 07:04 Iron 32 ug/dL (49-181) L 11/09/16 05:49 TIBC 191 mcg/dL (250-450) L 11/09/16 05:49 Total Bilirubin 0.60 mg/dL (0.1-1.2) 11/07/16 04:30 Direct Bilirubin < 0.2 mg/dL (0-0.2) 11/07/16 04:30 Indirect Bilirubin 0.4 mg/dL 11/07/16 04:30 AST 23 units/L (5-40) 11/07/16 04:30 ALT 9 units/L (7-56) 11/07/16 04:30 Alkaline Phosphatase 69 units/L (35-129) 11/07/16 04:30 Lactate Dehydrogenase 147 units/L (91-180) 11/09/16 05:49 Total Creatine Kinase 49 units/L (55-170) L 11/05/16 08:26 CK-MB (CK-2) 1.8 ng/mL (0.0-4.0) 11/05/16 08:26 CK-MB (CK-2) Rel Index 3.6 (0-4) 11/05/16 08:26 Troponin T < 0.010 ng/mL (0.00-0.029) 11/05/16 22:57 Total Protein 4.7 g/dL (6.3-8.2) L 11/07/16 04:30 Albumin 2.0 g/dL (3.9-5) L 11/08/16 07:04 Albumin/Globulin Ratio 0.7 % 11/07/16 04:30 Prealbumin 0.080 g/L (0.200-0.400) L 11/08/16 07:04 Lipase 114 units/L (13-60) H 10/27/16 08:36 Vitamin B12 301.2 pg/mL (211-911) 11/07/16 04:30 Folate 8.98 ng/mL (7.3-26.0) 11/07/16 04:30 TSH 3.710 mlU/mL (0.270-4.200) 11/09/16 05:49 Urine Color Yellow (Yellow) 10/27/16 13:35 Urine Turbidity Clear (Clear) 10/27/16 13:35 Urine pH 6.0 (5.0-7.0) 10/27/16 13:35 Ur Specific [place] 1.041 (1.003-1.030) H 10/27/16 13:35 Urine Protein <15 mg/dl mg/dL (Negative) 10/27/16 13:35 Urine Glucose (UA) Neg mg/dL (Negative) 10/27/16 13:35 Urine Ketones Neg mg/dL (Negative) 10/27/16 13:35 Urine Blood Sm (Negative) 10/27/16 13:35 Urine Nitrite Neg (Negative) 10/27/16 13:35 Urine Bilirubin Neg (Negative) 10/27/16 13:35 Urine Urobilinogen < 2.0 mg/dL (<2.0) 10/27/16 13:35 Ur Leukocyte Esterase Neg (Negative) 10/27/16 13:35 Urine WBC (Auto) 1.0 /HPF (0.0-6.0) 10/27/16 13:35 Urine RBC (Auto) 2.0 /HPF (0.0-6.0) 10/27/16 13:35 U Epithel Cells (Auto) < 1.0 /HPF (0-13.0) 10/27/16 13:35 Blood Type O POSITIVE 11/08/16 09:28 Antibody Screen Negative 11/08/16 09:28 Direct Antiglob Test Negative 11/07/16 04:30 DOMENICA, Poly Interpret Negative 11/07/16 04:30 Crossmatch See Detail 11/08/16 09:28
--- NOTE | 2016-11-09 09:09 | Gastroenterology Progress Note ---
Assessment and Plan 1.acute blood loss anemia -HGB 6.9-stable -continue to monitor H/H and transfuse as needed -BMs x 1 this am with black stool -Numerous negative studies (EGD, Colon, CTA/mesenteric angiogram, [place] GI bleed study, single balloon enteroscopy [facility]). -Multiple prior GI surgeries and I suspect either anastamotic ulcer (?from prior NSAIDs) versus AVM versus atypical cause like hemosuccus pancreaticus. -Although he reports "dark stools" he is on iron, and EGDs have shown no active bleeding in the UGI tract (to the jejunum) and a colonoscopy has documented hematochezia in the terminal ileum. -patient needs transfer to [facility] for capsule endoscopy/double balloon enteroscopy and/or provacative mesenteric challenge with streptokinase (with surgical backup). -continue iron/MVI and supportive care -will follow Subjective Date of service: 11/09/16 Principal diagnosis: GI bleed Interval history: Patient sitting up in bed. No acute distress. Admits to abd pain but is tolerating a regular diet w/o N/V. BM x 1 this am with black stool. Objective - Constitutional Vitals: Temp Pulse Resp BP Pulse Ox 98.3 F 95 H 18 91/43 97 11/09/16 07:58 11/09/16 07:58 11/09/16 07:58 11/09/16 07:58 11/09/16 07:58 General appearance: no acute distress, obese - EENT Eyes: PERRL, EOM intact ENT: hearing intact - Neck Neck: supple, normal ROM - Respiratory Respiratory: bilateral: CTA - Cardiovascular Rhythm: regular Heart Sounds: Present: S1 & S2 - Gastrointestinal General gastrointestinal: Present: soft, tender (generalized), non-distended, normal bowel sounds, other (multiple scars from previous surgeries) - Integumentary Integumentary: Present: warm, dry - Neurologic Neurological: alert and oriented x3 - Labs CBC & Chem 7: 11/09/16 05:49 11/08/16 07:04 Labs: Laboratory Results - last 24 hr 11/08/16 11/08/16 11/09/16 07:04 09:28 05:49 WBC 4.4 L RBC 2.45 L Hgb 6.9 L Hct 21.6 L MCV 88 MCH 28 MCHC 32 RDW 16.5 H Plt Count 235 Percent Retic 4.49 H Iron TIBC Lactate Dehydrogenase Albumin 2.0 L Prealbumin 0.080 L TSH Blood Type O POSITIVE Antibody Screen Negative Crossmatch See Detail 11/09/16 11/09/16 05:49 05:49 WBC RBC Hgb Hct MCV MCH MCHC RDW Plt Count Percent Retic Iron 32 L TIBC 191 L Lactate Dehydrogenase 147 Albumin Prealbumin TSH 3.710 Blood Type Antibody Screen Crossmatch
--- NOTE | 2016-11-09 10:01 | Event Note ---
Date: 11/09/16 I had an in depth conversation with both Dr. Smith of Gastroenterology and Dr. Herr of Surgery. We collectively agreed that the risk of provocative studies in this setting far outweighed any benefit. Although the patient is still transfusion dependent, he is hemodynamically stable and on the general floors, not in need of critical care. We agreed that provocative studies would likely convert this situation of relative hemodynamic stability into a highly unstable situation. Given the patient's obesity and multiple complex prior abdominal surgeries, he would almost definitely demonstrate a hostile abdomen, not amenable to emergent bowel resection, should that be necessary after a provocative study. Transferring the patient to a tertiary care facility, with a larger scope of resources, will be the safest option for this patient.
[2016-11-09] MEDS: FEOSOL PO SCH ×2 (10:23→21:44)
[2016-11-09] MEDS: PROTONIX PO SCH ×2 (10:24→21:45)
[2016-11-09] MEDS: TYLENOL #3 PO PRN ×2 (10:24→21:44)
[2016-11-09] MEDS: BENADRYL IV PRN (21:45)
--- NOTE | 2016-11-09 22:37 | Event Note ---
Date: 11/09/16 patients labs reviewed, minimal response from latest transfusion. He will need to be transferred out [facility]. because he could have a massive bleed out.
[2016-11-10 04:59] LABS: Hemoglobin 6.3 gm/dl (11.8-15.2)
[2016-11-10 05:02] LABS: Hematocrit 19.2 % (35.5-45.6)
[2016-11-10] MEDS ORDERED: NACL 0.9% 500 ML 500 ML IV ONE ×2 (05:42→12:00)
[2016-11-10] MEDS: TYLENOL #3 PO PRN ×3 (09:02→22:01)
[2016-11-10] MEDS: PROTONIX PO SCH ×2 (09:02→22:00)
[2016-11-10] MEDS: THERAGRAN-M Tab PO SCH (09:02)
[2016-11-10] MEDS: FEOSOL PO SCH ×2 (09:02→22:00)
[2016-11-10] MEDS: BENADRYL IV PRN (14:18)
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
[2016-11-10] MEDS ORDERED: NACL 0.9% 500 ML 500 ML IV NR (15:46)
--- NOTE | 2016-11-10 16:14 | Gastroenterology Progress Note ---
Assessment and Plan - Patient Problems (1) Blood loss anemia Current Visit: Yes Status: Acute (2) GI bleeding Current Visit: Yes Status: Acute Qualifiers: GI bleed type/associated pathology: melena Gastritis type: G Qualified Code(s): K92.1 - Melena Plan to address problem: Likely recurrent small bowel bleeding given multiple recent EGD and colonoscopy studies. Awaiting transfer to [facility] when bed available. Will need supportive transfusions. Subjective Date of service: 11/10/16 Principal diagnosis: GI bleed Interval history: Feels OK. Passing dark stools. No change overall Objective - Constitutional Vitals: Temp Pulse Resp BP Pulse Ox 98.4 F 85 20 111/64 98 11/10/16 15:41 11/10/16 15:13 11/10/16 15:41 11/10/16 15:41 11/10/16 15:13 General appearance: no acute distress, obese - EENT ENT: hearing intact, clear oral mucosa, dentition normal - Respiratory Respiratory effort: normal Respiratory: bilateral: CTA - Cardiovascular Rhythm: regular - Gastrointestinal General gastrointestinal: Present: soft, non-distended, normal bowel sounds, other (morbidly obese, tender in LLQ) Rectal Exam: deferred - Neurologic Neurological: alert and oriented x3 - Labs CBC & Chem 7: 11/10/16 04:08 11/08/16 07:04 Labs: Laboratory Results - last 24 hr 11/07/16 11/07/16 11/07/16 04:30 04:30 09:31 Hgb Hct Haptoglobin 66 Factor VIII:C Activity 272 H Pifa-2-Pjfcyeoryabdw 2.77 H Blood Type Antibody Screen Crossmatch 11/08/16 11/10/16 09:28 04:08 Hgb 6.3 L Hct 19.2 L* Haptoglobin Factor VIII:C Activity Mxqc-8-Inpzegzoboifs Blood Type O POSITIVE Antibody Screen Negative Crossmatch See Detail
--- NOTE | 2016-11-11 00:06 | Progress Note ---
Assessment and Plan - Patient Problems (1) Anemia Current Visit: Yes Status: Acute Qualifiers: Anemia type: other cause Iron deficiency anemia type: I Vitamin B12 deficiency anemia type: V Folate deficiency anemia type: F Bone marrow failure anemia type: B Hemolytic anemia type: H Other causes of anemia: acute posthemorrhagic Chronic kidney disease stage: C Qualified Code(s): D62 - Acute posthemorrhagic anemia Plan to address problem: transfusion, once the source is known, then it will be easy to fix. recheck las post transfusion. PRN transfusions. (2) Blood loss anemia Current Visit: Yes Status: Acute Plan to address problem: same as above. (3) GI bleeding Current Visit: Yes Status: Acute Qualifiers: GI bleed type/associated pathology: melena Gastritis type: G Qualified Code(s): K92.1 - Melena Plan to address problem: same as above. (4) History of bleeding ulcers Current Visit: Yes Status: Acute Plan to address problem: follow gi.procedures. Subjective Date of service: 11/10/16 Principal diagnosis: GI bleed Interval history: Patient seen today, lying in bed, still having black tarry stool, , getting more non compliant, refusing tx./labs., and wants to eat. Patient seen earlier, case reviewed, blood transfusion was in progress. [place] had bed as the nurse. Patient seen, resting in bed, still awaiting bed for transfer. REC PRN transfusion replacements when needed based on sxs/H/H levels. Objective - Constitutional Vitals: Vital Signs - 12hr 11/10/16 11/10/16 11/10/16 13:30 13:45 13:53 Temperature 98.3 F 99.1 F 99.1 F Pulse Rate 103 H 87 88 Respiratory 22 12 20 Rate Blood Pressure 99/63 83/48 83/48 O2 Sat by Pulse 98 98 97 Oximetry 11/10/16 11/10/16 11/10/16 14:29 15:13 15:41 Temperature 98.5 F 98.7 F 98.4 F Pulse Rate 79 85 Respiratory 20 20 20 Rate Blood Pressure 118/61 98/60 111/64 O2 Sat by Pulse 98 98 Oximetry 11/10/16 20:37 Temperature 98.9 F Pulse Rate 88 Respiratory 18 Rate Blood Pressure 102/57 O2 Sat by Pulse 98 Oximetry General appearance: Present: mild distress, well-nourished - EENT Eyes: PERRL, EOM intact ENT: hearing intact, clear oral mucosa Ears: bilateral: normal - Neck Neck: supple, normal ROM - Respiratory Respiratory: bilateral: diminished - Cardiovascular Rhythm: regular Heart Sounds: Present: S1 & S2. Absent: gallop, rub Extremities: pulses intact, No edema, normal color, Full ROM - Gastrointestinal General gastrointestinal: Present: soft, non-tender, non-distended, normal bowel sounds - Genitourinary Male genitourinary: deferred - Integumentary Integumentary: clear, warm, dry - Musculoskeletal Musculoskeletal: 1, strength equal bilaterally - Neurologic Neurologic: moves all extremities - Psychiatric Psychiatric: memory intact, appropriate mood/affect, intact judgment & insight - Labs CBC & Chem 7: 11/10/16 04:08 11/08/16 07:04 Labs: Abnormal lab results 11/07/16 11/07/16 11/08/16 Range/Units 04:30 09:31 09:28 Hgb (11.8-15.2) gm/dl Hct (35.5-45.6) % Factor VIII:C Activity 272 H (50-180) % Zdye-5-Ixflpkkcdkcgo 2.77 H (<=2.51) mg/L Crossmatch See Detail 11/10/16 Range/Units 04:08 Hgb 6.3 L (11.8-15.2) gm/dl Hct 19.2 L* (35.5-45.6) % Factor VIII:C Activity (50-180) % Unku-7-Bvyjkdjdilajp (<=2.51) mg/L Crossmatch
[2016-11-11] MEDS: TYLENOL #3 PO PRN ×2 (04:06→19:50)
[2016-11-11 06:03] LABS: Hemoglobin 6.4 gm/dl (11.8-15.2); Mean Corpuscular HGB Conc 34 % (32-34); Mean Corpuscular Hemoglobin 29 pg (28-32); Mean Corpuscular Volume 87 fl (84-94); Platelet Count 219 K/mm3 (140-440); Red Cell Distribution Width 16.3 % (13.2-15.2); White Blood Count 4.3 K/mm3 (4.5-11.0)
[2016-11-11 06:09] LABS: Hematocrit 19.1 % (35.5-45.6)
[2016-11-11 06:24] LABS: Anion Gap 11 mmol/L; BUN/Creatinine Ratio 11.66; Blood Urea Nitrogen 7 mg/dL (9-20); Calcium 7.7 mg/dL (8.4-10.2); Carbon Dioxide 26 mmol/L (22-30); Chloride 101.7 mmol/L (98-107); Glucose 89 mg/dL (75-100); Potassium 3.5 mmol/L (3.6-5.0); Sodium 135 mmol/L (137-145)
[2016-11-11] MEDS ORDERED: NACL 0.9% 500 ML 500 ML IV ONE (08:00)
[2016-11-11] MEDS: THERAGRAN-M Tab PO SCH (09:51)
[2016-11-11] MEDS: PROTONIX PO SCH ×2 (09:51→22:00)
[2016-11-11] MEDS: FEOSOL PO SCH ×2 (09:51→22:00)
--- NOTE | 2016-11-11 11:52 | Gastroenterology Progress Note ---
Assessment and Plan 1.acute blood loss anemia -HGB 6.4 -continue to monitor H/H and transfuse as needed -BMs x 1 this am with black stool -Numerous negative studies (EGD, Colon, CTA/mesenteric angiogram, [place] GI bleed study, single balloon enteroscopy [facility]). -etiology-recurrent small bowel bleeding -awaiting transfer to [facility] -meantime, continue supportive care with transfusions Subjective Date of service: 11/11/16 Principal diagnosis: GI bleed Interval history: Patient resting in bed. No acute distress. Admits to BM x 1 this am with black stool. Objective - Constitutional Vitals: Temp Pulse Resp BP Pulse Ox 97.7 F 79 20 117/67 97 11/11/16 07:37 11/11/16 07:37 11/11/16 07:37 11/11/16 07:37 11/11/16 07:37 General appearance: no acute distress, obese - EENT Eyes: PERRL, EOM intact ENT: hearing intact - Neck Neck: supple, normal ROM - Respiratory Respiratory: bilateral: CTA - Cardiovascular Rhythm: regular Heart Sounds: Present: S1 & S2 - Gastrointestinal General gastrointestinal: Present: soft, tender (generalized), distended (mildly ), normal bowel sounds, other (multiple scars from previous surgeries) - Integumentary Integumentary: Present: warm, dry - Neurologic Neurological: alert and oriented x3 - Labs CBC & Chem 7: 11/11/16 05:46 11/11/16 05:46 Labs: Laboratory Results - last 24 hr 11/07/16 11/07/16 11/07/16 04:30 04:30 09:31 WBC RBC Hgb Hct MCV MCH MCHC RDW Plt Count Haptoglobin 66 Factor VIII:C Activity 272 H Sodium Potassium Chloride Carbon Dioxide Anion Gap BUN Creatinine Estimated GFR BUN/Creatinine Ratio Glucose Calcium Hche-6-Shrwkwkfqekrl 2.77 H Blood Type Antibody Screen Crossmatch 11/08/16 11/11/16 11/11/16 09:28 05:46 05:46 WBC 4.3 L RBC 2.20 L Hgb 6.4 L Hct 19.1 L* MCV 87 MCH 29 MCHC 34 RDW 16.3 H Plt Count 219 Haptoglobin Factor VIII:C Activity Sodium 135 L Potassium 3.5 L Chloride 101.7 Carbon Dioxide 26 Anion Gap 11 BUN 7 L Creatinine 0.6 L Estimated GFR > 60 BUN/Creatinine Ratio 11.66 Glucose 89 Calcium 7.7 L Pawf-0-Qeigmdfvoysrp Blood Type O POSITIVE Antibody Screen Negative Crossmatch See Detail
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
--- NOTE | 2016-11-11 12:26 | XRay Report ---
AP CHEST: HISTORY: PICC placement AP view of the chest demonstrates a normal mediastinal and cardiac contour with clear lungs and normal bony and soft tissue structures. The left arm PICC terminates near the cavoatrial junction. IMPRESSION: Unremarkable AP chest. Adequate PICC placement.
[2016-11-11] MEDS ORDERED: NACL 0.9% 500 ML 500 ML ONE (13:00)
--- NOTE | 2016-11-11 21:50 | Progress Note ---
Assessment and Plan - Patient Problems (1) Anemia Current Visit: Yes Status: Acute Qualifiers: Anemia type: other cause Iron deficiency anemia type: I Vitamin B12 deficiency anemia type: V Folate deficiency anemia type: F Bone marrow failure anemia type: B Hemolytic anemia type: H Other causes of anemia: acute posthemorrhagic Chronic kidney disease stage: C Qualified Code(s): D62 - Acute posthemorrhagic anemia Plan to address problem: transfusion, once the source is known, then it will be easy to fix. recheck las post transfusion. PRN transfusions. (2) Blood loss anemia Current Visit: Yes Status: Acute Plan to address problem: same as above. (3) GI bleeding Current Visit: Yes Status: Acute Qualifiers: GI bleed type/associated pathology: melena Gastritis type: G Qualified Code(s): K92.1 - Melena Plan to address problem: same as above. (4) History of bleeding ulcers Current Visit: Yes Status: Acute Plan to address problem: follow gi.procedures. Subjective Date of service: 11/11/16 Principal diagnosis: GI bleed Interval history: Patient seen today, lying in bed, still having black tarry stool, , getting more non compliant, refusing tx./labs., and wants to eat. Patient seen earlier, case reviewed, blood transfusion was in progress. [facility] had bed as the nurse. Patient seen, resting in bed, still awaiting bed for transfer. REC PRN transfusion replacements when needed based on sxs/H/H levels. Patient seen tonight, resting in bed, as per his nurse, continues to have bloody stools. Blood transfusion in progress.Still awaiting bed from [facility]. Objective - Constitutional Vitals: Vital Signs - 12hr 11/11/16 11/11/16 11/11/16 16:28 17:18 17:33 Temperature 99.0 F 98.3 F 98.6 F Pulse Rate 74 89 90 Respiratory 20 18 18 Rate Blood Pressure 131/78 132/70 Blood Pressure 111/61 [Right] O2 Sat by Pulse 95 100 98 Oximetry 11/11/16 11/11/16 11/11/16 18:11 18:12 18:44 Temperature 98.6 F 98.4 F Pulse Rate 98 H 99 H Respiratory 18 20 Rate Blood Pressure 143/71 113/68 Blood Pressure [Right] O2 Sat by Pulse 99 99 Oximetry 11/11/16 11/11/16 11/11/16 19:16 20:35 21:30 Temperature 98.7 F 98.7 F 99.1 F Pulse Rate 89 94 H 91 H Respiratory 14 20 20 Rate Blood Pressure 113/58 107/64 104/61 Blood Pressure [Right] O2 Sat by Pulse 99 Oximetry General appearance: Present: mild distress, well-nourished - EENT Eyes: PERRL, EOM intact ENT: hearing intact, clear oral mucosa Ears: bilateral: normal - Neck Neck: supple, normal ROM - Respiratory Respiratory: bilateral: CTA - Cardiovascular Rhythm: regular Heart Sounds: Present: S1 & S2. Absent: gallop, rub Extremities: pulses intact, No edema, normal color, Full ROM - Gastrointestinal General gastrointestinal: Present: soft, non-tender, non-distended, normal bowel sounds Rectal Exam: deferred - Genitourinary Male genitourinary: deferred - Integumentary Integumentary: clear, warm, dry - Musculoskeletal Musculoskeletal: 1, strength equal bilaterally - Neurologic Neurologic: moves all extremities - Psychiatric Psychiatric: memory intact, appropriate mood/affect, intact judgment & insight - Labs CBC & Chem 7: 11/11/16 05:46 11/11/16 05:46 Labs: Abnormal lab results 11/08/16 11/11/16 11/11/16 Range/Units 09:28 05:46 05:46 WBC 4.3 L (4.5-11.0) K/mm3 RBC 2.20 L (3.65-5.03) M/mm3 Hgb 6.4 L (11.8-15.2) gm/dl Hct 19.1 L* (35.5-45.6) % RDW 16.3 H (13.2-15.2) % Sodium 135 L (137-145) mmol/L Potassium 3.5 L (3.6-5.0) mmol/L BUN 7 L (9-20) mg/dL Creatinine 0.6 L (0.8-1.5) mg/dL Calcium 7.7 L (8.4-10.2) mg/dL Crossmatch See Detail 11/11/16 Range/Units 14:50 WBC (4.5-11.0) K/mm3 RBC (3.65-5.03) M/mm3 Hgb (11.8-15.2) gm/dl Hct (35.5-45.6) % RDW (13.2-15.2) % Sodium (137-145) mmol/L Potassium (3.6-5.0) mmol/L BUN (9-20) mg/dL Creatinine (0.8-1.5) mg/dL Calcium (8.4-10.2) mg/dL Crossmatch See Detail
[2016-11-12 05:43] LABS: Basophils % (Auto) 0.7 % (0.0-1.8); Eosinophils % (Auto) 5.6 % (0.0-4.3); Hematocrit 22.8 % (35.5-45.6); Hemoglobin 7.6 gm/dl (11.8-15.2); Mean Corpuscular HGB Conc 33 % (32-34); Mean Corpuscular Hemoglobin 29 pg (28-32); Mean Corpuscular Volume 86 fl (84-94); Platelet Count 238 K/mm3 (140-440); Red Blood Count 2.65 M/mm3 (3.65-5.03); Red Cell Distribution Width 17.1 % (13.2-15.2); White Blood Count 5.3 K/mm3 (4.5-11.0)
[2016-11-12] MEDS: FEOSOL PO SCH ×2 (09:01→22:33)
[2016-11-12] MEDS: PROTONIX PO SCH ×2 (09:01→22:34)
[2016-11-12] MEDS: THERAGRAN-M Tab PO SCH (09:02)
--- NOTE | 2016-11-12 10:59 | Gastroenterology Progress Note ---
Assessment and Plan 1.acute blood loss anemia -HGB 7.6 -continue to monitor H/H and transfuse as needed -BMs x 2 overnight and this am with black stool -Numerous negative studies (EGD, Colon, CTA/mesenteric angiogram, [facility] GI bleed study, single balloon enteroscopy at [facility]). -etiology-recurrent small bowel bleeding -awaiting transfer to [place] -meantime, continue supportive care with transfusions Subjective Date of service: 11/12/16 Principal diagnosis: GI bleed Interval history: Patient resting in bed. No acute distress. Admits to BM x 1 last night and x 1 this am with black stool. Objective - Constitutional Vitals: Temp Pulse Resp BP Pulse Ox 99.0 F 97 H 18 100/61 97 11/12/16 08:36 11/12/16 08:36 11/12/16 08:36 11/12/16 08:36 11/12/16 08:36 General appearance: no acute distress, obese - EENT Eyes: PERRL, EOM intact ENT: hearing intact - Neck Neck: supple, normal ROM - Respiratory Respiratory: bilateral: CTA - Cardiovascular Rhythm: regular Heart Sounds: Present: S1 & S2 - Gastrointestinal General gastrointestinal: Present: soft, tender (generalized), non-distended, normal bowel sounds, other (multiple scars noted from previous surgeries) - Integumentary Integumentary: Present: warm, dry - Neurologic Neurological: alert and oriented x3 - Labs CBC & Chem 7: 11/12/16 05:15 11/11/16 05:46 Labs: Laboratory Results - last 24 hr 11/08/16 11/11/16 11/12/16 09:28 14:50 05:15 WBC 5.3 RBC 2.65 L Hgb 7.6 L Hct 22.8 L MCV 86 MCH 29 MCHC 33 RDW 17.1 H Plt Count 238 Lymph % (Auto) 16.5 [place] % (Auto) 11.0 H Eos % (Auto) 5.6 H Baso % (Auto) 0.7 Lymph # 0.9 L [place] # 0.6 Eos # 0.3 Baso # 0.0 Seg Neutrophils % 66.2 Seg Neutrophils # 3.5 Blood Type O POSITIVE O POSITIVE Antibody Screen Negative Negative Crossmatch See Detail See Detail
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
[2016-11-12 14:27] LABS: Factor VIII Activity 274 % (50-180); RISTOCETIN COFACTOR ACTIVITY 193 % (42-200); VON WILLEBRAND FACTOR AG 285 % (50-217)
[2016-11-12] MEDS: TYLENOL #3 PO PRN (16:46)
--- NOTE | 2016-11-12 22:43 | Progress Note ---
Assessment and Plan - Patient Problems (1) Anemia Current Visit: Yes Status: Acute Qualifiers: Anemia type: other cause Iron deficiency anemia type: I Vitamin B12 deficiency anemia type: V Folate deficiency anemia type: F Bone marrow failure anemia type: B Hemolytic anemia type: H Other causes of anemia: acute posthemorrhagic Chronic kidney disease stage: C Qualified Code(s): D62 - Acute posthemorrhagic anemia Plan to address problem: transfusion, once the source is known, then it will be easy to fix. recheck las post transfusion. PRN transfusions. Stable since replacement. (2) Blood loss anemia Current Visit: Yes Status: Acute Plan to address problem: same as above. see notes. (3) GI bleeding Current Visit: Yes Status: Acute Qualifiers: GI bleed type/associated pathology: melena Gastritis type: G Qualified Code(s): K92.1 - Melena (4) History of bleeding ulcers Current Visit: Yes Status: Acute Subjective Date of service: 11/12/16 Principal diagnosis: GI bleed Interval history: Patient seen today, lying in bed, still having black tarry stool, , getting more non compliant, refusing tx./labs., and wants to eat. Patient seen earlier, case reviewed, blood transfusion was in progress. [facility] had bed as the nurse. Patient seen, resting in bed, still awaiting bed for transfer. REC PRN transfusion replacements when needed based on sxs/H/H levels. Patient seen tonight, resting in bed, as per his nurse, continues to have bloody stools. Blood transfusion in progress.Still awaiting bed from [facility]. Patient seen/examined, resting in bed, C/o feels so, so.labs reviewed, and ok post transfusion replacement yesterday. Objective - Constitutional Vitals: Vital Signs - 12hr 11/12/16 11/12/16 11/12/16 16:54 17:01 21:21 Temperature 99.3 F 97.3 F L 98.7 F Pulse Rate 95 H 87 91 H Respiratory 18 18 19 Rate Blood Pressure 108/60 168/91 91/54 O2 Sat by Pulse 97 96 97 Oximetry General appearance: Present: mild distress, well-nourished - EENT Eyes: PERRL, EOM intact ENT: hearing intact, clear oral mucosa Ears: bilateral: normal - Neck Neck: supple, normal ROM - Respiratory Respiratory effort: normal Respiratory: bilateral: CTA - Cardiovascular Rhythm: regular Heart Sounds: Present: S1 & S2. Absent: gallop, rub Extremities: pulses intact, No edema, normal color, Full ROM - Gastrointestinal General gastrointestinal: Present: soft, non-tender, non-distended, normal bowel sounds Rectal Exam: deferred - Genitourinary Male genitourinary: deferred - Integumentary Integumentary: clear, warm, dry - Musculoskeletal Musculoskeletal: 1, strength equal bilaterally - Neurologic Neurologic: moves all extremities - Psychiatric Psychiatric: memory intact, appropriate mood/affect, intact judgment & insight - Labs CBC & Chem 7: 11/12/16 05:15 11/11/16 05:46 Labs: Abnormal lab results 11/07/16 11/08/16 11/11/16 Range/Units 09:31 09:28 14:50 RBC (3.65-5.03) M/mm3 Hgb (11.8-15.2) gm/dl Hct (35.5-45.6) % RDW (13.2-15.2) % [place] % (Auto) (0.0-7.3) % Eos % (Auto) (0.0-4.3) % Lymph # (1.2-5.4) K/mm3 von Willebrand Antigen 285 H (50-217) % Factor VIII:C Activity 274 H (50-180) % Crossmatch See Detail See Detail 11/12/16 Range/Units 05:15 RBC 2.65 L (3.65-5.03) M/mm3 Hgb 7.6 L (11.8-15.2) gm/dl Hct 22.8 L (35.5-45.6) % RDW 17.1 H (13.2-15.2) % [place] % (Auto) 11.0 H (0.0-7.3) % Eos % (Auto) 5.6 H (0.0-4.3) % Lymph # 0.9 L (1.2-5.4) K/mm3 von Willebrand Antigen (50-217) % Factor VIII:C Activity (50-180) % Crossmatch
[2016-11-13] MEDS: TYLENOL #3 PO PRN ×3 (05:41→21:20)
[2016-11-13 06:38] LABS: Hematocrit 21.3 % (35.5-45.6); Hemoglobin 7.2 gm/dl (11.8-15.2); Mean Corpuscular HGB Conc 34 % (32-34); Mean Corpuscular Hemoglobin 29 pg (28-32); Mean Corpuscular Volume 86 fl (84-94); Platelet Count 260 K/mm3 (140-440); Red Blood Count 2.48 M/mm3 (3.65-5.03); Red Cell Distribution Width 17.1 % (13.2-15.2); White Blood Count 5.6 K/mm3 (4.5-11.0)
[2016-11-13 07:15] LABS: Anion Gap 14 mmol/L; BUN/Creatinine Ratio 16.66; Blood Urea Nitrogen 10 mg/dL (9-20); Carbon Dioxide 25 mmol/L (22-30); Chloride 103.3 mmol/L (98-107); Glucose 106 mg/dL (75-100); Potassium 3.9 mmol/L (3.6-5.0); Sodium 138 mmol/L (137-145)
[2016-11-13] MEDS: FEOSOL PO SCH ×2 (11:48→21:20)
[2016-11-13] MEDS: THERAGRAN-M Tab PO SCH (11:49)
[2016-11-13] MEDS: PROTONIX PO SCH ×2 (11:49→21:20)
[2016-11-13] MEDS ORDERED: NACL 0.9% 500 ML 500 ML IV ONE ×2 (12:27→19:00)
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
--- NOTE | 2016-11-13 16:29 | Gastroenterology Progress Note ---
Assessment and Plan - Patient Problems (1) Blood loss anemia Current Visit: Yes Status: Acute (2) GI bleeding Current Visit: Yes Status: Acute Qualifiers: GI bleed type/associated pathology: melena Gastritis type: G Plan to address problem: The patient continues to have subacute bleeding, which is suspected to be from a small bowel source. Awaiting transfer to [place] for double balloon enteroscopy /pill camera Subjective Date of service: 11/13/16 Principal diagnosis: GI bleed Interval history: Reports dark and maroon blood in stools today. Objective - Constitutional Vitals: Temp Pulse Resp BP Pulse Ox 98.3 F 99 H 18 95/52 98 11/13/16 09:33 11/13/16 09:33 11/13/16 09:33 11/13/16 09:33 11/13/16 09:33 General appearance: no acute distress, mild distress - EENT ENT: hearing intact, clear oral mucosa, dentition normal - Neck Neck: supple, normal ROM - Respiratory Respiratory effort: normal Respiratory: bilateral: CTA - Cardiovascular Rhythm: regular - Gastrointestinal General gastrointestinal: Present: soft, tender, non-distended, normal bowel sounds - Labs CBC & Chem 7: 11/13/16 06:20 11/13/16 06:20 Labs: Laboratory Results - last 24 hr 11/11/16 11/13/16 11/13/16 14:50 06:20 06:20 WBC 5.6 RBC 2.48 L Hgb 7.2 L Hct 21.3 L MCV 86 MCH 29 MCHC 34 RDW 17.1 H Plt Count 260 Sodium 138 Potassium 3.9 Chloride 103.3 Carbon Dioxide 25 Anion Gap 14 BUN 10 Creatinine 0.6 L Estimated GFR > 60 BUN/Creatinine Ratio 16.66 Glucose 106 H Calcium 8.0 L Magnesium 1.80 Crossmatch See Detail
--- NOTE | 2016-11-13 20:23 | Progress Note ---
Assessment and Plan - Patient Problems (1) Anemia Current Visit: Yes Status: Acute Qualifiers: Anemia type: other cause Iron deficiency anemia type: I Vitamin B12 deficiency anemia type: V Folate deficiency anemia type: F Bone marrow failure anemia type: B Hemolytic anemia type: H Other causes of anemia: acute posthemorrhagic Chronic kidney disease stage: C Qualified Code(s): D62 - Acute posthemorrhagic anemia Plan to address problem: transfusion, once the source is known, then it will be easy to fix. recheck las post transfusion. PRN transfusions. Stable since replacement. Blood transfusion in progress. (2) Blood loss anemia Current Visit: Yes Status: Acute Plan to address problem: same as above. see notes. (3) GI bleeding Current Visit: Yes Status: Acute Qualifiers: GI bleed type/associated pathology: melena Gastritis type: G Qualified Code(s): K92.1 - Melena (4) History of bleeding ulcers Current Visit: Yes Status: Acute Subjective Date of service: 11/13/16 Principal diagnosis: GI bleed Interval history: Patient seen today, lying in bed, still having black tarry stool, , getting more non compliant, refusing tx./labs., and wants to eat. Patient seen earlier, case reviewed, blood transfusion was in progress. [place] had bed as the nurse. Patient seen, resting in bed, still awaiting bed for transfer. REC PRN transfusion replacements when needed based on sxs/H/H levels. Patient seen tonight, resting in bed, as per his nurse, continues to have bloody stools. Blood transfusion in progress.Still awaiting bed from [place]. Patient seen/examined, resting in bed, C/o feels so, so.labs reviewed, and ok post transfusion replacement yesterday. Patient seen/examined, resting in bed, blood transfusion in progress. No other new issues at this time. Objective - Constitutional Vitals: Vital Signs - 12hr 11/13/16 11/13/16 11/13/16 09:33 11:43 17:08 Temperature 98.3 F 98.6 F 98.5 F Pulse Rate 99 H 96 H Respiratory 18 18 18 Rate Blood Pressure 95/52 86/59 90/49 O2 Sat by Pulse 98 100 Oximetry 11/13/16 11/13/16 11/13/16 18:02 18:23 18:37 Temperature 98.2 F 98.8 F Pulse Rate 91 H 95 H 78 Respiratory 18 18 Rate Blood Pressure 97/60 97/60 104/54 O2 Sat by Pulse 98 98 99 Oximetry 11/13/16 11/13/16 11/13/16 19:03 19:07 19:37 Temperature 98.2 F 98.8 F 98.7 F Pulse Rate 85 77 86 Respiratory 18 18 18 Rate Blood Pressure 94/53 104/54 85/42 O2 Sat by Pulse 100 99 97 Oximetry General appearance: Present: no acute distress, well-nourished - EENT Eyes: PERRL, EOM intact ENT: hearing intact, clear oral mucosa Ears: bilateral: normal - Neck Neck: supple, normal ROM - Respiratory Respiratory effort: normal Respiratory: bilateral: CTA - Cardiovascular Rhythm: regular Heart Sounds: Present: S1 & S2. Absent: gallop, rub Extremities: pulses intact, No edema, normal color, Full ROM - Gastrointestinal General gastrointestinal: Present: soft, non-tender, non-distended, normal bowel sounds Rectal Exam: deferred - Genitourinary Male genitourinary: deferred - Integumentary Integumentary: clear, warm, dry - Musculoskeletal Musculoskeletal: 1, strength equal bilaterally - Neurologic Neurologic: moves all extremities - Psychiatric Psychiatric: memory intact, appropriate mood/affect, intact judgment & insight - Labs CBC & Chem 7: 11/13/16 06:20 11/13/16 06:20 Labs: Abnormal lab results 11/11/16 11/13/16 11/13/16 Range/Units 14:50 06:20 06:20 RBC 2.48 L (3.65-5.03) M/mm3 Hgb 7.2 L (11.8-15.2) gm/dl Hct 21.3 L (35.5-45.6) % RDW 17.1 H (13.2-15.2) % Creatinine 0.6 L (0.8-1.5) mg/dL Glucose 106 H (75-100) mg/dL Calcium 8.0 L (8.4-10.2) mg/dL Crossmatch See Detail
[2016-11-14 08:42] LABS: Anion Gap 15 mmol/L; Blood Urea Nitrogen 8 mg/dL (9-20); Carbon Dioxide 23 mmol/L (22-30); Chloride 107.1 mmol/L (98-107); Glucose 90 mg/dL (75-100); Potassium 3.8 mmol/L (3.6-5.0); Sodium 141 mmol/L (137-145)
[2016-11-14 09:17] LABS: Hematocrit 23.6 % (35.5-45.6); Hemoglobin 7.9 gm/dl (11.8-15.2); Mean Corpuscular HGB Conc 33 % (32-34); Mean Corpuscular Hemoglobin 29 pg (28-32); Mean Corpuscular Volume 87 fl (84-94); Platelet Count 277 K/mm3 (140-440); Red Blood Count 2.71 M/mm3 (3.65-5.03); White Blood Count 4.9 K/mm3 (4.5-11.0)
[2016-11-14] MEDS: PROTONIX PO SCH (10:07)
[2016-11-14] MEDS: THERAGRAN-M Tab PO SCH (10:07)
[2016-11-14] MEDS: FEOSOL PO SCH (10:07)
[2016-11-14] MEDS: TYLENOL #3 PO PRN (10:07)
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
[2016-11-14 15:14] VITALS: BP 106/70
== END 2016-11-14 15:40 | disposition short-term general hospital (02) | DRG 872 ==
LOC: ED 08:18 → 3A 12:45
PROVIDERS: ADMIT Internal Medicine; ATTEND Internal Medicine
PROC: 30233N1 Transfusion of Nonautologous Red Blood Cells into Peripheral Vein, Percutaneous Approach (ICD-10-PCS; 2016-10-27)
PROC: 0DJD8ZZ Inspection of Lower Intestinal Tract, Via Natural or Artificial Opening Endoscopic (ICD-10-PCS; principal; 2016-10-28)
PROC: B4141ZZ Fluoroscopy of Superior Mesenteric Artery using Low Osmolar Contrast (ICD-10-PCS; 2016-11-01)
PROC: B41J1ZZ Fluoroscopy of Other Lower Arteries using Low Osmolar Contrast (ICD-10-PCS; 2016-11-01)
PROC: B4151ZZ Fluoroscopy of Inferior Mesenteric Artery using Low Osmolar Contrast (ICD-10-PCS; 2016-11-01)
PROC: 30233L1 Transfusion of Nonautologous Fresh Plasma into Peripheral Vein, Percutaneous Approach (ICD-10-PCS; 2016-11-02)
PROC: 30233K1 Transfusion of Nonautologous Frozen Plasma into Peripheral Vein, Percutaneous Approach (ICD-10-PCS; 2016-11-02)
PROC: 02HV33Z Insertion of Infusion Device into Superior Vena Cava, Percutaneous Approach (ICD-10-PCS; 2016-11-11)
DX: A41.9 Sepsis, unspecified organism (principal); K92.1 Melena; E87.2 Acidosis; E87.1 Hypo-osmolality and hyponatremia; D62 Acute posthemorrhagic anemia; I95.9 Hypotension, unspecified; I10 Essential (primary) hypertension; K43.2 Incisional hernia without obstruction or gangrene; K70.9 Alcoholic liver disease, unspecified; E66.01 Morbid (severe) obesity due to excess calories; Z60.2 Problems related to living alone; G89.29 Other chronic pain; M54.9 Dorsalgia, unspecified; F10.20 Alcohol dependence, uncomplicated; K44.9 Diaphragmatic hernia without obstruction or gangrene; K29.70 Gastritis, unspecified, without bleeding; Z79.899 Other long term (current) drug therapy; Z87.11 Personal history of peptic ulcer disease; Z91.81 History of falling; Z59.0 Homelessness; Z68.35 Body mass index [BMI] 35.0-35.9, adult; Z91.19 Patient's noncompliance with other medical treatment and regimen
CPT/HCPCS: 36245; 36248; 36415; 71010; 74174; 74177; 75726; 78278; 80048; 80053; 80074; 81001; 82040; 82140; 82232; 82248; 82270; 82550; 82553; 82607; 82747; 82962; 83010; 83550; 83615; 83690; 83735; 84134; 84443; 84484; 85014; 85018; 85025; 85027; 85045; 85240; 85245; 85610; 85652; 85730; 86850; 86880; 86900; 86901; 86920; 87040; 87045; 93005; 93010; 96360; 99285; A9560; C1760; C1769; C1887; C9113; J0690; J0692; J1200; J1642; J1644; J2250; J2270; J2597; J2704; J3010; J7030; J7040; J7050; P9016; P9017; Q9967

== ENCOUNTER 2017-04-12 20:10 | Emergency (ER) | payer SELFPAY ==
[2017-04-12 21:41] VITALS: BP 133/70
[2017-04-12 21:58] LABS: Basophils # (Auto) 0.1 K/mm3 (0.0-0.1); Basophils % (Auto) 0.9 % (0.0-1.8); Eosinophils # (Auto) 0.1 K/mm3 (0.0-0.4); Eosinophils % (Auto) 1.4 % (0.0-4.3); Hematocrit 27.2 % (35.5-45.6); Hemoglobin 8.6 gm/dl (11.8-15.2); Lymphocytes # (Auto) 1.5 K/mm3 (1.2-5.4); Lymphocytes % (Auto) 23.3 % (13.4-35.0); Mean Corpuscular HGB Conc 32 % (32-34); Mean Corpuscular Hemoglobin 26 pg (28-32); Mean Corpuscular Volume 83 fl (84-94); Monocytes # (Auto) 0.5 K/mm3 (0.0-0.8); Monocytes % (Auto) 7.7 % (0.0-7.3); Platelet Count 331 K/mm3 (140-440); Red Blood Count 3.27 M/mm3 (3.65-5.03)
[2017-04-12 22:07] LABS: Red Cell Distribution Width 22.1 % (13.2-15.2)
[2017-04-12 22:11] LABS: Alanine Aminotransferase 25 units/L (7-56); Albumin 2.9 g/dL (3.9-5); BUN/Creatinine Ratio 9; Blood Urea Nitrogen 6 mg/dL (9-20); Hemolysis Index 1
== END 2017-04-13 03:06 | disposition left against medical advice (07) ==
LOC: ED 20:10
DX: M54.9 Dorsalgia, unspecified (principal); Z53.21 Procedure and treatment not carried out due to patient leaving prior to being seen by health care provider
CPT/HCPCS: 36415; 80053; 85025

== ENCOUNTER 2017-04-13 06:29 | Emergency (ER) | payer OTHER ==
[2017-04-13] MEDS ORDERED: MORPHINE IV ONE (08:40)
[2017-04-13] MEDS ORDERED: PEPCID IV ONE (08:41)
[2017-04-13] MEDS ORDERED: ZOFRAN IV ONE ×2 (08:41→12:11)
[2017-04-13] MEDS ORDERED: NACL 0.9% 1000 ML 1,000 ML IV ONE (08:42)
[2017-04-13 08:50] LABS: Basophils % (Auto) 0.8 % (0.0-1.8); Eosinophils # (Auto) 0.1 K/mm3 (0.0-0.4); Eosinophils % (Auto) 1.1 % (0.0-4.3); Hematocrit 25.6 % (35.5-45.6); Hemoglobin 8.5 gm/dl (11.8-15.2); Lymphocytes # (Auto) 0.7 K/mm3 (1.2-5.4); Lymphocytes % (Auto) 10.8 % (13.4-35.0); Mean Corpuscular HGB Conc 33 % (32-34); Mean Corpuscular Hemoglobin 27 pg (28-32); Mean Corpuscular Volume 81 fl (84-94); Monocytes # (Auto) 0.5 K/mm3 (0.0-0.8); Monocytes % (Auto) 8.1 % (0.0-7.3); Platelet Count 284 K/mm3 (140-440); Red Blood Count 3.18 M/mm3 (3.65-5.03)
[2017-04-13 09:06] LABS: BUN/Creatinine Ratio 12; Blood Urea Nitrogen 7 mg/dL (9-20); Calcium 8.1 mg/dL (8.4-10.2); Hemolysis Index 2
[2017-04-13 09:07] LABS: Creatine Kinase MB 3.9 ng/mL (0.0-4.0)
--- NOTE | 2017-04-13 09:08 | XRay Report ---
AP CHEST: HISTORY: Difficulty in breathing Heart size and pulmonary vessels appear borderline. The lungs are clear. No evidence for pneumonia, CHF or pneumothorax. The bony structures are intact. IMPRESSION: Borderline heart size and pulmonary vessels. No change since 11/11/16.
[2017-04-13] MEDS ORDERED: NACL ONE (09:10)
[2017-04-13 09:15] LABS: INR 1.07 (0.87-1.13)
[2017-04-13 09:16] LABS: Partial Thromboplastin Time 38.3 Sec. (24.2-36.6)
[2017-04-13] MEDS ORDERED: MORPHINE ONE (09:25)
[2017-04-13 11:23] LABS: Bilirubin,Urine NEG (Negative); Blood,Urine MOD (Negative); Color,Urine Yellow (Yellow); Mucus,Urine FEW /HPF; Protein,Urine <15 mg/dL mg/dL (Negative)
[2017-04-13 11:27] LABS: Amphetamine Screen,Urine PRESUMPTIVE NEGATIVE; Benzodiazepines Screen,Urine PRESUMPTIVE NEGATIVE; Cannabinoid Screen,Urine PRESUMPTIVE NEGATIVE; Cocaine Screen,Urine PRESUMPTIVE NEGATIVE; Methadone Screen,Urine PRESUMPTIVE NEGATIVE; Opiate Screen,Urine PRESUMPTIVE NEGATIVE
--- NOTE | 2017-04-13 11:47 | Cat Scan Report ---
CT ABDOMEN WITH CONTRAST: HISTORY: Abdominal pain, vomiting. COMPARISON: 10/30/16. TECHNIQUE: Helical CT in 1.25mm intervals following IV contrast. Sagittal and coronal reconstructions. FINDINGS: Lung bases: Borderline to mild cardiomegaly. There is minor air space opacity in the lateral segment of the right middle lobe. This appears to represent segmental atelectasis and not infiltrate. The left lung base is clear. Liver: There is subtle surface nodularity to the liver suggesting mild cirrhosis. Biliary system: Normal. Pancreas: Normal. Spleen: Mild splenomegaly measures 17 cm. Kidneys: The kidneys are unremarkable. 1 cm cyst in the inferior right kidney is noted. No mass obvious calculus. The proximal ureters are unremarkable. Adrenal glands: Normal. Aorta: Normal. Intestines: The visualized bowel loops are normal caliber and wall thickness. No evidence for obstruction or focal inflammation. Appendix: Not identified, correlate with surgical history. Ascites: Small ascites has resolved since 10/30/16. Adenopathy: None. Musculoskeletal: Mild thoracolumbar spondylosis. Chronic appearing compression deformity of L3. Previous ventral wall repair changes are suspected in partially imaged. No obvious recurrent hernia. IMPRESSION: No acute inflammatory process is appreciated in the abdomen. Mild cirrhotic changes in the liver and mild splenomegaly are suspected. Small ascites has resolved since 10/30/16. No large varicosities. Subtle airspace opacity in the lateral right middle lobe which probably represents segmental atelectasis. Previous ventral wall repair is grossly intact. Chronic L3 deformity.
[2017-04-13 12:05] VITALS: BP 140/74
[2017-04-13] MEDS ORDERED: MAGNESIUM SULFATE 2GM/50ML 2 GM/50 ML BAG IV ONE (13:30)
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
== END 2017-04-13 15:47 | disposition home or self-care (01) ==
LOC: ED 06:29
DX: K70.30 Alcoholic cirrhosis of liver without ascites (principal); E83.42 Hypomagnesemia; D64.9 Anemia, unspecified; F17.200 Nicotine dependence, unspecified, uncomplicated; Z59.0 Homelessness; Z93.3 Colostomy status; Z79.899 Other long term (current) drug therapy
CPT/HCPCS: 36415; 71045; 74160; 80048; 80307; 81001; 82140; 82550; 82553; 83735; 83880; 84484; 85025; 85610; 85730; 86850; 86900; 86901; 87086; 93005; 93010; 96361; 96365; 96375; 96376; 99285; J2270; J2405; J3475; J7030; Q9967

== ENCOUNTER 2017-06-25 10:06 | Inpatient (IN) | payer OTHER ==
[2017-06-25] MEDS ORDERED: NACL 0.9% 1000 ML 1,000 ML IV ONE (10:43)
[2017-06-25 12:20] LABS: INR 1.09 (0.87-1.13)
[2017-06-25 12:21] LABS: Partial Thromboplastin Time 37.5 Sec. (24.2-36.6)
[2017-06-25 12:23] LABS: Lymphocytes % (Auto) 15.7 % (13.4-35.0); Mean Corpuscular HGB Conc 32 % (32-34); Mean Corpuscular Hemoglobin 28 pg (28-32); Mean Corpuscular Volume 88 fl (84-94); Mean Platelet Volume 8.5 fl (6-12); Monocytes % (Auto) 9.9 % (0.0-7.3); Platelet Count 115 K/mm3 (140-440); Red Cell Distribution Width 20.7 % (13.2-15.2)
[2017-06-25 12:24] LABS: Basophils % (Auto) 0.4 % (0.0-1.8); Eosinophils % (Auto) 0.5 % (0.0-4.3); Lymphocytes # (Auto) 0.9 K/mm3 (1.2-5.4); Monocytes # (Auto) 0.6 K/mm3 (0.0-0.8)
[2017-06-25 12:25] LABS: Hematocrit 18.5 % (35.5-45.6)
[2017-06-25 12:28] LABS: Alanine Aminotransferase 36 units/L (7-56); Albumin 3.3 g/dL (3.9-5); BUN/Creatinine Ratio 12; Blood Urea Nitrogen 7 mg/dL (9-20); Hemolysis Index 0; Lipase 120 units/L (13-60)
[2017-06-25] MEDS ORDERED: NACL 0.9% 500 ML 500 ML IV ONE ×2 (13:02→22:05)
[2017-06-25] MEDS ORDERED: ATIVAN IV ONE (13:37)
--- NOTE | 2017-06-25 13:37 | Emergency Department Report ---
ED GI Bleed HPI - General Chief complaint: Abdominal Pain Stated complaint: ABD PAIN Time Seen by Provider: 06/25/17 12:59 Source: patient, EMS Mode of arrival: Wheelchair Limitations: Language Barrier - History of Present Illness Initial comments: 52-year-old Italian-speaking man who was "found in a park" apparently homeless. He complains of recurrent rectal bleeding. She states that he's had it intermittently for the past few days. He does not complain of abdominal pain. He states he has not been vomiting. (History was obtained in Italian). He states that he's been admitted to every Hospital in [place] for the same problem. He was admitted to our facility last time in October 2016 for GI bleeding. He had a negative source for pill camera workup to exclude small bowel hemorrhage. The patient does not know the results of any of his testing. As far as he can tell me know end has ever identified site of his bleeding and does not have a history of ulcer he denies alcohol or drug use family. However previous medical records suggests alcohol abuse. He has had multiple abdominal surgeries. He states that the original wound occurred after a fall. I assume he has had previous episodes of intestinal obstruction. Is uncertain what the primary indication was for his first surgery or what was actually done based on information that I can ask him. He is basically a poor historian. The patient is able to state that he has not had signs of upper GI bleeding. He has bright red blood per rectum but does not describe melena. He has not had hematemesis. He states that he is cold and has had a chills since the ambulance picked him up. A rectal temp was obtained and found to be 99. complaint: gross hematochezia -: days(s) Quality: painless Consistency: intermittent Improves with: none Worsens with: none Context: history of GI bleed Associated Symptoms: weakness - Related Data Previous Rx's Medication Instructions Recorded Last Taken Type ALBUTEROL NEB's [Proventil 0.083% 2.5 mg IH Q4HRT PRN #30 nebu 11/14/16 Unknown Rx NEBS] Acetaminophen [Acetaminophen TAB] 325 mg PO Q4H PRN #30 tablet 11/14/16 Unknown Rx Ferrous Sulfate [Feosol 325 MG tab] 325 mg PO BID #30 tablet 11/14/16 Unknown Rx Pantoprazole [Protonix TAB] 40 mg PO BID #30 tablet 11/14/16 Unknown Rx Nitrofurantoin Monohyd/M-Cryst 100 mg PO BID #10 capsule 04/13/17 Unknown Rx [Macrobid 100 mg Capsule] Ondansetron [Zofran Odt] 4 mg PO Q6H PRN #7 tab.rapdis 04/13/17 Unknown Rx Pantoprazole [Protonix TAB] 40 mg PO DAILY #30 tablet 04/13/17 Unknown Rx traMADol [Ultram] 50 mg PO Q6HR PRN #10 tablet 04/13/17 Unknown Rx Allergies Allergy/AdvReac Type Severity Reaction Status Date / Time No Known Allergies Allergy Verified 06/02/16 08:50 ED Review of Systems ROS: Stated complaint: ABD PAIN Other details as noted in HPI Constitutional: weakness. denies: chills, fever Eyes: denies: eye pain, eye discharge, vision change ENT: denies: ear pain, throat pain Respiratory: denies: cough, shortness of breath, wheezing Cardiovascular: denies: chest pain, palpitations Endocrine: no symptoms reported Gastrointestinal: as per HPI, hematochezia. denies: abdominal pain, nausea, vomiting, diarrhea Genitourinary: denies: urgency, dysuria Musculoskeletal: denies: back pain, joint swelling, arthralgia Skin: denies: rash, lesions Neurological: denies: headache, weakness, paresthesias Psychiatric: denies: anxiety, depression Hematological/Lymphatic: denies: easy bleeding, easy bruising ED Past Medical Hx - Past Medical History Previous Medical History?: Yes Hx Hypertension: No Hx Heart Attack/AMI: No Hx Congestive Heart Failure: No Hx Diabetes: No Hx Deep Vein Thrombosis: No Hx Liver Disease: Yes Hx Sickle Cell Disease: No Hx Asthma: No Hx COPD: No Hx Tuberculosis: No Hx HIV: No Additional medical history: ETOH ABUSE,. ABD ULCERS, Anemia - Surgical History Past Surgical History?: Yes Hx Coronary Stent: No Hx Pacemaker: No Hx Internal Defibrillator: No Additional Surgical History: ABD SURGERIES AND ABD MESH AND POSS PLASTIC, reversal of colostomy - Social History Smoking Status: Former Smoker Substance Use Type: Alcohol, Prescribed - Medications Home Medications: Home Medications Medication Instructions Recorded Confirmed Last Taken Type ALBUTEROL NEB's [Proventil 0.083% 2.5 mg IH Q4HRT PRN #30 nebu 11/14/16 Unknown Rx NEBS] Acetaminophen [Acetaminophen TAB] 325 mg PO Q4H PRN #30 tablet 11/14/16 Unknown Rx Ferrous Sulfate [Feosol 325 MG tab] 325 mg PO BID #30 tablet 11/14/16 04/13/17 Unknown Rx Pantoprazole [Protonix TAB] 40 mg PO BID #30 tablet 11/14/16 04/13/17 Unknown Rx Nitrofurantoin Monohyd/M-Cryst 100 mg PO BID #10 capsule 04/13/17 Unknown Rx [Macrobid 100 mg Capsule] Ondansetron [Zofran Odt] 4 mg PO Q6H PRN #7 tab.rapdis 04/13/17 Unknown Rx Pantoprazole [Protonix TAB] 40 mg PO DAILY #30 tablet 04/13/17 Unknown Rx traMADol [Ultram] 50 mg PO Q6HR PRN #10 tablet 04/13/17 Unknown Rx ED Physical Exam - General Limitations: No Limitations General appearance: alert, anxious - Head Head exam: Present: atraumatic, normocephalic - Eye Eye exam: Present: normal appearance. Absent: scleral icterus - ENT ENT exam: Present: normal exam, mucous membranes moist - Neck Neck exam: Present: normal inspection. Absent: tenderness - Respiratory Respiratory exam: Present: normal lung sounds bilaterally. Absent: respiratory distress - Cardiovascular Cardiovascular Exam: Present: regular rate, normal rhythm. Absent: systolic murmur, diastolic murmur, rubs, gallop - GI/Abdominal GI/Abdominal exam: Present: soft, distended (somewhat), normal bowel sounds, hernia (abdominal wall hernia no incarceration). Absent: tenderness, guarding, rebound, rigid - Rectal Rectal exam: Present: deferred - Extremities Exam Extremities exam: Present: other (bilateral leg edema to the calf) - Back Exam Back exam: Present: normal inspection - Neurological Exam Neurological exam: Present: alert, oriented X3, CN II-XII intact (as tested). Absent: motor sensory deficit - Psychiatric Psychiatric exam: Present: normal affect, anxious - Skin Skin exam: Present: warm, dry, intact, normal color. Absent: rash ED Course Vital Signs 06/25/17 06/25/17 06/25/17 10:36 13:00 13:16 Temperature 98.9 F Pulse Rate 100 H Respiratory 18 23 27 H Rate Blood Pressure 100/62 128/58 Blood Pressure [Left] O2 Sat by Pulse 97 88 Oximetry 06/25/17 06/25/17 06/25/17 13:30 13:46 14:00 Temperature Pulse Rate 105 H 99 H 101 H Respiratory 19 19 19 Rate Blood Pressure 128/58 135/99 135/99 Blood Pressure [Left] O2 Sat by Pulse 99 96 94 Oximetry 06/25/17 06/25/17 06/25/17 14:08 14:16 14:20 Temperature 99.0 F 99 F Pulse Rate 98 H 101 H 90 Respiratory 19 16 16 Rate Blood Pressure 104/51 101/57 Blood Pressure 104/51 [Left] O2 Sat by Pulse 97 88 95 Oximetry 06/25/17 06/25/17 06/25/17 14:25 14:30 14:50 Temperature 98.6 F Pulse Rate 98 H 101 H Respiratory 19 17 22 Rate Blood Pressure 112/48 112/48 Blood Pressure [Left] O2 Sat by Pulse 97 99 98 Oximetry 06/25/17 06/25/17 14:57 15:00 Temperature 97.9 F 98.2 F Pulse Rate 95 H 98 H Respiratory 22 19 Rate Blood Pressure 116/70 102/73 Blood Pressure [Left] O2 Sat by Pulse 98 94 Oximetry - Reevaluation(s) Reevaluation #1: Transfusion of 2 units ordered emergently. Rx Protonix. The patient will be admitted to the intensive care unit by Dr. Jay. Consult to GI. No active bleeding at this time. 06/25/17 15:17 ED Medical Decision Making - Lab Data Result diagrams: 06/25/17 11:43 06/25/17 11:43 Laboratory Results - last 24 hr 06/25/17 06/25/17 06/25/17 11:43 11:43 11:43 WBC 5.7 RBC 2.10 L Hgb 6.0 L Hct 18.5 L* MCV 88 MCH 28 MCHC 32 RDW 20.7 H Plt Count 115 L Lymph % (Auto) 15.7 [place] % (Auto) 9.9 H Eos % (Auto) 0.5 Baso % (Auto) 0.4 Lymph # 0.9 L [place] # 0.6 Eos # 0.0 Baso # 0.0 Seg Neutrophils % 73.5 H Seg Neutrophils # 4.2 PT 14.7 INR 1.09 APTT 37.5 H Sodium 136 L Potassium 4.2 Chloride 97.7 L Carbon Dioxide 23 Anion Gap 20 BUN 7 L Creatinine 0.6 L Estimated GFR > 60 BUN/Creatinine Ratio 12 Glucose 106 H Calcium 8.0 L Total Bilirubin 1.10 AST 110 H ALT 36 Alkaline Phosphatase 137 H Total Protein 7.4 Albumin 3.3 L Albumin/Globulin Ratio 0.8 Lipase 120 H Blood Type Antibody Screen Crossmatch 06/25/17 11:43 WBC RBC Hgb Hct MCV MCH MCHC RDW Plt Count Lymph % (Auto) [place] % (Auto) Eos % (Auto) Baso % (Auto) Lymph # [place] # Eos # Baso # Seg Neutrophils % Seg Neutrophils # PT INR APTT Sodium Potassium Chloride Carbon Dioxide Anion Gap BUN Creatinine Estimated GFR BUN/Creatinine Ratio Glucose Calcium Total Bilirubin AST ALT Alkaline Phosphatase Total Protein Albumin Albumin/Globulin Ratio Lipase Blood Type O POSITIVE Antibody Screen Negative Crossmatch See Detail - EKG Data -: EKG Interpreted by Or EKG shows normal: sinus rhythm Rate: tachycardia - EKG Data Interpretation: nonspecific ST-T wave abebe, other (right bundle-branch block/ left anterior fascicular block) Critical Care Time: Yes Critical care time in (mins) excluding proc time.: 50 Critical care attestation.: If time is entered above; I have spent that time in minutes in the direct care of this critically ill patient, excluding procedure time. ED Disposition Clinical Impression: Symptomatic anemia GI bleeding Qualifiers: GI bleed type/associated pathology: unspecified gastrointestinal hemorrhage type Qualified Code(s): K92.2 - Gastrointestinal hemorrhage, unspecified Disposition: OP ADMIT IP TO THIS HOSP Is pt being admited?: Yes Does the pt Need Aspirin: No Condition: Stable Referrals: PRIMARY CARE, [Primary Care Provider] - 3-5 Days Time of Disposition: 15:17
[2017-06-25] MEDS ORDERED: PROTONIX IV ONE (14:18)
--- NOTE | 2017-06-25 15:45 | XRay Report ---
FINAL REPORT PROCEDURE: XR CHEST 1V AP TECHNIQUE: Chest radiograph anteroposterior view. CPT 92065 HISTORY: hypertension COMPARISON: No prior studies are available for comparison. FINDINGS: Heart: Prominent cardiac silhouette Mediastinum/Vessels: Normal. Lungs/Pleural space: No infiltrate, effusion, or pneumothorax. Bony thorax: No acute osseous abnormality. Life support devices: None. IMPRESSION: Prominent cardiac silhouette
[2017-06-25 18:00] LABS: Hematocrit 20.4 % (35.5-45.6); Hemoglobin 6.7 gm/dl (11.8-15.2); Lymphocytes % (Auto) 15.1 % (13.4-35.0); Mean Corpuscular HGB Conc 33 % (32-34); Mean Corpuscular Hemoglobin 28 pg (28-32); Mean Corpuscular Volume 86 fl (84-94); Platelet Count 118 K/mm3 (140-440); Red Blood Count 2.39 M/mm3 (3.65-5.03); Red Cell Distribution Width 20.1 % (13.2-15.2)
[2017-06-25 18:01] LABS: Basophils % (Auto) 0.7 % (0.0-1.8); Eosinophils % (Auto) 0.7 % (0.0-4.3); Lymphocytes # (Auto) 0.9 K/mm3 (1.2-5.4); Monocytes # (Auto) 0.6 K/mm3 (0.0-0.8); Monocytes % (Auto) 9.1 % (0.0-7.3)
--- NOTE | 2017-06-25 22:00 | History and Physical Report ---
History of Present Illness Date of examination: 06/25/17 Date of admission: 06/25/17 15:19 Chief complaint: CC Lower GI bleed History of present illness: History of Present Illness: 52-year-old Jamaican-speaking man who was "found in a park" apparently homeless. He complains of recurrent rectal bleeding. He states that he's had it intermittently for the past few days. He does not complain of abdominal pain. He states he has not been vomiting. (History was obtained in Jamaican). He states that he's been admitted to every Hospital in [place] for the same problem. He was admitted to our facility last time in October 2016 for GI bleeding. He had a negative source for pill camera workup to exclude small bowel hemorrhage. The patient does not know the results of any of his testing.Does not have a history of ulcer and he denies alcohol or drug use. The patient is able to state that he has not had signs of upper GI bleeding. He has bright red blood per rectum but does not describe melena. He has not had hematemesis. He states that he is cold and has had a chills since the ambulance picked him up. A rectal temp was obtained and found to be 99. Past Medical History Previous Medical History?: Yes Hx Liver Disease: Yes Additional medical history: ETOH ABUSE,. ABD ULCERS, Anemia - Surgical History Past Surgical History?: Yes Additional Surgical History: ABD SURGERIES AND ABD MESH AND POSS PLASTIC, reversal of colostomy - Social History Smoking Status: Former Smoker Substance Use Type: Alcohol, Prescribed - Medications Home Medications: Home Medications Medication Instructions Recorded Confirmed Last Taken Type ALBUTEROL NEB's [Proventil 0.083% 2.5 mg IH Q4HRT PRN #30 nebu 11/14/16 Unknown Rx NEBS] Acetaminophen [Acetaminophen TAB] 325 mg PO Q4H PRN #30 tablet 11/14/16 Unknown Rx Ferrous Sulfate [Feosol 325 MG tab] 325 mg PO BID #30 tablet 11/14/16 04/13/17 Unknown Rx Pantoprazole [Protonix TAB] 40 mg PO BID #30 tablet 11/14/16 04/13/17 Unknown Rx Nitrofurantoin Monohyd/M-Cryst 100 mg PO BID #10 capsule 04/13/17 Unknown Rx [Macrobid 100 mg Capsule] Ondansetron [Zofran Odt] 4 mg PO Q6H PRN #7 tab.rapdis 04/13/17 Unknown Rx Pantoprazole [Protonix TAB] 40 mg PO DAILY #30 tablet 04/13/17 Unknown Rx traMADol [Ultram] 50 mg PO Q6HR PRN #10 tablet 04/13/17 Unknown Rx Review of Systems ROS: Stated complaint: ABD PAIN Other details as noted in HPI Constitutional: weakness. denies: chills, fever Eyes: denies: eye pain, eye discharge, vision change ENT: denies: ear pain, throat pain Respiratory: denies: cough, shortness of breath, wheezing Cardiovascular: denies: chest pain, palpitations Endocrine: no symptoms reported Gastrointestinal: as per HPI, hematochezia. denies: abdominal pain, nausea, vomiting, diarrhea Genitourinary: denies: urgency, dysuria Musculoskeletal: denies: back pain, joint swelling, arthralgia Skin: denies: rash, lesions Neurological: denies: headache, weakness, paresthesias Psychiatric: denies: anxiety, depression Hematological/Lymphatic: denies: easy bleeding, easy bruising Medications and Allergies Allergies Allergy/AdvReac Type Severity Reaction Status Date / Time No Known Allergies Allergy Verified 06/02/16 08:50 Home Medications Medication Instructions Recorded Confirmed Last Taken Type ALBUTEROL NEB's [Proventil 0.083% 2.5 mg IH Q4HRT PRN #30 nebu 11/14/16 Unknown Rx NEBS] Acetaminophen [Acetaminophen TAB] 325 mg PO Q4H PRN #30 tablet 11/14/16 Unknown Rx Ferrous Sulfate [Feosol 325 MG tab] 325 mg PO BID #30 tablet 11/14/16 04/13/17 Unknown Rx Pantoprazole [Protonix TAB] 40 mg PO BID #30 tablet 11/14/16 04/13/17 Unknown Rx Nitrofurantoin Monohyd/M-Cryst 100 mg PO BID #10 capsule 04/13/17 Unknown Rx [Macrobid 100 mg Capsule] Ondansetron [Zofran Odt] 4 mg PO Q6H PRN #7 tab.rapdis 04/13/17 Unknown Rx Pantoprazole [Protonix TAB] 40 mg PO DAILY #30 tablet 04/13/17 Unknown Rx traMADol [Ultram] 50 mg PO Q6HR PRN #10 tablet 04/13/17 Unknown Rx Exam - Constitutional Vitals: Temp Pulse Resp BP Pulse Ox 99 F 86 20 103/80 97 06/25/17 16:20 06/25/17 18:00 06/25/17 18:00 06/25/17 18:00 06/25/17 18:17 General appearance: Present: no acute distress, well-nourished - EENT Eyes: Present: PERRL ENT: hearing intact, clear oral mucosa - Neck Neck: Present: supple, normal ROM - Respiratory Respiratory effort: normal Respiratory: bilateral: CTA - Cardiovascular Heart rate: 80 Rhythm: regular Heart Sounds: Present: S1 & S2. Absent: rub, click - Extremities Extremities: no ischemia, pulses intact, pulses symmetrical, No edema Peripheral Pulses: within normal limits - Abdominal General gastrointestinal: Present: soft, non-tender, non-distended, normal bowel sounds Male genitourinary: Present: normal - Rectal Rectal Exam: stool bloody - Integumentary Integumentary: Present: clear, warm, dry - Musculoskeletal Musculoskeletal: gait normal, strength equal bilaterally - Psychiatric Psychiatric: appropriate mood/affect, intact judgment & insight - Neurologic Neurologic: CNII-XII intact, moves all extremities - Allied Health Allied health notes reviewed: nursing, case management Results - Labs CBC & Chem 7: 06/25/17 17:42 06/25/17 11:43 Labs: Laboratory Last Values WBC 6.0 K/mm3 (4.5-11.0) 06/25/17 17:42 RBC 2.39 M/mm3 (3.65-5.03) L 06/25/17 17:42 Hgb 6.7 gm/dl (11.8-15.2) L 06/25/17 17:42 Hct 20.4 % (35.5-45.6) L 06/25/17 17:42 MCV 86 fl (84-94) 06/25/17 17:42 MCH 28 pg (28-32) 06/25/17 17:42 MCHC 33 % (32-34) 06/25/17 17:42 RDW 20.1 % (13.2-15.2) H 06/25/17 17:42 Plt Count 118 K/mm3 (140-440) L 06/25/17 17:42 Lymph % (Auto) 15.1 % (13.4-35.0) 06/25/17 17:42 [place] % (Auto) 9.1 % (0.0-7.3) H 06/25/17 17:42 Eos % (Auto) 0.7 % (0.0-4.3) 06/25/17 17:42 Baso % (Auto) 0.7 % (0.0-1.8) 06/25/17 17:42 Lymph # 0.9 K/mm3 (1.2-5.4) L 06/25/17 17:42 [place] # 0.6 K/mm3 (0.0-0.8) 06/25/17 17:42 Eos # 0.0 K/mm3 (0.0-0.4) 06/25/17 17:42 Baso # 0.0 K/mm3 (0.0-0.1) 06/25/17 17:42 Add Manual Diff Complete 06/25/17 17:42 Seg Neutrophils % 74.4 % (40.0-70.0) H 06/25/17 17:42 Seg Neutrophils # 4.5 K/mm3 (1.8-7.7) 06/25/17 17:42 PT 14.7 Sec. (12.2-14.9) 06/25/17 11:43 INR 1.09 (0.87-1.13) 06/25/17 11:43 APTT 37.5 Sec. (24.2-36.6) H 06/25/17 11:43 Sodium 136 mmol/L (137-145) L 06/25/17 11:43 Potassium 4.2 mmol/L (3.6-5.0) 06/25/17 11:43 Chloride 97.7 mmol/L (98-107) L 06/25/17 11:43 Carbon Dioxide 23 mmol/L (22-30) 06/25/17 11:43 Anion Gap 20 mmol/L 06/25/17 11:43 BUN 7 mg/dL (9-20) L 06/25/17 11:43 Creatinine 0.6 mg/dL (0.8-1.5) L 06/25/17 11:43 Estimated GFR > 60 ml/min 06/25/17 11:43 BUN/Creatinine Ratio 12 % 06/25/17 11:43 Glucose 106 mg/dL (75-100) H 06/25/17 11:43 Calcium 8.0 mg/dL (8.4-10.2) L 06/25/17 11:43 Total Bilirubin 1.10 mg/dL (0.1-1.2) 06/25/17 11:43 AST 110 units/L (5-40) H 06/25/17 11:43 ALT 36 units/L (7-56) 06/25/17 11:43 Alkaline Phosphatase 137 units/L (35-129) H 06/25/17 11:43 Total Protein 7.4 g/dL (6.3-8.2) 06/25/17 11:43 Albumin 3.3 g/dL (3.9-5) L 06/25/17 11:43 Albumin/Globulin Ratio 0.8 % 06/25/17 11:43 Lipase 120 units/L (13-60) H 06/25/17 11:43 Blood Type O POSITIVE 06/25/17 11:43 Antibody Screen Negative 06/25/17 11:43 Crossmatch See Detail 06/25/17 11:43 Short CBC 06/25/17 06/25/17 Range/Units 11:43 17:42 WBC 5.7 6.0 (4.5-11.0) K/mm3 Hgb 6.0 L 6.7 L (11.8-15.2) gm/dl Hct 18.5 L* 20.4 L (35.5-45.6) % Plt Count 115 L 118 L (140-440) K/mm3 BMP 06/25/17 11:43 Sodium 136 L Potassium 4.2 Chloride 97.7 L Carbon Dioxide 23 BUN 7 L Creatinine 0.6 L Glucose 106 H Calcium 8.0 L Liver Function 06/25/17 Range/Units 11:43 Total Bilirubin 1.10 (0.1-1.2) mg/dL AST 110 H (5-40) units/L ALT 36 (7-56) units/L Alkaline Phosphatase 137 H (35-129) units/L Albumin 3.3 L (3.9-5) g/dL - Imaging and Cardiology Chest x-ray: report reviewed (Cardiomegaly) Assessment and Plan Advance Directives: Yes (FC) VTE prophylaxis?: Mechanical Plan of care discussed with patient/family: Yes - Patient Problems (1) GI bleeding Current Visit: Yes Status: Acute Qualifiers: GI bleed type/associated pathology: unspecified gastrointestinal hemorrhage type Qualified Code(s): K92.2 - Gastrointestinal hemorrhage, unspecified Plan to address problem: Transfuse as necessary GI consult requested (2) Symptomatic anemia Current Visit: Yes Status: Acute Plan to address problem: Transfuse as necessary (3) Diverticular hemorrhage Current Visit: No Status: Acute Plan to address problem: High possibility (4) Transaminitis Current Visit: Yes Status: Chronic Plan to address problem: R/o Hepatitis C etc (5) Malnutrition Current Visit: Yes Status: Chronic Qualifiers: Malnutrition type: protein-calorie malnutrition Protein-calorie malnutrition severity: moderate Qualified Code(s): E44.0 - Moderate protein- calorie malnutrition Plan to address problem: Dietitian consult (6) DVT prophylaxis Current Visit: No Status: Acute Plan to address problem: Only scd's
[2017-06-25] MEDS ORDERED: TYLENOL PO PRN (22:01)
[2017-06-25] MEDS ORDERED: SODIUM CHLORIDE FLUSH SYRINGE 10 ML IV PRN (22:01)
[2017-06-25] MEDS ORDERED: ZOFRAN IV PRN (22:01)
[2017-06-25] MEDS ORDERED: D5/0.45NS 1,000 ML IV ONE (23:07)
[2017-06-25] MEDS ORDERED: D5NS 1,000 ML IV ONE (23:09)
[2017-06-25] MEDS ORDERED: MORPHINE ONE (23:15)
[2017-06-25] MEDS: D5NS 1,000 ML IV SCH (23:28)
[2017-06-25] MEDS: MORPHINE IV PRN (23:28)
[2017-06-25] MEDS: PROTONIX 80 MG in NACL 0.9% 100 ML IV SCH (23:28)
[2017-06-26] MEDS ORDERED: NACL 0.9% 500 ML 500 ML ONE (05:36)
[2017-06-26 09:45] LABS: Basophils % (Auto) 0.7 % (0.0-1.8); Eosinophils % (Auto) 1.2 % (0.0-4.3); Lymphocytes % (Auto) 10.9 % (13.4-35.0); Mean Corpuscular HGB Conc 33 % (32-34); Mean Corpuscular Hemoglobin 28 pg (28-32); Mean Corpuscular Volume 83 fl (84-94); Mean Platelet Volume 8.5 fl (6-12); Monocytes % (Auto) 7.9 % (0.0-7.3); Platelet Count 108 K/mm3 (140-440); Red Blood Count 2.89 M/mm3 (3.65-5.03); Red Cell Distribution Width 18.6 % (13.2-15.2)
[2017-06-26 09:46] LABS: Eosinophils # (Auto) 0.1 K/mm3 (0.0-0.4); Lymphocytes # (Auto) 0.6 K/mm3 (1.2-5.4); Monocytes # (Auto) 0.4 K/mm3 (0.0-0.8)
[2017-06-26 09:56] LABS: Alanine Aminotransferase 28 units/L (7-56); Albumin 3.1 g/dL (3.9-5); BUN/Creatinine Ratio 18; Blood Urea Nitrogen 9 mg/dL (9-20); Calcium 7.6 mg/dL (8.4-10.2); Hemolysis Index 3
[2017-06-26 09:58] LABS: % Iron Saturation 85.44 %
[2017-06-26] MEDS: PROTONIX 80 MG in NACL 0.9% 100 ML IV SCH ×2 (09:59→19:23)
[2017-06-26] MEDS: D5NS 1,000 ML IV SCH ×2 (09:59→19:23)
[2017-06-26] MEDS: SODIUM CHLORIDE FLUSH SYRINGE 10 ML IV SCH ×2 (10:00→22:55)
[2017-06-26] MEDS: MORPHINE IV PRN ×2 (10:00→19:22)
[2017-06-26 10:41] LABS: Hepatitis A Antibody IgM Non-Reactive (NonReactive); Hepatitis B Core IgM Non-Reactive (NonReactive); Hepatitis B Surface Antigen Non-Reactive (Negative); Hepatitis C Virus Antibody Non-Reactive (NonReactive)
--- NOTE | 2017-06-26 10:56 | Consultation ---
REFERRING PHYSICIAN: Sukhdev Gabriel MD INDICATION: GI bleed. HISTORY OF PRESENT ILLNESS: The patient is a 52-year-old male who presents for complaint of GI bleeding. The patient was [place] in a park, apparently homeless. He reports he has been having rectal bleeding for the last 3 days. The patient was seen by our service last year where he had recurrent GI bleed with multiple scopes, bleeding scans, etc. Finally, the patient was transferred to [place] at the end of last year, namely November 14. Further management at that time is unclear. The patient now reports that he has had rectal bleeding with wolf blood. He denies any hematemesis. The patient does have a history of alcohol abuse in the past. The patient subsequently came to the Emergency Room, was noted to be anemic and admitted and GI consulted. PAST MEDICAL HISTORY: Alcohol abuse. MEDICATIONS: See chart. ALLERGIES: No known drug allergies. SOCIAL HISTORY: Denies alcohol, tobacco, or IV drug abuse. FAMILY HISTORY: Negative for colon cancer. REVIEW OF SYSTEMS: GENERAL: Reports mild weakness. HEENT: No visual or tinnitus. PULMONARY: Shortness of breath. No cough. No chest pain. GASTROINTESTINAL: Reports rectal bleeding. All points of 13-point review of systems otherwise negative. PHYSICAL EXAMINATION: VITAL SIGNS: Temperature of 98.4, pulse 94, respirations 18, blood pressure 132/67. GENERAL: Fairly nourished male, in no acute distress. HEENT: Pupils equal, round, and reactive. PULMONARY: Rhonchi. CARDIOVASCULAR: Regular rate and rhythm. Normal S1, S2. ABDOMEN: Positive bowel sounds, soft. SKIN: No obvious rashes. LABORATORY DATA: Pertinent for white count of 6, hemoglobin and hematocrit of 6.7 and 20.4, platelet count of 118,000. INR of 1.09. Sodium of 136, potassium 4.2, chloride 98, CO2 23, BUN/Creatine normal, total bilirubin of 1, AST, ALT of 110 and 36, alkaline phosphatase of 137. ASSESSMENT: A 52-year-old male who last year had recurrent gastrointestinal bleed, unclear etiology after multiple scopes, bleeding scans, etc., who was transferred to [place] in the beginning of November of last year. What happened at [place] at that time is unclear at this time. The patient now presents with rectal bleeding and decreased hemoglobin and hematocrit. Management is noted below. PLAN: 1. We will attempt to get records from [place] to see what was done. 2. Follow hematocrit and transfuse as needed. 3. Bleeding scan today. 4. Nothing by mouth. 5. We will consider esophagogastroduodenoscopy and colonoscopy in before noon based on the progress. JOB# [id number] TASIA/AMNA CARLOS
--- NOTE | 2017-06-26 11:05 | Progress Note ---
Assessment and Plan Assessment and plan: Patient is a 52-year-old Ukrainian-speaking man who does speak and understand some Serbian with a history of GI bleed, liver disease and anemia, who pw BRBPR. per Chart, he was "found in a park" apparently homeless. He states that he's been admitted to every Hospital in [place] for the same problem. He was admitted to our facility last time in October 2016 for GI bleeding. He had a negative source for pill camera workup to exclude small bowel hemorrhage. The patient does not know the results of any of his testing. He doesn't have a history of ulcer and denies alcohol or drug use. He was admitted to ICU with hemoglobin of 6.0 and hct of 18.5 -Acute on chronic blood loss anemia: close monitoring, repeat h/h -Acute on chronic GIB: treat with PPI IV, transfuse prbc -Suspected Diverticular bleed, will defer to GI -Transaminitis, history of liver disorder: continue to monitor closely -?Etoh abuse -Malnutrition, moderate: Consult History Interval history: Patient was seen and examined. Follow-up on current diagnosis of abd pains and rectal bleeding. Overnight uneventful. Patient denies any chest pain, shortness breath, nausea/vomiting or severe headaches. Imaging, nursing note, chart, labs and old chart reviewed. Discussed with patient. He does speak and understand some Serbian. He tells me that the lower stomach is hurting. Hospitalist Physical - Physical exam Narrative exam: GEN: obese, ill appearing, NAD, Awake, Alert, Orientated HEENT: NCAT, EOMI, PERRL, OP Clear NECK: supple, no adenopathy, no thyromegaly, no JVD CVS/HEART: regular tachy normal S1S2, pulses present bilaterally CHEST/LUNGS: CTA B, Symmetrical chest expansion, good air entry bilaterally GI/Abdomen: soft, mild epigastric tenderness, good bowel sounds, no guarding or rebound /Bladder: no suprapubic tenderness, no CVA or paraspinal tenderness EXT/Skin: no c/c/e, no obvious rash MSK: FROM x 4 Neuro: CN 2-12 grossly intact, no new focal deficits, +tremors Psych: anxious - Constitutional Vitals: Temp Pulse Resp BP Pulse Ox 98.4 F 94 H 16 132/67 98 06/26/17 08:35 06/26/17 08:35 06/26/17 08:35 06/26/17 08:16 06/26/17 08:35 General appearance: Present: no acute distress, well-nourished Results - Labs CBC & Chem 7: 06/26/17 09:17 06/26/17 09:17 Labs: Laboratory Last Values WBC 5.5 K/mm3 (4.5-11.0) 06/26/17 09:17 RBC 2.89 M/mm3 (3.65-5.03) L 06/26/17 09:17 Hgb 8.0 gm/dl (11.8-15.2) L 06/26/17 09:17 Hct 24.0 % (35.5-45.6) L 06/26/17 09:17 MCV 83 fl (84-94) L 06/26/17 09:17 MCH 28 pg (28-32) 06/26/17 09:17 MCHC 33 % (32-34) 06/26/17 09:17 RDW 18.6 % (13.2-15.2) H 06/26/17 09:17 Plt Count 108 K/mm3 (140-440) L 06/26/17 09:17 Lymph % (Auto) 10.9 % (13.4-35.0) L 06/26/17 09:17 [place] % (Auto) 7.9 % (0.0-7.3) H 06/26/17 09:17 Eos % (Auto) 1.2 % (0.0-4.3) 06/26/17 09:17 Baso % (Auto) 0.7 % (0.0-1.8) 06/26/17 09:17 Lymph # 0.6 K/mm3 (1.2-5.4) L 06/26/17 09:17 [place] # 0.4 K/mm3 (0.0-0.8) 06/26/17 09:17 Eos # 0.1 K/mm3 (0.0-0.4) 06/26/17 09:17 Baso # 0.0 K/mm3 (0.0-0.1) 06/26/17 09:17 Add Manual Diff Complete 06/25/17 17:42 Seg Neutrophils % 79.3 % (40.0-70.0) H 05/13/18 09:17 Seg Neutrophils # 4.4 K/mm3 (1.8-7.7) 06/26/17 09:17 PT 14.7 Sec. (12.2-14.9) 06/25/17 11:43 INR 1.09 (0.87-1.13) 06/25/17 11:43 APTT 37.5 Sec. (24.2-36.6) H 06/25/17 11:43 Sodium 136 mmol/L (137-145) L 06/26/17 09:17 Potassium 3.6 mmol/L (3.6-5.0) 06/26/17 09:17 Chloride 100.6 mmol/L (98-107) 06/26/17 09:17 Carbon Dioxide 25 mmol/L (22-30) 06/26/17 09:17 Anion Gap 14 mmol/L 06/26/17 09:17 BUN 9 mg/dL (9-20) 06/26/17 09:17 Creatinine 0.5 mg/dL (0.8-1.5) L 06/26/17 09:17 Estimated GFR > 60 ml/min 06/26/17 09:17 BUN/Creatinine Ratio 18 % 06/26/17 09:17 Glucose 109 mg/dL (75-100) H 06/26/17 09:17 Hemoglobin A1c 6.0 % (4-6) 06/25/17 22:06 Calcium 7.6 mg/dL (8.4-10.2) L 06/26/17 09:17 Iron 223 ug/dL (49-181) H 06/26/17 09:17 TIBC 261 mcg/dL (250-450) 06/26/17 09:17 % Saturation 85.44 % 06/26/17 09:17 Transferrin 236 mg/dl (180-329) 06/26/17 09:17 Total Bilirubin 2.10 mg/dL (0.1-1.2) H 06/26/17 09:17 AST 79 units/L (5-40) H 06/26/17 09:17 ALT 28 units/L (7-56) 06/26/17 09:17 Alkaline Phosphatase 108 units/L (35-129) 06/26/17 09:17 Total Protein 6.9 g/dL (6.3-8.2) 06/26/17 09:17 Albumin 3.1 g/dL (3.9-5) L 06/26/17 09:17 Albumin/Globulin Ratio 0.8 % 06/26/17 09: Lipase 120 units/L (13-60) H 06/25/17 11:43 Vitamin B12 643.2 pg/mL (211-911) 06/26/17 09:17 Hepatitis A IgM Ab Non-reactive (NonReactive) 06/26/17 09: Hep Bs Antigen Non-reactive (Negative) 06/26/17 09:17 Hep B Core IgM Ab Non-reactive (NonReactive) 06/26/17 09:17 Hepatitis C Antibody Non-reactive (NonReactive) 06/26/17 09:17 Blood Type O POSITIVE 06/25/17 11:43 Antibody Screen Negative 06/25/17 11:43 Crossmatch See Detail 06/25/17 11:43
--- NOTE | 2017-06-26 11:50 | Consultation ---
History of Present Illness Consult date: 06/26/17 Reason for consult: other (GI bleeding/ICU care) History of present illness: 2-year-old [place]-speaking man who was "found in a park" apparently homeless. He complains of recurrent rectal bleeding. He states that he's had it intermittently for the past few days. He does not complain of abdominal pain. He states he has not been vomiting. (History was obtained in [place]). He states that he's been admitted to every Hospital in [place] for the same problem. He was admitted to our facility last time in October 2016 for GI bleeding. He had a negative source for pill camera workup to exclude small bowel hemorrhage. The patient does not know the results of any of his testing.Does not have a history of ulcer and he denies alcohol or drug use. The patient is able to state that he has not had signs of upper GI bleeding. He has bright red blood per rectum but does not describe melena. He has not had hematemesis. He states that he is cold and has had a chills since the ambulance picked him up. A rectal temp was obtained and found to be 99. Past History Past Medical History: other (recurrent GI bleeding, abdominal hernia) Past Surgical History: Other (multiple abdominal hernia surgeries) Social history: no significant social history Family history: no significant family history Medications and Allergies Allergies Allergy/AdvReac Type Severity Reaction Status Date / Time No Known Allergies Allergy Verified 06/02/16 08:50 Home Medications Medication Instructions Recorded Confirmed Last Taken Type ALBUTEROL NEB's [Proventil 0.083% 2.5 mg IH Q4HRT PRN #30 nebu 11/14/16 Unknown Rx NEBS] Acetaminophen [Acetaminophen TAB] 325 mg PO Q4H PRN #30 tablet 11/14/16 Unknown Rx Ferrous Sulfate [Feosol 325 MG tab] 325 mg PO BID #30 tablet 11/14/16 04/13/17 Unknown Rx Pantoprazole [Protonix TAB] 40 mg PO BID #30 tablet 11/14/16 04/13/17 Unknown Rx Nitrofurantoin Monohyd/M-Cryst 100 mg PO BID #10 capsule 04/13/17 Unknown Rx [Macrobid 100 mg Capsule] Ondansetron [Zofran Odt] 4 mg PO Q6H PRN #7 tab.rapdis 04/13/17 Unknown Rx Pantoprazole [Protonix TAB] 40 mg PO DAILY #30 tablet 04/13/17 Unknown Rx traMADol [Ultram] 50 mg PO Q6HR PRN #10 tablet 04/13/17 Unknown Rx Active Meds: Active Medications Acetaminophen (Tylenol) 650 mg PO Q4H PRN PRN Reason: Pain MILD(1-3)/Fever >100.5/PINA Dextrose/Sodium Chloride (D5ns) 1,000 mls @ 100 mls/hr IV DIRECT MACARIO Last Admin: 06/26/17 09:59 Dose: 100 mls/hr Pantoprazole Sodium 80 mg/ (Sodium Chloride) 100 mls @ 10 mls/hr IV DIRECT MACARIO Last Admin: 06/26/17 09:59 Dose: 8 mg/hr, 10 mls/hr Morphine Sulfate (Morphine) 2 mg IV Q4H PRN PRN Reason: Pain, Moderate (4-6) Last Admin: 06/26/17 10:00 Dose: 2 mg Ondansetron HCl (Zofran) 4 mg IV Q8H PRN PRN Reason: Nausea And Vomiting Sodium Chloride (Sodium Chloride Flush Syringe 10 Ml) 10 ml IV BID [facility] Last Admin: 06/26/17 10:00 Dose: 10 ml Sodium Chloride (Sodium Chloride Flush Syringe 10 Ml) 10 ml IV PRN PRN PRN Reason: LINE FLUSH Review of Systems All systems: negative Gastrointestinal: other (rectal bleeding of bright red blood) Physical Examination Vital signs: Vital Signs Temp Pulse Resp BP Pulse Ox 98.9 F 100 H 18 100/62 97 06/25/17 10:36 06/25/17 10:36 06/25/17 10:36 06/25/17 10:36 06/25/17 10:36 General appearance: no acute distress, alert Eyes: non-icteric ENT: oropharynx moist, other (crowded oropharynx) Neck: supple, no JVD Effort: normal Ascultation: Bilateral: clear Cardiovascular: regular rate and rhythm Gastrointestinal: normoactive bowel sounds, non-tender, other (abdominal hernias multiple healed surgical scars) Extremities: no cyanosis, no edema normal mental status, non-focal exam Results - Laboratory Findings CBC and BMP: 06/26/17 09:17 05/13/18 09:17 PT/INR, D-dimer PT 14.7 Sec. (12.2-14.9) 06/25/17 11:43 INR 1.09 (0.87-1.13) 06/25/17 11:43 Abnormal lab findings: Abnormal Labs 06/25/17 06/25/17 06/25/17 11:43 11:43 11:43 RBC 2.10 L Hgb 6.0 L Hct 18.5 L* MCV RDW 20.7 H Plt Count 115 L Lymph % (Auto) [place] % (Auto) 9.9 H Lymph # 0.9 L Seg Neutrophils % 73.5 H APTT 37.5 H Sodium 136 L Chloride 97.7 L BUN 7 L Creatinine 0.6 L Glucose 106 H Calcium 8.0 L Iron Total Bilirubin AST 110 H Alkaline Phosphatase 137 H Albumin 3.3 L Lipase 120 H Crossmatch 06/25/17 06/25/17 06/26/17 11:43 17:42 09:17 RBC 2.39 L 2.89 L Hgb 6.7 L 8.0 L Hct 20.4 L 24.0 L MCV 83 L RDW 20.1 H 18.6 H Plt Count 118 L 108 L Lymph % (Auto) 10.9 L [place] % (Auto) 9.1 H 7.9 H Lymph # 0.9 L 0.6 L Seg Neutrophils % 74.4 H 79.3 H APTT Sodium Chloride BUN Creatinine Glucose Calcium Iron Total Bilirubin AST Alkaline Phosphatase Albumin Lipase Crossmatch See Detail 06/26/17 06/26/17 09:17 09:17 RBC Hgb Hct MCV RDW Plt Count Lymph % (Auto) [place] % (Auto) Lymph # Seg Neutrophils % APTT Sodium 136 L Chloride BUN Creatinine 0.5 L Glucose 109 H Calcium 7.6 L Iron 223 H Total Bilirubin 2.10 H AST 79 H Alkaline Phosphatase Albumin 3.1 L Lipase Crossmatch Assessment and Plan Impression: Recurrent lower GI bleeding Severe blood loss anemia Hemodynamically stable Severe obesity Recommendation: Patient had received blood transfusion. Patient is hemodynamically stable. Recommend transfer out of ICU. Continue with IV fluids Continue with PPI Will require GI workup per gastroenterology
[2017-06-26] MEDS ORDERED: FLUSH HEPARIN IV ONE ×2 (12:17)
[2017-06-26 15:21] LABS: Hematocrit 23.7 % (35.5-45.6); Hemoglobin 7.8 gm/dl (11.8-15.2); Mean Platelet Volume 8.8 fl (6-12); Red Blood Count 2.82 M/mm3 (3.65-5.03); Red Cell Distribution Width 19.5 % (13.2-15.2)
[2017-06-27 04:55] LABS: Hemoglobin 7.7 gm/dl (11.8-15.2); Mean Corpuscular HGB Conc 34 % (32-34); Mean Corpuscular Hemoglobin 28 pg (28-32); Mean Corpuscular Volume 84 fl (84-94); Platelet Count 106 K/mm3 (140-440); Red Blood Count 2.75 M/mm3 (3.65-5.03); Red Cell Distribution Width 19.3 % (13.2-15.2)
[2017-06-27 05:20] LABS: Alanine Aminotransferase 28 units/L (7-56); Albumin 2.8 g/dL (3.9-5); BUN/Creatinine Ratio 14; Blood Urea Nitrogen 7 mg/dL (9-20); Calcium 7.3 mg/dL (8.4-10.2); Hemolysis Index 74
[2017-06-27] MEDS: D5NS 1,000 ML IV SCH ×2 (05:30→18:00)
[2017-06-27] MEDS: PROTONIX 80 MG in NACL 0.9% 100 ML IV SCH ×2 (06:39→18:00)
[2017-06-27] MEDS ORDERED: MAGNESIUM SULFATE 4GM/100ML 4 GM/100 ML BAG IV ONE (09:00)
--- NOTE | 2017-06-27 09:29 | Progress Note ---
Assessment and Plan Assessment and plan: Patient is a 52-year-old Lithuanian-speaking man who does speak and understand some South African with a history of GI bleed, liver disease and anemia, who pw BRBPR. per Chart, he was "found in a park" apparently homeless. He states that he's been admitted to every Hospital in [place] for the same problem. He was admitted to our facility last time in October 2016 for GI bleeding. He had a negative source for pill camera workup to exclude small bowel hemorrhage. The patient does not know the results of any of his testing. He doesn't have a history of ulcer and denies alcohol or drug use. He was admitted to ICU with hemoglobin of 6.0 and hct of 18.5 -Acute on chronic blood loss anemia: close monitoring, repeat h/h -Acute on chronic GIB: treat with PPI IV, transfuse prbc -Suspected Diverticular bleed, will defer to GI -Transaminitis, history of liver disorder: continue to monitor closely -?Etoh abuse -Malnutrition, moderate: Consult Futures Trader -DVT prophylaxis: SCD GI evaluation still deciding on either EGD or colonoscopy, reason still in ICU. Patient had no BM so signs of BRBPR History Interval history: Patient was seen and examined. Follow-up on current diagnosis of abd pains and rectal bleeding. Overnight uneventful. Patient denies any chest pain, shortness breath, nausea/vomiting or severe headaches. Imaging, nursing note, chart, labs and old chart reviewed. Discussed with patient. He does speak and understand some South African. He tells me that the lower stomach is hurting. Hospitalist Physical - Physical exam Narrative exam: GEN: obese, ill appearing, NAD, Awake, Alert, Orientated HEENT: NCAT, EOMI, PERRL, OP Clear NECK: supple, no adenopathy, no thyromegaly, no JVD CVS/HEART: regular tachy normal S1S2, pulses present bilaterally CHEST/LUNGS: CTA B, Symmetrical chest expansion, good air entry bilaterally GI/Abdomen: soft, mild epigastric tenderness, good bowel sounds, no guarding or rebound /Bladder: no suprapubic tenderness, no CVA or paraspinal tenderness EXT/Skin: no c/c/e, no obvious rash MSK: FROM x 4 Neuro: CN 2-12 grossly intact, no new focal deficits, +tremors Psych: anxious - Constitutional Vitals: Temp Pulse Resp BP Pulse Ox 98.3 F 87 16 132/67 98 06/27/17 08:00 06/27/17 04:42 06/26/17 08:35 06/26/17 08:16 06/26/17 08:35 General appearance: Present: no acute distress, well-nourished Results - Labs CBC & Chem 7: 06/27/17 04:11 06/27/17 04:11 Labs: Laboratory Last Values WBC 5.5 K/mm3 (4.5-11.0) 06/27/17 04:11 RBC 2.75 M/mm3 (3.65-5.03) L 06/27/17 04:11 Hgb 7.7 gm/dl (11.8-15.2) L 06/27/17 04:11 Hct 23.0 % (35.5-45.6) L 06/27/17 04:11 MCV 84 fl (84-94) 06/27/17 04:11 MCH 28 pg (28-32) 06/27/17 04:11 MCHC 34 % (32-34) 06/27/17 04:11 RDW 19.3 % (13.2-15.2) H 06/27/17 04:11 Plt Count 106 K/mm3 (140-440) L 06/27/17 04:11 Lymph % (Auto) 10.9 % (13.4-35.0) L 06/26/17 09:17 [place] % (Auto) 7.9 % (0.0-7.3) H 06/26/17 09:17 Eos % (Auto) 1.2 % (0.0-4.3) 06/26/17 09:17 Baso % (Auto) 0.7 % (0.0-1.8) 06/26/17 09:17 Lymph # 0.6 K/mm3 (1.2-5.4) L 06/26/17 09:17 [place] # 0.4 K/mm3 (0.0-0.8) 06/26/17 09:17 Eos # 0.1 K/mm3 (0.0-0.4) 06/26/17 09:17 Baso # 0.0 K/mm3 (0.0-0.1) 06/26/17 09:17 Add Manual Diff Complete 06/25/17 17:42 Seg Neutrophils % 79.3 % (40.0-70.0) H 06/26/17 09:17 Seg Neutrophils # 4.4 K/mm3 (1.8-7.7) 06/26/17 09:17 PT 14.7 Sec. (12.2-14.9) 06/25/17 11:43 INR 1.09 (0.87-1.13) 06/25/17 11:43 APTT 37.5 Sec. (24.2-36.6) H 06/25/17 11:43 Sodium 137 mmol/L (137-145) 06/27/17 04:11 Potassium 3.5 mmol/L (3.6-5.0) L 06/27/17 04:11 Chloride 101.7 mmol/L (98-107) 06/27/17 04:11 Carbon Dioxide 22 mmol/L (22-30) 06/27/17 04:11 Anion Gap 17 mmol/L 06/27/17 04:11 BUN 7 mg/dL (9-20) L 06/27/17 04:11 Creatinine 0.5 mg/dL (0.8-1.5) L 06/27/17 04:11 Estimated GFR > 60 ml/min 06/27/17 04:11 BUN/Creatinine Ratio 14 % 06/27/17 04:11 Glucose 102 mg/dL (75-100) H 06/27/17 04:11 Hemoglobin A1c 6.0 % (4-6) 06/25/17 22:06 Calcium 7.3 mg/dL (8.4-10.2) L 06/27/17 04:11 Magnesium 1.10 mg/dL (1.7-2.3) L 06/27/17 04:11 Iron 223 ug/dL (49-181) H 06/26/17 09:17 TIBC 261 mcg/dL (250-450) 06/26/17 09:17 % Saturation 85.44 % 06/26/17 09:17 Transferrin 236 mg/dl (180-329) 06/26/17 09:17 Total Bilirubin 1.70 mg/dL (0.1-1.2) H 06/27/17 04:11 AST 88 units/L (5-40) H 06/27/17 04:11 ALT 28 units/L (7-56) 06/27/17 04:11 Alkaline Phosphatase 102 units/L (35-129) 06/27/17 04:11 Total Protein 6.6 g/dL (6.3-8.2) 06/27/17 04:11 Albumin 2.8 g/dL (3.9-5) L 06/27/17 04:11 Albumin/Globulin Ratio 0.7 % 06/27/17 04:11 Lipase 120 units/L (13-60) H 06/25/17 11:43 Vitamin B12 643.2 pg/mL (211-911) 06/26/17 09:17 Hepatitis A IgM Ab Non-reactive (NonReactive) 06/26/17 09:17 Hep Bs Antigen Non-reactive (Negative) 06/26/17 09:17 Hep B Core IgM Ab Non-reactive (NonReactive) 06/26/17 09:17 Hepatitis C Antibody Non-reactive (NonReactive) 06/26/17 09:17 Blood Type O POSITIVE 06/25/17 11:43 Antibody Screen Negative 06/25/17 11:43 Crossmatch See Detail 06/25/17 11:43
--- NOTE | 2017-06-27 12:07 | Progress Note ---
Assessment and Plan Symptomatic anemia. Currently not on pressors, blood pressure stable. Last hemoglobin consistently > 7 g / DL Lower GI bleeding episode. NSAIDs intake Prior history of EtOH abuse Recommendations Scheduled for a bleeding scan this morning Continue H&H monitoring twice a day Currently oriented but I will suggest maintaining CIWA Orders/Monitoring in Case of Need DVT prophylaxis with SCDs If no additional findings consisder transfer out Critical care time was 31 minutes of [id number] evaluation and coordination of care Subjective Date of service: 06/27/17 Interval history: Complains about weakness on either discomfort. No bleeding reported this morning. He denies to me (interviewed in Italian) any alcohol intake but, confirmed to me that he's been taking Motrin frequently for back pain problems. Objective Vital Signs - 12hr 06/27/17 06/27/17 06/27/17 03:44 04:42 08:00 Temperature 99.6 F 98.3 F Pulse Rate 87 Constitutional: no acute distress, alert Eyes: non-icteric ENT: oropharynx moist, other (crowded oropharynx) Neck: supple, no JVD Effort: normal Ascultation: Bilateral: clear Cardiovascular: regular rate and rhythm Gastrointestinal: normoactive bowel sounds, non-tender, other (abdominal hernias multiple healed surgical scars) Extremities: no cyanosis, no edema Neurologic: normal mental status, non-focal exam CBC and BMP: 06/27/17 04:11 06/27/17 04:11 ABG, PT/INR, D-dimer: PT/INR, D-dimer PT 14.7 Sec. (12.2-14.9) 06/25/17 11:43 INR 1.09 (0.87-1.13) 06/25/17 11:43 Abnormal lab findings: Abnormal Labs 06/25/17 06/25/17 06/25/17 11:43 11:43 11:43 RBC 2.10 L Hgb 6.0 L Hct 18.5 L* MCV RDW 20.7 H Plt Count 115 L Lymph % (Auto) [place] % (Auto) 9.9 H Lymph # 0.9 L Seg Neutrophils % 73.5 H APTT 37.5 H Sodium 136 L Potassium Chloride 97.7 L BUN 7 L Creatinine 0.6 L Glucose 106 H Calcium 8.0 L Magnesium Iron Total Bilirubin AST 110 H Alkaline Phosphatase 137 H Albumin 3.3 L Lipase 120 H Crossmatch 06/25/17 06/25/17 06/26/17 11:43 17:42 09:17 RBC 2.39 L 2.89 L Hgb 6.7 L 8.0 L Hct 20.4 L 24.0 L MCV 83 L RDW 20.1 H 18.6 H Plt Count 118 L 108 L Lymph % (Auto) 10.9 L [place] % (Auto) 9.1 H 7.9 H Lymph # 0.9 L 0.6 L Seg Neutrophils % 74.4 H 79.3 H APTT Sodium Potassium Chloride BUN Creatinine Glucose Calcium Magnesium Iron Total Bilirubin AST Alkaline Phosphatase Albumin Lipase Crossmatch See Detail 06/26/17 06/26/17 06/26/17 09:17 09:17 14:44 RBC 2.82 L Hgb 7.8 L Hct 23.7 L MCV RDW 19.5 H Plt Count 110 L Lymph % (Auto) [place] % (Auto) Lymph # Seg Neutrophils % APTT Sodium 136 L Potassium Chloride BUN Creatinine 0.5 L Glucose 109 H Calcium 7.6 L Magnesium Iron 223 H Total Bilirubin 2.10 H AST 79 H Alkaline Phosphatase Albumin 3.1 L Lipase Crossmatch 06/27/17 06/27/17 04:11 04:11 RBC 2.75 L Hgb 7.7 L Hct 23.0 L MCV RDW 19.3 H Plt Count 106 L Lymph % (Auto) [place] % (Auto) Lymph # Seg Neutrophils % APTT Sodium Potassium 3.5 L Chloride BUN 7 L Creatinine 0.5 L Glucose 102 H Calcium 7.3 L Magnesium 1.10 L Iron Total Bilirubin 1.70 H AST 88 H Alkaline Phosphatase Albumin 2.8 L Lipase Crossmatch
[2017-06-27] MEDS: SODIUM CHLORIDE FLUSH SYRINGE 10 ML IV SCH ×2 (16:30→23:08)
--- NOTE | 2017-06-27 16:35 | Gastroenterology Progress Note ---
Assessment and Plan GI: no signs bleeding - h/h stable - continue current management - if h/h stable am ok to d/c - if signs active bleeding then bleeding scan - will follow Subjective Date of service: 06/27/17 Interval history: - no signs bleeding overnight Objective - Constitutional Vitals: Temp Pulse Resp BP Pulse Ox 99.4 F 87 16 132/67 98 06/27/17 12:00 06/27/17 04:42 06/26/17 08:35 06/26/17 08:16 06/26/17 08:35 General appearance: no acute distress - EENT Eyes: PERRL - Respiratory Respiratory: bilateral: CTA - Cardiovascular Rhythm: regular Heart Sounds: Present: S1 & S2 - Gastrointestinal General gastrointestinal: Present: soft, non-tender, non-distended - Labs CBC & Chem 7: 06/27/17 04:11 06/27/17 04:11 Labs: Laboratory Results - last 24 hr 06/27/17 06/27/17 04:11 04:11 WBC 5.5 RBC 2.75 L Hgb 7.7 L Hct 23.0 L MCV 84 MCH 28 MCHC 34 RDW 19.3 H Plt Count 106 L Sodium 137 Potassium 3.5 L Chloride 101.7 Carbon Dioxide 22 Anion Gap 17 BUN 7 L Creatinine 0.5 L Estimated GFR > 60 BUN/Creatinine Ratio 14 Glucose 102 H Calcium 7.3 L Magnesium 1.10 L Total Bilirubin 1.70 H AST 88 H ALT 28 Alkaline Phosphatase 102 Total Protein 6.6 Albumin 2.8 L Albumin/Globulin Ratio 0.7
[2017-06-27] MEDS: KCL 10MEQ/100ML 10 MEQ/100 ML BAG IV SCH ×3 (18:00→23:08)
[2017-06-28] MEDS: KCL 10MEQ/100ML 10 MEQ/100 ML BAG IV SCH (01:24)
[2017-06-28 07:17] LABS: Hematocrit 21.8 % (35.5-45.6); Hemoglobin 7.2 gm/dl (11.8-15.2); Mean Corpuscular HGB Conc 33 % (32-34); Mean Corpuscular Hemoglobin 28 pg (28-32); Mean Corpuscular Volume 85 fl (84-94); Platelet Count 133 K/mm3 (140-440); Red Blood Count 2.57 M/mm3 (3.65-5.03); Red Cell Distribution Width 19.4 % (13.2-15.2)
[2017-06-28 07:27] LABS: BUN/Creatinine Ratio 8; Blood Urea Nitrogen 5 mg/dL (9-20); Calcium 7.2 mg/dL (8.4-10.2); Hemolysis Index 0
[2017-06-28] MEDS: D5NS 1,000 ML IV SCH ×2 (07:57→18:30)
[2017-06-28] MEDS: PROTONIX 80 MG in NACL 0.9% 100 ML IV SCH (08:41)
--- NOTE | 2017-06-28 11:17 | Gastroenterology Progress Note ---
Assessment and Plan 1.GI bleed -HGB 7.2- stable -continue to monitor H/H and transfuse as needed -no active signs of bleeding overnight or this am -clinically pt is stable w/o GI complaints -continue PPI and supportive care -recommend bleeding scan if re-bleeding occurs -no further recommendations at this time -pt is okay to be d/c per GI with outpatient follow up -will sign off, please call if needed Subjective Date of service: 06/28/17 Principal diagnosis: GI bleed Interval history: Patient w/o distress or GI complaints. Denies abd pain, N/V, or signs of bleeding. Objective - Constitutional Vitals: Temp Pulse Resp BP Pulse Ox 98.4 F 90 22 132/82 99 06/28/17 08:13 06/28/17 08:13 06/28/17 08:13 06/28/17 08:13 06/28/17 08:13 General appearance: no acute distress - Respiratory Respiratory: bilateral: CTA - Cardiovascular Rhythm: regular Heart Sounds: Present: S1 & S2 - Gastrointestinal General gastrointestinal: Present: soft, non-tender, non-distended, normal bowel sounds, other (scars from previous surgeries) - Neurologic Neurological: alert and oriented x3 - Labs CBC & Chem 7: 06/28/17 06:37 06/28/17 06:37 Labs: Laboratory Results - last 24 hr 06/28/17 06/28/17 06/28/17 06:37 06:37 06:37 WBC 5.0 RBC 2.57 L Hgb 7.2 L Hct 21.8 L MCV 85 MCH 28 MCHC 33 RDW 19.4 H Plt Count 133 L Sodium 135 L Potassium 3.1 L Chloride 100.5 Carbon Dioxide 21 L Anion Gap 17 BUN 5 L Creatinine 0.6 L Estimated GFR > 60 BUN/Creatinine Ratio 8 Glucose 110 H Calcium 7.2 L Magnesium 1.90
--- NOTE | 2017-06-28 11:22 | Event Note ---
Date: 06/28/17 Transferred out of ICU. No active pulmonary issues noted, so will sign off. Please re-consult or call if needed.
[2017-06-28] MEDS: SODIUM CHLORIDE FLUSH SYRINGE 10 ML IV SCH ×2 (11:42→22:08)
--- NOTE | 2017-06-28 13:20 | Progress Note ---
Assessment and Plan Assessment and plan: Patient is a 52-year-old Hebrew-speaking man who does speak and understand some [place] with a history of GI bleed, liver disease and anemia, who pw BRBPR. per Chart, he was "found in a park" apparently homeless. He states that he's been admitted to every Hospital in [place] for the same problem. He was admitted to our facility last time in October 2016 for GI bleeding. He had a negative source for pill camera workup to exclude small bowel hemorrhage. The patient does not know the results of any of his testing. He doesn't have a history of ulcer and denies alcohol or drug use. He was admitted to ICU with hemoglobin of 6.0 and hct of 18.5 Acute on chronic blood loss anemia close monitoring, h/h 7.2 today Acute on chronic GIB treat with PPI IV, transfuse prbc as needed Suspected Diverticular bleed will defer to GI Transaminitis history of liver disorder, continue to monitor closely ?Etoh abuse Malnutrition, moderate Consult [employer] DVT prophylaxis SCD History Interval history: Patient seen and examined no new events overnight. Labs and nursing notes reviewed. Hospitalist Physical - Physical exam Narrative exam: General appearance: Present: no acute distress, well-nourished - EENT Eyes: Present: PERRL, EOM intact ENT: hearing intact, clear oral mucosa - Neck Present: supple, normal ROM - Respiratory Respiratory effort: normal Respiratory: bilateral: CTA - Cardiovascular Rhythm: regular Heart Sounds: Present: S1 & S2 - Extremities Extremities: no ischemia, No edema - Abdominal General gastrointestinal: soft, non-tender, non-distended - Integumentary Integumentary: Present: clear, warm, dry - Psychiatric Psychiatric: appropriate mood/affect, intact judgment & insight, cooperative - Neurologic Neurologic: CNII-XII intact, moves all extremities - Constitutional Vitals: Temp Pulse Resp BP Pulse Ox 98.4 F 90 22 132/82 99 06/28/17 08:13 06/28/17 08:13 06/28/17 08:13 06/28/17 08:13 06/28/17 08:13 General appearance: Present: no acute distress, well-nourished Results - Labs CBC & Chem 7: 06/28/17 06:37 06/28/17 06:37 Labs: Laboratory Last Values WBC 5.0 K/mm3 (4.5-11.0) 06/28/17 06:37 RBC 2.57 M/mm3 (3.65-5.03) L 06/28/17 06:37 Hgb 7.2 gm/dl (11.8-15.2) L 06/28/17 06:37 Hct 21.8 % (35.5-45.6) L 06/28/17 06:37 MCV 85 fl (84-94) 06/28/17 06:37 MCH 28 pg (28-32) 06/28/17 06:37 MCHC 33 % (32-34) 06/28/17 06:37 RDW 19.4 % (13.2-15.2) H 06/28/17 06:37 Plt Count 133 K/mm3 (140-440) L 06/28/17 06:37 Lymph % (Auto) 10.9 % (13.4-35.0) L 06/26/17 09:17 [place] % (Auto) 7.9 % (0.0-7.3) H 06/26/17 09:17 Eos % (Auto) 1.2 % (0.0-4.3) 06/26/17 09:17 Baso % (Auto) 0.7 % (0.0-1.8) 06/26/17 09:17 Lymph # 0.6 K/mm3 (1.2-5.4) L 06/26/17 09:17 [place] # 0.4 K/mm3 (0.0-0.8) 06/26/17 09:17 Eos # 0.1 K/mm3 (0.0-0.4) 06/26/17 09:17 Baso # 0.0 K/mm3 (0.0-0.1) 06/26/17 09:17 Add Manual Diff Complete 06/25/17 17:42 Seg Neutrophils % 79.3 % (40.0-70.0) H 06/26/17 09:17 Seg Neutrophils # 4.4 K/mm3 (1.8-7.7) 06/26/17 09:17 PT 14.7 Sec. (12.2-14.9) 06/25/17 11:43 INR 1.09 (0.87-1.13) 06/25/17 11:43 APTT 37.5 Sec. (24.2-36.6) H 06/25/17 11:43 Sodium 135 mmol/L (137-145) L 06/28/17 06:37 Potassium 3.1 mmol/L (3.6-5.0) L 06/28/17 06:37 Chloride 100.5 mmol/L (98-107) 06/28/17 06:37 Carbon Dioxide 21 mmol/L (22-30) L 06/28/17 06:37 Anion Gap 17 mmol/L 06/28/17 06:37 BUN 5 mg/dL (9-20) L 06/28/17 06:37 Creatinine 0.6 mg/dL (0.8-1.5) L 06/28/17 06:37 Estimated GFR > 60 ml/min 06/28/17 06:37 BUN/Creatinine Ratio 8 % 06/28/17 06:37 Glucose 110 mg/dL (75-100) H 06/28/17 06:37 Hemoglobin A1c 6.0 % (4-6) 06/25/17 22:06 Calcium 7.2 mg/dL (8.4-10.2) L 06/28/17 06:37 Magnesium 1.90 mg/dL (1.7-2.3) 06/28/17 06:37 Iron 223 ug/dL (49-181) H 06/26/17 09:17 TIBC 261 mcg/dL (250-450) 06/26/17 09:17 % Saturation 85.44 % 06/26/17 09:17 Transferrin 236 mg/dl (180-329) 06/26/17 09:17 Total Bilirubin 1.70 mg/dL (0.1-1.2) H 06/27/17 04:11 AST 88 units/L (5-40) H 06/27/17 04:11 ALT 28 units/L (7-56) 06/27/17 04:11 Alkaline Phosphatase 102 units/L (35-129) 06/27/17 04:11 Total Protein 6.6 g/dL (6.3-8.2) 06/27/17 04:11 Albumin 2.8 g/dL (3.9-5) L 06/27/17 04:11 Albumin/Globulin Ratio 0.7 % 06/27/17 04:11 Lipase 120 units/L (13-60) H 06/25/17 11:43 Vitamin B12 643.2 pg/mL (211-911) 06/26/17 09:17 Hepatitis A IgM Ab Non-reactive (NonReactive) 06/26/17 09:17 Hep Bs Antigen Non-reactive (Negative) 06/26/17 09:17 Hep B Core IgM Ab Non-reactive (NonReactive) 06/26/17 09:17 Hepatitis C Antibody Non-reactive (NonReactive) 06/26/17 09:17 Blood Type O POSITIVE 06/25/17 11:43 Antibody Screen Negative 06/25/17 11:43 Crossmatch See Detail 06/25/17 11:43
[2017-06-28] MEDS: PROTONIX IV SCH (22:08)
[2017-06-28] MEDS: MORPHINE IV PRN (22:36)
[2017-06-29] MEDS: D5NS 1,000 ML IV SCH (04:12)
[2017-06-29 06:53] LABS: Hematocrit 22.1 % (35.5-45.6); Mean Corpuscular HGB Conc 32 % (32-34); Mean Corpuscular Hemoglobin 28 pg (28-32); Mean Corpuscular Volume 88 fl (84-94); Platelet Count 139 K/mm3 (140-440)
[2017-06-29 07:00] LABS: Red Cell Distribution Width 20.3 % (13.2-15.2)
--- NOTE | 2017-06-29 10:18 | Discharge Summary ---
Providers - Providers Date of Admission: 06/25/17 15:19 Date of discharge: 06/29/17 Attending physician: SUZANNA RIDER 06/25/17 14:18 Consult to Physician [CONS] Urgent Comment: Oziel @ [facility] notified @ 17:26- [facility] Consulting Provider: CLEMENTE JORDAN Physician Instructions: Reason For Exam: recurrent GI bleeding 06/25/17 15:36 Consult to Physician [CONS] Urgent Comment: Oziel @ [facility] notified @ 17:26- [facility] Consulting Provider: CLEMENTE JORDAN Physician Instructions: Reason For Exam: GI Bleeding 06/25/17 17:20 Consult to Physician [CONS] Stat Comment: Dr. Castro notified @ 17:15- [facility] Consulting Provider: BHANU CASTRO Physician Instructions: Reason For Exam: CCU admission 06/27/17 11:06 Physical Therapy Evaluation and Treat [CONS] Routine Comment: Reason For Exam: Debility Primary care physician: LIGHT OUT EXAMINER Hospitalization Condition: Stable Disposition: DC-01 TO HOME OR SELFCARE Core Measure Documentation - Palliative Care Palliative Care/ Comfort Measures: Not Applicable - Core Measures Any of the following diagnoses?: none Exam - Physical Exam Narrative exam: General appearance: Present: no acute distress, well-nourished - EENT Eyes: Present: PERRL, EOM intact ENT: hearing intact, clear oral mucosa - Neck Present: supple, normal ROM - Respiratory Respiratory effort: normal Respiratory: bilateral: CTA - Cardiovascular Rhythm: regular Heart Sounds: Present: S1 & S2 - Extremities Extremities: no ischemia, No edema - Abdominal General gastrointestinal: soft, non-tender, non-distended - Integumentary Integumentary: Present: clear, warm, dry - Psychiatric Psychiatric: appropriate mood/affect, intact judgment & insight, cooperative - Neurologic Neurologic: CNII-XII intact, moves all extremities - Constitutional Vitals: Temp Pulse Resp BP Pulse Ox 98.9 F 91 H 20 131/78 98 06/29/17 07:50 06/29/17 07:50 06/29/17 07:50 06/29/17 07:50 06/29/17 07:50 Plan Follow up with: ESTHER JOHNSON MD [Primary Care Provider] - 3-5 Days CLEMENTE JORDAN MD [Staff Physician] - 7 Days
[2017-06-29] MEDS: PROTONIX IV SCH (11:09)
[2017-06-29] MEDS: SODIUM CHLORIDE FLUSH SYRINGE 10 ML IV SCH (11:10)
[2017-06-29] MEDS ORDERED: NACL 0.9% 500 ML 500 ML IV ONE (14:00)
[2017-06-29 16:11] LABS: BUN/Creatinine Ratio 8; Blood Urea Nitrogen 4 mg/dL (9-20); Calcium 7.6 mg/dL (8.4-10.2); Hemolysis Index 10
[2017-06-29 18:13] VITALS: BP 145/85
[2017-06-29] MEDS ORDERED: PROTONIX PO SCH (22:00)
== END 2017-06-29 18:48 | disposition home or self-care (01) | DRG 378 ==
LOC: ED 10:06 → CC1 15:19 → 3A 06-27 16:45
PROVIDERS: ADMIT Internal Medicine; ATTEND Internal Medicine
PROC: 30233N1 Transfusion of Nonautologous Red Blood Cells into Peripheral Vein, Percutaneous Approach (ICD-10-PCS; principal; 2017-06-25)
DX: K57.91 Diverticulosis of intestine, part unspecified, without perforation or abscess with bleeding (principal); D62 Acute posthemorrhagic anemia; E44.0 Moderate protein-calorie malnutrition; E66.9 Obesity, unspecified; Z87.891 Personal history of nicotine dependence; Z79.51 Long term (current) use of inhaled steroids; Z79.899 Other long term (current) drug therapy; Z68.39 Body mass index [BMI] 39.0-39.9, adult
CPT/HCPCS: 36415; 71045; 80048; 80053; 80074; 82607; 82747; 83036; 83550; 83690; 83735; 85025; 85027; 85610; 85730; 86850; 86900; 86901; 86920; 93005; 93010; 96361; 96374; 96375; C9113; J1642; J2060; J2270; J3475; J3480; J7030; J7040; J7042; P9016

== ENCOUNTER 2017-07-07 08:58 | Inpatient (IN) | payer OTHER ==
[2017-07-07] MEDS ORDERED: NACL 0.9% 1000 ML 1,000 ML IV ONE (09:26)
[2017-07-07] MEDS ORDERED: ZOFRAN IV ONE (09:26)
--- NOTE | 2017-07-07 09:28 | Emergency Department Report ---
ED Dizziness HPI - General Chief Complaint: Dizziness Stated Complaint: DIZZY/LEG PAIN Time Seen by Provider: 07/07/17 09:15 Source: patient, EMS Mode of arrival: Stretcher Limitations: Language Barrier - History of Present Illness Initial Comments: Patient is a 52-year-old male that presented to the emergency room with leg pain and dizziness 3 days. Patient has a long history of GI bleed and had multiple medicines for this. Patient states she is having nausea, vomiting and black stool. Patient denies abdominal pain. Patient denies chest pain shortness of breath. Patient denies fever chills. MD Complaint: dizziness, lightheadedness -: Sudden Timing: sudden onset Description: lightheadedness History of Same: Yes History of Trauma: No Severity: severe Improves With: rest Worsens With: movement, position Associated Symptoms: denies: ataxia, chest pain, confusion, cough, diaphoresis, fever/chills, loss of appetite, malaise, seizure, shortness of breath, syncope, weakness - Related Data Previous Rx's Medication Instructions Recorded Last Taken Type Acetaminophen [Acetaminophen TAB] 325 mg PO Q4H PRN #30 tablet 11/14/16 Unknown Rx Pantoprazole [Protonix TAB] 40 mg PO BID #60 tablet 06/29/17 Unknown Rx Allergies Allergy/AdvReac Type Severity Reaction Status Date / Time No Known Allergies Allergy Verified 06/02/16 08:50 ED Review of Systems ROS: Stated complaint: DIZZY/LEG PAIN Other details as noted in HPI Constitutional: denies: chills, fever Eyes: denies: eye pain, eye discharge, vision change ENT: denies: ear pain, throat pain Respiratory: denies: cough, shortness of breath, wheezing Cardiovascular: denies: chest pain, palpitations Endocrine: no symptoms reported Gastrointestinal: nausea, vomiting, melena. denies: abdominal pain, diarrhea Genitourinary: denies: urgency, dysuria Musculoskeletal: denies: back pain, joint swelling, arthralgia Skin: denies: rash, lesions Neurological: denies: headache, weakness, paresthesias Psychiatric: denies: anxiety, depression Hematological/Lymphatic: denies: easy bleeding, easy bruising ED Past Medical Hx - Past Medical History Previous Medical History?: Yes Hx Hypertension: No Hx Heart Attack/AMI: No Hx Congestive Heart Failure: No Hx Diabetes: No Hx Deep Vein Thrombosis: No Hx Liver Disease: Yes Hx Sickle Cell Disease: No Hx Asthma: No Hx COPD: No Hx Tuberculosis: No Hx HIV: No Additional medical history: ETOH ABUSE,. ABD ULCERS, Anemia - Surgical History Past Surgical History?: Yes Hx Coronary Stent: No Hx Pacemaker: No Hx Internal Defibrillator: No Additional Surgical History: ABD SURGERIES AND ABD MESH AND POSS PLASTIC, reversal of colostomy - Family History Family history: hypertension - Social History Smoking Status: Never Smoker Substance Use Type: Alcohol - Medications Home Medications: Home Medications Medication Instructions Recorded Confirmed Last Taken Type Acetaminophen [Acetaminophen TAB] 325 mg PO Q4H PRN #30 tablet 11/14/16 Unknown Rx Pantoprazole [Protonix TAB] 40 mg PO BID #60 tablet 06/29/17 07/07/17 Unknown Rx ED Physical Exam - General Limitations: Language Barrier General appearance: alert, in no apparent distress - Head Head exam: Present: atraumatic, normocephalic - Eye Eye exam: Present: normal appearance - ENT ENT exam: Present: mucous membranes moist - Neck Neck exam: Present: normal inspection - Respiratory Respiratory exam: Present: normal lung sounds bilaterally. Absent: respiratory distress - Cardiovascular Cardiovascular Exam: Present: regular rate, normal rhythm. Absent: systolic murmur, diastolic murmur, rubs, gallop - GI/Abdominal GI/Abdominal exam: Present: soft, normal bowel sounds, other (multiple scars on abdomen). Absent: tenderness, guarding, rebound, rigid - Rectal Rectal exam: Present: normal inspection, normal rectal tone, heme (+) stool, black stool, bloody stool - Extremities Exam Extremities exam: Present: normal inspection - Back Exam Back exam: Present: normal inspection - Neurological Exam Neurological exam: Present: alert, oriented X3 - Psychiatric Psychiatric exam: Present: normal affect, normal mood - Skin Skin exam: Present: warm, dry, intact, normal color. Absent: rash ED Course Vital Signs 07/07/17 07/07/17 07/07/17 09:09 09:46 10:12 Temperature 98.4 F Pulse Rate 118 H 105 H 120 H Respiratory 20 24 24 Rate Blood Pressure 117/80 102/26 102/26 O2 Sat by Pulse 97 100 Oximetry 07/07/17 07/07/17 07/07/17 10:16 10:21 10:30 Temperature Pulse Rate 112 H 114 H Respiratory 29 H 20 12 Rate Blood Pressure 109/40 109/40 O2 Sat by Pulse 99 100 Oximetry 07/07/17 07/07/17 07/07/17 12:25 12:40 13:10 Temperature 98.7 F 97.4 F L 97.4 F L Pulse Rate 116 H 106 H 114 H Respiratory 22 16 20 Rate Blood Pressure 90/41 99/41 97/40 O2 Sat by Pulse 100 100 100 Oximetry 07/07/17 07/07/17 07/07/17 13:40 14:30 14:43 Temperature 97.4 F L 98.7 F 98.4 F Pulse Rate 106 H 109 H 106 H Respiratory 16 23 20 Rate Blood Pressure 99/41 109/49 109/32 O2 Sat by Pulse 100 100 100 Oximetry - Reevaluation(s) Reevaluation #1: Hospitalist consult for admission. was given report. GI [facility]- consult for further evaluation and treatment. Discussed plan of care with patient and patient agreed to admission. Patient will be given 2 units of PRBCs 07/07/17 10:23 ED Medical Decision Making - Lab Data Result diagrams: 07/07/17 09:28 07/07/17 09:28 - EKG Data -: EKG Interpreted by [facility] EKG shows normal: sinus rhythm, intervals, QRS complexes, ST-T waves Rate: tachycardia - Radiology Data Radiology results: pending - Medical Decision Making Patient 2-year-old male that presents emergency room with complaints of dizziness and leg pain. Patient found to have a GI bleed and extremely anemic. Patient to be given PRBCs and admitted to the ICU at hospitalist service for further evaluation and treatment. GI also consult for evaluation and treatment. - Differential Diagnosis gi bleed. dizziness, leg pain. Critical Care Time: Yes Critical care attestation.: If time is entered above; I have spent that time in minutes in the direct care of this critically ill patient, excluding procedure time. Critical Care Time: 35 minutes spent for critical care ED Disposition Clinical Impression: GI bleeding, Anemia, Blood loss anemia, Melena, Dizziness, Symptomatic anemia Disposition: OP ADMIT IP TO THIS HOSP Is pt being admited?: Yes Does the pt Need Aspirin: No Condition: Critical Time of Disposition: 10:26
[2017-07-07 10:05] LABS: Mean Corpuscular HGB Conc 30 % (32-34); Mean Corpuscular Hemoglobin 27 pg (28-32); Mean Corpuscular Volume 89 fl (84-94); Platelet Count 348 K/mm3 (140-440); Red Blood Count 1.28 M/mm3 (3.65-5.03); Red Cell Distribution Width 19.6 % (13.2-15.2)
[2017-07-07 10:08] LABS: Hematocrit 11.4 % (35.5-45.6); Hemoglobin 3.4 gm/dl (11.8-15.2)
[2017-07-07 10:20] LABS: Alanine Aminotransferase 22 units/L (7-56); Albumin 2.6 g/dL (3.9-5); BUN/Creatinine Ratio 17; Blood Urea Nitrogen 10 mg/dL (9-20); Calcium 7.9 mg/dL (8.4-10.2); Hemolysis Index 5
[2017-07-07] MEDS ORDERED: NACL 0.9% 500 ML 500 ML IV ONE (10:24)
[2017-07-07 10:48] LABS: Total Cells Counted 100
[2017-07-07 10:49] LABS: Anisocytosis 1+; Band Neutrophils # (Manual) 2.7 K/mm3; Basophils % (Manual) 0 % (0.0-1.8); Eosinophils % (Manual) 0 % (0.0-4.3); Hypochromasia 2+; Platelet Estimate Consistent w Auto
--- NOTE | 2017-07-07 11:33 | Gastroenterology Consultation ---
<NIYA TOMLIN - Last Filed: 07/07/17 12:04> History of Present Illness - Reason for Consult Consult date: 07/07/17 GI bleed Requesting physician: ALEX ARMANDO III - History of Present Illness Patient is a 51 y/o male with PMH of HTN, PUD, and abdominal trauma after a fall that required multiple surgeries in 2013 who is well known to our service from multiple previous hospitalizations for obscure overt GI bleeding, suspected to be from the small bowel. He has undergone multiple scopes (EGD 2016 with small HH but otherwise normal; colonoscopy 05/2016 with fresh and old blood throughout colon and in the TI with mild diverticulosis), bleeding scans, and a single balloon enteroscopy at [facility] with no obvious source of bleeding. He was finally transferred last year to [place] for further management ( double balloon enteroscopy vs pill cam?) which is unclear at this time. He presented today to ED with c/o dizziness, leg pain, and black stools. H/H was found to be 3.4/11.4 on admission with stool heme positive. He admits to black and red bloody stools x 3 days with some mild lower generalized abd pain and N/ V with non-bloody emesis. Denies fever, wt loss, CP, SOB, hematemesis, diarrhea , or constipation. Past History Past Medical History: hypertension, other (PUD, abd trauma s/p fall, obscure GI bleeding) Past Surgical History: bowel surgery (multiple abd surgeries from trauma to include reversal of colostomy) Social history: Lives alone (homeless?) Family history: no significant family history Medications and Allergies Allergies Allergy/AdvReac Type Severity Reaction Status Date / Time No Known Allergies Allergy Verified 06/02/16 08:50 Home Medications Medication Instructions Recorded Confirmed Last Taken Type Acetaminophen [Acetaminophen TAB] 325 mg PO Q4H PRN #30 tablet 11/14/16 Unknown Rx Pantoprazole [Protonix TAB] 40 mg PO BID #60 tablet 06/29/17 07/07/17 Unknown Rx Review of Systems - Review of Systems All systems: negative Constitutional: other (dizziness) Gastrointestinal: abdominal pain, nausea, vomiting, BRBPR, melena Musculoskeletal: other (leg pain) Exam - Constitutional Vital Signs: Temp Pulse Resp BP Pulse Ox 98.4 F 114 H 12 109/40 100 05/24/18 09:09 07/07/17 10:30 07/07/17 10:30 07/07/17 10:30 07/07/17 10:30 General appearance: no acute distress, obese, other (ill appearing) - EENT Eyes: PERRL, EOM intact ENT: hearing intact - Respiratory Respiratory: bilateral: CTA - Cardiovascular Rhythm: other (tachycardia) Heart Sounds: Present: S1 & S2 - Gastrointestinal General gastrointestinal: Present: soft, non-tender, non-distended, normal bowel sounds, other (scars form previous surgeries) Rectal Exam: other (black stool) - Neurologic Neurological: alert and oriented x3 - Labs CBC & Chem 7: 07/07/17 09:28 07/07/17 09:28 Lab Results: Laboratory Results - last 24 hr 07/07/17 07/07/17 07/07/17 09:28 09:28 09:32 WBC 20.4 H RBC 1.28 L Hgb 3.4 L* Hct 11.4 L* MCV 89 MCH 27 L MCHC 30 L RDW 19.6 H Plt Count 348 Add Manual Diff Complete Total Counted 100 Seg Neuts % (Manual) 75.0 H Band Neutrophils % 13.0 Lymphocytes % (Manual) 5.0 L Reactive Lymphs % (Man) 0 Monocytes % (Manual) 7.0 Eosinophils % (Manual) 0 Basophils % (Manual) 0 Metamyelocytes % 0 Myelocytes % 0 Promyelocytes % 0 Blast Cells % 0 Nucleated RBC % Not Reportable Seg Neutrophils # Man 15.3 H Band Neutrophils # 2.7 Lymphocytes # (Manual) 1.0 L Abs React Lymphs (Man) 0.0 Monocytes # (Manual) 1.4 H Eosinophils # (Manual) 0.0 Basophils # (Manual) 0.0 Metamyelocytes # 0.0 Myelocytes # 0.0 Promyelocytes # 0.0 Blast Cells # 0.0 WBC Morphology Not Reportable Hypersegmented Neuts Not Reportable Hyposegmented Neuts Not Reportable Hypogranular Neuts Not Reportable Smudge Cells Not Reportable Toxic Granulation Not Reportable Toxic Vacuolation Not Reportable Dohle Bodies Not Reportable Pelger-Huet Anomaly Not Reportable Leonela Rods Not Reportable Platelet Estimate Consistent w auto Clumped Platelets Not Reportable Plt Clumps, EDTA Not Reportable Large Platelets Not Reportable Giant Platelets Not Reportable Platelet Satelliting Not Reportable Plt Morphology Comment Not Reportable RBC Morphology Not Reportable Dimorphic RBCs Not Reportable Polychromasia Rare Hypochromasia 2+ Poikilocytosis Not Reportable Anisocytosis 1+ Microcytosis Not Reportable Macrocytosis Not Reportable Spherocytes Not Reportable Pappenheimer Bodies Not Reportable Sickle Cells Not Reportable Target Cells Not Reportable Tear Drop Cells Not Reportable Ovalocytes Not Reportable Helmet Cells Not Reportable Wilder-Codell Bodies Not Reportable [place] Rings Not Reportable Myron Cells Not Reportable Bite Cells Not Reportable Crenated Cell Not Reportable Elliptocytes Not Reportable Acanthocytes (Spur) Not Reportable Rouleaux Not Reportable Hemoglobin C Crystals Not Reportable Schistocytes Not Reportable Malaria parasites Not Reportable Rahul Bodies Not Reportable Hem Pathologist Commnt No Sodium 129 L Potassium 4.0 Chloride 96.4 L Carbon Dioxide 14 L Anion Gap 23 BUN 10 Creatinine 0.6 L Estimated GFR > 60 BUN/Creatinine Ratio 17 Glucose 166 H Lactic Acid 11.50 H* Calcium 7.9 L Total Bilirubin 0.80 AST 52 H ALT 22 Alkaline Phosphatase 133 H Ammonia Total Protein 6.4 Albumin 2.6 L Albumin/Globulin Ratio 0.7 Plasma/Serum Alcohol Blood Type Antibody Screen Crossmatch 07/07/17 07/07/17 07/07/17 09:32 09:38 10:24 WBC RBC Hgb Hct MCV MCH MCHC RDW Plt Count Add Manual Diff Total Counted Seg Neuts % (Manual) Band Neutrophils % Lymphocytes % (Manual) Reactive Lymphs % (Man) Monocytes % (Manual) Eosinophils % (Manual) Basophils % (Manual) Metamyelocytes % Myelocytes % Promyelocytes % Blast Cells % Nucleated RBC % Seg Neutrophils # Man Band Neutrophils # Lymphocytes # (Manual) Abs React Lymphs (Man) Monocytes # (Manual) Eosinophils # (Manual) Basophils # (Manual) Metamyelocytes # Myelocytes # Promyelocytes # Blast Cells # WBC Morphology Hypersegmented Neuts Hyposegmented Neuts Hypogranular Neuts Smudge Cells Toxic Granulation Toxic Vacuolation Dohle Bodies Pelger-Huet Anomaly Leonela Rods Platelet Estimate Clumped Platelets Plt Clumps, EDTA Large Platelets Giant Platelets Platelet Satelliting Plt Morphology Comment RBC Morphology Dimorphic RBCs Polychromasia Hypochromasia Poikilocytosis Anisocytosis Microcytosis Macrocytosis Spherocytes Pappenheimer Bodies Sickle Cells Target Cells Tear Drop Cells Ovalocytes Helmet Cells Wilder-Codell Bodies [place] Rings Hawi Cells Bite Cells Crenated Cell Elliptocytes Acanthocytes (Spur) Rouleaux Hemoglobin C Crystals Schistocytes Malaria parasites Rahul Bodies Hem Pathologist Commnt Sodium Potassium Chloride Carbon Dioxide Anion Gap BUN Creatinine Estimated GFR BUN/Creatinine Ratio Glucose Lactic Acid Calcium Total Bilirubin AST ALT Alkaline Phosphatase Ammonia 112.0 H Total Protein Albumin Albumin/Globulin Ratio Plasma/Serum Alcohol 0.02 Blood Type O POSITIVE Antibody Screen Negative Crossmatch See Detail Assessment and Plan 1.GI bleed -HGB 3.4- 2 units PRBCs pending transfusion -continue to monitor H/H and transfuse as needed -hold blood thinning medications -Patient with black and red bloody stools x 3 days; rectal revealed black stool -currently HD stable -etiology unclear- pt with h/o obscure overt GI bleeding suspected to be from the small bowel -CTA pending- further recommendations to follow results -continue PPI and supportive care -will follow <AMA FUNG R - Last Filed: 07/07/17 17:42> Medications and Allergies Active Meds: Active Medications Alprazolam (Xanax) 0.25 mg PO Q8H PRN PRN Reason: Anxiety Furosemide (Lasix) 20 mg IV ONCE PRN PRN Reason: Edema Sodium Chloride (Nacl 0.9% 1000 Ml) 1,000 mls @ 100 mls/hr IV DIRECT MACARIO Sodium Chloride (Nacl 0.9% 500 Ml) 500 mls @ 0 mls/hr IV ONCE NR Stop: 07/07/17 18:30 Lactulose (Cephulac) 20 gm PO BID MACARIO Morphine Sulfate (Morphine) 1 mg IV Q4H PRN PRN Reason: Pain, Moderate (4-6) Last Admin: 07/07/17 17:05 Dose: 1 mg Pantoprazole Sodium (Protonix) 40 mg IV BID MACARIO Zolpidem Tartrate (Ambien) 5 mg PO QHS PRN PRN Reason: Sleep Exam - Constitutional Vital Signs: Temp Pulse Resp BP Pulse Ox 98.7 F 98 H 16 103/48 100 07/07/17 16:55 07/07/17 16:55 07/07/17 16:55 07/07/17 16:55 07/07/17 16:55 - Labs CBC & Chem 7: 07/07/17 09:28 07/07/17 09:28 Lab Results: Laboratory Results - last 24 hr 07/07/17 07/07/17 07/07/17 09:28 09:28 09:32 WBC 20.4 H RBC 1.28 L Hgb 3.4 L* Hct 11.4 L* MCV 89 MCH 27 L MCHC 30 L RDW 19.6 H Plt Count 348 Add Manual Diff Complete Total Counted 100 Seg Neuts % (Manual) 75.0 H Band Neutrophils % 13.0 Lymphocytes % (Manual) 5.0 L Reactive Lymphs % (Man) 0 Monocytes % (Manual) 7.0 Eosinophils % (Manual) 0 Basophils % (Manual) 0 Metamyelocytes % 0 Myelocytes % 0 Promyelocytes % 0 Blast Cells % 0 Nucleated RBC % Not Reportable Seg Neutrophils # Man 15.3 H Band Neutrophils # 2.7 Lymphocytes # (Manual) 1.0 L Abs React Lymphs (Man) 0.0 Monocytes # (Manual) 1.4 H Eosinophils # (Manual) 0.0 Basophils # (Manual) 0.0 Metamyelocytes # 0.0 Myelocytes # 0.0 Promyelocytes # 0.0 Blast Cells # 0.0 WBC Morphology Not Reportable Hypersegmented Neuts Not Reportable Hyposegmented Neuts Not Reportable Hypogranular Neuts Not Reportable Smudge Cells Not Reportable Toxic Granulation Not Reportable Toxic Vacuolation Not Reportable Dohle Bodies Not Reportable Pelger-Huet Anomaly Not Reportable Leonela Rods Not Reportable Platelet Estimate Consistent w auto Clumped Platelets Not Reportable Plt Clumps, EDTA Not Reportable Large Platelets Not Reportable Giant Platelets Not Reportable Platelet Satelliting Not Reportable Plt Morphology Comment Not Reportable RBC Morphology Not Reportable Dimorphic RBCs Not Reportable Polychromasia Rare Hypochromasia 2+ Poikilocytosis Not Reportable Anisocytosis 1+ Microcytosis Not Reportable Macrocytosis Not Reportable Spherocytes Not Reportable Pappenheimer Bodies Not Reportable Sickle Cells Not Reportable Target Cells Not Reportable Tear Drop Cells Not Reportable Ovalocytes Not Reportable Helmet Cells Not Reportable Wilder-Codell Bodies Not Reportable [place] Rings Not Reportable Myron Cells Not Reportable Bite Cells Not Reportable Crenated Cell Not Reportable Elliptocytes Not Reportable Acanthocytes (Spur) Not Reportable Rouleaux Not Reportable Hemoglobin C Crystals Not Reportable Schistocytes Not Reportable Malaria parasites Not Reportable Rahul Bodies Not Reportable Hem Pathologist Commnt No Sodium 129 L Potassium 4.0 Chloride 96.4 L Carbon Dioxide 14 L Anion Gap 23 BUN 10 Creatinine 0.6 L Estimated GFR > 60 BUN/Creatinine Ratio 17 Glucose 166 H Lactic Acid 11.50 H* Calcium 7.9 L Total Bilirubin 0.80 AST 52 H ALT 22 Alkaline Phosphatase 133 H Ammonia Total Protein 6.4 Albumin 2.6 L Albumin/Globulin Ratio 0.7 Plasma/Serum Alcohol Blood Type Antibody Screen Crossmatch 07/07/17 07/07/17 07/07/17 09:32 09:38 10:24 WBC RBC Hgb Hct MCV MCH MCHC RDW Plt Count Add Manual Diff Total Counted Seg Neuts % (Manual) Band Neutrophils % Lymphocytes % (Manual) Reactive Lymphs % (Man) Monocytes % (Manual) Eosinophils % (Manual) Basophils % (Manual) Metamyelocytes % Myelocytes % Promyelocytes % Blast Cells % Nucleated RBC % Seg Neutrophils # Man Band Neutrophils # Lymphocytes # (Manual) Abs React Lymphs (Man) Monocytes # (Manual) Eosinophils # (Manual) Basophils # (Manual) Metamyelocytes # Myelocytes # Promyelocytes # Blast Cells # WBC Morphology Hypersegmented Neuts Hyposegmented Neuts Hypogranular Neuts Smudge Cells Toxic Granulation Toxic Vacuolation Dohle Bodies Pelger-Huet Anomaly Leonela Rods Platelet Estimate Clumped Platelets Plt Clumps, EDTA Large Platelets Giant Platelets Platelet Satelliting Plt Morphology Comment RBC Morphology Dimorphic RBCs Polychromasia Hypochromasia Poikilocytosis Anisocytosis Microcytosis Macrocytosis Spherocytes Pappenheimer Bodies Sickle Cells Target Cells Tear Drop Cells Ovalocytes Helmet Cells Wilder-Codell Bodies [place] Rings Myron Cells Bite Cells Crenated Cell Elliptocytes Acanthocytes (Spur) Rouleaux Hemoglobin C Crystals Schistocytes Malaria parasites Rahul Bodies Hem Pathologist Commnt Sodium Potassium Chloride Carbon Dioxide Anion Gap BUN Creatinine Estimated GFR BUN/Creatinine Ratio Glucose Lactic Acid Calcium Total Bilirubin AST ALT Alkaline Phosphatase Ammonia 112.0 H Total Protein Albumin Albumin/Globulin Ratio Plasma/Serum Alcohol 0.02 Blood Type O POSITIVE Antibody Screen Negative Crossmatch See Detail Assessment and Plan Received some info from [facility] regarding prior evaluation there. Pt had Pillcam there on 11/16, showing 2 [id number] submucosal lesions, one with a central umbilication, that was intermittently bleeding, noted at 5 hrs, 35min into the study, and c/w mid-distal small bowel. Then, pt had CTA and mesenteric angio by their IR service. 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 Pt apparently did well subsequently until now, when he has resumed bleeding. Management would best be done by IR, and would be done after getting and reviewing records from [place]. I did discuss provocative testing here, with tPA to incite bleeding in order to localize vessel, with surgical backup, but this should be deferred until prior evaluation can be assessed. Once stable, an alternative would be to have pt reevaluated at [facility]. Discussed with Dr. Landrum and Dr. Callejas.
--- NOTE | 2017-07-07 11:50 | History and Physical Report ---
History of Present Illness Date of examination: 07/07/17 Date of admission: 07/07/17 Chief complaint: Dizziness/black tarry stool History of present illness: Dizziness and generalized body pains and dark colored stool in the last 3 days. 52-year-old obese male patient with significant history of hypertension peptic ulcer disease and multiple episodes of GI bleeding, multiple admissions in the past, extensively evaluated by GI, received numerous units of blood transfusion, presented to the emergency room with generalized body pains and weakness, fatigue and black tarry stools Patient also has nausea vomiting and vague abdominal pain Initial workup in the emergency room revealed hemoglobin of 3.4 and hematocrit of 11.4 with heme positive stool. Patient denies chest pain or shortness of breath Denies headache or blurring of vision Past History Past Medical History: anemia, hypertension, other (peptic ulcer, repeated episodes of acute GI bleeding) Past Surgical History: bowel surgery Social history: lives with family. denies: smoking, alcohol abuse, prescription drug abuse Family history: hypertension Medications and Allergies Allergies Allergy/AdvReac Type Severity Reaction Status Date / Time No Known Allergies Allergy Verified 06/02/16 08:50 Home Medications Medication Instructions Recorded Confirmed Last Taken Type Acetaminophen [Acetaminophen TAB] 325 mg PO Q4H PRN #30 tablet 11/14/16 Unknown Rx Pantoprazole [Protonix TAB] 40 mg PO BID #60 tablet 06/29/17 07/07/17 Unknown Rx Review of Systems Constitutional: fatigue, weakness Ears, nose, mouth and throat: no nasal congestion, no nasal discharge Cardiovascular: no chest pain, no palpitations, no lightheadedness, no shortness of breath Respiratory: no cough with sputum, no shortness of breath Gastrointestinal: abdominal pain, melena, hematochezia, no nausea, no vomiting Genitourinary Male: no hematuria, no nocturia Musculoskeletal: no myalgias, no arthritis Integumentary: no rash, no lesions Neurological: no syncope, no tremors Psychiatric: no anxiety, no depression Endocrine: no cold intolerance, no heat intolerance, no polydipsia, no polyuria Hematologic/Lymphatic: no easy bruising, no easy bleeding Allergic/Immunologic: no urticaria, no allergic rhinitis Exam - Constitutional Vitals: Temp Pulse Resp BP Pulse Ox 98.4 F 114 H 12 109/40 100 07/07/17 09:09 07/07/17 10:30 07/07/17 10:30 07/07/17 10:30 07/07/17 10:30 General appearance: Present: mild distress, well-nourished, obese, other ( pallor) - EENT Eyes: Present: PERRL, EOM intact - Neck Neck: Present: supple, normal ROM - Respiratory Respiratory effort: normal Respiratory: bilateral: diminished, negative: rales, rhonchi, wheezing - Cardiovascular Rhythm: regular Heart Sounds: Present: S1 & S2 - Extremities Extremities: no ischemia Extremity abnormal: edema - Abdominal General gastrointestinal: Present: soft, non-tender, non-distended, normal bowel sounds - Integumentary Integumentary: Present: clear, warm - Musculoskeletal Musculoskeletal: strength equal bilaterally, generalized weakness - Psychiatric Psychiatric: appropriate mood/affect, cooperative - Neurologic Neurologic: moves all extremities Results - Labs CBC & Chem 7: 07/07/17 09:28 07/07/17 09:28 Labs: Abnormal lab results 07/07/17 07/07/17 07/07/17 Range/Units 09:28 09:28 09:32 WBC 20.4 H (4.5-11.0) K/mm3 RBC 1.28 L (3.65-5.03) M/mm3 Hgb 3.4 L* (11.8-15.2) gm/dl Hct 11.4 L* (35.5-45.6) % MCH 27 L (28-32) pg MCHC 30 L (32-34) % RDW 19.6 H (13.2-15.2) % Seg Neuts % (Manual) 75.0 H (40.0-70.0) % Lymphocytes % (Manual) 5.0 L (13.4-35.0) % Seg Neutrophils # Man 15.3 H (1.8-7.7) K/mm3 Lymphocytes # (Manual) 1.0 L (1.2-5.4) K/mm3 Monocytes # (Manual) 1.4 H (0.0-0.8) K/mm3 Sodium 129 L (137-145) mmol/L Chloride 96.4 L (98-107) mmol/L Carbon Dioxide 14 L (22-30) mmol/L Creatinine 0.6 L (0.8-1.5) mg/dL Glucose 166 H (75-100) mg/dL Lactic Acid 11.50 H* (0.7-2.0) mmol/L Calcium 7.9 L (8.4-10.2) mg/dL AST 52 H (5-40) units/L Alkaline Phosphatase 133 H (35-129) units/L Ammonia (25-60) umol/L Albumin 2.6 L (3.9-5) g/dL Crossmatch 07/07/17 07/07/17 Range/Units 09:38 10:24 WBC (4.5-11.0) K/mm3 RBC (3.65-5.03) M/mm3 Hgb (11.8-15.2) gm/dl Hct (35.5-45.6) % MCH (28-32) pg MCHC (32-34) % RDW (13.2-15.2) % Seg Neuts % (Manual) (40.0-70.0) % Lymphocytes % (Manual) (13.4-35.0) % Seg Neutrophils # Man (1.8-7.7) K/mm3 Lymphocytes # (Manual) (1.2-5.4) K/mm3 Monocytes # (Manual) (0.0-0.8) K/mm3 Sodium (137-145) mmol/L Chloride (98-107) mmol/L Carbon Dioxide (22-30) mmol/L Creatinine (0.8-1.5) mg/dL Glucose (75-100) mg/dL Lactic Acid (0.7-2.0) mmol/L Calcium (8.4-10.2) mg/dL AST (5-40) units/L Alkaline Phosphatase (35-129) units/L Ammonia 112.0 H (25-60) umol/L Albumin (3.9-5) g/dL Crossmatch See Detail Assessment and Plan --Severe acute blood loss anemia; hemoglobin 3.4 Secondary to GI bleeding, type and cross 4 units of PRBC, transfuse per protocol Closely monitor H&H and, additional transfusion as needed 20 mg IV Lasix after each unit of PRBC transfusion GI evaluation, --Acute GI bleeding; patient had many episodes of GI bleeding in the past Extensively evaluated by GI, GI evaluation and possible EGD colonoscopy --Hyponatremia; fluid restriction, IV Lasix, and replacement therapy Closely monitor electrolytes --Lactic acidosis; secondary to severe metabolic acidosis Previous IV hydration, replacement therapy, closely monitor --Transaminitis; monitor liver function --Hyponatremia; fluid restriction, IV Lasix, closely monitor electrolytes --Hyperammonemia; GI following, Lactulose as needed --severe protein calorie malnutrition/hypoalbuminemia Nutrition supplements. Supportive care. Nutrition consult --DVT prophylaxis; SCDs, no pharmacologic anticoagulation in view of severe bleeding Closely monitor the patient and adjust management as needed Follow GI evaluation and recommendations Patient will be admitted to ICU for close monitoring overnight in view of severe life-threatening bleeding/anemia --DC planning. Case management Critical care time 35 minutes
[2017-07-07] MEDS ORDERED: NACL 0.9% 500 ML 500 ML ONE ×2 (12:17)
--- NOTE | 2017-07-07 15:10 | Event Note ---
Date: 07/07/17 52-year-old male with multiple episodes of GI bleeding without clear source found with multiple scope procedures performed without clear source identified. Presents with severe anemia and had CT angiogram. I reviewed CT angiogram and did not note any evidence of extravasation/GI bleed. Formal results not available. Discussed with Dr. Motley and patient may ultimately need a provoked mesenteric angiogram in order to determine the etiology of the GI bleed and treat it. This will require surgical consult and discussion with patient and surgery. The patient is severely anemic and requires transfusions. If he becomes hemodynamically unstable, then emergency mesenteric angiogram can be performed. Otherwise, recommend tagged red blood cell scan if bleeding recurs.
[2017-07-07] MEDS ORDERED: LASIX IV PRN (15:21)
[2017-07-07] MEDS ORDERED: AMBIEN PO PRN (15:28)
[2017-07-07] MEDS ORDERED: NACL 0.9% 500 ML 500 ML IV NR (15:30)
--- NOTE | 2017-07-07 16:30 | Cat Scan Report ---
FINAL REPORT EXAM: CT ANGIO ABDOMEN PELVIS HISTORY: gi bleed. COMPARISON: CT of the abdomen pelvis performed 10/19/[address] of the abdomen and pelvis performed 10/30/2016 TECHNIQUE: Multiple contiguous axial images were obtained from the lung bases to the pubic symphysis after administration of IV contrast. Reformatted sagittal and coronal images were available for review. FINDINGS: Lung bases: Normal. Visualized heart and mediastinum: Normal. Liver: Mildly nodular liver surface, unchanged since the previous study. Spleen: Normal. Pancreas: Normal. Gallbladder and Biliary Tree: Gallbladder wall thickening around the fundus. No pericholecystic fluid. No gallstones. Adrenal glands: Normal. Kidneys: Symmetric enhancement to both kidneys. No hydronephrosis. Bladder: Normal. Pelvic organs: Normal prostate gland and seminal vesicles. Bowel: No focal wall thickening. No evidence of obstruction. No evidence of active extravasation into the bowel lumen or wall. Peritoneum: No significant mesenteric adenopathy. No free air or free fluid. Vasculature: Normal caliber of the abdominal aorta without evidence of aneurysm or dissection. The celiac axis, superior mesenteric artery, bilateral renal arteries, and inferior mesenteric artery are patent and normal in caliber. The inferior vena cava and portal venous system is normal. Bones and soft tissues: No suspicious osseous lesions.No suspicious osseous lesions. No acute fracture or dislocation. Again seen is a chronic L3 compression fracture. There diastasis of the rectus abdominis musculature and postsurgical scarring, unchanged since the previous study. IMPRESSION: 1. No evidence of intraluminal active extravasation. No evidence of vascular malformation. Consider further evaluation with nuclear medicine scan if suspicion persists for GI bleed. 2. No evidence of bowel obstruction. 3. Mildly nodular liver surface, which can be seen in setting of cirrhosis, unchanged since the previous study. 4. Mild gallbladder wall thickening, which is nonspecific, but can be seen in the setting of intrinsic liver disease or low protein states. Findings are also similar in appearance to the previous study. 5. Unchanged compression deformity of the L3 vertebral body.
[2017-07-07] MEDS ORDERED: MORPHINE ONE (16:47)
[2017-07-07] MEDS: MORPHINE IV PRN (17:05)
[2017-07-07] MEDS ORDERED: LASIX IV SCH (19:00)
[2017-07-07 19:28] LABS: Bilirubin,Urine NEG (Negative); Blood,Urine MOD (Negative); Color,Urine Yellow (Yellow); Mucus,Urine FEW /HPF; Protein,Urine <15 mg/dL mg/dL (Negative); Urobilinogen,Urine < 2.0 mg/dL (<2.0)
[2017-07-07 19:41] LABS: Amphetamine Screen,Urine PRESUMPTIVE NEGATIVE; Benzodiazepines Screen,Urine PRESUMPTIVE NEGATIVE; Cannabinoid Screen,Urine PRESUMPTIVE NEGATIVE; Cocaine Screen,Urine PRESUMPTIVE NEGATIVE; Methadone Screen,Urine PRESUMPTIVE NEGATIVE; Opiate Screen,Urine PRESUMPTIVE NEGATIVE
[2017-07-07 21:57] LABS: Hematocrit 20.5 % (35.5-45.6); Hemoglobin 6.8 gm/dl (11.8-15.2)
[2017-07-07 22:07] LABS: INR 1.15 (0.87-1.13)
[2017-07-07] MEDS: CEPHULAC PO SCH (23:08)
[2017-07-07] MEDS: PROTONIX IV SCH (23:08)
[2017-07-08] MEDS: NACL 0.9% 1000 ML 1,000 ML IV SCH (06:25)
--- NOTE | 2017-07-08 08:08 | Progress Note ---
Assessment and Plan Assessment and plan: --Severe acute blood loss anemia; hemoglobin 3.4 Secondary to GI bleeding, received 4 units of PRBC, Hemoglobin this morning is 6.4, answers additional 2 units PRBC GI following --Acute GI bleeding; GI and IR following patient had many episodes of GI bleeding in the past evaluated by GI, in the past, no source found, consulted surgery Patient had extensive evaluation in [facility] in November, requested the records --Hyponatremia; closely monitor, replacement therapy as needed, water restriction --Lactic acidosis; metabolic acidosis Vigorous IV hydration, replacement therapy, closely monitor --Transaminitis; monitor liver function --Hyperammonemia; GI following, Lactulose as needed, follow levels --severe protein calorie malnutrition/hypoalbuminemia Nutrition supplements. Supportive care. Nutrition consult --DVT prophylaxis; SCDs, no pharmacologic anticoagulation in view of severe bleeding Patient was admitted to ICU for close monitoring overnight in view of severe life-threatening bleeding/anemia If hemodynamically stable , patient may be transferred out of ICU to telemetry. Plan of care reviewed with the patient and his nurse Critical care time 32 minutes Follow medical records from [place], follow surgery evaluation Possible transfer to [place] as needed History Interval history: Patient seen and examined medical records reviewed Feels slightly better, received 4 units of PRBC hemoglobin slightly improved 6.8 Patient is alert and awake not in acute distress Vital signs reviewed Hospitalist Physical - Constitutional Vitals: Temp Pulse Resp BP Pulse Ox 98.2 F 88 16 121/99 84 07/07/17 20:40 07/08/17 06:44 07/08/17 06:44 07/08/17 06:20 07/08/17 06:20 General appearance: Present: mild distress, well-nourished, obese - EENT Eyes: Present: PERRL, EOM intact - Neck Neck: Present: supple, normal ROM - Respiratory Respiratory effort: normal Respiratory: negative: rales, rhonchi, wheezing - Cardiovascular Rhythm: regular Heart Sounds: Present: S1 & S2 - Extremities Extremities: no ischemia, No edema - Abdominal General gastrointestinal: soft, non-tender, non-distended, normal bowel sounds - Integumentary Integumentary: Present: clear, warm - Psychiatric Psychiatric: appropriate mood/affect, cooperative - Neurologic Neurologic: CNII-XII intact, moves all extremities Results - Labs CBC & Chem 7: 07/08/17 08:12 07/08/17 08:12 Labs: Laboratory Last Values WBC 20.4 K/mm3 (4.5-11.0) H 07/07/17 09:28 RBC 1.28 M/mm3 (3.65-5.03) L 07/07/17 09:28 Hgb 6.8 gm/dl (11.8-15.2) L D 07/07/17 21:38 Hct 20.5 % (35.5-45.6) L D 07/07/17 21:38 MCV 89 fl (84-94) 07/07/17 09:28 MCH 27 pg (28-32) L 07/07/17 09: MCHC 30 % (32-34) L 07/07/17: RDW 19.6 % (13.2-15.2) H 07/07/17 09: Plt Count 348 K/mm3 (140-440) 07/07/17 09: Add Manual Diff Complete 07/07/17 09: Total Counted 100 07/07/17 09: Seg Neuts % (Manual) 75.0 % (40.0-70.0) H 07/07/17 09:28 Band Neutrophils % 13.0 % 07/07/17 09:28 Lymphocytes % (Manual) 5.0 % (13.4-35.0) L 07/07/17 09:28 Reactive Lymphs % (Man) 0 % 07/07/17 09:28 Monocytes % (Manual) 7.0 % (0.0-7.3) 07/07/17 09:28 Eosinophils % (Manual) 0 % (0.0-4.3) 07/07/17 09:28 Basophils % (Manual) 0 % (0.0-1.8) 07/07/17 09:28 Metamyelocytes % 0 % 07/07/17 09:28 Myelocytes % 0 % 07/07/17 09:28 Promyelocytes % 0 % 07/07/17 09:28 Blast Cells % 0 % 07/07/17 09:28 Nucleated RBC % Not Reportable 07/07/17 09: Seg Neutrophils # Man 15.3 K/mm3 (1.8-7.7) H 07/07/17 09:28 Band Neutrophils # 2.7 K/mm3 07/07/17 09:28 Lymphocytes # (Manual) 1.0 K/mm3 (1.2-5.4) L 07/07/17 09:28 Abs React Lymphs (Man) 0.0 K/mm3 07/07/17 09:28 Monocytes # (Manual) 1.4 K/mm3 (0.0-0.8) H 07/07/17 09:28 Eosinophils # (Manual) 0.0 K/mm3 (0.0-0.4) 07/07/17 09:28 Basophils # (Manual) 0.0 K/mm3 (0.0-0.1) 07/07/17 09:28 Metamyelocytes # 0.0 K/mm3 07/07/17 09:28 Myelocytes # 0.0 K/mm3 07/07/17 09:28 Promyelocytes # 0.0 K/mm3 07/07/17 09:28 Blast Cells # 0.0 K/mm3 07/07/17 09:28 WBC Morphology Not Reportable 07/07/17 09:28 Hypersegmented Neuts Not Reportable 07/07/17 09:28 Hyposegmented Neuts Not Reportable 07/07/17 09:28 Hypogranular Neuts Not Reportable 07/07/17 09:28 Smudge Cells Not Reportable 07/07/17 09:28 Toxic Granulation Not Reportable 07/07/17 09:28 Toxic Vacuolation Not Reportable 07/07/17 09:28 Dohle Bodies Not Reportable 07/07/17 09:28 Pelger-Huet Anomaly Not Reportable 07/07/17 09:28 Leonela Rods Not Reportable 07/07/17 09:28 Platelet Estimate Consistent w auto 07/07/17 09:28 Clumped Platelets Not Reportable 07/07/17 09:28 Plt Clumps, EDTA Not Reportable 07/07/17 09:28 Large Platelets Not Reportable 07/07/17 09:28 Giant Platelets Not Reportable 07/07/17 09:28 Platelet Satelliting Not Reportable 07/07/17 09:28 Plt Morphology Comment Not Reportable 07/07/17 09:28 RBC Morphology Not Reportable 07/07/17 09:28 Dimorphic RBCs Not Reportable 07/07/17 09:28 Polychromasia Rare 07/07/17 09:28 Hypochromasia 2+ 07/07/17 09:28 Poikilocytosis Not Reportable 07/07/17 09:28 Anisocytosis 1+ 07/07/17 09:28 Microcytosis Not Reportable 07/07/17 09:28 Macrocytosis Not Reportable 07/07/17 09:28 Spherocytes Not Reportable 07/07/17 09:28 Pappenheimer Bodies Not Reportable 07/07/17 09:28 Sickle Cells Not Reportable 07/07/17 09:28 Target Cells Not Reportable 07/07/17 09:28 Tear Drop Cells Not Reportable 07/07/17 09:28 Ovalocytes Not Reportable 07/07/17 09:28 Helmet Cells Not Reportable 07/07/17 09:28 Wilder-So-Hi Bodies Not Reportable 07/07/17 09:28 Rover Rings Not Reportable 07/07/17 09:28 Myron Cells Not Reportable 07/07/17 09:28 Bite Cells Not Reportable 07/07/17 09:28 Crenated Cell Not Reportable 07/07/17 09:28 Elliptocytes Not Reportable 07/07/17 09:28 Acanthocytes (Spur) Not Reportable 07/07/17 09:28 Rouleaux Not Reportable 07/07/17 09:28 Hemoglobin C Crystals Not Reportable 07/07/17 09:28 Schistocytes Not Reportable 07/07/17 09:28 Malaria parasites Not Reportable 07/07/17 09:28 Rahul Bodies Not Reportable 07/07/17 09:28 Hem Pathologist Commnt No 07/07/17 09:28 PT 15.3 Sec. (12.2-14.9) H 07/07/17 21:38 INR 1.15 (0.87-1.13) H 07/07/17 21:38 Sodium 129 mmol/L (137-145) L 07/07/17 09:28 Potassium 4.0 mmol/L (3.6-5.0) 07/07/17 09:28 Chloride 96.4 mmol/L (98-107) L 07/07/17 09:28 Carbon Dioxide 14 mmol/L (22-30) L 07/07/17 09:28 Anion Gap 23 mmol/L 07/07/17 09:28 BUN 10 mg/dL (9-20) 07/07/17 09:28 Creatinine 0.6 mg/dL (0.8-1.5) L 07/07/17 09:28 Estimated GFR > 60 ml/min 07/07/17 09:28 BUN/Creatinine Ratio 17 % 07/07/17 09:28 Glucose 166 mg/dL (75-100) H 07/07/17 09:28 Lactic Acid 11.50 mmol/L (0.7-2.0) H* 07/07/17 09:32 Calcium 7.9 mg/dL (8.4-10.2) L 07/07/17 09:28 Total Bilirubin 0.80 mg/dL (0.1-1.2) 07/07/17 09: AST 52 units/L (5-40) H 07/07/17 09:28 ALT 22 units/L (7-56) 07/07/17 09:28 Alkaline Phosphatase 133 units/L (35-129) H 07/07/17 09: Ammonia 112.0 umol/L (25-60) H 07/07/17 09:38 Total Protein 6.4 g/dL (6.3-8.2) 07/07/17 09:28 Albumin 2.6 g/dL (3.9-5) L 07/07/17 09:28 Albumin/Globulin Ratio 0.7 % 07/07/17 09:28 Urine Color Yellow (Yellow) 07/07/17 19:01 Urine Turbidity Clear (Clear) 07/07/17 19: Urine pH 6.0 (5.0-7.0) 07/07/17 19: Ur Specific [place] 1.018 (1.003-1.030) 07/07/17 19:01 Urine Protein <15 mg/dl mg/dL (Negative) 07/07/17 19:01 Urine Glucose (UA) Neg mg/dL (Negative) 07/07/17 19: Urine Ketones Neg mg/dL (Negative) 07/07/17 19: Urine Blood Mod (Negative) 07/07/17 19:01 Urine Nitrite Neg (Negative) 07/07/17 19: Urine Bilirubin Neg (Negative) 07/07/17 19: Urine Urobilinogen < 2.0 mg/dL (<2.0) 07/07/17 19:01 Ur Leukocyte Esterase Neg (Negative) 07/07/17 19:01 Urine WBC (Auto) 1.0 /HPF (0.0-6.0) 07/07/17 19:01 Urine RBC (Auto) 2.0 /HPF (0.0-6.0) 07/07/17 19:01 U Epithel Cells (Auto) < 1.0 /HPF (0-13.0) 07/07/17 19:01 Urine Mucus Few /HPF 07/07/17 19:01 Urine Opiates Screen Presumptive negative 07/07/17 19:01 Urine Methadone Screen Presumptive negative 07/07/17 19:01 Ur Barbiturates Screen Presumptive negative 07/07/17 19:01 Ur Phencyclidine Scrn Presumptive negative 07/07/17 19:01 Ur Amphetamines Screen Presumptive negative 07/07/17 19:01 U Benzodiazepines Scrn Presumptive negative 07/07/17 19:01 Urine Cocaine Screen Presumptive negative 07/07/17 19:01 U Marijuana (THC) Screen Presumptive negative 07/07/17 19:01 Drugs of Abuse Note Disclamer 07/07/17 19:01 Plasma/Serum Alcohol 0.02 % (0-0.07) 07/07/17 09:32 Blood Type O POSITIVE 07/07/17 10:24 Antibody Screen Negative 07/07/17 10:24 Crossmatch See Detail 07/07/17 10:24
[2017-07-08 08:27] LABS: Basophils # (Auto) 0.1 K/mm3 (0.0-0.1); Basophils % (Auto) 0.5 % (0.0-1.8); Eosinophils # (Auto) 0.1 K/mm3 (0.0-0.4); Eosinophils % (Auto) 1.2 % (0.0-4.3); Hemoglobin 6.4 gm/dl (11.8-15.2); Lymphocytes # (Auto) 0.6 K/mm3 (1.2-5.4); Lymphocytes % (Auto) 5.4 % (13.4-35.0); Mean Corpuscular HGB Conc 33 % (32-34); Mean Corpuscular Hemoglobin 28 pg (28-32); Mean Corpuscular Volume 86 fl (84-94); Monocytes # (Auto) 0.7 K/mm3 (0.0-0.8); Monocytes % (Auto) 7.1 % (0.0-7.3); Platelet Count 237 K/mm3 (140-440); Red Blood Count 2.27 M/mm3 (3.65-5.03); Red Cell Distribution Width 16.3 % (13.2-15.2)
[2017-07-08] MEDS ORDERED: NACL 0.9% 500 ML 500 ML IV NR (08:30)
[2017-07-08 08:38] LABS: INR 1.14 (0.87-1.13)
[2017-07-08 08:42] LABS: Hematocrit 19.4 % (35.5-45.6)
[2017-07-08 08:44] LABS: BUN/Creatinine Ratio 10; Blood Urea Nitrogen 5 mg/dL (9-20); Calcium 7.4 mg/dL (8.4-10.2); Hemolysis Index 0
--- NOTE | 2017-07-08 08:54 | Gastroenterology Progress Note ---
<JASMYNE KINGSLEY - Last Filed: 07/08/17 08:50> Assessment and Plan 1.GI bleed -HGB 3.4- s/p Transfusion with Hgb 6.2 at this time ( 6.4 after transfusion) -continue to monitor H/H and transfuse as needed -hold blood thinning medications -etiology unclear- pt with h/o obscure overt GI bleeding suspected to be from the small bowel -CTA did not show active GI bleeding. -continue PPI and supportive care -Agree with surgical consult -Reviewed note by Dr. Callejas, pt may need provoked mesenteric angiogram. Will wait for records from [place] ( requested yesterday afternoon per primary) -IF pt shows active signs of bleeding this AM, will need bleeding scan. -Further recommendations to follow. Subjective Date of service: 07/08/17 Principal diagnosis: GI bleeding Interval history: PT reports dark BM this AM. Objective - Constitutional Vitals: Temp Pulse Resp BP Pulse Ox 98.2 F 88 16 121/99 84 07/07/17 20:40 07/08/17 06:44 07/08/17 06:44 07/08/17 06:20 07/08/17 06:20 General appearance: no acute distress - EENT Eyes: EOM intact ENT: hearing intact - Neck Neck: supple - Cardiovascular Rhythm: regularly irregular - Gastrointestinal General gastrointestinal: Present: soft, non-tender, normal bowel sounds - Integumentary Integumentary: Present: warm, dry - Neurologic Neurological: alert and oriented x3 - Labs CBC & Chem 7: 07/08/17 08:12 07/08/17 08:12 Labs: Laboratory Results - last 24 hr 07/07/17 07/07/17 07/07/17 09:28 09:28 09:32 WBC 20.4 H RBC 1.28 L Hgb 3.4 L* Hct 11.4 L* MCV 89 MCH 27 L MCHC 30 L RDW 19.6 H Plt Count 348 Lymph % (Auto) Dixon % (Auto) Eos % (Auto) Baso % (Auto) Lymph # Dixon # Eos # Baso # Add Manual Diff Complete Total Counted 100 Seg Neutrophils % Seg Neuts % (Manual) 75.0 H Band Neutrophils % 13.0 Lymphocytes % (Manual) 5.0 L Reactive Lymphs % (Man) 0 Monocytes % (Manual) 7.0 Eosinophils % (Manual) 0 Basophils % (Manual) 0 Metamyelocytes % 0 Myelocytes % 0 Promyelocytes % 0 Blast Cells % 0 Nucleated RBC % Not Reportable Seg Neutrophils # Seg Neutrophils # Man 15.3 H Band Neutrophils # 2.7 Lymphocytes # (Manual) 1.0 L Abs React Lymphs (Man) 0.0 Monocytes # (Manual) 1.4 H Eosinophils # (Manual) 0.0 Basophils # (Manual) 0.0 Metamyelocytes # 0.0 Myelocytes # 0.0 Promyelocytes # 0.0 Blast Cells # 0.0 WBC Morphology Not Reportable Hypersegmented Neuts Not Reportable Hyposegmented Neuts Not Reportable Hypogranular Neuts Not Reportable Smudge Cells Not Reportable Toxic Granulation Not Reportable Toxic Vacuolation Not Reportable Dohle Bodies Not Reportable Pelger-Huet Anomaly Not Reportable Leonela Rods Not Reportable Platelet Estimate Consistent w auto Clumped Platelets Not Reportable Plt Clumps, EDTA Not Reportable Large Platelets Not Reportable Giant Platelets Not Reportable Platelet Satelliting Not Reportable Plt Morphology Comment Not Reportable RBC Morphology Not Reportable Dimorphic RBCs Not Reportable Polychromasia Rare Hypochromasia 2+ Poikilocytosis Not Reportable Anisocytosis 1+ Microcytosis Not Reportable Macrocytosis Not Reportable Spherocytes Not Reportable Pappenheimer Bodies Not Reportable Sickle Cells Not Reportable Target Cells Not Reportable Tear Drop Cells Not Reportable Ovalocytes Not Reportable Helmet Cells Not Reportable [place] Bodies Not Reportable [place] Rings Not Reportable Myron Cells Not Reportable Bite Cells Not Reportable Crenated Cell Not Reportable Elliptocytes Not Reportable Acanthocytes (Spur) Not Reportable Rouleaux Not Reportable Hemoglobin C Crystals Not Reportable Schistocytes Not Reportable Malaria parasites Not Reportable Rahul Bodies Not Reportable Hem Pathologist Commnt No PT INR Sodium 129 L Potassium 4.0 Chloride 96.4 L Carbon Dioxide 14 L Anion Gap 23 BUN 10 Creatinine 0.6 L Estimated GFR > 60 BUN/Creatinine Ratio 17 Glucose 166 H Lactic Acid 11.50 H* Calcium 7.9 L Total Bilirubin 0.80 AST 52 H ALT 22 Alkaline Phosphatase 133 H Ammonia Total Protein 6.4 Albumin 2.6 L Albumin/Globulin Ratio 0.7 Urine Color Urine Turbidity Urine pH Ur Specific [place] Urine Protein Urine Glucose (UA) Urine Ketones Urine Blood Urine Nitrite Urine Bilirubin Urine Urobilinogen Ur Leukocyte Esterase Urine WBC (Auto) Urine RBC (Auto) U Epithel Cells (Auto) Urine Mucus Urine Opiates Screen Urine Methadone Screen Ur Barbiturates Screen Ur Phencyclidine Scrn Ur Amphetamines Screen U Benzodiazepines Scrn Urine Cocaine Screen U Marijuana (THC) Screen Drugs of Abuse Note Plasma/Serum Alcohol Blood Type Antibody Screen Crossmatch 07/07/17 07/07/17 07/07/17 09:32 09:38 10:24 WBC RBC Hgb Hct MCV MCH MCHC RDW Plt Count Lymph % (Auto) [place] % (Auto) Eos % (Auto) Baso % (Auto) Lymph # Dixon # Eos # Baso # Add Manual Diff Total Counted Seg Neutrophils % Seg Neuts % (Manual) Band Neutrophils % Lymphocytes % (Manual) Reactive Lymphs % (Man) Monocytes % (Manual) Eosinophils % (Manual) Basophils % (Manual) Metamyelocytes % Myelocytes % Promyelocytes % Blast Cells % Nucleated RBC % Seg Neutrophils # Seg Neutrophils # Man Band Neutrophils # Lymphocytes # (Manual) Abs React Lymphs (Man) Monocytes # (Manual) Eosinophils # (Manual) Basophils # (Manual) Metamyelocytes # Myelocytes # Promyelocytes # Blast Cells # WBC Morphology Hypersegmented Neuts Hyposegmented Neuts Hypogranular Neuts Smudge Cells Toxic Granulation Toxic Vacuolation Dohle Bodies Pelger-Huet Anomaly Leonela Rods Platelet Estimate Clumped Platelets Plt Clumps, EDTA Large Platelets Giant Platelets Platelet Satelliting Plt Morphology Comment RBC Morphology Dimorphic RBCs Polychromasia Hypochromasia Poikilocytosis Anisocytosis Microcytosis Macrocytosis Spherocytes Pappenheimer Bodies Sickle Cells Target Cells Tear Drop Cells Ovalocytes Helmet Cells [place] Bodies [place] Rings Myron Cells Bite Cells Crenated Cell Elliptocytes Acanthocytes (Spur) Rouleaux Hemoglobin C Crystals Schistocytes Malaria parasites Rahul Bodies Hem Pathologist Commnt PT INR Sodium Potassium Chloride Carbon Dioxide Anion Gap BUN Creatinine Estimated GFR BUN/Creatinine Ratio Glucose Lactic Acid Calcium Total Bilirubin AST ALT Alkaline Phosphatase Ammonia 112.0 H Total Protein Albumin Albumin/Globulin Ratio Urine Color Urine Turbidity Urine pH Ur Specific [place] Urine Protein Urine Glucose (UA) Urine Ketones Urine Blood Urine Nitrite Urine Bilirubin Urine Urobilinogen Ur Leukocyte Esterase Urine WBC (Auto) Urine RBC (Auto) U Epithel Cells (Auto) Urine Mucus Urine Opiates Screen Urine Methadone Screen Ur Barbiturates Screen Ur Phencyclidine Scrn Ur Amphetamines Screen U Benzodiazepines Scrn Urine Cocaine Screen U Marijuana (THC) Screen Drugs of Abuse Note Plasma/Serum Alcohol 0.02 Blood Type O POSITIVE Antibody Screen Negative Crossmatch See Detail 07/07/17 07/07/17 07/07/17 19:01 19:01 21:38 WBC RBC Hgb 6.8 L D Hct 20.5 L D MCV MCH MCHC RDW Plt Count Lymph % (Auto) Dixon % (Auto) Eos % (Auto) Baso % (Auto) Lymph # Dixon # Eos # Baso # Add Manual Diff Total Counted Seg Neutrophils % Seg Neuts % (Manual) Band Neutrophils % Lymphocytes % (Manual) Reactive Lymphs % (Man) Monocytes % (Manual) Eosinophils % (Manual) Basophils % (Manual) Metamyelocytes % Myelocytes % Promyelocytes % Blast Cells % Nucleated RBC % Seg Neutrophils # Seg Neutrophils # Man Band Neutrophils # Lymphocytes # (Manual) Abs React Lymphs (Man) Monocytes # (Manual) Eosinophils # (Manual) Basophils # (Manual) Metamyelocytes # Myelocytes # Promyelocytes # Blast Cells # WBC Morphology Hypersegmented Neuts Hyposegmented Neuts Hypogranular Neuts Smudge Cells Toxic Granulation Toxic Vacuolation Dohle Bodies Pelger-Huet Anomaly Leonela Rods Platelet Estimate Clumped Platelets Plt Clumps, EDTA Large Platelets Giant Platelets Platelet Satelliting Plt Morphology Comment RBC Morphology Dimorphic RBCs Polychromasia Hypochromasia Poikilocytosis Anisocytosis Microcytosis Macrocytosis Spherocytes Pappenheimer Bodies Sickle Cells Target Cells Tear Drop Cells Ovalocytes Helmet Cells [place] Bodies [place] Rings [place] Cells Bite Cells Crenated Cell Elliptocytes Acanthocytes (Spur) Rouleaux Hemoglobin C Crystals Schistocytes Malaria parasites Rahul Bodies Hem Pathologist Commnt PT INR Sodium Potassium Chloride Carbon Dioxide Anion Gap BUN Creatinine Estimated GFR BUN/Creatinine Ratio Glucose Lactic Acid Calcium Total Bilirubin AST ALT Alkaline Phosphatase Ammonia Total Protein Albumin Albumin/Globulin Ratio Urine Color Yellow Urine Turbidity Clear Urine pH 6.0 Ur Specific [place] 1.018 Urine Protein <15 mg/dl Urine Glucose (UA) Neg Urine Ketones Neg Urine Blood Mod Urine Nitrite Neg Urine Bilirubin Neg Urine Urobilinogen < 2.0 Ur Leukocyte Esterase Neg Urine WBC (Auto) 1.0 Urine RBC (Auto) 2.0 U Epithel Cells (Auto) < 1.0 Urine Mucus Few Urine Opiates Screen Presumptive negative Urine Methadone Screen Presumptive negative Ur Barbiturates Screen Presumptive negative Ur Phencyclidine Scrn Presumptive negative Ur Amphetamines Screen Presumptive negative U Benzodiazepines Scrn Presumptive negative Urine Cocaine Screen Presumptive negative U Marijuana (THC) Screen Presumptive negative Drugs of Abuse Note Disclamer Plasma/Serum Alcohol Blood Type Antibody Screen Crossmatch 07/07/17 07/08/17 07/08/17 21:38 08:12 08:12 WBC 10.6 RBC 2.27 L Hgb 6.4 L Hct 19.4 L* MCV 86 MCH 28 MCHC 33 RDW 16.3 H Plt Count 237 Lymph % (Auto) 5.4 L Dixon % (Auto) 7.1 Eos % (Auto) 1.2 Baso % (Auto) 0.5 Lymph # 0.6 L Dixon # 0.7 Eos # 0.1 Baso # 0.1 Add Manual Diff Total Counted Seg Neutrophils % 85.8 H Seg Neuts % (Manual) Band Neutrophils % Lymphocytes % (Manual) Reactive Lymphs % (Man) Monocytes % (Manual) Eosinophils % (Manual) Basophils % (Manual) Metamyelocytes % Myelocytes % Promyelocytes % Blast Cells % Nucleated RBC % Seg Neutrophils # 9.1 H Seg Neutrophils # Man Band Neutrophils # Lymphocytes # (Manual) Abs React Lymphs (Man) Monocytes # (Manual) Eosinophils # (Manual) Basophils # (Manual) Metamyelocytes # Myelocytes # Promyelocytes # Blast Cells # WBC Morphology Hypersegmented Neuts Hyposegmented Neuts Hypogranular Neuts Smudge Cells Toxic Granulation Toxic Vacuolation Dohle Bodies Pelger-Huet Anomaly Leonela Rods Platelet Estimate Clumped Platelets Plt Clumps, EDTA Large Platelets Giant Platelets Platelet Satelliting Plt Morphology Comment RBC Morphology Dimorphic RBCs Polychromasia Hypochromasia Poikilocytosis Anisocytosis Microcytosis Macrocytosis Spherocytes Pappenheimer Bodies Sickle Cells Target Cells Tear Drop Cells Ovalocytes Helmet Cells [place] Bodies [place] Rings [place] Cells Bite Cells Crenated Cell Elliptocytes Acanthocytes (Spur) Rouleaux Hemoglobin C Crystals Schistocytes Malaria parasites Rahul Bodies Hem Pathologist Commnt PT 15.3 H 15.2 H INR 1.15 H 1.14 H Sodium Potassium Chloride Carbon Dioxide Anion Gap BUN Creatinine Estimated GFR BUN/Creatinine Ratio Glucose Lactic Acid Calcium Total Bilirubin AST ALT Alkaline Phosphatase Ammonia Total Protein Albumin Albumin/Globulin Ratio Urine Color Urine Turbidity Urine pH Ur Specific [place] Urine Protein Urine Glucose (UA) Urine Ketones Urine Blood Urine Nitrite Urine Bilirubin Urine Urobilinogen Ur Leukocyte Esterase Urine WBC (Auto) Urine RBC (Auto) U Epithel Cells (Auto) Urine Mucus Urine Opiates Screen Urine Methadone Screen Ur Barbiturates Screen Ur Phencyclidine Scrn Ur Amphetamines Screen U Benzodiazepines Scrn Urine Cocaine Screen U Marijuana (THC) Screen Drugs of Abuse Note Plasma/Serum Alcohol Blood Type Antibody Screen Crossmatch 07/08/17 08:12 WBC RBC Hgb Hct MCV MCH MCHC RDW Plt Count Lymph % (Auto) Dixon % (Auto) Eos % (Auto) Baso % (Auto) Lymph # Dixon # Eos # Baso # Add Manual Diff Total Counted Seg Neutrophils % Seg Neuts % (Manual) Band Neutrophils % Lymphocytes % (Manual) Reactive Lymphs % (Man) Monocytes % (Manual) Eosinophils % (Manual) Basophils % (Manual) Metamyelocytes % Myelocytes % Promyelocytes % Blast Cells % Nucleated RBC % Seg Neutrophils # Seg Neutrophils # Man Band Neutrophils # Lymphocytes # (Manual) Abs React Lymphs (Man) Monocytes # (Manual) Eosinophils # (Manual) Basophils # (Manual) Metamyelocytes # Myelocytes # Promyelocytes # Blast Cells # WBC Morphology Hypersegmented Neuts Hyposegmented Neuts Hypogranular Neuts Smudge Cells Toxic Granulation Toxic Vacuolation Dohle Bodies Pelger-Huet Anomaly Leonela Rods Platelet Estimate Clumped Platelets Plt Clumps, EDTA Large Platelets Giant Platelets Platelet Satelliting Plt Morphology Comment RBC Morphology Dimorphic RBCs Polychromasia Hypochromasia Poikilocytosis Anisocytosis Microcytosis Macrocytosis Spherocytes Pappenheimer Bodies Sickle Cells Target Cells Tear Drop Cells Ovalocytes Helmet Cells [place] Bodies [place] Rings [place] Cells Bite Cells Crenated Cell Elliptocytes Acanthocytes (Spur) Rouleaux Hemoglobin C Crystals Schistocytes Malaria parasites Rahul Bodies Hem Pathologist Commnt PT INR Sodium Potassium 3.6 Chloride 101.6 Carbon Dioxide Anion Gap BUN 5 L Creatinine 0.5 L Estimated GFR > 60 BUN/Creatinine Ratio 10 Glucose 98 Lactic Acid Calcium 7.4 L Total Bilirubin AST ALT Alkaline Phosphatase Ammonia Total Protein Albumin Albumin/Globulin Ratio Urine Color Urine Turbidity Urine pH Ur Specific [place] Urine Protein Urine Glucose (UA) Urine Ketones Urine Blood Urine Nitrite Urine Bilirubin Urine Urobilinogen Ur Leukocyte Esterase Urine WBC (Auto) Urine RBC (Auto) U Epithel Cells (Auto) Urine Mucus Urine Opiates Screen Urine Methadone Screen Ur Barbiturates Screen Ur Phencyclidine Scrn Ur Amphetamines Screen U Benzodiazepines Scrn Urine Cocaine Screen U Marijuana (THC) Screen Drugs of Abuse Note Plasma/Serum Alcohol Blood Type Antibody Screen Crossmatch <AMA FUNG R - Last Filed: 07/08/17 14:06> Assessment and Plan Discussed with Dr. 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 Have discussed this with Dr. Crenshaw GI at [place], and believe pt is best served with transfer to [place], and IR venous sclerosis there. Provocative testing is NOT warranted. Discussed with Dr. Callejas and Dr. Landrum. If transfer does not occur, IR may consider venous sclerosis. Objective - Constitutional Vitals: Temp Pulse Resp BP Pulse Ox 98.2 F 88 16 121/99 84 07/07/17 20:40 07/08/17 06:44 07/08/17 06:44 07/08/17 06:20 07/08/17 06:20 - Labs CBC & Chem 7: 07/08/17 08:12 07/08/17 08:12 Labs: Laboratory Results - last 24 hr 07/07/17 07/07/17 07/07/17 10:24 19:01 19:01 WBC RBC Hgb Hct MCV MCH MCHC RDW Plt Count Lymph % (Auto) [place] % (Auto) Eos % (Auto) Baso % (Auto) Lymph # Dixon # Eos # Baso # Seg Neutrophils % Seg Neutrophils # PT INR Sodium Potassium Chloride Carbon Dioxide Anion Gap BUN Creatinine Estimated GFR BUN/Creatinine Ratio Glucose Lactic Acid Calcium Ammonia Urine Color Yellow Urine Turbidity Clear Urine pH 6.0 Ur Specific [place] 1.018 Urine Protein <15 mg/dl Urine Glucose (UA) Neg Urine Ketones Neg Urine Blood Mod Urine Nitrite Neg Urine Bilirubin Neg Urine Urobilinogen < 2.0 Ur Leukocyte Esterase Neg Urine WBC (Auto) 1.0 Urine RBC (Auto) 2.0 U Epithel Cells (Auto) < 1.0 Urine Mucus Few Urine Opiates Screen Presumptive negative Urine Methadone Screen Presumptive negative Ur Barbiturates Screen Presumptive negative Ur Phencyclidine Scrn Presumptive negative Ur Amphetamines Screen Presumptive negative U Benzodiazepines Scrn Presumptive negative Urine Cocaine Screen Presumptive negative U Marijuana (THC) Screen Presumptive negative Drugs of Abuse Note Disclamer Blood Type O POSITIVE Antibody Screen Negative Crossmatch See Detail 07/07/17 07/07/17 07/08/17 21:38 21:38 08:12 WBC RBC Hgb 6.8 L D Hct 20.5 L D MCV MCH MCHC RDW Plt Count Lymph % (Auto) [place] % (Auto) Eos % (Auto) Baso % (Auto) Lymph # Dixon # Eos # Baso # Seg Neutrophils % Seg Neutrophils # PT 15.3 H 15.2 H INR 1.15 H 1.14 H Sodium Potassium Chloride Carbon Dioxide Anion Gap BUN Creatinine Estimated GFR BUN/Creatinine Ratio Glucose Lactic Acid Calcium Ammonia Urine Color Urine Turbidity Urine pH Ur Specific [place] Urine Protein Urine Glucose (UA) Urine Ketones Urine Blood Urine Nitrite Urine Bilirubin Urine Urobilinogen Ur Leukocyte Esterase Urine WBC (Auto) Urine RBC (Auto) U Epithel Cells (Auto) Urine Mucus Urine Opiates Screen Urine Methadone Screen Ur Barbiturates Screen Ur Phencyclidine Scrn Ur Amphetamines Screen U Benzodiazepines Scrn Urine Cocaine Screen U Marijuana (THC) Screen Drugs of Abuse Note Blood Type Antibody Screen Crossmatch 07/08/17 07/08/17 07/08/17 08:12 08:12 08:12 WBC 10.6 RBC 2.27 L Hgb 6.4 L Hct 19.4 L* MCV 86 MCH 28 MCHC 33 RDW 16.3 H Plt Count 237 Lymph % (Auto) 5.4 L Dixon % (Auto) 7.1 Eos % (Auto) 1.2 Baso % (Auto) 0.5 Lymph # 0.6 L Dixon # 0.7 Eos # 0.1 Baso # 0.1 Seg Neutrophils % 85.8 H Seg Neutrophils # 9.1 H PT INR Sodium 137 D Potassium 3.6 Chloride 101.6 Carbon Dioxide 26 D Anion Gap 13 BUN 5 L Creatinine 0.5 L Estimated GFR > 60 BUN/Creatinine Ratio 10 Glucose 98 Lactic Acid 1.20 Calcium 7.4 L Ammonia Urine Color Urine Turbidity Urine pH Ur Specific [place] Urine Protein Urine Glucose (UA) Urine Ketones Urine Blood Urine Nitrite Urine Bilirubin Urine Urobilinogen Ur Leukocyte Esterase Urine WBC (Auto) Urine RBC (Auto) U Epithel Cells (Auto) Urine Mucus Urine Opiates Screen Urine Methadone Screen Ur Barbiturates Screen Ur Phencyclidine Scrn Ur Amphetamines Screen U Benzodiazepines Scrn Urine Cocaine Screen U Marijuana (THC) Screen Drugs of Abuse Note Blood Type Antibody Screen Crossmatch 07/08/17 08:12 WBC RBC Hgb Hct MCV MCH MCHC RDW Plt Count Lymph % (Auto) [place] % (Auto) Eos % (Auto) Baso % (Auto) Lymph # [place] # Eos # Baso # Seg Neutrophils % Seg Neutrophils # PT INR Sodium Potassium Chloride Carbon Dioxide Anion Gap BUN Creatinine Estimated GFR BUN/Creatinine Ratio Glucose Lactic Acid Calcium Ammonia 44.0 Urine Color Urine Turbidity Urine pH Ur Specific [place] Urine Protein Urine Glucose (UA) Urine Ketones Urine Blood Urine Nitrite Urine Bilirubin Urine Urobilinogen Ur Leukocyte Esterase Urine WBC (Auto) Urine RBC (Auto) U Epithel Cells (Auto) Urine Mucus Urine Opiates Screen Urine Methadone Screen Ur Barbiturates Screen Ur Phencyclidine Scrn Ur Amphetamines Screen U Benzodiazepines Scrn Urine Cocaine Screen U Marijuana (THC) Screen Drugs of Abuse Note Blood Type Antibody Screen Crossmatch
[2017-07-08] MEDS: PROTONIX IV SCH ×2 (11:38→21:18)
[2017-07-08] MEDS: CEPHULAC PO SCH ×2 (11:38→21:18)
--- NOTE | 2017-07-08 11:46 | Consultation ---
History of Present Illness Consult date: 07/08/17 Chief complaint: gi bleed - History of present illness History of present illness: 51 y/o M with PMH of HTN, PUD, and multiple abdominal surgeries in 2013 who has been hospitalized multiple times for GI bleeding. The patient has had an extensive workup in the last year including cscope, EGD, double balloon enteroscopy at [place], balloon enteroscopy at [facility], bleeding scans, CTA A/P , all of which have not been able to identify a source of bleeding. The bleeding source is presumed to be small bowel in nature. He is well known to our GI service. He presented to ED with c/o dizziness and black and red stools x3 days. He was also having bilateral calf pain. He states that after he was in hospital, he stopped bleeding, however his bloody bowel movements resumed. He was admitted to an outside hospital in November and states he underwent a small surgical procedure to stop the bleeding. On exam, he had heme positive stool. His Hb was 3.4 on admission. Discussed case with Dr. Motley who believes the patient may need provocative angiography to elicit a source of bleeding. 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 During the angiogram, a blush was seen however no intervention was taken. Dr. Motley to obtain more information from Dr. Crenshaw and possibly arrange transfer. History obtained via language line: Home Health Manager #[id number] Past History Past Medical History: anemia, hypertension, other (peptic ulcer, repeated episodes of acute GI bleeding) Past Surgical History: hernia repair, bowel surgery, Other (colostomy, status post colostomy reversal) Social history: lives with family. denies: smoking, alcohol abuse, prescription drug abuse Family history: hypertension Medications and Allergies Allergies Allergy/AdvReac Type Severity Reaction Status Date / Time No Known Allergies Allergy Verified 06/02/16 08:50 Home Medications Medication Instructions Recorded Confirmed Last Taken Type Acetaminophen [Acetaminophen TAB] 325 mg PO Q4H PRN #30 tablet 11/14/16 Unknown Rx Pantoprazole [Protonix TAB] 40 mg PO BID #60 tablet 06/29/17 07/07/17 Unknown Rx Active Meds: Active Medications Alprazolam (Xanax) 0.25 mg PO Q8H PRN PRN Reason: Anxiety Sodium Chloride (Nacl 0.9% 1000 Ml) 1,000 mls @ 100 mls/hr IV DIRECT [facility] Last Admin: 07/08/17 06:25 Dose: 100 mls/hr Sodium Chloride (Nacl 0.9% 500 Ml) 500 mls @ 0 mls/hr IV ONCE NR Stop: 07/08/17 12:30 Lactulose (Cephulac) 20 gm PO BID [facility] Last Admin: 07/07/17 23:08 Dose: 20 gm Morphine Sulfate (Morphine) 1 mg IV Q4H PRN PRN Reason: Pain, Moderate (4-6) Last Admin: 07/07/17 17:05 Dose: 1 mg Pantoprazole Sodium (Protonix) 40 mg IV BID [facility] Last Admin: 07/07/17 23:08 Dose: 40 mg Zolpidem Tartrate (Ambien) 5 mg PO QHS PRN PRN Reason: Sleep Review of Systems All systems: negative (10 point review systems was performed and negative for above in HPI) Exam Vital Signs Temp Pulse Resp BP Pulse Ox 98.4 F 118 H 20 117/80 97 07/07/17 09:09 07/07/17 09:09 07/07/17 09:09 07/07/17 09:09 07/07/17 09:09 Results - Labs 07/08/17 08:12 07/08/17 08:12 Abnormal lab results 07/07/17 07/07/17 07/07/17 Range/Units 10:24 21:38 21:38 RBC (3.65-5.03) M/mm3 Hgb 6.8 L D (11.8-15.2) gm/dl Hct 20.5 L D (35.5-45.6) % RDW (13.2-15.2) % Lymph % (Auto) (13.4-35.0) % Lymph # (1.2-5.4) K/mm3 Seg Neutrophils % (40.0-70.0) % Seg Neutrophils # (1.8-7.7) K/mm3 PT 15.3 H (12.2-14.9) Sec. INR 1.15 H (0.87-1.13) BUN (9-20) mg/dL Creatinine (0.8-1.5) mg/dL Calcium (8.4-10.2) mg/dL Crossmatch See Detail 07/08/17 07/08/17 07/08/17 Range/Units 08:12 08:12 08:12 RBC 2.27 L (3.65-5.03) M/mm3 Hgb 6.4 L (11.8-15.2) gm/dl Hct 19.4 L* (35.5-45.6) % RDW 16.3 H (13.2-15.2) % Lymph % (Auto) 5.4 L (13.4-35.0) % Lymph # 0.6 L (1.2-5.4) K/mm3 Seg Neutrophils % 85.8 H (40.0-70.0) % Seg Neutrophils # 9.1 H (1.8-7.7) K/mm3 PT 15.2 H (12.2-14.9) Sec. INR 1.14 H (0.87-1.13) BUN 5 L (9-20) mg/dL Creatinine 0.5 L (0.8-1.5) mg/dL Calcium 7.4 L (8.4-10.2) mg/dL Crossmatch Diabetes panel 07/08/17 Range/Units 08:12 Sodium 137 D (137-145) mmol/L Potassium 3.6 (3.6-5.0) mmol/L Chloride 101.6 (98-107) mmol/L Carbon Dioxide 26 D (22-30) mmol/L BUN 5 L (9-20) mg/dL Creatinine 0.5 L (0.8-1.5) mg/dL Glucose 98 (75-100) mg/dL Calcium 7.4 L (8.4-10.2) mg/dL Calcium panel 07/08/17 Range/Units 08:12 Calcium 7.4 L (8.4-10.2) mg/dL Pituitary panel 07/08/17 Range/Units 08:12 Sodium 137 D (137-145) mmol/L Potassium 3.6 (3.6-5.0) mmol/L Chloride 101.6 (98-107) mmol/L Carbon Dioxide 26 D (22-30) mmol/L BUN 5 L (9-20) mg/dL Creatinine 0.5 L (0.8-1.5) mg/dL Glucose 98 (75-100) mg/dL Calcium 7.4 L (8.4-10.2) mg/dL Adrenal panel 07/08/17 Range/Units 08:12 Sodium 137 D (137-145) mmol/L Potassium 3.6 (3.6-5.0) mmol/L Chloride 101.6 (98-107) mmol/L Carbon Dioxide 26 D (22-30) mmol/L BUN 5 L (9-20) mg/dL Creatinine 0.5 L (0.8-1.5) mg/dL Glucose 98 (75-100) mg/dL Calcium 7.4 L (8.4-10.2) mg/dL - Imaging CT scan - abdomen: report reviewed, image reviewed CT scan - pelvis: report reviewed, image reviewed Assessment and Plan 52 yo M with anemia secondary to obscure GI bleeding Plan: 1. transfuse prn. s/p 4 unites PRBC Transfuse to Hb >7. 2. monitor VS - currently stable 3. monitor for active signs of bleeding. If this occurs recommend bleed scan. 4. will follow up with IR if patient undergoes provocative angiography 5. GI on board. 6. With patient's recent extensive workup and intervention for GI bleed at [place], would recommend transfer of the patient for further treatment of obscure GI bleeding. D/W Dr. Motley Thank you for this consultation, please call with questions or concerns.
--- NOTE | 2017-07-08 14:24 | Consultation ---
History of Present Illness - Reason for Consult Consult date: 07/08/17 GI bleeding Requesting physician: AMA MOTLEY - History of Present Illness 51 y/o M with PMH of HTN, PUD, and multiple abdominal surgeries in 2013 who has been hospitalized multiple times for GI bleeding. The patient has had an extensive workup in the last year including c-scope, EGD, double balloon enteroscopy at [place], balloon enteroscopy at [facility], bleeding scans, CTA A/P , all of which have not been able to identify a source of bleeding. The bleeding source is presumed to be small bowel in nature. He presented to ED with c/o dizziness and black and red stools x3 days. He was also having bilateral calf pain. He states that after he was in hospital, he stopped bleeding, however his bloody bowel movements resumed. He was admitted to [facility] in November and underwent sclerotherapy to stop the bleeding. On exam, his Hb was 3.4 on admission. I discussed the case with Dr. Motley and receive some outside information from him. From the available outside information, the patient has a submucosal serpiginous lesion in the small bowel with a focal ulceration which appears to be variceal in nature. The patient underwent a sclerotherapy procedure done by interventional radiology at the outside hospital. Past History Past Medical History: anemia, hypertension, other (peptic ulcer, repeated episodes of acute GI bleeding) Past Surgical History: hernia repair, bowel surgery, Other (colostomy, status post colostomy reversal) Social history: lives with family. denies: smoking, alcohol abuse, prescription drug abuse Family history: hypertension Medications and Allergies Allergies Allergy/AdvReac Type Severity Reaction Status Date / Time No Known Allergies Allergy Verified 06/02/16 08:50 Home Medications Medication Instructions Recorded Confirmed Last Taken Type Acetaminophen [Acetaminophen TAB] 325 mg PO Q4H PRN #30 tablet 11/14/16 Unknown Rx Pantoprazole [Protonix TAB] 40 mg PO BID #60 tablet 06/29/17 07/07/17 Unknown Rx Active Meds: Active Medications Alprazolam (Xanax) 0.25 mg PO Q8H PRN PRN Reason: Anxiety Sodium Chloride (Nacl 0.9% 1000 Ml) 1,000 mls @ 100 mls/hr IV DIRECT [facility] Last Admin: 07/08/17 06:25 Dose: 100 mls/hr Lactulose (Cephulac) 20 gm PO BID [facility] Last Admin: 07/08/17 11:38 Dose: Not Given Morphine Sulfate (Morphine) 1 mg IV Q4H PRN PRN Reason: Pain, Moderate (4-6) Last Admin: 07/07/17 17:05 Dose: 1 mg Pantoprazole Sodium (Protonix) 40 mg IV BID [facility] Last Admin: 07/08/17 11:38 Dose: Not Given Zolpidem Tartrate (Ambien) 5 mg PO QHS PRN PRN Reason: Sleep Review of Systems All systems: negative (see HPI) Exam - Constitutional Vitals: Temp Pulse Resp BP Pulse Ox 98.2 F 88 16 121/99 84 07/07/17 20:40 07/08/17 06:44 07/08/17 06:44 07/08/17 06:20 07/08/17 06:20 General appearance: Present: no acute distress - EENT Eyes: Present: EOM intact ENT: hearing intact - Respiratory Respiratory effort: normal - Abdominal General gastrointestinal: Present: non-tender, other (prominent veins on the anterior abdomen with a large midline and left midline scar secondary to prior trauma and reversal of ostomy ; no recent melena) - Psychiatric Psychiatric: appropriate mood/affect, cooperative Results - Labs CBC & Chem 7: 07/08/17 08:12 07/08/17 08:12 Labs: Abnormal lab results 07/07/17 07/07/17 07/07/17 Range/Units 10:24 21:38 21:38 RBC (3.65-5.03) M/mm3 Hgb 6.8 L D (11.8-15.2) gm/dl Hct 20.5 L D (35.5-45.6) % RDW (13.2-15.2) % Lymph % (Auto) (13.4-35.0) % Lymph # (1.2-5.4) K/mm3 Seg Neutrophils % (40.0-70.0) % Seg Neutrophils # (1.8-7.7) K/mm3 PT 15.3 H (12.2-14.9) Sec. INR 1.15 H (0.87-1.13) BUN (9-20) mg/dL Creatinine (0.8-1.5) mg/dL Calcium (8.4-10.2) mg/dL Crossmatch See Detail 07/08/17 07/08/17 07/08/17 Range/Units 08:12 08:12 08:12 RBC 2.27 L (3.65-5.03) M/mm3 Hgb 6.4 L (11.8-15.2) gm/dl Hct 19.4 L* (35.5-45.6) % RDW 16.3 H (13.2-15.2) % Lymph % (Auto) 5.4 L (13.4-35.0) % Lymph # 0.6 L (1.2-5.4) K/mm3 Seg Neutrophils % 85.8 H (40.0-70.0) % Seg Neutrophils # 9.1 H (1.8-7.7) K/mm3 PT 15.2 H (12.2-14.9) Sec. INR 1.14 H (0.87-1.13) BUN 5 L (9-20) mg/dL Creatinine 0.5 L (0.8-1.5) mg/dL Calcium 7.4 L (8.4-10.2) mg/dL Crossmatch - Imaging and Cardiology CT scan - abdomen: report reviewed, image reviewed Assessment and Plan 52-year-old male with severe GI bleed, history of colostomy with reversal secondary to trauma with severe ventral hernia/scar, history of greater than 25 units of blood transfusion at [facility], history of sclerotherapy of venous anomaly , and pill endoscopy demonstrating serpiginous submucosal lesion with bleeding from one part of the lesions in the small bowel who presents with melena. 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 Much of the small bowel is adherent to the ventral hernia/scar. The venous malformation is possibly running through the submucosal layer of the small bowel which is adherent to the anterior scar of the abdomen. A reasonable way to attempt to treat this would be to perform an angiogram pre- and post sclerotherapy of the anterior abdominal veins in an attempt to treat the venous anomaly. If the patient develops a bowel infarct or ischemia secondary to the sclerotherapy, he may need bowel surgery which would be highly morbid given his comorbidities. Given the risk of bowel injury, this is probably best performed at a tertiary care center, such as [facility], where his previous procedures were performed. Recommend transfer to [facility]. Agree with recommendations of general surgery and gastroenterology.
--- NOTE | 2017-07-08 18:33 | Event Note ---
Date: 07/08/17 Surgery , IR and GI evaluation and recommendations noted. Agree with the plans of transfer to [facility] for further evaluation and management Initiated transfer process, awaiting callback from [facility] transfer center as well as accepting physician to discuss Patient's condition, plan of care, consults recommendation and reason for transfer. I discussed with our ICU charge nurse, left my personal cell number to direct the call to me. Follow-up evaluation; Patient feels slightly better No new complaints Received total of 6 units of PRBC Will recheck H&H, and transfuse additional PRBC as needed Vital signs stable Physical examination unremarkable Continue current management Closely monitor in ICU Await transfer to [facility], for further evaluation and management by GI
[2017-07-08] MEDS: XANAX PO PRN (21:18)
[2017-07-08 23:57] LABS: Hematocrit 24.3 % (35.5-45.6)
[2017-07-09 06:56] LABS: Basophils # (Auto) 0.1 K/mm3 (0.0-0.1); Basophils % (Auto) 0.6 % (0.0-1.8); Eosinophils # (Auto) 0.3 K/mm3 (0.0-0.4); Eosinophils % (Auto) 2.5 % (0.0-4.3); Hematocrit 24.4 % (35.5-45.6); Hemoglobin 8.2 gm/dl (11.8-15.2); Lymphocytes # (Auto) 0.7 K/mm3 (1.2-5.4); Lymphocytes % (Auto) 6.6 % (13.4-35.0); Mean Corpuscular HGB Conc 34 % (32-34); Mean Corpuscular Hemoglobin 29 pg (28-32); Mean Corpuscular Volume 87 fl (84-94); Monocytes # (Auto) 0.7 K/mm3 (0.0-0.8); Monocytes % (Auto) 6.8 % (0.0-7.3); Platelet Count 268 K/mm3 (140-440); Red Blood Count 2.83 M/mm3 (3.65-5.03); Red Cell Distribution Width 16.2 % (13.2-15.2)
[2017-07-09 07:18] LABS: Alanine Aminotransferase 22 units/L (7-56); Albumin 2.2 g/dL (3.9-5); BUN/Creatinine Ratio 6; Blood Urea Nitrogen 3 mg/dL (9-20); Calcium 7.2 mg/dL (8.4-10.2); Hemolysis Index 16
[2017-07-09] MEDS ORDERED: MAGNESIUM SULFATE 2GM/50ML 2 GM/50 ML BAG IV ONE (07:39)
[2017-07-09] MEDS ORDERED: K-DUR PO ONE (07:39)
[2017-07-09] MEDS ORDERED: K-DUR PO NR (08:00)
--- NOTE | 2017-07-09 08:43 | Consultation ---
History of Present Illness - Reason for Consult Consult date: 07/09/17 GI bleed Requesting physician: MAGGIE MURDOCK - History of Present Illness 52 y/o male with GI bleed, seen several times before for same thing. has been seen by [facility] in the past with multiple scopes and pill endoscopies. Past History Past Medical History: anemia, hypertension, other (peptic ulcer, repeated episodes of acute GI bleeding) Past Surgical History: hernia repair, bowel surgery, Other (colostomy, status post colostomy reversal) Social history: lives with family. denies: smoking, alcohol abuse, prescription drug abuse Family history: hypertension Medications and Allergies Allergies Allergy/AdvReac Type Severity Reaction Status Date / Time No Known Allergies Allergy Verified 06/02/16 08:50 Home Medications Medication Instructions Recorded Confirmed Last Taken Type Acetaminophen [Acetaminophen TAB] 325 mg PO Q4H PRN #30 tablet 11/14/16 Unknown Rx Pantoprazole [Protonix TAB] 40 mg PO BID #60 tablet 06/29/17 07/07/17 Unknown Rx Active Meds: Active Medications Alprazolam (Xanax) 0.25 mg PO Q8H PRN PRN Reason: Anxiety Last Admin: 07/08/17 21:18 Dose: 0.25 mg Sodium Chloride (Nacl 0.9% 1000 Ml) 1,000 mls @ 100 mls/hr IV DIRECT [facility] Last Admin: 07/08/17 06:25 Dose: 100 mls/hr Magnesium Sulfate (Magnesium Sulfate 2gm/50ml) 2 gm in 50 mls @ 25 mls/hr IV ONCE ONE Stop: 07/09/17 09:38 Lactulose (Cephulac) 20 gm PO BID [facility] Last Admin: 07/08/17 21:18 Dose: 20 gm Morphine Sulfate (Morphine) 1 mg IV Q4H PRN PRN Reason: Pain, Moderate (4-6) Last Admin: 07/07/17 17:05 Dose: 1 mg Pantoprazole Sodium (Protonix) 40 mg IV BID [facility] Last Admin: 07/08/17 21:18 Dose: 40 mg Potassium Chloride (K-Dur) 30 meq PO ONCE NR Stop: 07/09/17 10:00 Zolpidem Tartrate (Ambien) 5 mg PO QHS PRN PRN Reason: Sleep Review of Systems All systems: negative Exam - Constitutional Vitals: Temp Pulse Resp BP Pulse Ox 98.2 F 92 H 24 122/75 98 07/09/17 04:16 07/09/17 06:00 07/09/17 06:00 07/09/17 06:00 07/09/17 06:00 General appearance: Present: no acute distress, well-nourished, obese - EENT Eyes: Present: PERRL, EOM intact ENT: hearing intact, clear oral mucosa - Neck Neck: Present: supple, normal ROM - Respiratory Respiratory effort: normal Respiratory: bilateral: CTA - Cardiovascular Rhythm: regular Heart Sounds: Present: S1 & S2 - Extremities Extremities: no ischemia, pulses intact, No edema - Abdominal General gastrointestinal: Present: tender, other (multiple scars from multiple surgeries) Male genitourinary: Present: deferred - Rectal Rectal Exam: deferred - Musculoskeletal Musculoskeletal: strength equal bilaterally - Psychiatric Psychiatric: appropriate mood/affect Results - Labs CBC & Chem 7: 07/09/17 06:04 07/09/17 06:04 Labs: Abnormal lab results 07/07/17 07/08/17 07/08/17 Range/Units 10:24 08:12 08:12 RBC (3.65-5.03) M/mm3 Hgb (11.8-15.2) gm/dl Hct 19.4 L* (35.5-45.6) % RDW (13.2-15.2) % Lymph % (Auto) (13.4-35.0) % Lymph # (1.2-5.4) K/mm3 Seg Neutrophils % (40.0-70.0) % Seg Neutrophils # (1.8-7.7) K/mm3 PT 15.2 H (12.2-14.9) Sec. INR 1.14 H (0.87-1.13) Sodium (137-145) mmol/L Potassium (3.6-5.0) mmol/L BUN (9-20) mg/dL Creatinine (0.8-1.5) mg/dL Calcium (8.4-10.2) mg/dL Magnesium (1.7-2.3) mg/dL Total Bilirubin (0.1-1.2) mg/dL AST (5-40) units/L Alkaline Phosphatase (35-129) units/L Ammonia (25-60) umol/L Total Protein (6.3-8.2) g/dL Albumin (3.9-5) g/dL Crossmatch See Detail 07/08/17 07/08/17 07/09/17 Range/Units 08:12 23:42 06:04 RBC 2.83 L (3.65-5.03) M/mm3 Hgb 8.0 L 8.2 L (11.8-15.2) gm/dl Hct 24.3 L 24.4 L (35.5-45.6) % RDW 16.2 H (13.2-15.2) % Lymph % (Auto) 6.6 L (13.4-35.0) % Lymph # 0.7 L (1.2-5.4) K/mm3 Seg Neutrophils % 83.5 H (40.0-70.0) % Seg Neutrophils # 8.4 H (1.8-7.7) K/mm3 PT (12.2-14.9) Sec. INR (0.87-1.13) Sodium (137-145) mmol/L Potassium (3.6-5.0) mmol/L BUN 5 L (9-20) mg/dL Creatinine 0.5 L (0.8-1.5) mg/dL Calcium 7.4 L (8.4-10.2) mg/dL Magnesium (1.7-2.3) mg/dL Total Bilirubin (0.1-1.2) mg/dL AST (5-40) units/L Alkaline Phosphatase (35-129) units/L Ammonia (25-60) umol/L Total Protein (6.3-8.2) g/dL Albumin (3.9-5) g/dL Crossmatch 07/09/17 07/09/17 Range/Units 06:04 06:04 RBC (3.65-5.03) M/mm3 Hgb (11.8-15.2) gm/dl Hct (35.5-45.6) % RDW (13.2-15.2) % Lymph % (Auto) (13.4-35.0) % Lymph # (1.2-5.4) K/mm3 Seg Neutrophils % (40.0-70.0) % Seg Neutrophils # (1.8-7.7) K/mm3 PT (12.2-14.9) Sec. INR (0.87-1.13) Sodium 136 L (137-145) mmol/L Potassium 3.5 L (3.6-5.0) mmol/L BUN 3 L (9-20) mg/dL Creatinine 0.5 L (0.8-1.5) mg/dL Calcium 7.2 L (8.4-10.2) mg/dL Magnesium 1.60 L (1.7-2.3) mg/dL Total Bilirubin 1.40 H (0.1-1.2) mg/dL AST 59 H (5-40) units/L Alkaline Phosphatase 134 H (35-129) units/L Ammonia 65.0 H (25-60) umol/L Total Protein 5.7 L (6.3-8.2) g/dL Albumin 2.2 L (3.9-5) g/dL Crossmatch - Imaging and Cardiology CT scan - abdomen: report reviewed CT scan - pelvis: report reviewed Assessment and Plan 52 y/o male with GI bleed 1. Follow up GI recs, currently attempting to transfer to [place] where patient is known 2. Transfuse to keep hemoglobin above 7 3. BID PPI 4. Will continue to monitor. CCt 31 minutes.
[2017-07-09] MEDS: PROTONIX IV SCH ×2 (09:30→21:40)
[2017-07-09] MEDS: CEPHULAC PO SCH ×2 (09:31→21:41)
[2017-07-09 10:09] LABS: Hematocrit 26.1 % (35.5-45.6); Hemoglobin 8.9 gm/dl (11.8-15.2)
--- NOTE | 2017-07-09 10:24 | Event Note ---
Date: 07/09/17 Reviewed chart. Hgb stable. Aware of transfer to [place]. Will be available if needed. Please call with any questions.
--- NOTE | 2017-07-09 11:02 | Progress Note ---
Assessment and Plan Assessment and plan: --Severe acute blood loss anemia; hemoglobin 3.4 on admission Received total 6 units of PRBC, Hb improved to 8.2 Secondary to GI bleeding, GI following --Acute GI bleeding; GI and IR following patient had many episodes of GI bleeding in the past, evaluated by GI, no source found, consulted surgery History was also evaluated in the hospital in November and underwent sclerotherapy to stop the bleeding. GI, IR, surgery recommended transfer to [facility] for further evaluation and management by ASHLEY Crenshaw Paperwork faxed, awaiting call back from [place] --Hyponatremia; closely monitor, replacement therapy as needed, water restriction --Lactic acidosis; metabolic acidosis Vigorous IV hydration, replacement therapy, closely monitor --Transaminitis; monitor liver function --Hyperammonemia; GI following, trending down --severe protein calorie malnutrition/hypoalbuminemia Nutrition supplements. Supportive care. Nutrition consult --DVT prophylaxis; SCDs, no pharmacologic anticoagulation in view of severe bleeding Patient is hemodynamically stable Transfer the patient out of ICU to telemetry Plan of care reviewed with the patient and his nurse Critical care time 32 minutes Awaiting transfer to [place] History Interval history: Patient is seen and examined in ICU this morning medical records reviewed No new events reported by the nursing No new episodes of bleeding Hemoglobin improved to 8.2, received [place]rit 6 units of PRBC Plans were made to transfer the patient [facility] for further evaluation and management by ASHLEY Crenshaw All the necessary papers were faxed by the nursing, awaiting call back Patient feels better no new complaints Vital signs reviewed Alert awake oriented 3 in no acute distress Hospitalist Physical - Constitutional Vitals: Temp Pulse Resp BP Pulse Ox 98.6 F 92 H 24 122/75 98 07/09/17 08:00 07/09/17 06:00 07/09/17 06:00 07/09/17 06:00 07/09/17 06:00 General appearance: Present: no acute distress, well-nourished, obese - EENT Eyes: Present: PERRL, EOM intact - Neck Neck: Present: supple, normal ROM - Respiratory Respiratory effort: normal Respiratory: negative: rales, rhonchi, wheezing - Cardiovascular Rhythm: regular Heart Sounds: Present: S1 & S2 - Extremities Extremities: no ischemia, No edema - Abdominal General gastrointestinal: soft, non-tender, non-distended, normal bowel sounds - Integumentary Integumentary: Present: clear, warm - Psychiatric Psychiatric: appropriate mood/affect, cooperative - Neurologic Neurologic: CNII-XII intact, moves all extremities Results - Labs CBC & Chem 7: 07/09/17 09:48 07/09/17 06:04 Labs: Laboratory Last Values WBC 10.0 K/mm3 (4.5-11.0) 07/09/17 06:04 RBC 2.83 M/mm3 (3.65-5.03) L 07/09/17 06:04 Hgb 8.9 gm/dl (11.8-15.2) L 07/09/17 09:48 Hct 26.1 % (35.5-45.6) L 07/09/17 09:48 MCV 87 fl (84-94) 07/09/17 06:04 MCH 29 pg (28-32) 07/09/17 06:04 MCHC 34 % (32-34) 07/09/17 06:04 RDW 16.2 % (13.2-15.2) H 07/09/17 06:04 Plt Count 268 K/mm3 (140-440) 07/09/17 06:04 Lymph % (Auto) 6.6 % (13.4-35.0) L 07/09/17 06:04 [place] % (Auto) 6.8 % (0.0-7.3) 07/09/17 06:04 Eos % (Auto) 2.5 % (0.0-4.3) 07/09/17 06:04 Baso % (Auto) 0.6 % (0.0-1.8) 07/09/17 06:04 Lymph # 0.7 K/mm3 (1.2-5.4) L 07/09/17 06:04 [place] # 0.7 K/mm3 (0.0-0.8) 07/09/17 06:04 Eos # 0.3 K/mm3 (0.0-0.4) 07/09/17 06:04 Baso # 0.1 K/mm3 (0.0-0.1) 07/09/17 06:04 Add Manual Diff Complete 07/07/17 09:28 Total Counted 100 07/07/17 09:28 Seg Neutrophils % 83.5 % (40.0-70.0) H 07/09/17 06:04 Seg Neuts % (Manual) 75.0 % (40.0-70.0) H 07/07/17 09:28 Band Neutrophils % 13.0 % 07/07/17 09:28 Lymphocytes % (Manual) 5.0 % (13.4-35.0) L 07/07/17 09:28 Reactive Lymphs % (Man) 0 % 07/07/17 09:28 Monocytes % (Manual) 7.0 % (0.0-7.3) 07/07/17 09:28 Eosinophils % (Manual) 0 % (0.0-4.3) 07/07/17 09:28 Basophils % (Manual) 0 % (0.0-1.8) 07/07/17 09:28 Metamyelocytes % 0 % 07/07/17 09:28 Myelocytes % 0 % 07/07/17 09:28 Promyelocytes % 0 % 07/07/17 09:28 Blast Cells % 0 % 07/07/17 09:28 Nucleated RBC % Not Reportable 07/07/17 09:28 Seg Neutrophils # 8.4 K/mm3 (1.8-7.7) H 07/09/17 06:04 Seg Neutrophils # Man 15.3 K/mm3 (1.8-7.7) H 07/07/17 09:28 Band Neutrophils # 2.7 K/mm3 07/07/17 09:28 Lymphocytes # (Manual) 1.0 K/mm3 (1.2-5.4) L 07/07/17 09:28 Abs React Lymphs (Man) 0.0 K/mm3 07/07/17 09:28 Monocytes # (Manual) 1.4 K/mm3 (0.0-0.8) H 07/07/17 09:28 Eosinophils # (Manual) 0.0 K/mm3 (0.0-0.4) 07/07/17 09:28 Basophils # (Manual) 0.0 K/mm3 (0.0-0.1) 07/07/17 09:28 Metamyelocytes # 0.0 K/mm3 07/07/17 09:28 Myelocytes # 0.0 K/mm3 07/07/17 09:28 Promyelocytes # 0.0 K/mm3 07/07/17 09:28 Blast Cells # 0.0 K/mm3 07/07/17 09:28 WBC Morphology Not Reportable 07/07/17 09:28 Hypersegmented Neuts Not Reportable 07/07/17 09:28 Hyposegmented Neuts Not Reportable 07/07/17 09:28 Hypogranular Neuts Not Reportable 07/07/17 09:28 Smudge Cells Not Reportable 07/07/17 09:28 Toxic Granulation Not Reportable 07/07/17 09:28 Toxic Vacuolation Not Reportable 07/07/17 09:28 Dohle Bodies Not Reportable 07/07/17 09:28 [place]uet Anomaly Not Reportable 07/07/17 09:28 Leonela Rods Not Reportable 07/07/17 09:28 Platelet Estimate Consistent w auto 07/07/17 09:28 Clumped Platelets Not Reportable 07/07/17 09:28 Plt Clumps, EDTA Not Reportable 07/07/17 09:28 Large Platelets Not Reportable 07/07/17 09:28 Giant Platelets Not Reportable 07/07/17 09:28 Platelet Satelliting Not Reportable 07/07/17 09:28 Plt Morphology Comment Not Reportable 07/07/17 09:28 RBC Morphology Not Reportable 07/07/17 09:28 Dimorphic RBCs Not Reportable 07/07/17 09:28 Polychromasia Rare 07/07/17 09:28 Hypochromasia 2+ 07/07/17 09:28 Poikilocytosis Not Reportable 07/07/17 09:28 Anisocytosis 1+ 07/07/17 09:28 Microcytosis Not Reportable 07/07/17 09:28 Macrocytosis Not Reportable 07/07/17 09:28 Spherocytes Not Reportable 07/07/17 09:28 Pappenheimer Bodies Not Reportable 07/07/17 09:28 Sickle Cells Not Reportable 07/07/17 09:28 Target Cells Not Reportable 07/07/17 09:28 Tear Drop Cells Not Reportable 07/07/17 09:28 Ovalocytes Not Reportable 07/07/17 09:28 Helmet Cells Not Reportable 07/07/17 09:28 [place] Bodies Not Reportable 07/07/17 09:28 [place] Rings Not Reportable 07/07/17 09:28 [place] Cells Not Reportable 07/07/17 09:28 Bite Cells Not Reportable 07/07/17 09:28 Crenated Cell Not Reportable 07/07/17 09:28 Elliptocytes Not Reportable 07/07/17 09:28 Acanthocytes (Spur) Not Reportable 07/07/17 09:28 Rouleaux Not Reportable 07/07/17 09:28 Hemoglobin C Crystals Not Reportable 07/07/17 09:28 Schistocytes Not Reportable 07/07/17 09:28 Malaria parasites Not Reportable 07/07/17 09:28 Rahul Bodies Not Reportable 07/07/17 09:28 Hem Pathologist Commnt No 07/07/17 09:28 PT 15.2 Sec. (12.2-14.9) H 07/08/17 08:12 INR 1.14 (0.87-1.13) H 07/08/17 08:12 Sodium 136 mmol/L (137-145) L 07/09/17 06:04 Potassium 3.5 mmol/L (3.6-5.0) L 07/09/17 06:04 Chloride 102.1 mmol/L (98-107) 07/09/17 06:04 Carbon Dioxide 26 mmol/L (22-30) 07/09/17 06:04 Anion Gap 11 mmol/L 07/09/17 06:04 BUN 3 mg/dL (9-20) L 07/09/17 06:04 Creatinine 0.5 mg/dL (0.8-1.5) L 07/09/17 06:04 Estimated GFR > 60 ml/min 07/09/17 06:04 BUN/Creatinine Ratio 6 % 07/09/17 06:04 Glucose 84 mg/dL (75-100) 07/09/17 06:04 Lactic Acid 1.20 mmol/L (0.7-2.0) 07/08/17 08:12 Calcium 7.2 mg/dL (8.4-10.2) L 07/09/17 06:04 Phosphorus 2.80 mg/dL (2.5-4.5) 07/09/17 06:04 Magnesium 1.60 mg/dL (1.7-2.3) L 07/09/17 06:04 Total Bilirubin 1.40 mg/dL (0.1-1.2) H 07/09/17 06:04 AST 59 units/L (5-40) H 07/09/17 06:04 ALT 22 units/L (7-56) 07/09/17 06:04 Alkaline Phosphatase 134 units/L (35-129) H 07/09/17 06:04 Ammonia 65.0 umol/L (25-60) H 07/09/17 06:04 Total Protein 5.7 g/dL (6.3-8.2) L 07/09/17 06:04 Albumin 2.2 g/dL (3.9-5) L 07/09/17 06:04 Albumin/Globulin Ratio 0.6 % 07/09/17 06:04 Urine Color Yellow (Yellow) 07/07/17 19:01 Urine Turbidity Clear (Clear) 07/07/17 19:01 Urine pH 6.0 (5.0-7.0) 07/07/17 19:01 Ur Specific [place] 1.018 (1.003-1.030) 07/07/17 19:01 Urine Protein <15 mg/dl mg/dL (Negative) 07/07/17 19:01 Urine Glucose (UA) Neg mg/dL (Negative) 07/07/17 19:01 Urine Ketones Neg mg/dL (Negative) 07/07/17 19:01 Urine Blood Mod (Negative) 07/07/17 19:01 Urine Nitrite Neg (Negative) 07/07/17 19:01 Urine Bilirubin Neg (Negative) 07/07/17 19:01 Urine Urobilinogen < 2.0 mg/dL (<2.0) 07/07/17 19:01 Ur Leukocyte Esterase Neg (Negative) 07/07/17 19:01 Urine WBC (Auto) 1.0 /HPF (0.0-6.0) 07/07/17 19:01 Urine RBC (Auto) 2.0 /HPF (0.0-6.0) 07/07/17 19:01 U Epithel Cells (Auto) < 1.0 /HPF (0-13.0) 07/07/17 19:01 Urine Mucus Few /HPF 07/07/17 19:01 Urine Opiates Screen Presumptive negative 07/07/17 19:01 Urine Methadone Screen Presumptive negative 07/07/17 19:01 Ur Barbiturates Screen Presumptive negative 07/07/17 19:01 Ur Phencyclidine Scrn Presumptive negative 07/07/17 19:01 Ur Amphetamines Screen Presumptive negative 07/07/17 19:01 U Benzodiazepines Scrn Presumptive negative 07/07/17 19:01 Urine Cocaine Screen Presumptive negative 07/07/17 19:01 U Marijuana (THC) Screen Presumptive negative 07/07/17 19:01 Drugs of Abuse Note Disclamer 07/07/17 19:01 Plasma/Serum Alcohol 0.02 % (0-0.07) 07/07/17 09:32 Blood Type O POSITIVE 07/07/17 10:24 Antibody Screen Negative 07/07/17 10:24 Crossmatch See Detail 07/07/17 10:24
--- NOTE | 2017-07-09 14:39 | Gastroenterology Progress Note ---
Assessment and Plan GI: pt w/o further signs bleeding - would attempt transfer [facility] if further signs bleeding - advance diet - continue current meds - ok transfer floor - will follow Subjective Date of service: 07/09/17 Principal diagnosis: GI bleeding Interval history: - pt w/o signs bleeding overnight Objective - Constitutional Vitals: Temp Pulse Resp BP Pulse Ox 98.3 F 95 H 16 131/87 96 07/09/17 12:00 07/09/17 12:00 07/09/17 12:00 07/09/17 12:00 07/09/17 12:00 General appearance: no acute distress - EENT Eyes: PERRL - Respiratory Respiratory: bilateral: CTA - Cardiovascular Rhythm: regular Heart Sounds: Present: S1 & S2 - Gastrointestinal General gastrointestinal: Present: soft, non-tender, non-distended - Labs CBC & Chem 7: 07/09/17 09:48 07/09/17 06:04 Labs: Laboratory Results - last 24 hr 07/07/17 07/08/17 07/09/17 10:24 23:42 06:04 WBC 10.0 RBC 2.83 L Hgb 8.0 L 8.2 L Hct 24.3 L 24.4 L MCV 87 MCH 29 MCHC 34 RDW 16.2 H Plt Count 268 Lymph % (Auto) 6.6 L [place] % (Auto) 6.8 Eos % (Auto) 2.5 Baso % (Auto) 0.6 Lymph # 0.7 L [place] # 0.7 Eos # 0.3 Baso # 0.1 Seg Neutrophils % 83.5 H Seg Neutrophils # 8.4 H Sodium Potassium Chloride Carbon Dioxide Anion Gap BUN Creatinine Estimated GFR BUN/Creatinine Ratio Glucose Calcium Phosphorus Magnesium Total Bilirubin AST ALT Alkaline Phosphatase Ammonia Total Protein Albumin Albumin/Globulin Ratio Blood Type O POSITIVE Antibody Screen Negative Crossmatch See Detail 07/09/17 07/09/17 07/09/17 06:04 06:04 09:48 WBC RBC Hgb 8.9 L Hct 26.1 L MCV MCH MCHC RDW Plt Count Lymph % (Auto) [place] % (Auto) Eos % (Auto) Baso % (Auto) Lymph # [place] # Eos # Baso # Seg Neutrophils % Seg Neutrophils # Sodium 136 L Potassium 3.5 L Chloride 102.1 Carbon Dioxide 26 Anion Gap 11 BUN 3 L Creatinine 0.5 L Estimated GFR > 60 BUN/Creatinine Ratio 6 Glucose 84 Calcium 7.2 L Phosphorus 2.80 Magnesium 1.60 L Total Bilirubin 1.40 H AST 59 H ALT 22 Alkaline Phosphatase 134 H Ammonia 65.0 H Total Protein 5.7 L Albumin 2.2 L Albumin/Globulin Ratio 0.6 Blood Type Antibody Screen Crossmatch
[2017-07-09] MEDS: MORPHINE IV PRN (19:43)
[2017-07-09] MEDS: XANAX PO PRN (21:40)
[2017-07-10] MEDS: NACL 0.9% 1000 ML 1,000 ML IV SCH (05:38)
[2017-07-10 08:24] LABS: Basophils % (Auto) 0.5 % (0.0-1.8); Eosinophils # (Auto) 0.2 K/mm3 (0.0-0.4); Hematocrit 25.8 % (35.5-45.6); Hemoglobin 8.6 gm/dl (11.8-15.2); Lymphocytes # (Auto) 0.7 K/mm3 (1.2-5.4); Lymphocytes % (Auto) 7.1 % (13.4-35.0); Mean Corpuscular HGB Conc 33 % (32-34); Mean Corpuscular Hemoglobin 29 pg (28-32); Mean Corpuscular Volume 88 fl (84-94); Monocytes # (Auto) 0.8 K/mm3 (0.0-0.8); Monocytes % (Auto) 7.9 % (0.0-7.3); Platelet Count 266 K/mm3 (140-440); Red Blood Count 2.94 M/mm3 (3.65-5.03); Red Cell Distribution Width 16.3 % (13.2-15.2)
[2017-07-10 09:00] LABS: Alanine Aminotransferase 24 units/L (7-56); Albumin 2.3 g/dL (3.9-5); BUN/Creatinine Ratio 20; Blood Urea Nitrogen 4 mg/dL (9-20); Calcium 7.5 mg/dL (8.4-10.2); Hemolysis Index 52
[2017-07-10 09:09] LABS: Bilirubin,Direct 0.4 mg/dL (0-0.2)
[2017-07-10] MEDS: MORPHINE IV PRN (10:23)
[2017-07-10] MEDS: PROTONIX IV SCH (10:23)
[2017-07-10] MEDS: CEPHULAC PO SCH (10:23)
[2017-07-10 13:03] VITALS: BP 118/75
--- NOTE | 2017-07-10 13:42 | Gastroenterology Progress Note ---
Assessment and Plan GI: no further signs bleeding - tolerating po - h/h stable - ok to d/c from GI standpoint, will sign off, call if needed Subjective Date of service: 07/10/17 Principal diagnosis: GI bleeding Interval history: - no further signs bleeding noted Objective - Constitutional Vitals: Temp Pulse Resp BP Pulse Ox 98.6 F 88 18 118/75 100 07/10/17 12:06 07/10/17 12:06 07/10/17 12:06 07/10/17 12:06 07/10/17 12:06 General appearance: no acute distress - EENT Eyes: PERRL - Respiratory Respiratory: bilateral: CTA - Cardiovascular Rhythm: regular Heart Sounds: Present: S1 & S2 - Gastrointestinal General gastrointestinal: Present: soft, non-tender, non-distended - Labs CBC & Chem 7: 07/10/17 07:17 07/10/17 07:17 Labs: Laboratory Results - last 24 hr 07/10/17 07/10/17 07:17 07:17 WBC 10.0 RBC 2.94 L Hgb 8.6 L Hct 25.8 L MCV 88 MCH 29 MCHC 33 RDW 16.3 H Plt Count 266 Lymph % (Auto) 7.1 L [place] % (Auto) 7.9 H Eos % (Auto) 2.0 Baso % (Auto) 0.5 Lymph # 0.7 L [place] # 0.8 Eos # 0.2 Baso # 0.0 Seg Neutrophils % 82.5 H Seg Neutrophils # 8.3 H Sodium 142 Potassium 4.4 D Chloride 107.5 H Carbon Dioxide 26 Anion Gap 13 BUN 4 L Creatinine 0.2 L D Estimated GFR > 60 BUN/Creatinine Ratio 20 Glucose 81 Calcium 7.5 L Phosphorus 2.60 Magnesium 1.90 Total Bilirubin 1.10 Direct Bilirubin 0.4 H Indirect Bilirubin 0.7 AST 69 H ALT 24 Alkaline Phosphatase 148 H Total Protein 6.1 L Albumin 2.3 L Albumin/Globulin Ratio 0.6
--- NOTE | 2017-07-10 15:04 | Discharge Summary ---
Providers - Providers Date of Admission: 07/07/17 10:36 Date of discharge: 07/10/17 Attending physician: MAGGIE MURDOCK 07/08/17 07:52 Consult to Physician [CONS] Routine Comment: Consulting Provider: AMA FUNG Physician Instructions: Reason For Exam: GI bleeding Consult to Physician [CONS] Routine Comment: Consulting Provider: YULISSA PERDOMO Physician Instructions: Reason For Exam: recurrent GI bleeding 07/08/17 07:56 Consult to Physician [CONS] Routine Comment: Consulting Provider: JOAQUIN SHAHID Physician Instructions: Reason For Exam: recurrent GI bleeding/Unknown source Primary care physician: DIRECTOR PHARMACOLOGY Hospitalization Condition: Stable Hospital course: --Severe acute blood loss anemia; hemoglobin 3.4 on admission Received total 6 units of PRBC, Hb improved to 8.2 Secondary to GI bleeding, GI following --Acute GI bleeding; GI and IR following patient had many episodes of GI bleeding in the past, evaluated by GI, no source found, consulted surgery History was also evaluated in the hospital in November and underwent sclerotherapy to stop the bleeding. GI, IR, surgery recommended transfer to [facility] for further evaluation and management by GI Dr. Crenshaw Paperwork faxed, awaiting call back from [place] --Hyponatremia; closely monitor, replacement therapy as needed, water restriction --Lactic acidosis; metabolic acidosis Vigorous IV hydration, replacement therapy, closely monitor --Transaminitis; monitor liver function --Hyperammonemia; GI following, trending down --severe protein calorie malnutrition/hypoalbuminemia Nutrition supplements. Supportive care. Nutrition consult --DVT prophylaxis; SCDs, no pharmacologic anticoagulation in view of severe bleeding Patient is hemodynamically stable Transfer the patient out of ICU to telemetry Plan of care reviewed with the patient and his nurse Critical care time 32 minutes Awaiting transfer to [place] Disposition: DC-01 TO HOME OR SELFCARE Time spent for discharge: 32 min Core Measure Documentation - Palliative Care Palliative Care/ Comfort Measures: Not Applicable - Core Measures Any of the following diagnoses?: none Exam - Constitutional Vitals: Temp Pulse Resp BP Pulse Ox 98.6 F 88 18 118/75 100 07/10/17 12:06 07/10/17 12:06 07/10/17 12:06 07/10/17 12:06 07/10/17 12:06 General appearance: Present: no acute distress, well-nourished, obese - EENT Eyes: Present: PERRL, EOM intact - Neck Neck: Present: supple, normal ROM - Respiratory Respiratory effort: normal Respiratory: negative: rales, rhonchi, wheezing - Cardiovascular Rhythm: regular Heart Sounds: Present: S1 & S2 - Extremities Extremities: no ischemia, No edema - Abdominal General gastrointestinal: Present: soft, non-tender, non-distended, normal bowel sounds - Integumentary Integumentary: Present: clear, warm - Musculoskeletal Musculoskeletal: strength equal bilaterally - Psychiatric Psychiatric: appropriate mood/affect, cooperative - Neurologic Neurologic: CNII-XII intact, moves all extremities Plan Activity: advance as tolerated Diet: regular Additional Instructions: f/u private GI , [facility].with in 1 week. If you notice any bleeding, contact M.D. or go to emergency room Follow up with: PRIMARY CARE, [Primary Care Provider] - 3-5 Days CLEMENTE JORDAN MD [Staff Physician] - 7 Days Prescriptions: Ferrous Sulfate [Feosol 325 MG tab] 325 mg PO BID #60 tablet Pantoprazole [Protonix TAB] 40 mg PO BID #60 tablet
[2017-07-10] MEDS ORDERED: PROTONIX PO SCH (22:00)
== END 2017-07-10 16:05 | disposition home or self-care (01) | DRG 377 ==
LOC: ED 08:58 → CC1 10:36 → 4A 07-09 18:23
PROVIDERS: ADMIT Internal Medicine; ATTEND Internal Medicine
PROC: 30233N1 Transfusion of Nonautologous Red Blood Cells into Peripheral Vein, Percutaneous Approach (ICD-10-PCS; principal; 2017-07-07)
DX: K92.2 Gastrointestinal hemorrhage, unspecified (principal); E43 Unspecified severe protein-calorie malnutrition; D62 Acute posthemorrhagic anemia; E87.1 Hypo-osmolality and hyponatremia; E87.2 Acidosis; E72.20 Disorder of urea cycle metabolism, unspecified; R74.0 Nonspecific elevation of levels of transaminase and lactic acid dehydrogenase [LDH]; K43.2 Incisional hernia without obstruction or gangrene; E88.09 Other disorders of plasma-protein metabolism, not elsewhere classified; I10 Essential (primary) hypertension; Z68.39 Body mass index [BMI] 39.0-39.9, adult; Z82.49 Family history of ischemic heart disease and other diseases of the circulatory system
CPT/HCPCS: 36415; 36430; 70450; 74174; 80048; 80053; 80074; 80307; 80320; 81001; 82140; 83735; 84100; 85007; 85014; 85018; 85025; 85610; 86850; 86900; 86901; 86920; 93005; 93010; C9113; G0480; J2270; J2405; J3475; J7030; J7040; P9016; Q9967

== ENCOUNTER 2017-07-25 16:27 | Inpatient (IN) | payer OTHER ==
[2017-07-25 18:32] LABS: Hemoglobin TNR gm/dl (11.8-15.2); Red Blood Count TNR M/mm3 (3.65-5.03)
[2017-07-25 18:33] LABS: Hematocrit TNR % (35.5-45.6); Mean Corpuscular HGB Conc TNR % (32-34); Mean Corpuscular Hemoglobin TNR pg (28-32); Mean Corpuscular Volume TNR fl (84-94); Mean Platelet Volume TNR fl (6-12); Platelet Count TNR K/mm3 (140-440); Red Cell Distribution Width TNR % (13.2-15.2)
[2017-07-25 18:34] LABS: Basophils % (Auto) TNR % (0.0-1.8); Eosinophils % (Auto) TNR % (0.0-4.3); Lymphocytes # (Auto) TNR K/mm3 (1.2-5.4); Lymphocytes % (Auto) TNR % (13.4-35.0); Monocytes % (Auto) TNR % (0.0-7.3)
[2017-07-25 18:35] LABS: Basophils # (Auto) TNR K/mm3 (0.0-0.1); Eosinophils # (Auto) TNR K/mm3 (0.0-0.4); Monocytes # (Auto) TNR K/mm3 (0.0-0.8)
[2017-07-25 18:39] LABS: BUN/Creatinine Ratio 9; Blood Urea Nitrogen 7 mg/dL (9-20); Calcium 7.7 mg/dL (8.4-10.2); Hemolysis Index 11
[2017-07-25 19:49] LABS: Basophils # (Auto) 0.1 K/mm3 (0.0-0.1); Basophils % (Auto) 0.6 % (0.0-1.8); Eosinophils # (Auto) 0.2 K/mm3 (0.0-0.4); Eosinophils % (Auto) 1.7 % (0.0-4.3); Lymphocytes # (Auto) 1.4 K/mm3 (1.2-5.4); Lymphocytes % (Auto) 10.7 % (13.4-35.0); Mean Corpuscular HGB Conc 31 % (32-34); Mean Corpuscular Hemoglobin 27 pg (28-32); Mean Corpuscular Volume 89 fl (84-94); Monocytes # (Auto) 1.2 K/mm3 (0.0-0.8); Monocytes % (Auto) 8.9 % (0.0-7.3); Platelet Count 315 K/mm3 (140-440); Red Blood Count 1.48 M/mm3 (3.65-5.03); Red Cell Distribution Width 19.1 % (13.2-15.2)
--- NOTE | 2017-07-25 19:52 | XRay Report ---
FINAL REPORT EXAM: XR CHEST ROUTINE 2V HISTORY: Shortness of breath TECHNIQUE: upright single view chest PRIORS: No prior studies available for comparison FINDINGS: Cardiac and mediastinal contours are unremarkable. No focal pulmonary infiltrate is identified. No pleural fluid collection seen. Pulmonary vasculature is unremarkable. IMPRESSION: Negative single-view chest
[2017-07-25 19:57] LABS: Hematocrit 13.1 % (35.5-45.6)
[2017-07-25] MEDS ORDERED: NACL 0.9% 500 ML 500 ML IV ONE (21:19)
[2017-07-25] MEDS ORDERED: NACL 0.9% 1000 ML 1,000 ML IV ONE (21:20)
--- NOTE | 2017-07-25 21:26 | Emergency Department Report ---
HPI - General Chief Complaint: Dizziness Time Seen by Provider: 07/25/17 21:11 - HPI HPI: Room 19 The patient is a 52-year-old male presenting with a chief complaint of dizziness and lower abdominal pain. The patient is a very poor historian and does not provide a lot of information when asked. Patient admits to some lower abdominal pain for the past 6 days. Patient states the pain was not very significant but it has been constant. Patient denies bright red blood per rectum or melena. The patient reportedly told nursing in triage. Dizziness and difficulty breathing for one week Location: [See above] Duration: 6 Days Quality: Pain Severity: Mild Modifying factors: [see above] Context: [see above] Mode of transportation: [not driving] ED Past Medical Hx - Past Medical History Hx Liver Disease: Yes Additional medical history: ETOH ABUSE,. ABD ULCERS, Anemia - Surgical History Additional Surgical History: ABD SURGERIES AND ABD MESH AND POSS PLASTIC, reversal of colostomy - Family History Family history: no significant - Social History Smoking Status: Never Smoker Substance Use Type: Alcohol (occasional) - Medications Home Medications: Home Medications Medication Instructions Recorded Confirmed Last Taken Type Ferrous Sulfate [Feosol 325 MG tab] 325 mg PO BID #60 tablet 07/10/17 Unknown Rx Pantoprazole [Protonix TAB] 40 mg PO BID #60 tablet 07/10/17 Unknown Rx ED Review of Systems ROS: Stated complaint: LEG PAIN Other details as noted in HPI Respiratory: shortness of breath Gastrointestinal: abdominal pain, nausea. denies: melena, hematochezia Neurological: other (dizziness) Physical Exam - Physical Exam Vital Signs: Vital Signs 07/25/17 17:25 Temperature 99.2 F Pulse Rate 101 H Respiratory 22 Rate Blood Pressure 104/55 O2 Sat by Pulse 100 Oximetry Physical Exam: GENERAL: The patient is well-developed well-nourished male sleeping on stretcher. Patient awakens and answers some questions but then goes back to sleep HEENT: Normocephalic. Atraumatic. Extraocular motions are intact. NECK: Trachea midline CHEST/LUNGS: Clear to auscultation. There is no respiratory distress noted. HEART/CARDIOVASCULAR: Regular. There is no tachycardia. There is no gallop rub or murmur. ABDOMEN: Abdomen is soft, with mild discomfort to palpation in the right lower quadrant. Patient has normal bowel sounds. There is no abdominal distention. SKIN: There is no rash. There is no edema. There is no diaphoresis. NEURO: The patient is awake, alert, and oriented. The patient is cooperative. The patient has normal speech MUSCULOSKELETAL: There is no evidence of acute injury. RECTAL: Guai[place] negative ED Course Vital Signs 07/25/17 17:25 Temperature 99.2 F Pulse Rate 101 H Respiratory 22 Rate Blood Pressure 104/55 O2 Sat by Pulse 100 Oximetry ED Medical Decision Making - Lab Data Result diagrams: 07/25/17 19:26 07/25/17 17:46 Laboratory Tests 07/25/17 07/25/17 07/25/17 17:46 17:46 17:46 WBC TNR RBC TNR Hgb TNR Hct TNR MCV TNR MCH TNR MCHC TNR RDW TNR Plt Count TNR Lymph % (Auto) TNR [place] % (Auto) TNR Eos % (Auto) TNR Baso % (Auto) TNR Lymph # TNR [place] # TNR Eos # TNR Baso # TNR Add Manual Diff TNR Seg Neutrophils % TNR Seg Neutrophils # TNR Sodium 134 L Potassium 3.0 L Chloride 97.6 L Carbon Dioxide 21 L Anion Gap 18 BUN 7 L Creatinine 0.8 Estimated GFR > 60 BUN/Creatinine Ratio 9 Glucose 98 Calcium 7.7 L Total Bilirubin 0.60 Direct Bilirubin 0.3 H Indirect Bilirubin 0.3 AST 44 H ALT 17 Alkaline Phosphatase 160 H Troponin T < 0.010 NT-Pro-B Natriuret Pep 371.0 Total Protein 7.1 Albumin 2.7 L Albumin/Globulin Ratio 0.6 Blood Type Antibody Screen Crossmatch 07/25/17 07/25/17 19:26 21:20 WBC 12.9 H RBC 1.48 L Hgb 4.0 L* Hct 13.1 L* MCV 89 MCH 27 L MCHC 31 L RDW 19.1 H Plt Count 315 Lymph % (Auto) 10.7 L [place] % (Auto) 8.9 H Eos % (Auto) 1.7 Baso % (Auto) 0.6 Lymph # 1.4 [place] # 1.2 H Eos # 0.2 Baso # 0.1 Add Manual Diff Seg Neutrophils % 78.1 H Seg Neutrophils # 10.1 H Sodium Potassium Chloride Carbon Dioxide Anion Gap BUN Creatinine Estimated GFR BUN/Creatinine Ratio Glucose Calcium Total Bilirubin Direct Bilirubin Indirect Bilirubin AST ALT Alkaline Phosphatase Troponin T NT-Pro-B Natriuret Pep Total Protein Albumin Albumin/Globulin Ratio Blood Type O POSITIVE Antibody Screen Negative Crossmatch See Detail - EKG Data -: EKG Interpreted by Me EKG shows normal: sinus rhythm Rate: normal - EKG Data When compared to previous EKG there are: changes noted Interpretation: other (evolution of right bundle branch block compared to Previous EKG dated 07/07/2017) - Radiology Data Radiology results: report reviewed (CT abdomen and pelvis), image reviewed (CT abdomen and pelvis) [facility] [address] [place] [address] Cat Scan Report Signed Patient: GLENROY CHAVIRA MR#: [id number] : 1965 Acct:[id number] Age/Sex: 52 / M ADM Date: 07/25/17 Loc: ED Attending Dr: Ordering Physician: SERGEI FARRAR MD Date of Service: 07/25/17 Procedure(s): CT abdomen pelvis wo con Accession Number(s): [id number] cc: SERGEI FARRAR MD FINAL REPORT EXAM: CT ABDOMEN PELVIS WO CON HISTORY: lower abdominal pain, anemia, hypertension TECHNIQUE: CT abdomen and pelvis without contrast PRIORS: Comparison is dated October 30, 2016 FINDINGS: No acute abnormality identified in the lung bases. Ascites seen in the upper abdomen seen previously appears resolved. There is a trace of fluid at the central mesentery No focal abnormality identified within the liver parenchyma. Spleen is mildly enlarged measuring 15.1 x 5.2 x 10.0 centimeters stable from prior exam. No pancreatic abnormalities seen. Kidneys demonstrate no evidence of hydronephrosis or nephrolithiasis. No ureteral calculus identified. The adrenal glands are unremarkable. Abdominal aorta is normal in caliber. No pathologically enlarged lymph nodes are identified. No signs of free fluid or free air No evidence of small bowel dilatation. Urinary bladder is unremarkable. Midline abdominal scarring noted. IMPRESSION: Mild splenomegaly Trace ascites in the mid abdomen Otherwise no acute findings Transcribed By: VIPUL Dictated By: JOSAFAT CHUNG MD Electronically Authenticated By: JOSAFAT CHUNG MD Signed Date/Time: 07/25/172345 DD/ 45 TD/TT: 07/25/172345 - Differential Diagnosis symptomatic anemia, GI bleed, retroperitoneal hemorrhage, Critical care attestation.: If time is entered above; I have spent that time in minutes in the direct care of this critically ill patient, excluding procedure time. ED Disposition Clinical Impression: Symptomatic anemia, Abdominal pain Disposition: OP ADMIT IP TO THIS HOSP Is pt being admited?: Yes Does the pt Need Aspirin: No Condition: Serious Referrals: PRIMARY CARE,MD [Primary Care Provider] - 3-5 Days Time of Disposition: 00:07 (hospitalist paged (Dr. Cara Pittman))
[2017-07-25 21:29] LABS: Albumin 2.7 g/dL (3.9-5); Bilirubin,Direct 0.3 mg/dL (0-0.2)
--- NOTE | 2017-07-25 23:50 | Cat Scan Report ---
FINAL REPORT EXAM: CT ABDOMEN PELVIS WO CON HISTORY: lower abdominal pain, anemia, hypertension TECHNIQUE: CT abdomen and pelvis without contrast PRIORS: Comparison is dated October 30, 2016 FINDINGS: No acute abnormality identified in the lung bases. Ascites seen in the upper abdomen seen previously appears resolved. There is a trace of fluid at the central mesentery No focal abnormality identified within the liver parenchyma. Spleen is mildly enlarged measuring 15.1 x 5.2 x 10.0 centimeters stable from prior exam. No pancreatic abnormalities seen. Kidneys demonstrate no evidence of hydronephrosis or nephrolithiasis. No ureteral calculus identified. The adrenal glands are unremarkable. Abdominal aorta is normal in caliber. No pathologically enlarged lymph nodes are identified. No signs of free fluid or free air No evidence of small bowel dilatation. Urinary bladder is unremarkable. Midline abdominal scarring noted. IMPRESSION: Mild splenomegaly Trace ascites in the mid abdomen Otherwise no acute findings
[2017-07-26] MEDS ORDERED: NACL 0.9% 500 ML 500 ML ONE (01:12)
[2017-07-26] MEDS ORDERED: SODIUM CHLORIDE FLUSH SYRINGE 10 ML IV PRN (01:43)
[2017-07-26] MEDS ORDERED: ZOFRAN IV PRN (01:43)
[2017-07-26] MEDS ORDERED: TYLENOL PO PRN (01:43)
[2017-07-26] MEDS ORDERED: NACL 0.9% 500 ML 500 ML IV ONE (01:47)
[2017-07-26] MEDS ORDERED: BENADRYL IV PRN (01:47)
--- NOTE | 2017-07-26 01:49 | History and Physical Report ---
History of Present Illness Date of examination: 07/26/17 History of present illness: 52-year-old man with a history of cirrhosis, homeless comes emergency room stating that his legs are very heavy and if he walked 20 steps he is more than likely to fall. He is very tired, dizzy and has blurred vision, shortness of breath. He is not on any medications. He also complained of chest pain in the epigastric area which he described as a pressure-like sensation, intermittent in nature, only with walking, better at rest, intensity 4/10, no radiation. He admits to decreased oral intake, no nausea, vomiting, diaphoresis or palpitation Review of systems Constitutional: no weight loss, chills Ears, eyes, nose, mouth and throat: no nasal congestion, no nasal discharge, no sinus pressure, no vision change, no red eye. Neck: No neck pain or rigidity. Cardiovascular: no palpitations Respiratory: No shortness of breath, cough Gastrointestinal: no abdominal pain, hematochezia Genitourinary : no frequency , no hematuria Musculoskeletal: no joint swelling or muscle ache Integumentary: no rash, no pruritis Neurological: no parathesias, no numbness, no focal weakness Endocrine: no cold or heat intolerance, no polyuria or polydipsia Hematologic/Lymphatic: no easy bruising, no easy bleeding, no gland swelling Allergic/Immunologic: no urticaria, no angioedema. PAST MEDICAL HISTORY: cirrhosis, PAST SURGICAL HISTORY: Several abdominal surgeries SOCIAL HISTORY: He denies a alcohol, tobacco, drugs FAMILY HISTORY: Hypertension Medications and Allergies Allergies Allergy/AdvReac Type Severity Reaction Status Date / Time No Known Allergies Allergy Verified 06/02/16 08:50 Home Medications Medication Instructions Recorded Confirmed Last Taken Type Ferrous Sulfate [Feosol 325 MG tab] 325 mg PO BID #60 tablet 07/10/17 Unknown Rx Pantoprazole [Protonix TAB] 40 mg PO BID #60 tablet 07/10/17 Unknown Rx Active Meds: Active Medications Acetaminophen (Tylenol) 650 mg PO Q4H PRN PRN Reason: Pain MILD(1-3)/Fever >100.5/PINA Diphenhydramine HCl (Benadryl) 25 mg IV Q6H PRN PRN Reason: Itching Sodium Chloride (Nacl 0.9% 500 Ml) 500 mls @ 0 mls/hr IV ONCE ONE Stop: 07/26/17 01:48 Ondansetron HCl (Zofran) 4 mg IV Q8H PRN PRN Reason: Nausea And Vomiting Oxycodone/Acetaminophen (Percocet 5/325) 1 tab PO Q6H PRN PRN Reason: Pain, Moderate (4-6) Sodium Chloride (Sodium Chloride Flush Syringe 10 Ml) 10 ml IV BID MACARIO Sodium Chloride (Sodium Chloride Flush Syringe 10 Ml) 10 ml IV PRN PRN PRN Reason: LINE FLUSH Exam - Physical Exam Narrative exam: Gen. appearance: Patient lying in bed, no apparent distress HEENT: Normocephalic, atraumatic, pupils equally round and reactive to light, extraocular movement intact, and no sclericterus,. No JVD or thyromegaly or nodule,neck supple, no carotid bruit ,mucous membranes moist, no exudate or erythema Heart: S1, S2, regular rate and rhythm Lungs: Clear to auscultation bilaterally, breathing comfortable Abdomen: Positive bowel sounds, nontender, nondistended, no organomegaly Extremity: +edema, no cyanosis, clubbing Skin: No rash, nodules, warm, dry Neuro: + tremors, Oriented 3, cranial nerves II-12 intact, speech is fluent, motor and sensory intact - Constitutional Vitals: Temp Pulse Resp BP Pulse Ox 99.2 F 100 H 18 117/58 100 07/25/17 17:25 07/25/17 20:12 07/25/17 20:12 07/25/17 23:36 07/25/17 23:36 Results - Labs CBC & Chem 7: 07/25/17 19:26 07/25/17 17:46 Labs: Abnormal lab results 07/25/17 07/25/17 07/25/17 Range/Units 17:46 17:46 19:26 WBC 12.9 H (4.5-11.0) K/mm3 RBC 1.48 L (3.65-5.03) M/mm3 Hgb 4.0 L* (11.8-15.2) gm/dl Hct 13.1 L* (35.5-45.6) % MCH 27 L (28-32) pg MCHC 31 L (32-34) % RDW 19.1 H (13.2-15.2) % Lymph % (Auto) 10.7 L (13.4-35.0) % [place] % (Auto) 8.9 H (0.0-7.3) % [place] # 1.2 H (0.0-0.8) K/mm3 Seg Neutrophils % 78.1 H (40.0-70.0) % Seg Neutrophils # 10.1 H (1.8-7.7) K/mm3 Sodium 134 L (137-145) mmol/L Potassium 3.0 L (3.6-5.0) mmol/L Chloride 97.6 L (98-107) mmol/L Carbon Dioxide 21 L (22-30) mmol/L BUN 7 L (9-20) mg/dL Calcium 7.7 L (8.4-10.2) mg/dL Direct Bilirubin 0.3 H (0-0.2) mg/dL AST 44 H (5-40) units/L Alkaline Phosphatase 160 H (35-129) units/L Albumin 2.7 L (3.9-5) g/dL Crossmatch 07/25/17 Range/Units 21:20 WBC (4.5-11.0) K/mm3 RBC (3.65-5.03) M/mm3 Hgb (11.8-15.2) gm/dl Hct (35.5-45.6) % MCH (28-32) pg MCHC (32-34) % RDW (13.2-15.2) % Lymph % (Auto) (13.4-35.0) % [place] % (Auto) (0.0-7.3) % [place] # (0.0-0.8) K/mm3 Seg Neutrophils % (40.0-70.0) % Seg Neutrophils # (1.8-7.7) K/mm3 Sodium (137-145) mmol/L Potassium (3.6-5.0) mmol/L Chloride (98-107) mmol/L Carbon Dioxide (22-30) mmol/L BUN (9-20) mg/dL Calcium (8.4-10.2) mg/dL Direct Bilirubin (0-0.2) mg/dL AST (5-40) units/L Alkaline Phosphatase (35-129) units/L Albumin (3.9-5) g/dL Crossmatch See Detail - Imaging and Cardiology EKG: image reviewed Chest x-ray: image reviewed CT scan - abdomen: report reviewed CT scan - pelvis: report reviewed Assessment and Plan Assessment Symptomatic anemia Chest pain Cirrhosis Plan Admit to medicine Transfuse packed red blood cells Check cardiac enzyme Continue appropriate outpatient medications DVT prophylaxis
[2017-07-26] MEDS ORDERED: NACL 0.9% 500 ML 500 ML IV SCH (05:00)
[2017-07-26 11:11] LABS: Creatine Kinase MB 1.6 ng/mL (0.0-4.0)
[2017-07-26] MEDS: SODIUM CHLORIDE FLUSH SYRINGE 10 ML IV SCH ×2 (11:24→22:06)
[2017-07-26] MEDS: PERCOCET 5/325 PO PRN ×2 (14:15→22:05)
[2017-07-26 15:53] LABS: Hematocrit 16.2 % (35.5-45.6); Hemoglobin 5.3 gm/dl (11.8-15.2)
--- NOTE | 2017-07-26 18:06 | Event Note ---
Date: 07/26/17 Pateint reassesed Needs 2 more units of PPRBC Assessment and Plan Assessment Symptomatic anemia Chest pain Cirrhosis Plan Admit to medicine Transfuse packed red blood cells Check cardiac enzyme Continue appropriate outpatient medications DVT prophylaxis
[2017-07-27 09:46] LABS: Basophils # (Auto) 0.1 K/mm3 (0.0-0.1); Basophils % (Auto) 0.9 % (0.0-1.8); Eosinophils # (Auto) 0.2 K/mm3 (0.0-0.4); Eosinophils % (Auto) 2.4 % (0.0-4.3); Lymphocytes # (Auto) 0.7 K/mm3 (1.2-5.4); Lymphocytes % (Auto) 6.7 % (13.4-35.0); Mean Corpuscular HGB Conc 33 % (32-34); Mean Corpuscular Hemoglobin 30 pg (28-32); Mean Corpuscular Volume 91 fl (84-94); Monocytes # (Auto) 0.7 K/mm3 (0.0-0.8); Monocytes % (Auto) 6.9 % (0.0-7.3); Platelet Count 250 K/mm3 (140-440); Red Cell Distribution Width 18.7 % (13.2-15.2)
[2017-07-27 09:49] LABS: Hemoglobin 5.9 gm/dl (11.8-15.2)
[2017-07-27 09:50] LABS: Hematocrit 18.2 % (35.5-45.6)
[2017-07-27 09:58] LABS: BUN/Creatinine Ratio 8; Blood Urea Nitrogen 5 mg/dL (9-20); Calcium 7.3 mg/dL (8.4-10.2); Hemolysis Index 20
[2017-07-27] MEDS ORDERED: NACL 0.9% 500 ML 500 ML ONE (10:43)
[2017-07-27] MEDS: SODIUM CHLORIDE FLUSH SYRINGE 10 ML IV SCH ×2 (10:43→22:47)
[2017-07-27] MEDS ORDERED: NACL 0.9% 500 ML 500 ML IV NR (11:20)
[2017-07-27 11:25] LABS: Creatine Kinase MB 1.7 ng/mL (0.0-4.0)
[2017-07-27] MEDS ORDERED: NACL 0.9% 500 ML 500 ML IV ONE (13:00)
[2017-07-27] MEDS: PERCOCET 5/325 PO PRN (17:12)
--- NOTE | 2017-07-27 17:42 | Progress Note ---
Assessment and Plan Assesment and plan: Symptomatic anemia Chest pain Cirrhosis Plan Transfused packed red blood cells--2 more units ordered Patient has multiple admissions for variceal bleed and cirrhosis \Poor prognosis DNR to be discussed by Grinder Chipper Continue appropriate outpatient medications DVT prophylaxis Subjective Date of service: 07/27/17 Principal diagnosis: Acute blood loss anemia Interval history: sx better No active bleeding Objective - Constitutional Vitals: Vital Signs - 12hr 07/27/17 07/27/17 07/27/17 06:51 10:00 14:26 Temperature 98.5 F 99.7 F H Pulse Rate 89 97 H Respiratory 18 20 Rate Blood Pressure 119/76 103/64 O2 Sat by Pulse 98 98 Oximetry 07/27/17 07/27/17 07/27/17 14:41 15:11 15:41 Temperature 98.1 F 99.5 F 99.6 F Pulse Rate 94 H 105 H 103 H Respiratory 22 18 20 Rate Blood Pressure 113/57 111/61 123/76 O2 Sat by Pulse Oximetry 07/27/17 07/27/17 07/27/17 16:10 16:11 16:41 Temperature 100.5 F H 99.9 F H 98.6 F Pulse Rate 103 H 102 H 20 L Respiratory 24 20 18 Rate Blood Pressure 130/75 130/75 113/63 O2 Sat by Pulse 99 Oximetry 07/27/17 17:06 Temperature 98.8 F Pulse Rate 94 H Respiratory 20 Rate Blood Pressure 119/78 O2 Sat by Pulse Oximetry General appearance: Present: no acute distress, well-nourished - EENT Eyes: PERRL, EOM intact ENT: hearing intact, clear oral mucosa Ears: bilateral: normal - Neck Neck: supple, normal ROM - Respiratory Respiratory effort: normal Respiratory: bilateral: CTA - Breasts Breasts: normal - Cardiovascular Heart rate: 80 Rhythm: regular Heart Sounds: Present: S1 & S2. Absent: gallop, rub Extremities: pulses intact, No edema, normal color, Full ROM - Gastrointestinal General gastrointestinal: Present: soft, non-tender, non-distended, normal bowel sounds - Genitourinary Male genitourinary: normal - Integumentary Integumentary: clear, warm, dry - Musculoskeletal Musculoskeletal: 1, strength equal bilaterally - Neurologic Neurologic: moves all extremities - Psychiatric Psychiatric: memory intact, appropriate mood/affect, intact judgment & insight - Labs CBC & Chem 7: 07/27/17 09:26 07/27/17 09:26 Labs: Abnormal lab results 07/25/17 07/27/17 07/27/17 Range/Units 21:20 09:26 09:26 RBC 2.00 L (3.65-5.03) M/mm3 Hgb 5.9 L* (11.8-15.2) gm/dl Hct 18.2 L* (35.5-45.6) % RDW 18.7 H (13.2-15.2) % Lymph % (Auto) 6.7 L (13.4-35.0) % Lymph # 0.7 L (1.2-5.4) K/mm3 Seg Neutrophils % 83.1 H (40.0-70.0) % Seg Neutrophils # 8.3 H (1.8-7.7) K/mm3 Sodium (137-145) mmol/L Potassium (3.6-5.0) mmol/L BUN (9-20) mg/dL Creatinine (0.8-1.5) mg/dL Glucose (75-100) mg/dL Calcium (8.4-10.2) mg/dL Total Creatine Kinase 54 L (55-170) units/L Crossmatch See Detail 07/27/17 Range/Units 09:26 RBC (3.65-5.03) M/mm3 Hgb (11.8-15.2) gm/dl Hct (35.5-45.6) % RDW (13.2-15.2) % Lymph % (Auto) (13.4-35.0) % Lymph # (1.2-5.4) K/mm3 Seg Neutrophils % (40.0-70.0) % Seg Neutrophils # (1.8-7.7) K/mm3 Sodium 135 L (137-145) mmol/L Potassium 3.1 L (3.6-5.0) mmol/L BUN 5 L (9-20) mg/dL Creatinine 0.6 L (0.8-1.5) mg/dL Glucose 135 H (75-100) mg/dL Calcium 7.3 L (8.4-10.2) mg/dL Total Creatine Kinase (55-170) units/L Crossmatch
[2017-07-28] MEDS: PERCOCET 5/325 PO PRN ×3 (02:14→21:46)
[2017-07-28] MEDS ORDERED: NACL 0.9% 500 ML 500 ML IV ONE (09:23)
[2017-07-28] MEDS: SODIUM CHLORIDE FLUSH SYRINGE 10 ML IV SCH ×2 (09:56→21:48)
[2017-07-28] MEDS ORDERED: K-DUR PO ONE (10:00)
--- NOTE | 2017-07-28 10:09 | Gastroenterology Consultation ---
<NIYA MARTINEZ - Last Filed: 07/28/17 10:47> History of Present Illness - Reason for Consult Consult date: 07/28/17 GI bleed Requesting physician: SUZANNA RIDER - History of Present Illness Patient is a 52 y/o male with PMH of HTN, PUD and multiple abdominal surgeries post trauma in 2013 who is well known to our service from multiple previous hospitalizations for GI bleeding. He had an extensive workup in the last year including multiple scopes (EGD 10/2016 with small HH but otherwise normal; colonoscopy 05/2016 with fresh and old blood throughout colon and in the TI with mild diverticulosis), bleeding scans, CTA A/P, and a single balloon enteroscopy at [facility] which were not able to identify a source of bleeding but presumed to be small bowel in nature. He was finally transferred to [facility] in November where he underwent a sclerotherapy procedure by IR for a submucosal serpiginous lesion in the small bowel. He presented this admission to ED with c/ o leg pain, dizziness, and SOB and was found to be severely anemia with H/H 4.0/ 13.1 to which GI has been consulted. This morning he was sitting up in bed w/o acute distress. He denies any active signs of bleeding such as hematemesis, melena, or hematochezia. Admits to some generalized lower abd discomfort/ cramping but denies CP, wt loss, N/V, diarrhea, or constipation. Abd CT negative. Tolerating diet. Past History Past Medical History: hypertension, other (PUD, abd trauma s/p fall, obscure GI bleeding) Past Surgical History: bowel surgery (multiple abd surgeries from trauma to include reversal of colostomy) Social history: Lives alone (homeless?). denies: smoking, alcohol abuse Family history: hypertension Medications and Allergies Allergies Allergy/AdvReac Type Severity Reaction Status Date / Time No Known Allergies Allergy Verified 06/02/16 08:50 Home Medications Medication Instructions Recorded Confirmed Last Taken Type Ferrous Sulfate [Feosol 325 MG tab] 325 mg PO BID #60 tablet 07/10/17 07/26/17 07/25/17 Rx Pantoprazole [Protonix TAB] 40 mg PO BID #60 tablet 07/10/17 07/26/17 07/25/17 Rx Active Meds: Active Medications Acetaminophen (Tylenol) 650 mg PO Q4H PRN PRN Reason: Pain MILD(1-3)/Fever >100.5/PINA Diphenhydramine HCl (Benadryl) 25 mg IV Q6H PRN PRN Reason: Itching Ondansetron HCl (Zofran) 4 mg IV Q8H PRN PRN Reason: Nausea And Vomiting Oxycodone/Acetaminophen (Percocet 5/325) 1 tab PO Q6H PRN PRN Reason: Pain, Moderate (4-6) Last Admin: 07/28/17 08:19 Dose: 1 tab Sodium Chloride (Sodium Chloride Flush Syringe 10 Ml) 10 ml IV BID MACARIO Last Admin: 07/28/17 09:56 Dose: Not Given Sodium Chloride (Sodium Chloride Flush Syringe 10 Ml) 10 ml IV PRN PRN PRN Reason: LINE FLUSH Review of Systems - Review of Systems All systems: negative Constitutional: other (dizziness) Gastrointestinal: abdominal pain (lower abdominal cramps) Musculoskeletal: other (leg pain) Exam - Constitutional Vital Signs: Temp Pulse Resp BP Pulse Ox 98.3 F 89 19 136/76 99 07/28/17 08:10 07/28/17 08:10 07/28/17 08:10 07/28/17 08:10 07/28/17 08:10 General appearance: no acute distress - Respiratory Respiratory: bilateral: CTA - Cardiovascular Rhythm: regular Heart Sounds: Present: S1 & S2 - Gastrointestinal General gastrointestinal: Present: soft, non-distended, normal bowel sounds, other (scars from previous surgeries) - Neurologic Neurological: alert and oriented x3 - Labs CBC & Chem 7: 07/27/17 09:26 07/27/17 09:26 Lab Results: Laboratory Results - last 24 hr 07/25/17 07/27/17 07/27/17 21:20 09:26 09:26 Total Creatine Kinase 54 L CK-MB (CK-2) 1.7 CK-MB (CK-2) Rel Index 3.1 Troponin T < 0.010 Blood Type O POSITIVE Antibody Screen Negative Crossmatch See Detail Assessment and Plan 1.anemia -abd CT negative -HGB 5.9- s/p multiple transfusions with inappropriate rise -will order bleeding scan for further evaluation -continue to monitor H/H and transfuse as needed -hold blood thinning medications -no active signs of bleeding- currently HD stable -etiology- patient has a hx of GI bleeding with multiple previous hospitalization with an extensive workup in the last year including multiple scopes (EGD 10/2016 with small HH but otherwise normal; colonoscopy 05/2016 with fresh and old blood throughout colon and in the TI with mild diverticulosis ), bleeding scans, CTA A/P, and a single balloon enteroscopy at [facility] that showed no obvious source of bleeding. He was eventually transferred to [facility] in November were he underwent a sclerotherapy procedure by IR for a submucosal serpiginous lesion in the small bowel -if overt bleeding develops, would recommend an IR consult along with a transfer to a tertiary care center such as [facility] for further treatment <SANTIAGO LUNA - Last Filed: 07/28/17 12:20> Medications and Allergies Active Meds: Active Medications Acetaminophen (Tylenol) 650 mg PO Q4H PRN PRN Reason: Pain MILD(1-3)/Fever >100.5/PINA Diphenhydramine HCl (Benadryl) 25 mg IV Q6H PRN PRN Reason: Itching Ondansetron HCl (Zofran) 4 mg IV Q8H PRN PRN Reason: Nausea And Vomiting Oxycodone/Acetaminophen (Percocet 5/325) 1 tab PO Q6H PRN PRN Reason: Pain, Moderate (4-6) Last Admin: 07/28/17 08:19 Dose: 1 tab Sodium Chloride (Sodium Chloride Flush Syringe 10 Ml) 10 ml IV BID MACARIO Last Admin: 07/28/17 09:56 Dose: Not Given Sodium Chloride (Sodium Chloride Flush Syringe 10 Ml) 10 ml IV PRN PRN PRN Reason: LINE FLUSH Exam - Constitutional Vital Signs: Temp Pulse Resp BP Pulse Ox 98.3 F 89 19 136/76 99 07/28/17 08:10 07/28/17 08:10 07/28/17 08:10 07/28/17 08:10 07/28/17 08:10 - Labs CBC & Chem 7: 07/27/17 09:26 07/27/17 09:26 Lab Results: Laboratory Results - last 24 hr 07/25/17 21:20 Blood Type O POSITIVE Antibody Screen Negative Crossmatch See Detail Assessment and Plan Patient seen and examined. Agree with note by Niya Martinez. No overt GI bleeding but h/o obscure overt bleeding (prior recent admissions). received multiple blood transfusions with inadequate response. no signs of retroperitoneal bleed on imaging. will obtain tagged rbc scan.
[2017-07-28] MEDS ORDERED: FLUSH HEPARIN IV ONE (10:15)
--- NOTE | 2017-07-28 13:14 | Nuclear Medicine Report ---
GI bleeding scan: Anemia. Following in vitro taking of RBCs with reinjection flow imaging demonstrates a small focal area of activity accumulation in the low midabdomen. This is stable throughout the flow and AP static images. It is not identified in the oblique views. No evidence of bowel accumulation of abnormal activity. Impression: No evidence of active bleeding. Probably normal scan. The lack of persistence of the focal accumulation on the oblique views decreases likelihood of AVM/aneurysm.
[2017-07-28 14:02] LABS: Basophils # (Auto) 0.1 K/mm3 (0.0-0.1); Basophils % (Auto) 0.6 % (0.0-1.8); Eosinophils # (Auto) 0.3 K/mm3 (0.0-0.4); Eosinophils % (Auto) 2.8 % (0.0-4.3); Hematocrit 23.3 % (35.5-45.6); Hemoglobin 7.6 gm/dl (11.8-15.2); Lymphocytes # (Auto) 0.7 K/mm3 (1.2-5.4); Lymphocytes % (Auto) 7.4 % (13.4-35.0); Mean Corpuscular HGB Conc 33 % (32-34); Mean Corpuscular Hemoglobin 29 pg (28-32); Mean Corpuscular Volume 89 fl (84-94); Monocytes # (Auto) 0.8 K/mm3 (0.0-0.8); Monocytes % (Auto) 7.8 % (0.0-7.3); Platelet Count 259 K/mm3 (140-440); Red Blood Count 2.63 M/mm3 (3.65-5.03); Red Cell Distribution Width 17.6 % (13.2-15.2)
[2017-07-28 14:32] LABS: Alanine Aminotransferase 15 units/L (7-56); BUN/Creatinine Ratio 8; Blood Urea Nitrogen 4 mg/dL (9-20); Calcium 7.6 mg/dL (8.4-10.2); Hemolysis Index 6
--- NOTE | 2017-07-28 17:44 | Progress Note ---
Assessment and Plan - Patient Problems (1) Hypokalemia Current Visit: Yes Status: Acute Plan to address problem: Replace with by mouth potassium (2) Abdominal pain Current Visit: Yes Status: Acute Plan to address problem: Resolved secondary to constipation. (3) Blood loss anemia Current Visit: No Status: Acute Plan to address problem: Patient with acute GI blood loss anemia. Appreciate GI note. Patient seems to have a more appropriate response to transfusion this time. Patient hemoglobin 7.9 will follow-up serial CBC in the a.m. patient scheduled to have a bleeding scan pending. If no active bleeding we'll discharge home. Patient extensive workup for GI blood loss anemia. Last including sclerotherapy. The patient developed another bleed would transfer to her care center sclerotherapy. (4) Cirrhosis of liver Current Visit: No Status: Chronic Qualifiers: Hepatic cirrhosis type: alcoholic cirrhosis Ascites presence: without ascites Qualified Code(s): K70.30 - Alcoholic cirrhosis of liver without ascites Plan to address problem: Liver function tests stable no evidence of hepatic encephalopathy. History Interval history: Patient states now he did not have any blood in his stool the past 2 bowel movements. He stated there was soft and normal. Patient complains only of leg pain that is chronic. Hospitalist Physical - Constitutional Vitals: Temp Pulse Resp BP Pulse Ox 98.3 F 89 19 136/76 99 07/28/17 08:10 07/28/17 08:10 07/28/17 08:10 07/28/17 08:10 07/28/17 08:10 General appearance: Present: no acute distress, well-nourished - EENT Eyes: Present: PERRL, EOM intact ENT: hearing intact, clear oral mucosa, dentition normal - Respiratory Respiratory effort: normal Respiratory: bilateral: wheezing - Cardiovascular Rhythm: regular (mild wheezing bilaterally) Heart Sounds: Present: S1 & S2 - Extremities Extremities: no ischemia, pulses intact, pulses symmetrical, normal temperature , normal color, Full ROM Extremity abnormal: edema Peripheral Pulses: within normal limits - Abdominal General gastrointestinal: soft, tender, normal bowel sounds, other (obese) - Integumentary Integumentary: Present: clear, dry - Psychiatric Psychiatric: appropriate mood/affect, intact judgment & insight - Neurologic Neurologic: CNII-XII intact, moves all extremities Results - Labs CBC & Chem 7: 07/28/17 13:53 07/28/17 13:53 Labs: Laboratory Last Values WBC 9.9 K/mm3 (4.5-11.0) 07/28/17 13:53 RBC 2.63 M/mm3 (3.65-5.03) L 07/28/17 13:53 Hgb 7.6 gm/dl (11.8-15.2) L 07/28/17 13:53 Hct 23.3 % (35.5-45.6) L 07/28/17 13:53 MCV 89 fl (84-94) 07/28/17 13:53 MCH 29 pg (28-32) 07/28/17 13:53 MCHC 33 % (32-34) 07/28/17 13:53 RDW 17.6 % (13.2-15.2) H 07/28/17 13:53 Plt Count 259 K/mm3 (140-440) 07/28/17 13:53 Lymph % (Auto) 7.4 % (13.4-35.0) L 07/28/17 13:53 [place] % (Auto) 7.8 % (0.0-7.3) H 07/28/17 13:53 Eos % (Auto) 2.8 % (0.0-4.3) 07/28/17 13:53 Baso % (Auto) 0.6 % (0.0-1.8) 07/28/17 13:53 Lymph # 0.7 K/mm3 (1.2-5.4) L 07/28/17 13:53 [place] # 0.8 K/mm3 (0.0-0.8) 07/28/17 13:53 Eos # 0.3 K/mm3 (0.0-0.4) 07/28/17 13:53 Baso # 0.1 K/mm3 (0.0-0.1) 07/28/17 13:53 Add Manual Diff TNR 07/25/17 17:46 Seg Neutrophils % 81.4 % (40.0-70.0) H 07/28/17 13:53 Seg Neutrophils # 8.1 K/mm3 (1.8-7.7) H 07/28/17 13:53 Sodium 136 mmol/L (137-145) L 07/28/17 13:53 Potassium 3.3 mmol/L (3.6-5.0) L 07/28/17 13:53 Chloride 97.3 mmol/L (98-107) L 07/28/17 13:53 Carbon Dioxide 27 mmol/L (22-30) 07/28/17 13:53 Anion Gap 15 mmol/L 07/28/17 13:53 BUN 4 mg/dL (9-20) L 07/28/17 13:53 Creatinine 0.5 mg/dL (0.8-1.5) L 07/28/17 13:53 Estimated GFR > 60 ml/min 07/28/17 13:53 BUN/Creatinine Ratio 8 % 07/28/17 13:53 Glucose 99 mg/dL (75-100) 07/28/17 13:53 Calcium 7.6 mg/dL (8.4-10.2) L 07/28/17 13:53 Total Bilirubin 1.10 mg/dL (0.1-1.2) 07/28/17 13:53 Direct Bilirubin 0.3 mg/dL (0-0.2) H 07/25/17 17:46 Indirect Bilirubin 0.3 mg/dL 07/25/17 17:46 AST 46 units/L (5-40) H 07/28/17 13:53 ALT 15 units/L (7-56) 07/28/17 13:53 Alkaline Phosphatase 156 units/L (35-129) H 07/28/17 13:53 Total Creatine Kinase 54 units/L (55-170) L 07/27/17 09:26 CK-MB (CK-2) 1.7 ng/mL (0.0-4.0) 07/27/17 09:26 CK-MB (CK-2) Rel Index 3.1 (0-4) 07/27/17 09:26 Troponin T < 0.010 ng/mL (0.00-0.029) 07/27/17 09:26 NT-Pro-B Natriuret Pep 371.0 pg/mL (0-900) 07/25/17 17:46 Total Protein 6.4 g/dL (6.3-8.2) 07/28/17 13:53 Albumin 2.0 g/dL (3.9-5) L 07/28/17 13:53 Albumin/Globulin Ratio 0.5 % 07/28/17 13:53 Blood Type O POSITIVE 07/25/17 21:20 Antibody Screen Negative 07/25/17 21:20 Crossmatch See Detail 07/25/17 21:20
[2017-07-28] MEDS ORDERED: MILK OF MAGNESIA PO PRN (21:06)
[2017-07-29] MEDS ORDERED: CEPHULAC PO ONE (02:00)
--- NOTE | 2017-07-29 15:35 | Progress Note ---
Assessment and Plan (1) Hypokalemia Current Visit: Yes Status: Acute Plan to address problem: Replace with by mouth potassium (2) Abdominal pain Current Visit: Yes Status: Acute Plan to address problem: Resolved secondary to constipation. (3) Blood loss anemia Current Visit: No Status: Acute Plan to address problem: Patient with acute GI blood loss anemia. GI following, Hb was 4.0 on admission s/p 5 units of PRBc transfusion Hb 7.6 today s/p RBC scan today, showed no site of active bleeding cont to monitor h/H, if stable likely d/c tomorrow (4) Cirrhosis of liver Current Visit: No Status: Chronic Qualifiers: Hepatic cirrhosis type: alcoholic cirrhosis Ascites presence: without ascites Qualified Code(s): K70.30 - Alcoholic cirrhosis of liver without ascites Plan to address problem: Liver function tests stable no evidence of hepatic encephalopathy. Subjective Date of service: 07/29/17 Principal diagnosis: Acute blood loss anemia Interval history: pt seen and examined No new episode of bloody BM or hematemesis Objective - Constitutional Vitals: Vital Signs - 12hr 07/29/17 07/29/17 08:06 08:50 Temperature 98.7 F Pulse Rate 91 H Respiratory 19 16 Rate Blood Pressure 119/65 O2 Sat by Pulse 100 Oximetry General appearance: Present: no acute distress, well-nourished - EENT Eyes: PERRL, EOM intact ENT: hearing intact, clear oral mucosa Ears: bilateral: normal - Neck Neck: supple, normal ROM - Respiratory Respiratory effort: normal Respiratory: bilateral: CTA - Cardiovascular Rhythm: regular Heart Sounds: Present: S1 & S2. Absent: gallop, rub Extremities: pulses intact, No edema, normal color, Full ROM - Gastrointestinal General gastrointestinal: Present: soft, non-tender, normal bowel sounds, other (surgical incision inplace, obese) - Genitourinary Male genitourinary: normal - Integumentary Integumentary: clear, warm, dry - Musculoskeletal Musculoskeletal: 1, strength equal bilaterally - Neurologic Neurologic: moves all extremities - Psychiatric Psychiatric: memory intact, appropriate mood/affect, intact judgment & insight - Labs CBC & Chem 7: 07/30/17 05:34 07/30/17 05:34
--- NOTE | 2017-07-29 16:17 | Gastroenterology Progress Note ---
Assessment and Plan 1. Acute on chronic anemia 2. History of obscure overt gi bleeding -no overt gi bleeding and tagged rbc scan negative. pt felt to have small bowel source of bleed based on prior work-up. if he remains stable, can be discharged soon. would need balloon enteroscopy if this has not been done prior (? pill cam given prior abdominal surgeries and risks). Subjective Date of service: 07/29/17 Principal diagnosis: acute on chronic anemia Interval history: pt seen and examined. no new complaints, denies overt gi bleeding. no abd pain , tolerating po Objective - Exam Narrative Exam: Gen: nad, obese male cv: rrr Lungs: ctab Abd; multiple abd surgeries/hernias, nt, +bs - Constitutional Vitals: Temp Pulse Resp BP Pulse Ox 98.7 F 91 H 16 119/65 100 07/29/17 08:06 07/29/17 08:06 07/29/17 08:50 07/29/17 08:06 07/29/17 08:06 - Labs CBC & Chem 7: 07/28/17 13:53 07/28/17 13:53 - Imaging Bleeding Scan: report reviewed
[2017-07-29] MEDS: SODIUM CHLORIDE FLUSH SYRINGE 10 ML IV SCH (16:26)
[2017-07-29] MEDS: PERCOCET 5/325 PO PRN (21:03)
[2017-07-30] MEDS: SODIUM CHLORIDE FLUSH SYRINGE 10 ML IV SCH ×2 (01:01→14:42)
[2017-07-30 06:59] LABS: Basophils % (Auto) 0.4 % (0.0-1.8); Eosinophils # (Auto) 0.3 K/mm3 (0.0-0.4); Eosinophils % (Auto) 2.4 % (0.0-4.3); Hematocrit 21.3 % (35.5-45.6); Hemoglobin 7.1 gm/dl (11.8-15.2); Lymphocytes # (Auto) 0.9 K/mm3 (1.2-5.4); Lymphocytes % (Auto) 7.9 % (13.4-35.0); Mean Corpuscular HGB Conc 33 % (32-34); Mean Corpuscular Hemoglobin 30 pg (28-32); Mean Corpuscular Volume 89 fl (84-94); Monocytes # (Auto) 0.9 K/mm3 (0.0-0.8); Monocytes % (Auto) 7.9 % (0.0-7.3); Platelet Count 241 K/mm3 (140-440); Red Blood Count 2.39 M/mm3 (3.65-5.03); Red Cell Distribution Width 18.1 % (13.2-15.2)
[2017-07-30 07:16] LABS: BUN/Creatinine Ratio 8; Blood Urea Nitrogen 3 mg/dL (9-20); Calcium 7.6 mg/dL (8.4-10.2); Hemolysis Index 2
--- NOTE | 2017-07-30 11:28 | Discharge Summary ---
Providers - Providers Date of Admission: 07/26/17 01:43 Date of discharge: 07/30/17 Attending physician: ELIAS HOYOS 07/27/17 17:50 Consult to Physician [CONS] Routine Comment: Consulting Provider: SANTIAGO LUNA Physician Instructions: Reason For Exam: gi BLEED Primary care physician: HOSE TUBING BACKER Hospitalization Condition: Serious Hospital course: Patient is a 52 y/o male with PMH of HTN, PUD and multiple abdominal surgeries post trauma in 2013 who had multiple previous hospitalizations for GI bleeding, had an extensive workup in the last year including multiple scopes, bleeding scans, CTA A/P, and a single balloon enteroscopy at [facility] which were not able to identify a source of bleeding but presumed to be small bowel in nature. He was finally transferred to [place] in November where he underwent a sclerotherapy procedure by IR for a submucosal serpiginous lesion in the small bowel. He presented this admission to ED with c/o leg pain, dizziness, and SOB and was found to be severely anemia with H/H 4.0/13.1. He denied any active signs of bleeding such as hematemesis, melena, or hematochezia. Abd CT was negative. He was transfused 5 units of PRBc. GI was consulted, had tagged RBC scan and that was negative. H/H was monitored and remained stable. He was discharged home in stable condition with out patient follow up at GI clinic. Discharge diagnosis and management: (1) Hypokalemia Current Visit: Yes Status: Acute Plan to address problem: Replace with by mouth potassium (2) Abdominal pain Current Visit: Yes Status: Acute Plan to address problem: Resolved secondary to constipation. (3) Blood loss anemia Current Visit: No Status: Acute Plan to address problem: Patient with acute GI blood loss anemia. GI following, Hb was 4.0 on admission s/p 5 units of PRBc transfusion Hb 7.6 today s/p tagged RBC scan, showed no site of active bleeding Monitored h/H, f/u outpt with Gi in one week (4) Cirrhosis of liver Current Visit: No Status: Chronic Qualifiers: Hepatic cirrhosis type: alcoholic cirrhosis Ascites presence: without ascites Qualified Code(s): K70.30 - Alcoholic cirrhosis of liver without ascites Plan to address problem: Liver function tests stable no evidence of hepatic encephalopathy. Disposition: TO HOME OR SELFCARE Time spent for discharge: 32 minutes Core Measure Documentation - Palliative Care Palliative Care/ Comfort Measures: Not Applicable - Core Measures Any of the following diagnoses?: none Exam - Constitutional Vitals: Temp Pulse Resp BP Pulse Ox 98.1 F 92 H 20 120/64 97 07/30/17 07:47 07/29/17 21:40 07/30/17 07:47 07/30/17 07:47 07/29/17 21:40 Plan Activity: advance as tolerated Weight Bearing Status: Weight Bear as Tolerated Diet: regular Additional Instructions: f/u @ [place] to ablate small bowel varices by IR Follow up with: PRIMARY CARE, [Primary Care Provider] - 3-5 Days Prescriptions: Ferrous Sulfate [Feosol 325 MG tab] 325 mg PO BID #60 tablet Pantoprazole [Protonix TAB] 40 mg PO BID #60 tablet
--- NOTE | 2017-07-30 13:50 | Progress Note ---
Assessment and Plan 1. Anemia - likely due to GI bleed. No wolf GI bleed. Okay to D/C from our standpoint if stable. - if lower, recheck stool for occult blood. He was negative for occult blood on admission. Subjective Date of service: 07/30/17 Principal diagnosis: Acute blood loss anemia Interval history: Pt denies wolf GI bleed. States he came to hospital due to heaviness in legs, not for GI problems. Objective - Constitutional Vitals: Vital Signs - 12hr 07/30/17 07:47 Temperature 98.1 F Respiratory 20 Rate Blood Pressure 120/64 General appearance: Present: no acute distress - EENT Eyes: PERRL, EOM intact ENT: hearing intact - Respiratory Respiratory effort: normal - Gastrointestinal General gastrointestinal: Present: other (Obese, soft, mild tenderness) - Labs CBC & Chem 7: 07/30/17 05:34 07/30/17 05:34 Labs: Abnormal lab results 07/30/17 07/30/17 Range/Units 05:34 05:34 RBC 2.39 L (3.65-5.03) M/mm3 Hgb 7.1 L (11.8-15.2) gm/dl Hct 21.3 L (35.5-45.6) % RDW 18.1 H (13.2-15.2) % Lymph % (Auto) 7.9 L (13.4-35.0) % King % (Auto) 7.9 H (0.0-7.3) % Lymph # 0.9 L (1.2-5.4) K/mm3 King # 0.9 H (0.0-0.8) K/mm3 Seg Neutrophils % 81.4 H (40.0-70.0) % Seg Neutrophils # 8.8 H (1.8-7.7) K/mm3 Sodium 135 L (137-145) mmol/L Potassium 3.5 L (3.6-5.0) mmol/L BUN 3 L (9-20) mg/dL Creatinine 0.4 L (0.8-1.5) mg/dL Calcium 7.6 L (8.4-10.2) mg/dL
[2017-07-30] MEDS ORDERED: K-DUR PO ONE (14:00)
[2017-07-30 14:27] VITALS: BP 129/82
[2017-07-30 15:03] LABS: Hematocrit 22.7 % (35.5-45.6); Hemoglobin 7.4 gm/dl (11.8-15.2)
== END 2017-07-30 17:15 | disposition home or self-care (01) | DRG 812 ==
LOC: ED 16:27 → 3A 07-26 01:43
PROVIDERS: ADMIT Internal Medicine; ATTEND Internal Medicine
PROC: 30233N1 Transfusion of Nonautologous Red Blood Cells into Peripheral Vein, Percutaneous Approach (ICD-10-PCS; principal; 2017-07-26)
DX: D62 Acute posthemorrhagic anemia (principal); K92.2 Gastrointestinal hemorrhage, unspecified; Z68.41 Body mass index [BMI] 40.0-44.9, adult; F10.10 Alcohol abuse, uncomplicated; K74.60 Unspecified cirrhosis of liver; E87.6 Hypokalemia; E66.9 Obesity, unspecified; R07.89 Other chest pain; I10 Essential (primary) hypertension; Z60.2 Problems related to living alone; Z87.11 Personal history of peptic ulcer disease; Z82.49 Family history of ischemic heart disease and other diseases of the circulatory system; Z59.0 Homelessness
CPT/HCPCS: 36415; 71046; 74176; 78278; 80048; 80053; 80074; 82271; 82550; 82553; 83880; 84484; 85014; 85018; 85025; 86850; 86900; 86901; 86920; 93005; 93010; 99285; A9560; J1642; J7030; J7040; P9016

== ENCOUNTER 2017-08-16 21:30 | Inpatient (IN) | payer OTHER ==
[2017-08-16] MEDS ORDERED: NACL 0.9% 1000 ML 1,000 ML IV ONE (21:34)
[2017-08-16 22:15] LABS: Basophils % (Auto) 0.4 % (0.0-1.8); Eosinophils # (Auto) 0.1 K/mm3 (0.0-0.4); Eosinophils % (Auto) 0.8 % (0.0-4.3); Lymphocytes # (Auto) 1.1 K/mm3 (1.2-5.4); Lymphocytes % (Auto) 14.4 % (13.4-35.0); Mean Corpuscular HGB Conc 32 % (32-34); Mean Corpuscular Hemoglobin 28 pg (28-32); Mean Corpuscular Volume 87 fl (84-94); Monocytes # (Auto) 0.6 K/mm3 (0.0-0.8); Monocytes % (Auto) 8.2 % (0.0-7.3); Platelet Count 184 K/mm3 (140-440); Red Blood Count 1.79 M/mm3 (3.65-5.03); Red Cell Distribution Width 19.3 % (13.2-15.2)
[2017-08-16 22:24] LABS: Hematocrit 15.6 % (35.5-45.6)
[2017-08-16 22:33] LABS: Alanine Aminotransferase 11 units/L (7-56); Albumin 2.6 g/dL (3.9-5); BUN/Creatinine Ratio 15; Blood Urea Nitrogen 9 mg/dL (9-20); Calcium 7.8 mg/dL (8.4-10.2); Hemolysis Index 0
[2017-08-16] MEDS ORDERED: PROTONIX IV ONE (22:46)
[2017-08-16] MEDS ORDERED: NACL 0.9% 500 ML 500 ML IV ONE (22:47)
[2017-08-16 23:46] LABS: Bilirubin,Urine NEG (Negative); Blood,Urine SM (Negative); Color,Urine Yellow (Yellow); Mucus,Urine FEW /HPF; Protein,Urine <15 mg/dL mg/dL (Negative); Urobilinogen,Urine < 2.0 mg/dL (<2.0)
--- NOTE | 2017-08-17 00:38 | Cat Scan Report ---
FINAL REPORT PROCEDURE: CT ABDOMEN PELVIS W CON TECHNIQUE: Computerized axial tomography of the abdomen and pelvis was performed after the IV injection of iodinated nonionic contrast. HISTORY: Abd pain, GI Bleeding COMPARISON: 07/25/2017 FINDINGS: Visualized lower thorax: No significant abnormality. Liver: Normal size and attenuation. Spleen: Spleen is enlarged but stable. Gallbladder and biliary system: The gallbladder is slightly prominent size. No stones are identified on this study. No dilatation of the biliary ductal system.. Pancreas: Normal. Adrenals: Normal. Kidneys: Both kidneys have a normal size. No hydronephrosis. No renal stones or masses. GI tract: Stomach is normal. The small bowel has a normal caliber without obstruction. No ileus or enteritis. The cecum, appendix and colon are normal.. Lymph nodes and mesentery: There are some scattered small lymph nodes identified in the abdomen.. Vasculature: Normal. Bladder: Normal. Reproductive organs: Normal. Peritoneum: No free fluid. Musculoskeletal structures: Moderate degenerative changes of the thoracic and lumbar spine. Other: There is some tissue thickening along the mid anterior abdominal wall, this is most consistent with scar formation from previous surgical intervention. Diastasis of the rectus muscle is noted.. IMPRESSION: Mild splenomegaly is unchanged. Distention of the gallbladder lumen is noted. No dilatation of the biliary ductal system. There is no evidence of intestinal or urinary tract obstruction.
[2017-08-17] MEDS ORDERED: ZOFRAN IV PRN (02:03)
[2017-08-17] MEDS ORDERED: TYLENOL PO PRN (02:03)
[2017-08-17] MEDS ORDERED: ATIVAN IV PRN (02:04)
--- NOTE | 2017-08-17 02:05 | History and Physical Report ---
History of Present Illness Date of examination: 08/17/17 History of present illness: 52-year-old man with a history of cirrhosis, anemia comes emergency room for evaluation vomiting brown material today, a total of 5 times. Also stated he had melena and abdominal pain, but unable to give details , Very difficult to obtain history from patient, ROS is unobtainable. He had extensive workup by GI for anemia, no source of bleeding found PAST MEDICAL HISTORY: cirrhosis PAST SURGICAL HISTORY: Several abdominal surgeries SOCIAL HISTORY: He denies a alcohol, tobacco, drugs FAMILY HISTORY: Hypertension Medications and Allergies Allergies Allergy/AdvReac Type Severity Reaction Status Date / Time No Known Allergies Allergy Verified 06/02/16 08:50 Home Medications Medication Instructions Recorded Confirmed Last Taken Type Ferrous Sulfate [Feosol 325 MG tab] 325 mg PO BID #60 tablet 07/30/17 08/17/17 Unknown Rx Pantoprazole [Protonix TAB] 40 mg PO BID #60 tablet 07/30/17 08/17/17 Unknown Rx Active Meds: Active Medications Acetaminophen (Tylenol) 650 mg PO Q4H PRN PRN Reason: Pain MILD(1-3)/Fever >100.5/PINA Ondansetron HCl (Zofran) 4 mg IV Q4H PRN PRN Reason: Nausea And Vomiting Pantoprazole Sodium (Protonix) 40 mg PO QDAY ONE Stop: 08/17/17 10:01 Sodium Chloride (Sodium Chloride Flush Syringe 10 Ml) 10 ml IV BID MACARIO Sodium Chloride (Sodium Chloride Flush Syringe 10 Ml) 10 ml IV PRN PRN PRN Reason: LINE FLUSH Exam - Physical Exam Narrative exam: Gen. appearance: Patient lying in bed, no apparent distress HEENT: Normocephalic, atraumatic, pupils equally round and reactive to light, extraocular movement intact, and no sclericterus,. No JVD or thyromegaly or nodule,neck supple, no carotid bruit ,mucous membranes moist, no exudate or erythema Heart: S1, S2, regular rate and rhythm Lungs: Clear to auscultation bilaterally, breathing comfortable Abdomen: Positive bowel sounds, nontender, nondistended, no organomegaly Extremity: +edema, no cyanosis, clubbing Skin: No rash, nodules, warm, dry Neuro: Oriented 3, cranial nerves II-12 intact, speech is fluent, motor and sensory intact - Constitutional Vitals: Temp Pulse Resp BP Pulse Ox 98.4 F 99 H 24 120/79 98 08/17/17 01:17 08/17/17 01:47 08/17/17 01:47 08/17/17 01:47 08/17/17 01:47 Results - Labs CBC & Chem 7: 08/16/17 21:47 08/16/17 21:47 Labs: Abnormal lab results 08/16/17 08/16/17 08/16/17 Range/Units 21:47 21:47 21:47 RBC 1.79 L (3.65-5.03) M/mm3 Hgb 5.0 L* (11.8-15.2) gm/dl Hct 15.6 L* (35.5-45.6) % RDW 19.3 H (13.2-15.2) % [place] % (Auto) 8.2 H (0.0-7.3) % Lymph # 1.1 L (1.2-5.4) K/mm3 Seg Neutrophils % 76.2 H (40.0-70.0) % Creatinine 0.6 L (0.8-1.5) mg/dL Glucose 113 H (75-100) mg/dL Calcium 7.8 L (8.4-10.2) mg/dL AST 47 H (5-40) units/L Alkaline Phosphatase 145 H (35-129) units/L Albumin 2.6 L (3.9-5) g/dL Plasma/Serum Alcohol 0.17 H (0-0.07) % Crossmatch 08/16/17 Range/Units 22:58 RBC (3.65-5.03) M/mm3 Hgb (11.8-15.2) gm/dl Hct (35.5-45.6) % RDW (13.2-15.2) % [place] % (Auto) (0.0-7.3) % Lymph # (1.2-5.4) K/mm3 Seg Neutrophils % (40.0-70.0) % Creatinine (0.8-1.5) mg/dL Glucose (75-100) mg/dL Calcium (8.4-10.2) mg/dL AST (5-40) units/L Alkaline Phosphatase (35-129) units/L Albumin (3.9-5) g/dL Plasma/Serum Alcohol (0-0.07) % Crossmatch See Detail - Imaging and Cardiology CT scan - abdomen: report reviewed CT scan - pelvis: report reviewed Assessment and Plan Assessment GIB Blood loss anemia, acute on chronic Cirrhosis Alcohol Abuse and intoxication Plan Admit to medicine Transfuse packed red blood cells consult GI Continue appropriate outpatient medications Start CIWA protocol with IV ativan DVT prophylaxis
--- NOTE | 2017-08-17 02:10 | Emergency Department Report ---
HPI - General Chief Complaint: Abdominal Pain Time Seen by Provider: 08/16/17 22:40 - HPI HPI: 52-year-old male presents to the emergency department with complaint of generalized abdominal pain, vomiting with some blood in it and rectal bleeding that is both dark black and bright red at different points. The patient has a history of significant anemia and previous GI bleeds and has been to [facility] multiple times in the past, including 2 weeks ago, for similar symptoms. He has had CT scans of the abdomen and pelvis, a tagged RBC scan, and there has been no obvious source of the bleed found. He has required transfusions in the past. He denies having a primary care physician or administrative project coordinator. The patient presents with elevated alcohol level but denies drinking today and says he drank yesterday for some months birthdate. There is a listing in the chart for some history of alcohol abuse. He also has a history of some type of abdominal surgeries in the past including what appears to be the reversal of a colostomy. ED Past Medical Hx - Past Medical History Hx Hypertension: No Hx Heart Attack/AMI: No Hx Congestive Heart Failure: No Hx Diabetes: No Hx Deep Vein Thrombosis: No Hx Liver Disease: Yes Hx Sickle Cell Disease: No Hx Asthma: No Hx COPD: No Hx Tuberculosis: No Hx HIV: No Additional medical history: ETOH ABUSE,. ABD ULCERS, Anemia - Surgical History Hx Coronary Stent: No Hx Pacemaker: No Hx Internal Defibrillator: No Additional Surgical History: ABD SURGERIES AND ABD MESH AND POSS PLASTIC, reversal of colostomy - Social History Smoking Status: Never Smoker Substance Use Type: Alcohol - Medications Home Medications: Home Medications Medication Instructions Recorded Confirmed Last Taken Type Ferrous Sulfate [Feosol 325 MG tab] 325 mg PO BID #60 tablet 07/30/17 08/17/17 Unknown Rx Pantoprazole [Protonix TAB] 40 mg PO BID #60 tablet 07/30/17 08/17/17 Unknown Rx ED Review of Systems ROS: Stated complaint: ABD PAIN Other details as noted in HPI Comment: All other systems reviewed and negative Constitutional: denies: chills, fever Eyes: denies: eye pain, eye discharge, vision change ENT: denies: ear pain, throat pain Respiratory: denies: cough, shortness of breath, wheezing Cardiovascular: denies: chest pain, palpitations Gastrointestinal: abdominal pain, nausea, vomiting, hematemesis, melena Genitourinary: denies: urgency, dysuria Musculoskeletal: denies: back pain, joint swelling, arthralgia Skin: denies: rash, lesions Neurological: denies: headache, weakness, paresthesias Physical Exam - Physical Exam Vital Signs: Vital Signs 08/16/17 08/16/17 08/17/17 21:35 23:51 00:13 Temperature 98.1 F 98.7 F Pulse Rate 107 H 98 H Respiratory 16 20 20 Rate Blood Pressure 115/70 119/72 Blood Pressure 119/72 [Right] O2 Sat by Pulse 96 96 Oximetry 08/17/17 08/17/17 08/17/17 01:02 01:17 01:47 Temperature 98.4 F 98.4 F Pulse Rate 100 H 95 H 99 H Respiratory 22 22 24 Rate Blood Pressure 114/64 114/67 120/79 Blood Pressure [Right] O2 Sat by Pulse 100 98 98 Oximetry Physical Exam: GENERAL: The patient is well-developed well-nourished. HENT: Normocephalic. Atraumatic. Patient has moist mucous membranes. EYES: Extraocular motions are intact. Pupils equal reactive to light bilaterally. NECK: Supple. Trachea is midline. CHEST/LUNGS: Clear to auscultation. There is no respiratory distress noted. HEART/CARDIOVASCULAR: Regular. There is no tachycardia. There is no murmur. ABDOMEN: Abdomen is soft mild generalized tenderness to palpation of the abdomen. Patient has normal bowel sounds. There is mild abdominal distention. SKIN: Skin is warm and dry. NEURO: The patient is awake, alert. The patient is cooperative. The patient has no focal neurologic deficits. The patient has normal speech. MUSCULOSKELETAL: There is no tenderness or deformity. There is no limitation range of motion. There is no evidence of acute injury. RECTAL: Good rectal tone. Gross blood seen. Stool is positive on guaiac testing. No melanotic stool seen. ED Course Vital Signs 08/16/17 08/16/17 08/17/17 21:35 23:51 00:13 Temperature 98.1 F 98.7 F Pulse Rate 107 H 98 H Respiratory 16 20 20 Rate Blood Pressure 115/70 119/72 Blood Pressure 119/72 [Right] O2 Sat by Pulse 96 96 Oximetry 08/17/17 08/17/17 08/17/17 01:02 01:17 01:47 Temperature 98.4 F 98.4 F Pulse Rate 100 H 95 H 99 H Respiratory 22 22 24 Rate Blood Pressure 114/64 114/67 120/79 Blood Pressure [Right] O2 Sat by Pulse 100 98 98 Oximetry - Consultations Consultation #1: I spoke with the administrative project coordinator micropaleontologist, Dr. peralta, who is familiar with this patient from one of his previous visits. Based on the information given to Dr. peralta about today's presentation, he recommends giving Protonix 40 mg once daily and the patient can be on a regular diet for the rest of today as the patient will not receive any type of endoscopy or colonoscopy today that they will see him as a consult. 08/17/17 02:13 ED Medical Decision Making - Lab Data Result diagrams: 08/16/17 21:47 08/16/17 21:47 - EKG Data -: EKG Interpreted by Me EKG shows normal: sinus rhythm, axis, intervals (prolonged QTC), QRS complexes ( right bundle crescencio block and left anterior fascicular block), ST-T waves Rate: tachycardia (105 bpm) - EKG Data When compared to previous EKG there are: previous EKG unavailable Interpretation: other (sinus tachycardia at 105 bpm, right bundle branch block, left anterior fascicular block) - Radiology Data Radiology results: report reviewed PROCEDURE: CT ABDOMEN PELVIS W CON TECHNIQUE: Computerized axial tomography of the abdomen and pelvis was performed after the IV injection of iodinated nonionic contrast. HISTORY: Abd pain, GI Bleeding COMPARISON: 07/25/2017 FINDINGS: Visualized lower thorax: No significant abnormality. Liver: Normal size and attenuation. Spleen: Spleen is enlarged but stable. Gallbladder and biliary system: The gallbladder is slightly prominent size. No stones are identified on this study. No dilatation of the biliary ductal system.. Pancreas : Normal. Adrenals: Normal. Kidneys: Both kidneys have a normal size. No hydronephrosis. No renal stones or masses. GI tract: Stomach is normal. The small bowel has a normal caliber without obstruction. No ileus or enteritis. The cecum, appendix and colon are normal.. Lymph nodes and mesentery: There are some scattered small lymph nodes identified in the abdomen.. Vasculature: Normal. Bladder: Normal. Reproductive organs: Normal. Peritoneum: No free fluid. Musculoskeletal structures: Moderate degenerative changes of the thoracic and lumbar spine. Other: There is some tissue thickening along the mid anterior abdominal wall, this is most consistent with scar formation from previous surgical intervention. Diastasis of the rectus muscle is noted.. IMPRESSION: Mild splenomegaly is unchanged. Distention of the gallbladder lumen is noted. No dilatation of the biliary ductal system. There is no evidence of intestinal or urinary tract obstruction. Transcribed By: [facility] Dictated By: BRIJESH KENNY MD Electronically Authenticated By: BRIJESH KENNY MD Signed Date/Time: 08/17/17 0033 - Medical Decision Making The patient presents with a complaint of rectal bleeding that is both melanotic and bright red at different points. He also mentions something about vomiting with some blood seen in side. He does have a history of GI bleeds in the past. He presents with a hemoglobin of 5. 3 units of packed red blood cells were ordered for the patient. CT scan of the abdomen and pelvis did not show any source of bleeding or any other acute process that would explain the etiology of his symptoms. Vital signs stable throughout his ED course. The patient has a blood alcohol level of 0.17 despite denying drinking any alcohol this evening. Gastroenterology has been contacted and is aware of the patient's presentation and they will consult on the patient. Patient will be admitted to the hospital and has been accepted for admission by Dr. Pittman. - Differential Diagnosis gastric or duodenal ulcer, esophagitis, hemorrhoids Critical Care Time: No Critical care attestation.: If time is entered above; I have spent that time in minutes in the direct care of this critically ill patient, excluding procedure time. ED Disposition Clinical Impression: GI bleeding Qualifiers: GI bleed type/associated pathology: unspecified gastrointestinal hemorrhage type Qualified Code(s): K92.2 - Gastrointestinal hemorrhage, unspecified Anemia Qualifiers: Anemia type: iron deficiency Iron deficiency anemia type: chronic blood loss Qualified Code(s): D50.0 - Iron deficiency anemia secondary to blood loss ( chronic) Abdominal pain Qualifiers: Abdominal location: unspecified location Qualified Code(s): R10.9 - Unspecified abdominal pain Alcohol intoxication Qualifiers: Complication of substance-induced condition: uncomplicated Qualified Code(s): F10.920 - Alcohol use, unspecified with intoxication, uncomplicated Disposition: -09 OP ADMIT IP TO THIS HOSP Is pt being admited?: Yes Condition: Fair Referrals: PRIMARY CARE, [Primary Care Provider] - 3-5 Days Time of Disposition: 02:18
[2017-08-17] MEDS ORDERED: NACL 0.9% 500 ML 500 ML IV SCH (05:00)
[2017-08-17] MEDS: ATIVAN IV PRN ×3 (05:42→22:51)
[2017-08-17] MEDS: SODIUM CHLORIDE FLUSH SYRINGE 10 ML IV PRN ×2 (05:43→22:50)
--- NOTE | 2017-08-17 09:24 | Event Note ---
Date: 08/17/17 52-year-old male patient well known to our service multiple admissions in the past Was admitted early this morning with severe GI bleeding, acute blood loss anemia with hemoglobin of 5 Receiving blood transfusion, pending GI evaluation Patient seen and evaluated medical records reviewed Agree with the current management Admitting diagnosis; Assessment; --Acute GI bleeding --Acute blood loss anemia requiring blood transfusion --History of acute gastritis --Recurrent episodes of GI bleeding --Multiple units of PRBC transfusion in the past --Cirrhosis liver --Chronic alcohol use --Acute alcohol intoxication this admission --Watch for alcohol withdrawal symptoms --Severe malnutrition. Plan; Continue current management Follow GI evaluation and recommendations DC planning. Case management Recommend alcohol detox/rehabilitation upon discharge
[2017-08-17] MEDS ORDERED: PROTONIX PO ONE (10:00)
[2017-08-17] MEDS: FOLVITE PO SCH (11:03)
[2017-08-17] MEDS: FEOSOL PO SCH ×2 (11:03→22:54)
[2017-08-17] MEDS: VITAMIN B-1 PO SCH (11:04)
[2017-08-17] MEDS: SODIUM CHLORIDE FLUSH SYRINGE 10 ML IV SCH ×2 (11:04→22:50)
--- NOTE | 2017-08-17 16:45 | Gastroenterology Consultation ---
History of Present Illness - Reason for Consult Consult date: 08/17/17 [place] Requesting physician: MAGGIE MURDOCK - History of Present Illness The patient is well known to our service from cryptogenic GI bleeding. He has had an extensive w/u (see A/P below). He returns to the ER about 3 weeks after his last admit, with black stools. He says he had emesis prior to admit, but none now. He denies NSAIDs, but past notes have documented he is an unreliable historian. It is not clear that he is compliant with protonix/MVI therapy. His baseline hgb appears to be about 7-8, and he was admitted with a level of 5. He has no CP/Abdominal pain/SOB currently. Past History Past Medical History: other (Cryptogenic GI bleeding, obesity) Past Surgical History: Other (Temporary colostomy (reversed), partial gastric resection (all 2nd trauma)) Social history: smoking, other (Homeless). denies: alcohol abuse Family history: no significant family history Medications and Allergies Allergies Allergy/AdvReac Type Severity Reaction Status Date / Time No Known Allergies Allergy Verified 06/02/16 08:50 Home Medications Medication Instructions Recorded Confirmed Last Taken Type Ferrous Sulfate [Feosol 325 MG tab] 325 mg PO BID #60 tablet 07/30/17 08/17/17 Unknown Rx Pantoprazole [Protonix TAB] 40 mg PO BID #60 tablet 07/30/17 08/17/17 Unknown Rx Active Meds: Active Medications Acetaminophen (Tylenol) 650 mg PO Q4H PRN PRN Reason: Pain MILD(1-3)/Fever >100.5/PINA Ferrous Sulfate (Feosol) 325 mg PO BID [facility] Last Admin: 08/17/17 11:03 Dose: Not Given Folic Acid (Folvite) 1 mg PO QDAY [facility] Last Admin: 08/17/17 11:03 Dose: Not Given Sodium Chloride (Nacl 0.9% 500 Ml) 500 mls @ 50 mls/hr IV DIRECT [facility] Last Admin: 08/17/17 05:42 Dose: 50 mls/hr Lorazepam (Ativan) 2 mg IV Q1HR PRN PRN Reason: CIWA-Ar 8-15 Last Admin: 08/17/17 13:33 Dose: 2 mg Lorazepam (Ativan) 4 mg IV Q1HR PRN PRN Reason: CIWA-Ar 16-25 Ondansetron HCl (Zofran) 4 mg IV Q4H PRN PRN Reason: Nausea And Vomiting Sodium Chloride (Sodium Chloride Flush Syringe 10 Ml) 10 ml IV BID [facility] Last Admin: 08/17/17 11:04 Dose: Not Given Sodium Chloride (Sodium Chloride Flush Syringe 10 Ml) 10 ml IV PRN PRN PRN Reason: LINE FLUSH Last Admin: 08/17/17 05:43 Dose: 10 ml Thiamine HCl (Vitamin B-1) 100 mg PO QDAY [facility] Last Admin: 08/17/17 11:04 Dose: Not Given REVIEWED AND RECONCILED Review of Systems - Review of Systems All systems: negative (as noted in the HPI.) Exam - Constitutional Vital Signs: Temp Pulse Resp BP Pulse Ox 97.6 F 98 H 16 135/88 99 08/17/17 11:30 08/17/17 11:38 08/17/17 11:30 08/17/17 11:30 08/17/17 11:30 General appearance: no acute distress - EENT Eyes: PERRL, EOM intact ENT: hearing intact, clear oral mucosa, poor dentition - Neck Neck: supple, normal ROM - Respiratory Respiratory effort: normal Respiratory: bilateral: CTA - Cardiovascular Rhythm: regular Heart Sounds: Present: S1 & S2 - Gastrointestinal General gastrointestinal: Present: soft, non-tender, non-distended, other ( Surgical Scars well-healed) - Integumentary Integumentary: Present: clear, warm, dry - Neurologic Neurological: alert and oriented x3 - Labs CBC & Chem 7: 08/16/17 21:47 08/16/17 21:47 Lab Results: Laboratory Results - last 24 hr 08/16/17 08/16/17 08/16/17 21:47 21:47 21:47 WBC 7.6 RBC 1.79 L Hgb 5.0 L* Hct 15.6 L* MCV 87 MCH 28 MCHC 32 RDW 19.3 H Plt Count 184 Lymph % (Auto) 14.4 [place] % (Auto) 8.2 H Eos % (Auto) 0.8 Baso % (Auto) 0.4 Lymph # 1.1 L [place] # 0.6 Eos # 0.1 Baso # 0.0 Seg Neutrophils % 76.2 H Seg Neutrophils # 5.8 Sodium 138 Potassium 3.8 Chloride 102.0 Carbon Dioxide 24 Anion Gap 16 BUN 9 Creatinine 0.6 L Estimated GFR > 60 BUN/Creatinine Ratio 15 Glucose 113 H Calcium 7.8 L Total Bilirubin 0.80 AST 47 H ALT 11 Alkaline Phosphatase 145 H Total Protein 7.4 Albumin 2.6 L Albumin/Globulin Ratio 0.5 Urine Color Urine Turbidity Urine pH Ur Specific [place] Urine Protein Urine Glucose (UA) Urine Ketones Urine Blood Urine Nitrite Urine Bilirubin Urine Urobilinogen Ur Leukocyte Esterase Urine WBC (Auto) Urine RBC (Auto) U Epithel Cells (Auto) Urine Mucus Plasma/Serum Alcohol 0.17 H Blood Type Antibody Screen Crossmatch 08/16/17 08/16/17 22:58 Unknown WBC RBC Hgb Hct MCV MCH MCHC RDW Plt Count Lymph % (Auto) [place] % (Auto) Eos % (Auto) Baso % (Auto) Lymph # [place] # Eos # Baso # Seg Neutrophils % Seg Neutrophils # Sodium Potassium Chloride Carbon Dioxide Anion Gap BUN Creatinine Estimated GFR BUN/Creatinine Ratio Glucose Calcium Total Bilirubin AST ALT Alkaline Phosphatase Total Protein Albumin Albumin/Globulin Ratio Urine Color Yellow Urine Turbidity Clear Urine pH 6.0 Ur Specific [place] 1.015 Urine Protein <15 mg/dl Urine Glucose (UA) Neg Urine Ketones Neg Urine Blood Sm Urine Nitrite Neg Urine Bilirubin Neg Urine Urobilinogen < 2.0 Ur Leukocyte Esterase Neg Urine WBC (Auto) 1.0 Urine RBC (Auto) 1.0 U Epithel Cells (Auto) 2.0 Urine Mucus Few Plasma/Serum Alcohol Blood Type O POSITIVE Antibody Screen Negative Crossmatch See Detail Assessment and Plan - Patient Problems (1) GI bleeding Current Visit: Yes Status: Acute Qualifiers: GI bleed type/associated pathology: unspecified gastrointestinal hemorrhage type Qualified Code(s): K92.2 - Gastrointestinal hemorrhage, unspecified Plan to address problem: - >2 year hx of cryptogenic GI bleeding, with extensive negative w/u (EGD/Colons , CTA, Mesenteric Arteriography, Tagged RBC scans). - Would like to have a capsule endoscopy and balloon enteroscopy, but patient non-compliance with f/u makes this difficult. - OK to transfuse 3 units, and advance to regular diet. - Continue daily MVI and protonix. - May d/c home when clinically stable; no plans for repeat endoscopy. - Will sign off for now; please call if needed prior to discharge.
[2017-08-18 06:05] LABS: Basophils % (Auto) 0.3 % (0.0-1.8); Eosinophils # (Auto) 0.1 K/mm3 (0.0-0.4); Eosinophils % (Auto) 0.7 % (0.0-4.3); Hematocrit 22.6 % (35.5-45.6); Hemoglobin 7.5 gm/dl (11.8-15.2); Lymphocytes # (Auto) 0.8 K/mm3 (1.2-5.4); Lymphocytes % (Auto) 6.9 % (13.4-35.0); Mean Corpuscular HGB Conc 33 % (32-34); Mean Corpuscular Hemoglobin 29 pg (28-32); Mean Corpuscular Volume 86 fl (84-94); Monocytes # (Auto) 0.8 K/mm3 (0.0-0.8); Monocytes % (Auto) 6.6 % (0.0-7.3); Platelet Count 187 K/mm3 (140-440); Red Blood Count 2.64 M/mm3 (3.65-5.03); Red Cell Distribution Width 17.4 % (13.2-15.2)
[2017-08-18 06:23] LABS: BUN/Creatinine Ratio 15; Blood Urea Nitrogen 9 mg/dL (9-20); Calcium 8.3 mg/dL (8.4-10.2); Hemolysis Index 6
[2017-08-18 12:54] LABS: Basophils % (Auto) 0.3 % (0.0-1.8); Eosinophils % (Auto) 0.3 % (0.0-4.3); Hematocrit 22.7 % (35.5-45.6); Hemoglobin 7.4 gm/dl (11.8-15.2); Lymphocytes # (Auto) 0.6 K/mm3 (1.2-5.4); Lymphocytes % (Auto) 5.2 % (13.4-35.0); Mean Corpuscular HGB Conc 33 % (32-34); Mean Corpuscular Hemoglobin 28 pg (28-32); Mean Corpuscular Volume 86 fl (84-94); Monocytes # (Auto) 0.7 K/mm3 (0.0-0.8); Monocytes % (Auto) 6.7 % (0.0-7.3); Platelet Count 186 K/mm3 (140-440); Red Blood Count 2.63 M/mm3 (3.65-5.03); Red Cell Distribution Width 17.8 % (13.2-15.2)
[2017-08-18] MEDS ORDERED: CEPHULAC PO PRN (13:00)
[2017-08-18 13:03] LABS: INR 1.2 (0.87-1.13)
--- NOTE | 2017-08-18 13:04 | Progress Note ---
Assessment and Plan Assessment and plan: --Hepatic encephalopathy; Ammonia more than 200, lactulose, supportive care, neurochecks GI following --Acute GI bleeding; new episode of melena this morning Patient had multiple episodes of GI bleeding in the past, extensively evaluated by GI With multiple endoscopies, recommended. Pill endoscopy as outpatient, patient did not follow No indication for endoscopy at this point but GI, closely monitor --Acute blood loss anemia requiring blood transfusion; 3 units of PRBC, hemoglobin improved to 7.4, closely monitor H&H and transfuse additional as needed --History of acute gastritis; IV Protonix and supportive care --Recurrent episodes of GI bleeding; secondary to alcoholic liver disease --Cirrhosis liver; secondary to alcohol use, closely monitor Supportive care, GI following --Chronic alcohol use; counseling strongly advised to quit alcohol intake Patient needs alcohol detoxification/alcoholic rehabilitation upon discharge --Acute alcohol intoxication this admission; closely monitor, time and folic acid --Watch for alcohol withdrawal symptoms; CIWA protocol --Severe malnutrition; nutrition supplements and supportive care when stable --DVT prophylaxis; SCDs, no pharmacologic anticoagulation in view of severe bleeding No family available to discuss the patient's condition They tried to contact family or friends Closely monitor the patient had just the management as needed. Critical care time 35 minutes History Interval history: 52-year-old obese male patient well known to us services With recurrent episodes of GI bleeding secondary to alcohol liver disease and acute gastritis Received 2 units of PRBC yesterday with hemoglobin of 7.4 today Is unresponsive not waking up, in respiratory distress and harsh breathing Code medical was called, resuscitated And also had a large melanotic stool today Patient is unresponsive even to deep stimuli Respiratory distress, harsh breathing Vital signs noted Hospitalist Physical - Constitutional Vitals: Temp Pulse Resp BP Pulse Ox 97.9 F 122 H 20 144/92 100 08/18/17 03:55 08/18/17 10:00 08/18/17 10:00 08/18/17 03:55 08/18/17 10:00 General appearance: Present: severe distress, well-nourished, obese - EENT Eyes: Present: PERRL, EOM intact - Neck Neck: Present: supple, normal ROM - Respiratory Respiratory effort: normal Respiratory: bilateral: diminished, negative: rales, rhonchi, wheezing - Cardiovascular Rhythm: regular Heart Sounds: Present: S1 & S2 - Extremities Extremities: no ischemia Extremity abnormal: edema - Abdominal General gastrointestinal: soft, non-tender, non-distended, normal bowel sounds, other (protuberant ) - Integumentary Integumentary: Present: clear, warm - Psychiatric Psychiatric: other (noncommunicative) - Neurologic Neurologic: other (unresponsive) Results - Labs CBC & Chem 7: 08/18/17 12:43 08/18/17 05:44 Labs: Laboratory Last Values WBC 11.0 K/mm3 (4.5-11.0) 08/18/17 12:43 RBC 2.63 M/mm3 (3.65-5.03) L 08/18/17 12:43 Hgb 7.4 gm/dl (11.8-15.2) L 08/18/17 12:43 Hct 22.7 % (35.5-45.6) L 08/18/17 12:43 MCV 86 fl (84-94) 08/18/17 12:43 MCH 28 pg (28-32) 08/18/17 12:43 MCHC 33 % (32-34) 08/18/17 12:43 RDW 17.8 % (13.2-15.2) H 08/18/17 12:43 Plt Count 186 K/mm3 (140-440) 08/18/17 12:43 Lymph % (Auto) 5.2 % (13.4-35.0) L 08/18/17 12:43 [place] % (Auto) 6.7 % (0.0-7.3) 08/18/17 12:43 Eos % (Auto) 0.3 % (0.0-4.3) 08/18/17 12:43 Baso % (Auto) 0.3 % (0.0-1.8) 08/18/17 12:43 Lymph # 0.6 K/mm3 (1.2-5.4) L 08/18/17 12:43 [place] # 0.7 K/mm3 (0.0-0.8) 08/18/17 12:43 Eos # 0.0 K/mm3 (0.0-0.4) 08/18/17 12:43 Baso # 0.0 K/mm3 (0.0-0.1) 08/18/17 12:43 Seg Neutrophils % 87.5 % (40.0-70.0) H 08/18/17 12:43 Seg Neutrophils # 9.6 K/mm3 (1.8-7.7) H 08/18/17 12:43 Sodium 140 mmol/L (137-145) 08/18/17 05:44 Potassium 3.5 mmol/L (3.6-5.0) L 08/18/17 05:44 Chloride 102.5 mmol/L (98-107) 08/18/17 05:44 Carbon Dioxide 22 mmol/L (22-30) 08/18/17 05:44 Anion Gap 19 mmol/L 08/18/17 05:44 BUN 9 mg/dL (9-20) 08/18/17 05:44 Creatinine 0.6 mg/dL (0.8-1.5) L 08/18/17 05:44 Estimated GFR > 60 ml/min 08/18/17 05:44 BUN/Creatinine Ratio 15 % 08/18/17 05:44 Glucose 137 mg/dL (75-100) H 08/18/17 05:44 POC Glucose 158 (70-105) H 08/18/17 02:35 Calcium 8.3 mg/dL (8.4-10.2) L 08/18/17 05:44 Total Bilirubin 0.80 mg/dL (0.1-1.2) 08/16/17 21:47 AST 47 units/L (5-40) H 08/16/17 21:47 ALT 11 units/L (7-56) 08/16/17 21:47 Alkaline Phosphatase 145 units/L (35-129) H 08/16/17 21:47 Ammonia 239.0 umol/L (25-60) H 08/18/17 12:43 Total Protein 7.4 g/dL (6.3-8.2) 08/16/17 21:47 Albumin 2.6 g/dL (3.9-5) L 08/16/17 21:47 Albumin/Globulin Ratio 0.5 % 08/16/17 21:47 Urine Color Yellow (Yellow) 08/16/17 Unknown Urine Turbidity Clear (Clear) 08/16/17 Unknown Urine pH 6.0 (5.0-7.0) 08/16/17 Unknown Ur Specific [place] 1.015 (1.003-1.030) 08/16/17 Unknown Urine Protein <15 mg/dl mg/dL (Negative) 08/16/17 Unknown Urine Glucose (UA) Neg mg/dL (Negative) 08/16/17 Unknown Urine Ketones Neg mg/dL (Negative) 08/16/17 Unknown Urine Blood Sm (Negative) 08/16/17 Unknown Urine Nitrite Neg (Negative) 08/16/17 Unknown Urine Bilirubin Neg (Negative) 08/16/17 Unknown Urine Urobilinogen < 2.0 mg/dL (<2.0) 08/16/17 Unknown Ur Leukocyte Esterase Neg (Negative) 08/16/17 Unknown Urine WBC (Auto) 1.0 /HPF (0.0-6.0) 08/16/17 Unknown Urine RBC (Auto) 1.0 /HPF (0.0-6.0) 08/16/17 Unknown U Epithel Cells (Auto) 2.0 /HPF (0-13.0) 08/16/17 Unknown Urine Mucus Few /HPF 08/16/17 Unknown Plasma/Serum Alcohol 0.17 % (0-0.07) H 08/16/17 21:47 Blood Type O POSITIVE 08/16/17 22:58 Antibody Screen Negative 08/16/17 22:58 Crossmatch See Detail 08/16/17 22:58
[2017-08-18 13:05] LABS: Creatine Kinase MB 2.2 ng/mL (0.0-4.0)
[2017-08-18 13:06] LABS: Alanine Aminotransferase 11 units/L (7-56); Albumin 2.8 g/dL (3.9-5); BUN/Creatinine Ratio 16; Blood Urea Nitrogen 8 mg/dL (9-20); Calcium 8.1 mg/dL (8.4-10.2); Hemolysis Index 0
--- NOTE | 2017-08-18 14:02 | Cat Scan Report ---
CT HEAD WITHOUT CONTRAST: HISTORY: Altered mental status. TECHNIQUE: Sequential 2.5mm CT images. COMPARISON: none. FINDINGS: Cerebral Parenchyma: Within normal limits. Cerebellum: Within normal limits. Brainstem: Within normal limits. Ventricles: Normal. Sella: Normal. Extra-axial spaces: Normal. Basal Cisterns: Normal. Intracranial Hemorrhage: None. Midline Shift: None. Calvarium: Normal. Sinuses: Mild mucoperiosteal thickening is noted throughout the left maxillary sinus. The remaining sinuses are adequately aerated. Mastoid Air Cells: Normal. Visualized Orbits: Normal. IMPRESSION: Cranial CT scan within normal limits. Chronic left maxillary sinus disease.
--- NOTE | 2017-08-18 15:43 | Gastroenterology Progress Note ---
Assessment and Plan - Patient Problems (1) GI bleeding Current Visit: Yes Status: Acute Qualifiers: GI bleed type/associated pathology: unspecified gastrointestinal hemorrhage type Qualified Code(s): K92.2 - Gastrointestinal hemorrhage, unspecified Plan to address problem: - >2 year hx of cryptogenic GI bleeding, with extensive negative w/u (EGD/Colons , CTA, Mesenteric Arteriography, Tagged RBC scans). - Would like to have a capsule endoscopy and balloon enteroscopy, but patient non-compliance with f/u makes this difficult. - OK to transfuse 3 units, and advance to regular diet. - Continue daily MVI and protonix. - May d/c home when clinically stable; no plans for repeat endoscopy. - Will sign off for now; please call if needed prior to discharge. (2) Hepatic encephalopathy Current Visit: Yes Status: Acute Plan to address problem: - Will start dual Xifaxan and lactulose. - OK to continue other PO meds, but will d/c ativan. - Continue MVI therapy. - If unable to swallow pills, will need a Dobhoff tube. Subjective Date of service: 08/18/17 Principal diagnosis: Encephalopathy Interval history: We were called back to see the patient due to worsening somnolence. He has a hx of severe and active EtOH abuse, and has been receiving CIWA ativan (small amount). In addition, his ammonia is markedly elevated. Currently very sleepy and not oriented to answer questions, but has stable VS and other labs at baseline. Objective - Constitutional Vitals: Temp Pulse Resp BP Pulse Ox 97.9 F 122 H 20 144/92 100 08/18/17 03:55 08/18/17 10:00 08/18/17 10:00 08/18/17 03:55 08/18/17 10:00 General appearance: no acute distress, other (Somnolent) - EENT Eyes: PERRL, EOM intact ENT: hearing intact - Respiratory Respiratory effort: normal Respiratory: bilateral: CTA - Cardiovascular Rhythm: regular Heart Sounds: Present: S1 & S2 - Gastrointestinal General gastrointestinal: Present: soft, non-tender, non-distended - Neurologic Neurological: oriented to person, asterixis - Labs CBC & Chem 7: 08/18/17 12:43 08/18/17 12:43 Labs: Laboratory Results - last 24 hr 08/18/17 08/18/17 08/18/17 02:35 05:44 05:44 WBC 12.3 H RBC 2.64 L Hgb 7.5 L Hct 22.6 L D MCV 86 MCH 29 MCHC 33 RDW 17.4 H Plt Count 187 Lymph % (Auto) 6.9 L [place] % (Auto) 6.6 Eos % (Auto) 0.7 Baso % (Auto) 0.3 Lymph # 0.8 L [place] # 0.8 Eos # 0.1 Baso # 0.0 Seg Neutrophils % 85.5 H Seg Neutrophils # 10.5 H PT INR POC ABG pH POC ABG pCO2 POC ABG pO2 POC ABG HCO3 POC ABG Total CO2 POC ABG O2 Sat POC ABG Base Excess FiO2 Sodium 140 Potassium 3.5 L Chloride 102.5 Carbon Dioxide 22 Anion Gap 19 BUN 9 Creatinine 0.6 L Estimated GFR > 60 BUN/Creatinine Ratio 15 Glucose 137 H POC Glucose 158 H Calcium 8.3 L Total Bilirubin AST ALT Alkaline Phosphatase Ammonia Total Creatine Kinase CK-MB (CK-2) CK-MB (CK-2) Rel Index Troponin T Total Protein Albumin Albumin/Globulin Ratio 08/18/17 08/18/17 08/18/17 12:26 12:43 12:43 WBC 11.0 RBC 2.63 L Hgb 7.4 L Hct 22.7 L MCV 86 MCH 28 MCHC 33 RDW 17.8 H Plt Count 186 Lymph % (Auto) 5.2 L [place] % (Auto) 6.7 Eos % (Auto) 0.3 Baso % (Auto) 0.3 Lymph # 0.6 L [place] # 0.7 Eos # 0.0 Baso # 0.0 Seg Neutrophils % 87.5 H Seg Neutrophils # 9.6 H PT 15.9 H INR 1.20 H POC ABG pH POC ABG pCO2 POC ABG pO2 POC ABG HCO3 POC ABG Total CO2 POC ABG O2 Sat POC ABG Base Excess FiO2 Sodium Potassium Chloride Carbon Dioxide Anion Gap BUN Creatinine Estimated GFR BUN/Creatinine Ratio Glucose POC Glucose 133 H Calcium Total Bilirubin AST ALT Alkaline Phosphatase Ammonia Total Creatine Kinase CK-MB (CK-2) CK-MB (CK-2) Rel Index Troponin T Total Protein Albumin Albumin/Globulin Ratio 08/18/17 08/18/17 08/18/17 12:43 12:43 12:43 WBC RBC Hgb Hct MCV MCH MCHC RDW Plt Count Lymph % (Auto) [place] % (Auto) Eos % (Auto) Baso % (Auto) Lymph # [place] # Eos # Baso # Seg Neutrophils % Seg Neutrophils # PT INR POC ABG pH POC ABG pCO2 POC ABG pO2 POC ABG HCO3 POC ABG Total CO2 POC ABG O2 Sat POC ABG Base Excess FiO2 Sodium 140 Potassium 3.5 L Chloride 103.6 Carbon Dioxide 22 Anion Gap 18 BUN 8 L Creatinine 0.5 L Estimated GFR > 60 BUN/Creatinine Ratio 16 Glucose 151 H POC Glucose Calcium 8.1 L Total Bilirubin 1.30 H AST 41 H ALT 11 Alkaline Phosphatase 163 H Ammonia 239.0 H Total Creatine Kinase 89 CK-MB (CK-2) 2.2 CK-MB (CK-2) Rel Index 2.4 Troponin T < 0.010 Total Protein 8.3 H Albumin 2.8 L Albumin/Globulin Ratio 0.5 08/18/17 12:48 WBC RBC Hgb Hct MCV MCH MCHC RDW Plt Count Lymph % (Auto) [place] % (Auto) Eos % (Auto) Baso % (Auto) Lymph # [place] # Eos # Baso # Seg Neutrophils % Seg Neutrophils # PT INR POC ABG pH 7.562 H POC ABG pCO2 29.2 L POC ABG pO2 336 H POC ABG HCO3 26.2 POC ABG Total CO2 27 POC ABG O2 Sat 100 POC ABG Base Excess 4 FiO2 100 Sodium Potassium Chloride Carbon Dioxide Anion Gap BUN Creatinine Estimated GFR BUN/Creatinine Ratio Glucose POC Glucose Calcium Total Bilirubin AST ALT Alkaline Phosphatase Ammonia Total Creatine Kinase CK-MB (CK-2) CK-MB (CK-2) Rel Index Troponin T Total Protein Albumin Albumin/Globulin Ratio
[2017-08-18] MEDS: VITAMIN B-1 PO SCH (16:33)
[2017-08-18] MEDS: PROTONIX PO SCH (16:33)
[2017-08-18] MEDS: FOLVITE PO SCH (16:33)
[2017-08-18] MEDS: FEOSOL PO SCH ×2 (16:33→22:22)
[2017-08-18] MEDS: THERAGRAN-M Tab PO SCH (16:33)
--- NOTE | 2017-08-18 19:55 | XRay Report ---
FINAL REPORT PROCEDURE: XR ABDOMEN 1V AP TECHNIQUE: Abdominal radiograph, single supine AP view. HISTORY: Nasogastric tube placement. COMPARISON: No prior studies are available for comparison. FINDINGS: Bowel gas pattern:Prominent loop of bowel in the left upper quadrant. Masses or calcifications:None. Bony structures:Age indeterminate L3 compression. Mild degenerative changes of the spine. Other:Enteric tube tip overlies the expected location of the proximal stomach. Cardiomegaly. Mild left retrocardiac opacity. IMPRESSION: Enteric tube tip overlies expected location of the proximal stomach. Prominent loop of bowel in the left upper quadrant, consider ileus, limited evaluation on this exam. Consider followup radiographs if there is continued clinical concern. Cardiomegaly. Left retrocardiac opacity likely atelectasis. Consider correlation with chest radiograph.
[2017-08-18] MEDS: CEPHULAC PO SCH (22:22)
[2017-08-18] MEDS: XIFAXAN PO SCH (22:22)
[2017-08-18] MEDS: SODIUM CHLORIDE FLUSH SYRINGE 10 ML IV SCH ×2 (22:22→22:23)
[2017-08-19] MEDS: CEPHULAC PO SCH ×4 (00:38→21:33)
[2017-08-19 07:32] LABS: Basophils % (Auto) 0.2 % (0.0-1.8); Eosinophils # (Auto) 0.1 K/mm3 (0.0-0.4); Eosinophils % (Auto) 0.8 % (0.0-4.3); Hematocrit 23.1 % (35.5-45.6); Hemoglobin 7.5 gm/dl (11.8-15.2); Lymphocytes # (Auto) 0.8 K/mm3 (1.2-5.4); Lymphocytes % (Auto) 6.5 % (13.4-35.0); Mean Corpuscular HGB Conc 33 % (32-34); Mean Corpuscular Hemoglobin 29 pg (28-32); Mean Corpuscular Volume 87 fl (84-94); Monocytes % (Auto) 8.1 % (0.0-7.3); Platelet Count 199 K/mm3 (140-440); Red Blood Count 2.64 M/mm3 (3.65-5.03); Red Cell Distribution Width 17.6 % (13.2-15.2)
[2017-08-19 07:55] LABS: Alanine Aminotransferase 11 units/L (7-56); Albumin 2.7 g/dL (3.9-5); BUN/Creatinine Ratio 15; Blood Urea Nitrogen 9 mg/dL (9-20); Calcium 8.4 mg/dL (8.4-10.2); Hemolysis Index 3
[2017-08-19] MEDS ORDERED: POTASSIUM CHLORIDE FEEDTUBE NR ×2 (08:30→15:00)
[2017-08-19] MEDS: SODIUM CHLORIDE FLUSH SYRINGE 10 ML IV SCH ×2 (10:00→21:35)
[2017-08-19] MEDS: THERAGRAN-M Tab PO SCH (12:00)
[2017-08-19] MEDS: PROTONIX PO SCH (12:00)
[2017-08-19] MEDS: FEOSOL PO SCH (12:00)
[2017-08-19] MEDS: FOLVITE PO SCH (12:00)
[2017-08-19] MEDS: VITAMIN B-1 PO SCH (12:08)
[2017-08-19] MEDS: XIFAXAN PO SCH ×2 (12:09→21:31)
[2017-08-19] MEDS ORDERED: ATIVAN IV ONE (16:30)
--- NOTE | 2017-08-19 19:44 | Gastroenterology Progress Note ---
Assessment and Plan - Patient Problems (1) GI bleeding Current Visit: Yes Status: Acute Qualifiers: GI bleed type/associated pathology: unspecified gastrointestinal hemorrhage type Qualified Code(s): K92.2 - Gastrointestinal hemorrhage, unspecified Plan to address problem: - >2 year hx of cryptogenic GI bleeding, with extensive negative w/u (EGD/Colons , CTA, Mesenteric Arteriography, Tagged RBC scans). - Would like to have a capsule endoscopy and balloon enteroscopy, but patient non-compliance with f/u makes this difficult. - OK to transfuse 3 units, and advance to regular diet. - Continue daily MVI and protonix. - May d/c home when clinically stable; no plans for repeat endoscopy. - Will sign off for now; please call if needed prior to discharge. (2) Hepatic encephalopathy Current Visit: Yes Status: Acute Plan to address problem: - Will continue dual Xifaxan and lactulose (lactulose only at discharge). - OK to continue other PO meds, but will d/c ativan. - Continue MVI therapy. - Patient much better clinically, and will sign off - please call if needed. Subjective Date of service: 08/19/17 Principal diagnosis: Encephalopathy Interval history: The patient has done well with lactulose and had multiple BMs; he is much more oriented and calm, without gross signs of DTs. He has no N/V/abdominal pain. He has no blood in the stools today. Objective - Constitutional Vitals: Temp Pulse Resp BP Pulse Ox 98.6 F 640 H 20 148/86 95 08/19/17 16:46 08/19/17 18:49 08/19/17 16:46 08/19/17 16:46 08/19/17 16:46 General appearance: no acute distress - Respiratory Respiratory effort: normal Respiratory: bilateral: CTA - Cardiovascular Rhythm: regular Heart Sounds: Present: S1 & S2 - Gastrointestinal General gastrointestinal: Present: soft, non-tender, non-distended - Neurologic Neurological: oriented to person, oriented to place, asterixis - Labs CBC & Chem 7: 08/19/17 06:57 08/19/17 06:57 Labs: Laboratory Results - last 24 hr 08/19/17 08/19/17 08/19/17 06:57 06:57 06:57 WBC 12.2 H RBC 2.64 L Hgb 7.5 L Hct 23.1 L MCV 87 MCH 29 MCHC 33 RDW 17.6 H Plt Count 199 Lymph % (Auto) 6.5 L [place] % (Auto) 8.1 H Eos % (Auto) 0.8 Baso % (Auto) 0.2 Lymph # 0.8 L [place] # 1.0 H Eos # 0.1 Baso # 0.0 Seg Neutrophils % 84.4 H Seg Neutrophils # 10.3 H Sodium 143 Potassium 3.1 L Chloride 105.9 Carbon Dioxide 22 Anion Gap 18 BUN 9 Creatinine 0.6 L Estimated GFR > 60 BUN/Creatinine Ratio 15 Glucose 132 H POC Glucose Calcium 8.4 Phosphorus 3.50 Magnesium 1.70 Total Bilirubin 1.40 H AST 41 H ALT 11 Alkaline Phosphatase 137 H Ammonia 107.0 H Total Protein 7.8 Albumin 2.7 L Albumin/Globulin Ratio 0.5 08/19/17 11:18 WBC RBC Hgb Hct MCV MCH MCHC RDW Plt Count Lymph % (Auto) [place] % (Auto) Eos % (Auto) Baso % (Auto) Lymph # [place] # Eos # Baso # Seg Neutrophils % Seg Neutrophils # Sodium Potassium Chloride Carbon Dioxide Anion Gap BUN Creatinine Estimated GFR BUN/Creatinine Ratio Glucose POC Glucose 140 H Calcium Phosphorus Magnesium Total Bilirubin AST ALT Alkaline Phosphatase Ammonia Total Protein Albumin Albumin/Globulin Ratio
[2017-08-20] MEDS: CEPHULAC PO SCH ×4 (06:02→21:50)
[2017-08-20 07:41] LABS: Basophils % (Auto) 0.3 % (0.0-1.8); Eosinophils # (Auto) 0.3 K/mm3 (0.0-0.4); Eosinophils % (Auto) 3.7 % (0.0-4.3); Hematocrit 23.2 % (35.5-45.6); Hemoglobin 7.4 gm/dl (11.8-15.2); Lymphocytes % (Auto) 10.9 % (13.4-35.0); Mean Corpuscular HGB Conc 32 % (32-34); Mean Corpuscular Hemoglobin 29 pg (28-32); Mean Corpuscular Volume 90 fl (84-94); Monocytes # (Auto) 0.8 K/mm3 (0.0-0.8); Monocytes % (Auto) 8.7 % (0.0-7.3); Platelet Count 188 K/mm3 (140-440); Red Blood Count 2.57 M/mm3 (3.65-5.03); Red Cell Distribution Width 18.1 % (13.2-15.2)
[2017-08-20 08:06] LABS: Alanine Aminotransferase 15 units/L (7-56); Albumin 2.6 g/dL (3.9-5); BUN/Creatinine Ratio 10; Bilirubin,Direct 0.5 mg/dL (0-0.2); Blood Urea Nitrogen 6 mg/dL (9-20); Calcium 8.5 mg/dL (8.4-10.2); Hemolysis Index 3
[2017-08-20] MEDS ORDERED: K-DUR PO ONE ×3 (09:15→18:00)
[2017-08-20] MEDS: KCL 10MEQ/100ML 10 MEQ/100 ML BAG IV SCH ×4 (10:30→13:30)
[2017-08-20] MEDS: FOLVITE PO SCH (11:06)
[2017-08-20] MEDS: PROTONIX PO SCH (11:07)
[2017-08-20] MEDS: FEOSOL PO SCH (11:07)
[2017-08-20] MEDS: VITAMIN B-1 PO SCH (11:07)
[2017-08-20] MEDS: SODIUM CHLORIDE FLUSH SYRINGE 10 ML IV SCH ×2 (11:08→21:50)
[2017-08-20] MEDS: XIFAXAN PO SCH ×2 (11:08→21:50)
[2017-08-20] MEDS: THERAGRAN-M Tab PO SCH (11:08)
--- NOTE | 2017-08-20 17:08 | Progress Note ---
Assessment and Plan Assessment and plan: --Severe hypokalemia; K2.9 Replace per protocol with IV and by mouth KCl, check magnesium and closely monitor electrolytes --Hepatic encephalopathy; ammonia levels within normal limits Patient more alert and awake, no agitation and confusion Continue supportive care --Acute GI bleeding; no episode of melena Patient had multiple episodes of GI bleeding in the past, extensively evaluated by GI With multiple endoscopies, recommended pill endoscopy as outpatient, patient did not follow No indication for endoscopy at this point ,GI following --Acute blood loss anemia requiring blood transfusion; 3 units of PRBC, hemoglobin improved to 7.4, closely monitor H&H and transfuse additional as needed --History of acute gastritis; IV Protonix and supportive care --Recurrent episodes of GI bleeding; secondary to alcoholic liver disease --Cirrhosis liver; secondary to alcohol use, closely monitor Supportive care, GI following --Chronic alcohol use; counseling ,strongly advised to quit alcohol intake Patient needs alcohol detoxification/alcoholic rehabilitation upon discharge --Acute alcohol intoxication this admission; improved --Watch for alcohol withdrawal symptoms; CIWA protocol --Severe malnutrition; nutrition supplements and supportive care when stable --DVT prophylaxis; SCDs, no pharmacologic anticoagulation in view of severe bleeding Possible discharge tomorrow if stable History Interval history: Patient seen and examined medical records reviewed Patient is more alert and awake, responding to simple questions Wants to go home by bus, no family available Intermittent restraints for safety Severe hypokalemia potassium of 2.9 No tremulousness or agitation Vital signs reviewed Hospitalist Physical - Constitutional Vitals: Temp Pulse Resp BP Pulse Ox 98.1 F 100 H 18 126/85 98 08/20/17 09:00 08/20/17 09:00 08/20/17 09:00 08/20/17 09:00 08/20/17 11:20 General appearance: Present: no acute distress, well-nourished, obese - EENT Eyes: Present: PERRL, EOM intact - Neck Neck: Present: supple, normal ROM - Respiratory Respiratory effort: normal Respiratory: bilateral: diminished, negative: rales, rhonchi, wheezing - Cardiovascular Rhythm: regular Heart Sounds: Present: S1 & S2 - Extremities Extremities: no ischemia Extremity abnormal: edema - Abdominal General gastrointestinal: soft, non-tender, non-distended, normal bowel sounds - Integumentary Integumentary: Present: clear, warm - Psychiatric Psychiatric: appropriate mood/affect, cooperative, other (confused at times) - Neurologic Neurologic: moves all extremities Results - Labs CBC & Chem 7: 08/20/17 07:13 08/20/17 07:13 Labs: Laboratory Last Values WBC 9.1 K/mm3 (4.5-11.0) 08/20/17 07:13 RBC 2.57 M/mm3 (3.65-5.03) L 08/20/17 07:13 Hgb 7.4 gm/dl (11.8-15.2) L 08/20/17 07:13 Hct 23.2 % (35.5-45.6) L 08/20/17 07:13 MCV 90 fl (84-94) 08/20/17 07:13 MCH 29 pg (28-32) 08/20/17 07:13 MCHC 32 % (32-34) 08/20/17 07:13 RDW 18.1 % (13.2-15.2) H 08/20/17 07:13 Plt Count 188 K/mm3 (140-440) 08/20/17 07:13 Lymph % (Auto) 10.9 % (13.4-35.0) L 08/20/17 07:13 [place] % (Auto) 8.7 % (0.0-7.3) H 08/20/17 07:13 Eos % (Auto) 3.7 % (0.0-4.3) 08/20/17 07:13 Baso % (Auto) 0.3 % (0.0-1.8) 08/20/17 07:13 Lymph # 1.0 K/mm3 (1.2-5.4) L 08/20/17 07:13 [place] # 0.8 K/mm3 (0.0-0.8) 08/20/17 07:13 Eos # 0.3 K/mm3 (0.0-0.4) 08/20/17 07:13 Baso # 0.0 K/mm3 (0.0-0.1) 08/20/17 07:13 Seg Neutrophils % 76.4 % (40.0-70.0) H 08/20/17 07:13 Seg Neutrophils # 7.0 K/mm3 (1.8-7.7) 08/20/17 07:13 PT 15.9 Sec. (12.2-14.9) H 08/18/17 12:43 INR 1.20 (0.87-1.13) H 08/18/17 12:43 POC ABG pH 7.562 (7.35-7.45) H 08/18/17 12:48 POC ABG pCO2 29.2 (35-45) L 08/18/17 12:48 POC ABG pO2 336 (80-105) H 08/18/17 12:48 POC ABG HCO3 26.2 08/18/17 12:48 POC ABG Total CO2 27 08/18/17 12:48 POC ABG O2 Sat 100 08/18/17 12:48 POC ABG Base Excess 4 08/18/17 12:48 FiO2 100 % 08/18/17 12:48 Sodium 137 mmol/L (137-145) 08/20/17 07:13 Potassium 2.9 mmol/L (3.6-5.0) L* 08/20/17 07:13 Chloride 98.3 mmol/L (98-107) 08/20/17 07:13 Carbon Dioxide 23 mmol/L (22-30) 08/20/17 07:13 Anion Gap 19 mmol/L 08/20/17 07:13 BUN 6 mg/dL (9-20) L 08/20/17 07:13 Creatinine 0.6 mg/dL (0.8-1.5) L 08/20/17 07:13 Estimated GFR > 60 ml/min 08/20/17 07:13 BUN/Creatinine Ratio 10 % 08/20/17 07:13 Glucose 87 mg/dL (75-100) 08/20/17 07:13 POC Glucose 140 (70-105) H 08/19/17 11:18 Calcium 8.5 mg/dL (8.4-10.2) 08/20/17 07:13 Phosphorus 3.50 mg/dL (2.5-4.5) 08/19/17 06:57 Magnesium 1.70 mg/dL (1.7-2.3) 08/19/17 06:57 Total Bilirubin 1.30 mg/dL (0.1-1.2) H 08/20/17 07:13 Direct Bilirubin 0.5 mg/dL (0-0.2) H 08/20/17 07:13 Indirect Bilirubin 0.8 mg/dL 08/20/17 07:13 AST 48 units/L (5-40) H 08/20/17 07:13 ALT 15 units/L (7-56) 08/20/17 07:13 Alkaline Phosphatase 151 units/L (35-129) H 08/20/17 07:13 Ammonia 55.0 umol/L (25-60) 08/20/17 07:13 Total Creatine Kinase 89 units/L (55-170) 08/18/17 12:43 CK-MB (CK-2) 2.2 ng/mL (0.0-4.0) 08/18/17 12:43 CK-MB (CK-2) Rel Index 2.4 (0-4) 08/18/17 12:43 Troponin T < 0.010 ng/mL (0.00-0.029) 08/18/17 12:43 Total Protein 7.8 g/dL (6.3-8.2) 08/20/17 07:13 Albumin 2.6 g/dL (3.9-5) L 08/20/17 07:13 Albumin/Globulin Ratio 0.5 % 08/20/17 07:13 Urine Color Yellow (Yellow) 08/16/17 Unknown Urine Turbidity Clear (Clear) 08/16/17 Unknown Urine pH 6.0 (5.0-7.0) 08/16/17 Unknown Ur Specific [place] 1.015 (1.003-1.030) 08/16/17 Unknown Urine Protein <15 mg/dl mg/dL (Negative) 08/16/17 Unknown Urine Glucose (UA) Neg mg/dL (Negative) 08/16/17 Unknown Urine Ketones Neg mg/dL (Negative) 08/16/17 Unknown Urine Blood Sm (Negative) 08/16/17 Unknown Urine Nitrite Neg (Negative) 08/16/17 Unknown Urine Bilirubin Neg (Negative) 08/16/17 Unknown Urine Urobilinogen < 2.0 mg/dL (<2.0) 08/16/17 Unknown Ur Leukocyte Esterase Neg (Negative) 08/16/17 Unknown Urine WBC (Auto) 1.0 /HPF (0.0-6.0) 08/16/17 Unknown Urine RBC (Auto) 1.0 /HPF (0.0-6.0) 08/16/17 Unknown U Epithel Cells (Auto) 2.0 /HPF (0-13.0) 08/16/17 Unknown Urine Mucus Few /HPF 08/16/17 Unknown Plasma/Serum Alcohol 0.17 % (0-0.07) H 08/16/17 21:47 Blood Type O POSITIVE 08/16/17 22:58 Antibody Screen Negative 08/16/17 22:58 Crossmatch See Detail 08/16/17 22:58
--- NOTE | 2017-08-20 17:16 | Progress Note ---
Assessment and Plan Assessment and plan: --Hepatic encephalopathy; Ammonia level slightly improved continue rifaximin, lactulose, supportive care, neurochecks --Acute GI bleeding; improved Patient had multiple episodes of GI bleeding in the past, extensively evaluated by GI With multiple endoscopies, recommended. Pill endoscopy as outpatient, patient did not follow No indication for endoscopy at this point but GI, closely monitor --Acute blood loss anemia requiring blood transfusion; 3 units of PRBC, hemoglobin improved to 7.4, closely monitor H&H and transfuse additional as needed --History of acute gastritis; IV Protonix and supportive care --Recurrent episodes of GI bleeding; secondary to alcoholic liver disease --Cirrhosis liver; secondary to alcohol use, closely monitor Supportive care, GI following --Chronic alcohol use; counseling strongly advised to quit alcohol intake Patient needs alcohol detoxification/alcoholic rehabilitation upon discharge --Acute alcohol intoxication this admission; closely monitor, time and folic acid --Watch for alcohol withdrawal symptoms; CIWA protocol --Severe malnutrition; nutrition supplements and supportive care when stable --DVT prophylaxis; SCDs, no pharmacologic anticoagulation in view of severe bleeding --Restraints for safety No family available to discuss the patient's condition They tried to contact family or friends Closely monitor the patient had just the management as needed. Possible discharge in 1-2 days if stable History Interval history: Patient seen and examined medical records reviewed The patient is severely agitated, confused with harsh breathing Ammonia levels slightly improved Restraint for safety In mild distress Vital signs noted Hospitalist Physical - Constitutional Vitals: Temp Pulse Resp BP Pulse Ox 98.1 F 100 H 18 126/85 98 08/20/17 09:00 08/20/17 09:00 08/20/17 09:00 08/20/17 09:00 08/20/17 11:20 General appearance: Present: no acute distress, well-nourished, obese (morbidly obese) - EENT Eyes: Present: PERRL, EOM intact - Neck Neck: Present: supple, normal ROM - Respiratory Respiratory effort: normal Respiratory: bilateral: diminished, negative: rales, rhonchi, wheezing - Cardiovascular Rhythm: regular Heart Sounds: Present: S1 & S2 - Extremities Extremities: no ischemia Extremity abnormal: edema - Abdominal General gastrointestinal: soft, non-tender, non-distended, normal bowel sounds - Integumentary Integumentary: Present: clear, warm - Psychiatric Psychiatric: agitated, other (confused) - Neurologic Neurologic: moves all extremities Results - Labs CBC & Chem 7: 08/20/17 07:13 08/20/17 07:13 Labs: Laboratory Last Values WBC 9.1 K/mm3 (4.5-11.0) 08/20/17 07:13 RBC 2.57 M/mm3 (3.65-5.03) L 08/20/17 07:13 Hgb 7.4 gm/dl (11.8-15.2) L 08/20/17 07:13 Hct 23.2 % (35.5-45.6) L 08/20/17 07:13 MCV 90 fl (84-94) 08/20/17 07:13 MCH 29 pg (28-32) 08/20/17 07:13 MCHC 32 % (32-34) 08/20/17 07:13 RDW 18.1 % (13.2-15.2) H 08/20/17 07:13 Plt Count 188 K/mm3 (140-440) 08/20/17 07:13 Lymph % (Auto) 10.9 % (13.4-35.0) L 08/20/17 07:13 [place] % (Auto) 8.7 % (0.0-7.3) H 08/20/17 07:13 Eos % (Auto) 3.7 % (0.0-4.3) 08/20/17 07:13 Baso % (Auto) 0.3 % (0.0-1.8) 08/20/17 07:13 Lymph # 1.0 K/mm3 (1.2-5.4) L 08/20/17 07:13 [place] # 0.8 K/mm3 (0.0-0.8) 08/20/17 07:13 Eos # 0.3 K/mm3 (0.0-0.4) 08/20/17 07:13 Baso # 0.0 K/mm3 (0.0-0.1) 08/20/17 07:13 Seg Neutrophils % 76.4 % (40.0-70.0) H 08/20/17 07:13 Seg Neutrophils # 7.0 K/mm3 (1.8-7.7) 08/20/17 07:13 PT 15.9 Sec. (12.2-14.9) H 08/18/17 12:43 INR 1.20 (0.87-1.13) H 08/18/17 12:43 POC ABG pH 7.562 (7.35-7.45) H 08/18/17 12:48 POC ABG pCO2 29.2 (35-45) L 08/18/17 12:48 POC ABG pO2 336 (80-105) H 08/18/17 12:48 POC ABG HCO3 26.2 08/18/17 12:48 POC ABG Total CO2 27 08/18/17 12:48 POC ABG O2 Sat 100 08/18/17 12:48 POC ABG Base Excess 4 08/18/17 12:48 FiO2 100 % 08/18/17 12:48 Sodium 137 mmol/L (137-145) 08/20/17 07:13 Potassium 2.9 mmol/L (3.6-5.0) L* 08/20/17 07:13 Chloride 98.3 mmol/L (98-107) 08/20/17 07:13 Carbon Dioxide 23 mmol/L (22-30) 08/20/17 07:13 Anion Gap 19 mmol/L 08/20/17 07:13 BUN 6 mg/dL (9-20) L 08/20/17 07:13 Creatinine 0.6 mg/dL (0.8-1.5) L 08/20/17 07:13 Estimated GFR > 60 ml/min 08/20/17 07:13 BUN/Creatinine Ratio 10 % 08/20/17 07:13 Glucose 87 mg/dL (75-100) 08/20/17 07:13 POC Glucose 140 (70-105) H 08/19/17 11:18 Calcium 8.5 mg/dL (8.4-10.2) 08/20/17 07:13 Phosphorus 3.50 mg/dL (2.5-4.5) 08/19/17 06:57 Magnesium 1.70 mg/dL (1.7-2.3) 08/19/17 06:57 Total Bilirubin 1.30 mg/dL (0.1-1.2) H 08/20/17 07:13 Direct Bilirubin 0.5 mg/dL (0-0.2) H 08/20/17 07:13 Indirect Bilirubin 0.8 mg/dL 08/20/17 07:13 AST 48 units/L (5-40) H 08/20/17 07:13 ALT 15 units/L (7-56) 08/20/17 07:13 Alkaline Phosphatase 151 units/L (35-129) H 08/20/17 07:13 Ammonia 55.0 umol/L (25-60) 08/20/17 07:13 Total Creatine Kinase 89 units/L (55-170) 08/18/17 12:43 CK-MB (CK-2) 2.2 ng/mL (0.0-4.0) 08/18/17 12:43 CK-MB (CK-2) Rel Index 2.4 (0-4) 08/18/17 12:43 Troponin T < 0.010 ng/mL (0.00-0.029) 08/18/17 12:43 Total Protein 7.8 g/dL (6.3-8.2) 08/20/17 07:13 Albumin 2.6 g/dL (3.9-5) L 08/20/17 07:13 Albumin/Globulin Ratio 0.5 % 08/20/17 07:13 Urine Color Yellow (Yellow) 08/16/17 Unknown Urine Turbidity Clear (Clear) 08/16/17 Unknown Urine pH 6.0 (5.0-7.0) 08/16/17 Unknown Ur Specific [place] 1.015 (1.003-1.030) 08/16/17 Unknown Urine Protein <15 mg/dl mg/dL (Negative) 08/16/17 Unknown Urine Glucose (UA) Neg mg/dL (Negative) 08/16/17 Unknown Urine Ketones Neg mg/dL (Negative) 08/16/17 Unknown Urine Blood Sm (Negative) 08/16/17 Unknown Urine Nitrite Neg (Negative) 08/16/17 Unknown Urine Bilirubin Neg (Negative) 08/16/17 Unknown Urine Urobilinogen < 2.0 mg/dL (<2.0) 08/16/17 Unknown Ur Leukocyte Esterase Neg (Negative) 08/16/17 Unknown Urine WBC (Auto) 1.0 /HPF (0.0-6.0) 08/16/17 Unknown Urine RBC (Auto) 1.0 /HPF (0.0-6.0) 08/16/17 Unknown U Epithel Cells (Auto) 2.0 /HPF (0-13.0) 08/16/17 Unknown Urine Mucus Few /HPF 08/16/17 Unknown Plasma/Serum Alcohol 0.17 % (0-0.07) H 08/16/17 21:47 Blood Type O POSITIVE 08/16/17 22:58 Antibody Screen Negative 08/16/17 22:58 Crossmatch See Detail 08/16/17 22:58
[2017-08-21 07:56] LABS: Basophils % (Auto) 0.2 % (0.0-1.8); Eosinophils # (Auto) 0.3 K/mm3 (0.0-0.4); Eosinophils % (Auto) 3.8 % (0.0-4.3); Hematocrit 21.8 % (35.5-45.6); Hemoglobin 6.9 gm/dl (11.8-15.2); Lymphocytes # (Auto) 0.9 K/mm3 (1.2-5.4); Lymphocytes % (Auto) 12.2 % (13.4-35.0); Mean Corpuscular HGB Conc 32 % (32-34); Mean Corpuscular Hemoglobin 30 pg (28-32); Mean Corpuscular Volume 93 fl (84-94); Monocytes # (Auto) 0.6 K/mm3 (0.0-0.8); Monocytes % (Auto) 9.1 % (0.0-7.3); Platelet Count 117 K/mm3 (140-440); Red Blood Count 2.34 M/mm3 (3.65-5.03); Red Cell Distribution Width 18.6 % (13.2-15.2)
[2017-08-21 08:14] LABS: Alanine Aminotransferase 15 units/L (7-56); Albumin 2.4 g/dL (3.9-5); BUN/Creatinine Ratio 10; Bilirubin,Direct 0.4 mg/dL (0-0.2); Blood Urea Nitrogen 6 mg/dL (9-20); Hemolysis Index 3
--- NOTE | 2017-08-21 08:34 | Discharge Summary ---
Providers - Providers Date of Admission: 08/17/17 02:03 Date of discharge: 08/21/17 Attending physician: MAGGIE MURDOCK 08/17/17 01:15 Consult to Physician [CONS] Routine Comment: Dr. Jose spoke with Dr. Smith Consulting Provider: MARIANNE SMITH Physician Instructions: Reason For Exam: GI Bleed 08/20/17 17:21 Physical Therapy Evaluation and Treat [CONS] Routine Comment: Reason For Exam: PT evaluation and treatment Primary care physician: PROJECT MANAGEMENT PROFESSIONAL Hospitalization Reason for admission: acute GI bleeding/severe anemia Condition: Fair Pertinent studies: CT abdomen and pelvis; mild splenomegaly, distention of gallbladder no dietitian of biliary ductal system CT head; no acute abnormality, chronic maxillary sinus thickening Chest x-ray; i abdominal x-ray Procedures: 3 Unit PRBC transfusion Hospital course: Morbidly obese 52-year-old male patient well known to us services with chronic alcohol use cirrhosis liver multiple admissions in the past multiple episodes of severe GI bleeding with the hemoglobin of 3 g multiple times requiring multiple. Of PRBC transfusion, several endoscopies Was admitted through emergency room with melena Patient was initially evaluated and admitted to the hospital noted to have hemoglobin of 5 at the time of admission Receive 3 units of PRBC, evaluated by GI, No indication for endoscopy at this point since patient had multiple scopes in the past Patient was advised pill endoscopy in the past, noncompliant Patient suddenly went into hepatic encephalopathy, with very high ammonia levels symptomatically managed with lactulose and rifaximin Patient received restraint for safety, had multiple episodes of massive melena, Placed on CIWA protocol Symptoms slowly but gradually improved, Today he is comfortable alert awake oriented 3, tolerating soft diet Ammonia levels within normal limits, Hemoglobin improved to 7.5, which gradually trended down to 6.9 today Multiple electrolyte imbalances were corrected, Case management has evaluated the patient, assisted in DC planning Vital signs are stable, Physical examination prior to discharge did not show any new changes Patient is hemodynamically and clinically stable at discharge Cleared by GI and advised to follow with him in the office per schedule Patient counseled to quit alcohol intake, advised to go for alcohol rehabilitation Patient is stable at discharge with friend/family Discharge diagnosis; --Hepatic encephalopathy; corrected --Acute GI bleeding; improved --Acute blood loss anemia requiring blood transfusion; 3 units of PRBC --History of acute gastritis; IV Protonix and supportive care --Recurrent episodes of GI bleeding; secondary to alcoholic liver disease --Cirrhosis liver; secondary to alcohol use, closely monitor --Chronic alcohol use; counseling to quit, recommend alcohol rehabilitation --Acute alcohol intoxication this admission; --alcohol withdrawal symptoms; CIWA protocol , resolved --Severe malnutrition; nutrition supplements and supportive care when stable Disposition: DC-01 TO HOME OR SELFCARE Time spent for discharge: 33 min Core Measure Documentation - Palliative Care Palliative Care/ Comfort Measures: Not Applicable - Core Measures Any of the following diagnoses?: none Exam - Constitutional Vitals: Temp Pulse Resp BP Pulse Ox 98.5 F 89 20 99/54 100 08/21/17 04:19 08/21/17 04:19 08/21/17 04:19 08/21/17 04:19 08/21/17 04:19 General appearance: Present: no acute distress, well-nourished - EENT Eyes: Present: PERRL, EOM intact - Neck Neck: Present: supple, normal ROM - Respiratory Respiratory effort: normal Respiratory: bilateral: diminished, negative: rales, rhonchi, wheezing - Cardiovascular Rhythm: regular Heart Sounds: Present: S1 & S2 - Extremities Extremities: no ischemia Extremity abnormal: edema - Abdominal General gastrointestinal: Present: soft, non-tender, non-distended, normal bowel sounds - Integumentary Integumentary: Present: clear, warm - Musculoskeletal Musculoskeletal: strength equal bilaterally - Psychiatric Psychiatric: appropriate mood/affect, cooperative - Neurologic Neurologic: CNII-XII intact, moves all extremities Plan Activity: advance as tolerated, no driving until cleared by PCP, fall precautions Diet: regular (soft diet advance as tolerated) Additional Instructions: Advised to quit alcohol intake. advised to seek alcohol detox program and attend [facility] support group. Do not drive or operate heavy machinery under the influence of alcohol Follow up with: PRIMARY MD ALEX [Primary Care Provider] - 3-5 Days MARIANNE SMITH MD [Staff Physician] - 7 Days Prescriptions: Ferrous Sulfate [Feosol 325 MG tab] 325 mg PO BID #60 tablet Folic Acid [Folvite] 1 mg PO QDAY #30 tablet Pantoprazole [Protonix TAB] 40 mg PO BID #60 tablet Rifaximin [Xifaxan] 550 mg PO BID #20 tablet Thiamine [Vitamin B-1] 100 mg PO QDAY #30 tablet
[2017-08-21 08:48] VITALS: BP 114/73
[2017-08-21] MEDS: CEPHULAC PO SCH (08:54)
[2017-08-21] MEDS ORDERED: K-DUR PO ONE (09:00)
[2017-08-21] MEDS: THERAGRAN-M Tab PO SCH (09:49)
[2017-08-21] MEDS: VITAMIN B-1 PO SCH (09:49)
[2017-08-21] MEDS: XIFAXAN PO SCH (09:50)
[2017-08-21] MEDS: FOLVITE PO SCH (09:50)
[2017-08-21] MEDS: PROTONIX PO SCH (09:50)
[2017-08-21] MEDS: FEOSOL PO SCH (09:50)
[2017-08-21] MEDS: SODIUM CHLORIDE FLUSH SYRINGE 10 ML IV SCH (09:51)
== END 2017-08-21 11:32 | disposition home or self-care (01) | DRG 441 ==
LOC: ED 21:30 → 4A 08-17 02:03
PROVIDERS: ADMIT Internal Medicine; ATTEND Internal Medicine
PROC: 30233N1 Transfusion of Nonautologous Red Blood Cells into Peripheral Vein, Percutaneous Approach (ICD-10-PCS; principal; 2017-08-17)
PROC: 4A033R1 Measurement of Arterial Saturation, Peripheral, Percutaneous Approach (ICD-10-PCS; 2017-08-18)
DX: K72.90 Hepatic failure, unspecified without coma (principal); E43 Unspecified severe protein-calorie malnutrition; K92.2 Gastrointestinal hemorrhage, unspecified; D62 Acute posthemorrhagic anemia; E66.01 Morbid (severe) obesity due to excess calories; K70.30 Alcoholic cirrhosis of liver without ascites; F10.129 Alcohol abuse with intoxication, unspecified; E87.6 Hypokalemia; Z68.30 Body mass index [BMI] 30.0-30.9, adult; Z82.49 Family history of ischemic heart disease and other diseases of the circulatory system; Z71.41 Alcohol abuse counseling and surveillance of alcoholic
CPT/HCPCS: 36415; 36600; 70450; 74018; 74177; 80048; 80053; 80074; 80320; 81001; 82140; 82550; 82553; 82803; 82962; 83735; 84100; 84484; 85025; 85610; 86850; 86900; 86901; 86920; 93005; 93010; 94760; 99285; C9113; G0480; J2060; J2405; J3480; J7040; P9016; Q9967